=== PATIENT | female | born 1965 | race Caucasian/White ===

== ENCOUNTER → 2017-11-12 16:31 | Outpatient (CLI) | payer OTHER, SELFPAY ==
--- NOTE | 2017-11-12 16:35 | MM_ITS ---
MM Dig screening mamm BI w/CAD CAD Screening COMPARISON: Digital mammograms 08/01/2016 10 07/01/2015 INDICATION: There is no personal or family history of breast cancer. There is been previous cyst aspiration left breast. TECHNIQUE: Standard CC and MLO images were obtained. R2 CAD reviewed. FINDINGS: The breasts are composed primarily of fat with moderate fibroglandular densities in the subareolar regions bilaterally. There is a benign-appearing calcification left breast. Is no suspicious lesion and no suspicious microcalcifications. IMPRESSION: Stable exam no suspicious lesion seen BI-RADS Category: 2 Benign Finding(s) RECOMMENDED FOLLOW-UP: 1YR - 1 YEAR FOLLOW-UP (A letter has been sent to the patient regarding results of the study.)
== END ==
PROVIDERS: Family Provider Internal Medicine Adolescent Medicine; PCP Internal Medicine Adolescent Medicine; Visit Provider Nurse Practitioner Obstetrics & Gynecology
DX: Z12.31 Encounter for screening mammogram for malignant neoplasm of breast (principal)
CPT/HCPCS: 77067

== ENCOUNTER → 2018-02-06 07:14 | Outpatient (CLI) | payer OTHER, SELFPAY ==
--- NOTE | 2018-02-06 07:24 | CT_ITS ---
CT abdomen pelvis wo con CLINICAL INDICATION: Left flank pain ITS.REASON: LT FLANK PAIN ORDERING PHYSICIAN: Sarkis Lam MD PATIENT AGE: 52 years COMPARISON: None TECHNIQUE: Axial images obtained with sagittal and coronal reformats. All CT scans at the facility use one or more dose reduction, viz: automated exposure control; ma/kV adjustment per patient size (including targeted exams where dose is matched to indication; i.e. head); or iterative reconstruction technique. PROCEDURE: Oral Contrast: None IV Contrast: None . FINDINGS: There are bilateral noncalcified nodules present in both lower lobes measuring up to 8 mm in the right lower lobe laterally, 6 mm right lower lobe posteriorly, 7 mm right middle lobe, 5 mm left lower lobe posteriorly and poor millimeters left lower lobe laterally. There are no previous exams available for comparison. There is mild hepatomegaly with the liver measuring up to 23 cm in transverse dimension. The pancreas and adrenal glands are unremarkable. There are small stones present in the gallbladder. No renal calculi or hydronephrosis. No ureteral calculi. There are scattered small nodes present in the mesentery's. Retroperitoneal lymph nodes are also present measuring up to 2.5 x 1.5 cm in the left para-aortic region and 2.7 x 1.6 cm in the aortocaval area. There is thickening of the antrum and body of the stomach. This is nonspecific could be due to nondistention. Unremarkable appendix. No pelvic mass or abnormal fluid collection or focal inflammatory change. No evidence of diverticulitis. No acute bony anomalies. IMPRESSION: 1. Bilateral noncalcified nodules in the lung bases. Metastatic disease is a consideration. Consider chest CT with contrast for further evaluation 2. Retroperitoneal adenopathy with nodes measuring up to 2.7 x 1.6 cm. Small nodes are also present in the mesentery's. 3. Cholelithiasis with hepatomegaly 4. Mild thickening of the body and antrum of the stomach nonspecific possibly related to nondistention. Gastritis could cause a similar appearance
== END ==
PROVIDERS: Family Provider Internal Medicine Adolescent Medicine; PCP Internal Medicine Adolescent Medicine; Visit Provider Internal Medicine Adolescent Medicine
DX: R10.9 Unspecified abdominal pain (principal)
CPT/HCPCS: 74176

== ENCOUNTER → 2018-02-11 09:17 | Outpatient (CLI) | payer OTHER, SELFPAY ==
--- NOTE | 2018-02-11 10:18 | US_ITS ---
US gallbladder HISTORY: Abdominal pain with nausea ITS.REASON: GALLSTONES ORDERING PHYSICIAN: Sarkis Lam MD PATIENT AGE: 52 years Comparison: None FINDINGS: PANCREAS: Unremarkable. No obvious mass or abnormal fluid collection. No ductal dilatation LIVER: No focal liver lesions demonstrated. Homogeneous echogenicity. No intrahepatic biliary ductal dilatation evident. Liver appears somewhat enlarged RIGHT KIDNEY: Unremarkable. Normal size and echogenicity. No hydronephrosis GALLBLADDER: There are gallstones present. No gallbladder wall thickening or pericholecystic fluid. Common bile duct is slightly prominent at 7 mm. No intrahepatic biliary ductal dilatation. IMPRESSION: Cholelithiasis with mild prominence of the common bile duct at 7 mm Hepatomegaly
[2018-02-11 10:21] LABS: Blood Urea Nitrogen 12 mg/dL (7-18); Creatinine,Serum 0.88 mg/dL (0.55-1.02); Estimated Glomerular Filt Rate 68 ml/min (>60); GFR (African American) 82 ML/MIN (>60)
--- NOTE | 2018-02-11 10:37 | CT_ITS ---
CT chest w con HISTORY: ITS.REASON: PULMONARY MASS ORDERING PHYSICIAN: Sarkis Lam MD PATIENT AGE: 52 years COMPARISON: 02/06/2018 TECHNIQUE: Axial images obtained following the administration of 75 mL of Isovue 370 . Sagittal, and coronal reformatted images are also generated and reviewed. All CT scans at the facility use one or more dose reduction, viz: automated exposure control; ma/kV adjustment per patient size (including targeted exams where dose is matched to indication; i.e. head); or iterative reconstruction technique. FINDINGS: There are mildly prominent lymph nodes present in the cara and mediastinum. Subcarinal nodes are present measuring up to 2.5 x 1.5 cm. Left hilar nodes are present measuring up to 1.6 cm and right hilar nodes are present measuring up to 1.3 x 1.2 cm. There are multiple noncalcified pulmonary nodules in both upper and lower lobes suspicious for metastatic disease. The nodules measure up to 8 mm in the right upper and right lower lobe and 9 mm in the left upper lobe and 7 mm in the left lower lobe. No effusions. No infiltrates. No evidence of aortic aneurysm or central pulmonary embolus. No acute bony anomalies. Upper abdomen is remarkable for retroperitoneal adenopathy. There are also several isodense lesions of the spleen. Some of this can be related to the heterogeneous early arterial enhancement of the spleen however, multiple isodense lesions are also felt to be present in addition to this phenomenon. These are not readily identified on the unenhanced exam of the abdomen possibly related to splenic metastasis. These lesions measure up to 1 cm. IMPRESSION: 1. Multiple pulmonary nodules consistent with metastasis. 2. Mild mediastinal and hilar adenopathy. 3. Post enhanced images show multiple splenic lesions which could be related to metastasis as well. Consider ultrasound of the spleen to determine cystic or solid nature.
== END ==
PROVIDERS: Family Provider Internal Medicine Adolescent Medicine; PCP Internal Medicine Adolescent Medicine; Visit Provider Internal Medicine Adolescent Medicine
DX: K80.20 Calculus of gallbladder without cholecystitis without obstruction (principal); R91.8 Other nonspecific abnormal finding of lung field
CPT/HCPCS: 36415; 71260; 76705; 82565; 84520; Q9967

== ENCOUNTER → 2018-02-14 14:57 | Outpatient (CLI) | payer OTHER, SELFPAY ==
[2018-02-14 16:03] LABS: Basophils % 0.7 % (0.1-2.0); Eosinophils # 0.2 K/mm3 (0.0-0.4); Eosinophils % 3.8 % (0.1-12.0); Hematocrit 39.4 % (37.0-47.0); Hemoglobin 12.6 g/dL (12.2-16.2); Lymphocytes # 1.1 K/mm3 (0.7-4.5); Lymphocytes % 19.1 K/mm3 (10-50); Mean Corpuscular HGB Conc 32.1 g/dL (31.8-35.4); Mean Corpuscular Hemoglobin 29.4 pg (27.0-31.2); Mean Corpuscular Volume 91.5 fl (81-99); Mean Platelet Volume 8.1 fl (7.4-10.4); Monocytes # 0.4 K/mm3 (0.1-1.0); Monocytes % 7.2 % (1.7-9.3); Neutrophils # 3.9 K/mm3 (1.8-7.8); Neutrophils % 69.3 % (37.0-80.0); Platelet Count 297 K/mm3 (142-424); Red Cell Distribution Width 14.4 % (11.5-17.5); White Blood Count 5.6 K/mm3 (4.8-10.8)
[2018-02-14 17:26] LABS: Alanine Aminotransferase 32 U/L (12-78); Albumin Level 3.8 gm/dL (3.4-5.0); Albumin/Globulin Ratio 0.7 (1.1-1.8); Alkaline Phosphatase 151 U/L (46-116); Aspartate Amino Transferase 40 U/L (15-37); Bilirubin,Total 0.7 mg/dL (0.2-1.0); Blood Urea Nitrogen 15 mg/dL (7-18); Calcium 9.3 mg/dL (8.5-10.1); Carbon Dioxide 28 mmol/L (21.0-32.0); Chloride 100 mmol/L (98-107); Creatinine,Serum 0.93 mg/dL (0.55-1.02); Estimated Glomerular Filt Rate 64 ml/min (>60); GFR (African American) 77 ML/MIN (>60); Globulin 5.4 gm/dl (1.3-3.2); Glucose 95 mg/dL (74-106); Sodium 137 mmol/L (136-145); Total Protein,Serum 9.2 gm/dL (6.4-8.2)
[2018-02-16 18:04] LABS: CEA 1.2 ng/mL (0.0-4.7)
== END ==
PROVIDERS: Visit Provider Internal Medicine Adolescent Medicine
DX: R91.8 Other nonspecific abnormal finding of lung field (principal); R59.0 Localized enlarged lymph nodes
CPT/HCPCS: 36415; 80053; 82378; 85025; 86480; 88184

== ENCOUNTER → 2018-02-26 14:25 | Outpatient (CLI) | payer OTHER, SELFPAY ==
--- NOTE | 2018-02-26 15:12 | US_ITS ---
US extremity LT limited, US extremity RT limited Ordering Physician: Chiki Trinidad MD Patient Age: 52 years: Female HISTORY: ITS.REASON: Nodules TECHNIQUE: Ultrasound LEFT AXILLA ultrasound THE RIGHT AXILLA COMPARISON :CT chest 02-11-18 ======== ULTRASOUND LEFT AXILLA Scattered nonspecific benign-appearing nodes at left axilla on today's ultrasound. For lymph nodes were imaged The largest measuring to nearly 2 cm in length. The left axillary lymph nodes on recent CT appear to have fatty hilum and benign appearance as well here at the left axilla. No suspicious left axillary lymph nodes by either modality ULTRASOUND RIGHT AXILLA Scattered lymph nodes at right axillary region on today's ultrasound. Cortex may be slightly very thicker here here at the right axillary nodes, but the appear to be nonspecific overall fairly benign in appearance with no suspicious lymph node.. The largest measured 3.1 seem in length. By ultrasound. The left axillary lymph nodes on recent CT appear to have fatty hilum and benign appearance as well here at the left axilla. No significant suspicious right axillary lymph nodes by either modality IMPRESSION: Both right and left axilla were surveyed. Scattered overall benign-appearing lymph nodes in both right and left axilla, with no suspicious appearing axillary naomi masses on today's ultrasound, or when correlated with recent CT.. The right axillary left nodes are slightly larger with slightly thicker cortex but remain nonspecific/most likely benign in character
--- NOTE | 2018-02-26 15:12 | US_ITS ---
US soft tissue head and neck Ordering Physician: Chiki Trinidad MD Patient Age: 52 years: Female HISTORY: ITS.REASON: Noduleslymphadenopathy neck and chest. Abnormal pulmonary nodules. Suspect underlying neoplasm TECHNIQUE: Ultrasound neck lymph nodes COMPARISON :No CT neck available which would be the primary modality to evaluate for neck adenopathy There is a CT chest from February 11, 2018 utilized for comparison FINDINGS : Right neck . Right Submandibular glands initially imaged is reference point. Right submandibular gland measuring 3.8 cm in length and has a more hyperechoic character than subsequent abnormal appearing lymph nodes discussed below There are series somewhat abnormal appearing lymph node at the right neck.. They have lost a well-defined fatty hilum and the the cortex appears thickened measuring over 4 mm. One of the larger nodes measuring 2.45 cm in length 9.5 mm AP. On subsequent to this 2 adjacent nodes homogeneous hypoechoic lymph nodes lacking hilum are seen. The largest measures 1.25 cm and the other nearly 1 cm length.. Continuing inferiorly towards the right sternoclavicular region there are 2 small lymph nodes as well. Left neck. Left submandibular gland initially imaged is reference point3.8 cm maximum length x 1.2 cm . Inferior to this wrist series of similar abnormal appearing lymph nodes in the neck. The lack normal fatty hilum and appear to have thickened cortex. One of the larger node superiorly measuring 1.6 cm x 1 cm. Adjacent to this is a 1.25 cm x 0.95 cm diffusely hyperechoic lymph node. A 1.4 x 1.1 cm abnormal appearing diffusely hypoechoic node is seen just below this Recommend CT to further evaluate these abnormal appearing lymph nodes. some of the larger nodes could be accessed for ultrasound-guided FNA aspiration if need be for diagnosis. IMPRESSION Mildly enlarged abnormal-appearing, diffusely hypoechoic lymph nodes are seen in both right & left neck. These lymph nodes lack normal fatty hilum,-with what appears to be cortical thickening and lack of medullary fat. This pattern Suspect for neoplastic involvement. Recommend CT of neck with contrast to further evaluate
== END ==
PROVIDERS: Family Provider Internal Medicine Adolescent Medicine; PCP Internal Medicine Adolescent Medicine; Visit Provider Surgery
DX: R59.0 Localized enlarged lymph nodes (principal); R91.8 Other nonspecific abnormal finding of lung field
CPT/HCPCS: 76536; 76882

== ENCOUNTER → 2018-03-11 08:08 | Outpatient (CLI) | payer OTHER, SELFPAY ==
[2018-03-11 08:52] LABS: Blood Urea Nitrogen 10 mg/dL (7-18); Creatinine,Serum 0.99 mg/dL (0.55-1.02); Estimated Glomerular Filt Rate 59 ml/min (>60); GFR (African American) 72 ML/MIN (>60)
--- NOTE | 2018-03-11 09:05 | CT_ITS ---
CT soft tissue neck w con CLINICAL INDICATION: ITS.REASON: RT SIDE LYMPHNODE, LYMPHADENOPATHY ORDERING PHYSICIAN: Usha Ojeda MD PATIENT AGE: 52 years COMPARISON: None TECHNIQUE:Axial images obtained following the intravenous ministration of 75 mL's of Isovue-370 with sagittal and coronal reformats. All CT scans at the facility use one or more dose reduction, viz: automated exposure control, ma/kV adjustment per patient size (including targeted exams where dose is matched to indication, i.e. head), or iterative reconstruction technique. FINDINGS: There is slight prominence of the left nasopharyngeal soft tissues at the fossa of Rosenmuller. This is of questionable clinical significance. Direct visualization suggested.. There are scattered small lymph nodes involving both sides of the neck.. The largest node on the right is 2 x 1 cm and is anterior to the internal jugular vein and medial to the sternocleidomastoid indicating a level 2 lymph node. This is superior to the hyoid bone. There are other scattered small lymph nodes present including a left submental node at 12 x 8 mm and a level 2 lymph node on the left at 2 x 0.8 cm. The larynx has an unremarkable appearance. The epiglottis, glottic region and subglottic area are unremarkable. Thyroid gland has an unremarkable appearance. Images of the lung apices show a 6 mm noncalcified nodule in the left upper lobe posteriorly. No bony destructive process evident. IMPRESSION: 1. Mild bilateral cervical adenopathy. The largest node on the right was targeted for biopsy with ultrasound. 2. Prominence of the left nasopharyngeal mucosa at the fossa of Rosenmuller. This is of questioned clinical significance and could be inflammatory or infectious. Neoplasm is not totally excluded. Direct visualization is suggested.
--- NOTE | 2018-03-11 09:07 | US_ITS ---
FNA w guidance, US soft tissue head and neck HISTORY: Neck lymphadenopathy with multiple pulmonary nodules ITS.REASON: RT LYMPHADENOPATHY ORDERING PHYSICIAN: Usha Ojeda MD PATIENT AGE: 52 years COMPARISON: None Soft tissue neck ultrasound: 3 biopsy ultrasound performed to determine the approach for the biopsy straightening a 2 x 1 cm right-sided internal jugular lymph node. TECHNIQUE: Following obtaining informed consent, using aseptic technique and local anesthesia with buffered lidocaine, fine-needle aspiration was performed of the lymph node of interest in the right neck using sonographic guidance. 5 passes were made into the nodule with a 21-gauge needle. Specimen was given to cytology. 3 specimens were used for cytology and 2 were put in the RPMI solution The patient tolerated the procedure well without evidence of immediate complications and left the ultrasound suite in stable condition. CYTOLOGY:Negative for malignancy, compatible with a benign lymph node IMPRESSION: Successful sonographic guided fine needle aspiration of right neck lymph node showing benign findings
== END ==
PROVIDERS: Family Provider Internal Medicine Adolescent Medicine; PCP Internal Medicine Adolescent Medicine; Visit Provider Internal Medicine Medical Oncology
DX: R59.0 Localized enlarged lymph nodes (principal)
CPT/HCPCS: 76942; 10022; 36415; 70491; 76536; 82565; 84520; Q9967

== ENCOUNTER 2018-04-11 09:48 | Inpatient (IN) ==
[2018-04-11 11:09] LABS: Basophils % 0.6 % (0.1-2.0); Eosinophils # 0.2 K/mm3 (0.0-0.4); Eosinophils % 2.7 % (0.1-12.0); Hemoglobin 12.6 g/dL (12.2-16.2); Lymphocytes # 0.7 K/mm3 (0.7-4.5); Lymphocytes % 12.7 K/mm3 (10-50); Mean Corpuscular HGB Conc 32.4 g/dL (31.8-35.4); Mean Corpuscular Hemoglobin 30.2 pg (27.0-31.2); Mean Corpuscular Volume 93.1 fl (81-99); Mean Platelet Volume 8.1 fl (7.4-10.4); Monocytes # 0.4 K/mm3 (0.1-1.0); Monocytes % 6.8 % (1.7-9.3); Neutrophils # 4.5 K/mm3 (1.8-7.8); Neutrophils % 77.2 % (37.0-80.0); Platelet Count 267 K/mm3 (142-424); Red Blood Count 4.19 M/mm3 (4.20-5.40); Red Cell Distribution Width 14.7 % (11.5-17.5); White Blood Count 5.8 K/mm3 (4.8-10.8)
[2018-04-11 12:32] LABS: Alanine Aminotransferase 39 U/L (12-78); Albumin Level 3.8 gm/dL (3.4-5.0); Albumin/Globulin Ratio 0.7 (1.1-1.8); Alkaline Phosphatase 145 U/L (46-116); Anion Gap 12.5 mEq/L (5-15); Bilirubin,Total 0.9 mg/dL (0.2-1.0); Blood Urea Nitrogen 8 mg/dL (7-18); Calcium 9.6 mg/dL (8.5-10.1); Carbon Dioxide 31 mmol/L (21.0-32.0); Chloride 102 mmol/L (98-107); Globulin 5.2 gm/dl (1.3-3.2); Glucose 133 mg/dL (74-106); Lipase 152 u/L (73-393); Sodium 141 mmol/L (136-145)
[2018-04-11 12:37] LABS: Potassium 4.5 mmoL/L (3.5-5.1)
[2018-04-11 12:39] LABS: Aspartate Amino Transferase 44 U/L (15-37)
--- NOTE | 2018-04-11 19:18 | History & Physical Report ---
*Admission Date: 04/11/18 *Chief complaint: Abdominal pain *History of present illness: Aylin is a 52-year-old female with recent findings of diffuse lymphadenopathy, bone lesions, routine gap with so far negative workup for malignancy. She presented to clinic earlier today with complaint of 2 days of abdominal pain. Pain reportedly began in her left abdomen with progression to right upper quadrant and right lower quadrant. She additionally complains of shortness of breath with inability to take deep breaths. Part of this is due to the pain in her belly, part because she feels short of breath. For the past 2 months she has been taking Nexium and Zantac 2 times a day with mild decrease in original epigastric pain. Additionally complains of some mild nausea and hip pain. Denies any emesis, diarrhea, blood in stools, syncope, numbness or tingling, leg pain or swelling. Further interview elicits that she has had a new onset dry cough for the past 3 days. No known sick contacts. Appears quite anxious and depressed on exam. Admitted as a direct admit from clinic after initial workup including CMP, CBC, lipase returned with normal findings of both kidney and liver function, no signs of pancreatitis, positive protein gap. Additionally had an outpatient ultrasound with findings of gallstones and sludge but no biliary dilatation, or pericholecystic fluid. Appendix was not seen due to bowel gas. She has not eaten since yesterday, last bowel movement yesterday. [facility] History Medical History: Reports:: Anxiety, Cancer, Diabetes Mellitus Type 2, Heart Murmur, Hypertension, Lung Disease, Migraine, Seizures Denies:: Diabetes Mellitus Type 1, Internal Pacemaker, MRSA Other Medical History: Denies: Blood Transfusion Reaction Laterality Cases: Bilateral: Myringotomy (Ear Tubes), Tonsillectomy Other Surgeries: Yes: Cardiac Catheterization, , Tubal Ligation. No: Pacemaker Amputation: No Fractures: No - *Social History Educational Level: Completed High School Smoking Status: Never smoker Alcohol Intake: never Substance Use Type: denies use Occupational Status: employed Housing: house Household Members: spouse - Psychiatric History Expresses thoughts of harming self/others: None Suicide Plan Description: No Plan Pschychiatric History:: Reports:: Anxiety *Family Hx:: Coronary Artery Disease, Hypertension, Diabetes Review of Systems - Review of Systems Review of systems:: pertinent systems reviewed and negative unless documented below Meds Home Medications Medication Instructions Recorded Confirmed Type acetaminophen ER 650 mg 650 mg PO ONCE 10/22/17 04/11/18 History tablet,extended release aspirin 81 mg tablet,delayed 81 mg PO ONCE 10/22/17 04/11/18 History release escitalopram 10 mg tablet 10 mg PO ONCE 10/22/17 04/11/18 History hydrochlorothiazide 25 mg tablet 12.5 mg PO QAM 10/22/17 04/11/18 History meloxicam 15 mg tablet 15 mg PO ONCE 10/22/17 04/11/18 History sitagliptin 50 mg-metformin ER 500 1 tab PO QPM 10/22/17 04/11/18 History mg tablet,extended release 24h mp Esomeprazole Magnesium 20 mg PO BID 04/11/18 04/11/18 History raNITIdine HCl [Ranitidine HCl] 150 mg PO BID 04/11/18 04/11/18 History Allergies Allergy/AdvReac Type Severity Reaction Status Date / Time Penicillins Allergy Severe Seizure Verified 04/02/18 13:59 Latex, Natural Rubber Allergy Intermediate Hives Verified 04/02/18 13:59 Sulfa (Sulfonamide Allergy Intermediate Seizure Verified 04/02/18 13:59 Antibiotics) Exam Vital signs and Labs for Last 24 Hours: Temp Pulse Resp BP Pulse Ox 98.7 F 107 H 20 126/79 92 L 04/11/18 16:00 04/11/18 16:00 04/11/18 16:00 04/11/18 16:00 04/11/18 16:00 Laboratory Results - last 24 hr 04/11/18 10:36: Sodium 141, Potassium 4.5, Chloride 102, Carbon Dioxide 31, Anion Gap 12.5, BUN 8, Creatinine 0.88, Estimated GFR 68, Est GFR ( Amer) 82, Glucose 133 H, Calcium 9.6, Total Bilirubin 0.9, AST 44 H, ALT 39, Alkaline Phosphatase 145 H, Total Protein 9.0 H, Albumin 3.8, Globulin 5.2 H, Albumin/Globulin Ratio 0.7 L, Lipase 152 04/11/18 10:36: WBC 5.8, RBC 4.19 L, Hgb 12.6, Hct 39.0, MCV 93.1, MCH 30.2, MCHC 32.4, RDW 14.7, Plt Count 267, MPV 8.1, Neut % (Auto) 77.2, Lymph % (Auto) 12.7, Harney % (Auto) 6.8, Eos % (Auto) 2.7, Baso % (Auto) 0.6, Neut # (Auto) 4.5, Lymph # (Auto) 0.7, Harney # (Auto) 0.4, Eos # (Auto) 0.2, Baso # (Auto) 0.0 04/11/18 10:37: D-Dimer 1550 H* I & O for Last 24 hours: Intake & Output 04/08/18 04/09/18 04/10/18 04/11/18 23:59 23:59 23:59 23:59 Weight 81.675 kg - *Routine HEENT Exam Head: Present: normocephalic, atraumatic Eye: Present: EOMI, PERRL ENT: Present: mucous membranes moist - *Routine Neck Exam Present: supple, full ROM. Absent: JVD, lymphadenopathy, thyromegaly - *Routine Respiratory Exam Present: CTA bilaterally. Absent: prolonged expiratory phase, rales Comments: tachypneic with short/shallow breaths - *Routine Cardiovascular Exam Present: RRR, Normal S1, Normal S2. Absent: murmur - *Routine Abdominal Exam Present: soft, normoactive bowel sounds, tenderness (Diffuse tenderness most prominent in right upper and right lower quadrant, patient was comfortable and position.). Absent: rebound - *Routine Rectal Exam Patient deferred: visual exam - *Routine Exam Patient deferred: external exam - *Routine Extremities Exam Absent: cyanosis, clubbing, edema - *Routine Skin Exam Present: intact. Absent: cyanosis, erythema - *Routine Neurological Exam Present: alert, oriented X3, CN II-XII intact. Absent: altered mental status - Routine Psychiatric Exam Present: cooperative, anxious Comments: Tearful Assessment and Plan (1) Abdominal pain Current visit: Yes Status: Acute Category: Medical Code(s): R10.9 - Unspecified abdominal pain IV morphine for pain CT abdomen pelvis performed with no overt findings per my read however formal read still pending. Zofran for nausea IV bolus normal saline and transition to IV lactated Ringer's at 100 cc/h thereafter as patient has poor p.o. intake Reassess abdomen in the morning (2) Shortness of breath Current visit: Yes Status: Acute Category: Medical Code(s): R06.02 - Shortness of breath Patient has 2 days of shortness of breath, dry cough, tachypnea. D-dimer elevated greater than 1500. CT angiography ordered. Due to undiagnosed lymphadenopathy and concerning findings over the past 2 months for neoplastic process, will go ahead and therapeutically anticoagulate patient with heparin drip. (3) Type 2 diabetes mellitus Current visit: Yes Status: Chronic Qualifiers: Diabetes mellitus snf insulin use: without snf use Diabetes mellitus complication status: without complication Qualified Code(s): E11.9 - Type 2 diabetes mellitus without complications Category: Medical Code(s): E11.9 - Type 2 diabetes mellitus without complications Sliding scale insulin ordered, hold home medications Diabetic diet (4) Hypertension Current visit: Yes Status: Chronic Qualifiers: Hypertension type: essential hypertension Qualified Code(s): I10 - Essential (primary) hypertension Category: Medical Code(s): I10 - Essential (primary) hypertension Continue home HCTZ
[2018-04-12 04:22] LABS: Basophils % 0.8 % (0.1-2.0); Eosinophils # 0.2 K/mm3 (0.0-0.4); Hematocrit 35.6 % (37.0-47.0); Hemoglobin 11.4 g/dL (12.2-16.2); Lymphocytes % 19.6 K/mm3 (10-50); Mean Corpuscular HGB Conc 31.9 g/dL (31.8-35.4); Mean Corpuscular Hemoglobin 29.8 pg (27.0-31.2); Mean Corpuscular Volume 93.3 fl (81-99); Mean Platelet Volume 7.9 fl (7.4-10.4); Monocytes # 0.4 K/mm3 (0.1-1.0); Neutrophils # 3.5 K/mm3 (1.8-7.8); Neutrophils % 67.5 % (37.0-80.0); Platelet Count 225 K/mm3 (142-424); Red Blood Count 3.81 M/mm3 (4.20-5.40); Red Cell Distribution Width 14.8 % (11.5-17.5); White Blood Count 5.2 K/mm3 (4.8-10.8)
[2018-04-12 04:29] LABS: Albumin Level 3.1 gm/dL (3.4-5.0); Albumin/Globulin Ratio 0.6 (1.1-1.8); Anion Gap 8.8 mEq/L (5-15); Bilirubin,Total 0.7 mg/dL (0.2-1.0); Calcium 8.8 mg/dL (8.5-10.1); Potassium 3.8 mmoL/L (3.5-5.1); Total Protein,Serum 8.1 gm/dL (6.4-8.2)
--- NOTE | 2018-04-12 07:27 | Pharmacy Consult Notes ---
[facility] Pharmacy VTE Monitoring - Patient Demographics Admission date: 04/11/18 Report Date: 04/12/18 Time: 07:27 Allergies/Adverse Reactions: Patient Allergies Penicillins Allergy (Severe, Verified 04/02/18 13:59) Seizure Latex, Natural Rubber Allergy (Intermediate, Verified 04/02/18 13:59) Hives Sulfa (Sulfonamide Antibiotics) Allergy (Intermediate, Verified 04/02/18 13:59) Seizure Height: 1.65 m Weight: 81.675 kg Patient Problems: Current Active Problems Abdominal pain (Acute) Shortness of breath (Acute) Type 2 diabetes mellitus (Chronic) Hypertension (Chronic) - VTE Risk Labs: VTE Related Lab Results Hgb 11.4 g/dL (12.2-16.2) L 04/12/18 04:07 Hct 35.6 % (37.0-47.0) L 04/12/18 04:07 Plt Count 225 K/mm3 (142-424) 04/12/18 04:07 APTT 74.1 seconds (23.6-34.0) H* D 04/12/18 04:07 BUN 7 mg/dL (7-18) 04/12/18 04:07 Creatinine 0.97 mg/dL (0.55-1.02) 04/12/18 04:07 Estimated Creat Clear 89 mL/min (0-300) 04/12/18 04:07 Was VTE Risk Assessment Performed: Yes VTE Score: 1 VTE Risk Level: Very Low Risk Clinical Trial Participant: No - Prophylaxis VTE Prophylaxis Ordered?: Yes Types of VTE Prophylaxis: TEDS Knee High Location of Applied Device: Bilateral Lower Extremeties
--- NOTE | 2018-04-12 09:51 | Progress Note ---
Internal Medicine - PN: Subj *Date: 04/12/18 *Time: 07:30 Interval history: INterval improvement in abdominal pain with IV morphine overnight. CTA with no signs of PE. Still not eating or drinking yet. Dyspnea improved with pain control. Denies Productive cough, hemoptysis, diarrhea, nausea, fevers. Exam Vital signs and Labs for Last 24 Hours: Temp Pulse Resp BP Pulse Ox 98.2 F 87 16 102/50 90 L 04/12/18 08:00 04/12/18 08:00 04/12/18 08:00 04/12/18 08:00 04/12/18 08:00 Laboratory Results - last 24 hr 04/11/18 10:36: Sodium 141, Potassium 4.5, Chloride 102, Carbon Dioxide 31, Anion Gap 12.5, BUN 8, Creatinine 0.88, Estimated GFR 68, Est GFR ( Amer) 82, Glucose 133 H, Calcium 9.6, Total Bilirubin 0.9, AST 44 H, ALT 39, Alkaline Phosphatase 145 H, Total Protein 9.0 H, Albumin 3.8, Globulin 5.2 H, Albumin/Globulin Ratio 0.7 L, Lipase 152 04/11/18 10:36: WBC 5.8, RBC 4.19 L, Hgb 12.6, Hct 39.0, MCV 93.1, MCH 30.2, MCHC 32.4, RDW 14.7, Plt Count 267, MPV 8.1, Neut % (Auto) 77.2, Lymph % (Auto) 12.7, [place] % (Auto) 6.8, Eos % (Auto) 2.7, Baso % (Auto) 0.6, Neut # (Auto) 4.5, Lymph # (Auto) 0.7, [place] # (Auto) 0.4, Eos # (Auto) 0.2, Baso # (Auto) 0.0 04/11/18 10:37: D-Dimer 1550 H* 04/11/18 20:03: POC Glucose 101 04/11/18 21:46: APTT 275.0 H* 04/12/18 04:07: WBC 5.2, RBC 3.81 L, Hgb 11.4 L, Hct 35.6 L, MCV 93.3, MCH 29.8, MCHC 31.9, RDW 14.8, Plt Count 225, MPV 7.9, Neut % (Auto) 67.5, Lymph % (Auto) 19.6, [place] % (Auto) 8.0, Eos % (Auto) 4.0, Baso % (Auto) 0.8, Neut # (Auto) 3.5, Lymph # (Auto) 1.0, [place] # (Auto) 0.4, Eos # (Auto) 0.2, Baso # (Auto) 0.0 04/12/18 04:07: Sodium 137, Potassium 3.8, Chloride 103, Carbon Dioxide 29, Anion Gap 8.8, BUN 7, Creatinine 0.97, Estimated Creat Clear 89, Estimated GFR 61, Est GFR ( Amer) 74, Glucose 125 H, Calcium 8.8, Total Bilirubin 0.7, AST 30 D, ALT 31, Alkaline Phosphatase 128 H, Total Protein 8.1, Albumin 3.1 L D, Globulin 5.0 H, Albumin/Globulin Ratio 0.6 L 04/12/18 04:07: APTT 74.1 H* D 04/12/18 06:46: POC Glucose 141 H I & O for Last 24 hours: Intake & Output 04/09/18 04/10/18 04/11/18 04/12/18 23:59 23:59 23:59 23:59 Intake Total 2916 / 2916 Balance 2916 / 2916 Weight 81.675 kg 81.675 kg - *Routine HEENT Exam Head: Present: normocephalic, atraumatic Eye: Present: EOMI, PERRL ENT: Present: mucous membranes moist - *Routine Neck Exam Present: supple, full ROM. Absent: JVD, lymphadenopathy - *Routine Respiratory Exam Present: CTA bilaterally. Absent: accessory muscle use, prolonged expiratory phase, rales, wheezes - *Routine Cardiovascular Exam Present: RRR, Normal S1, Normal S2. Absent: murmur - *Routine Abdominal Exam Present: soft, normoactive bowel sounds, tenderness (On right side, non tender on left. No rebound) - *Routine Rectal Exam Patient deferred: visual exam - *Routine Exam Patient deferred: external exam - *Routine Extremities Exam Absent: cyanosis, clubbing, edema - *Routine Skin Exam Present: intact. Absent: cyanosis, erythema - *Routine Neurological Exam Present: alert, oriented X3, CN II-XII intact. Absent: altered mental status Assessment and Plan (1) Abdominal pain Current visit: Yes Status: Acute Category: Medical Code(s): R10.9 - Unspecified abdominal pain interval improvement. - Advance diet - no concern for intraabdominal pathology, pancreatitis, acute gall bladder disease, renal disease. - Initiate bowel regimen - transition to PO meds (2) Shortness of breath Current visit: Yes Status: Acute Category: Medical Code(s): R06.02 - Shortness of breath improved - Supplemental O2 as needed, goal >92 while awake and>88 while asleep - No PE on CTA. - de-escalate heparin, prophy dosing (3) Type 2 diabetes mellitus Current visit: Yes Status: Chronic Qualifiers: Diabetes mellitus care home insulin use: without care home use Diabetes mellitus complication status: without complication Qualified Code(s): E11.9 - Type 2 diabetes mellitus without complications Category: Medical Code(s): E11.9 - Type 2 diabetes mellitus without complications diabetic diet, SSI (4) Hypertension Current visit: Yes Status: Chronic Qualifiers: Hypertension type: essential hypertension Qualified Code(s): I10 - Essential (primary) hypertension Category: Medical Code(s): I10 - Essential (primary) hypertension stable, continue home regimen
--- NOTE | 2018-04-13 13:33 | Discharge Summary ---
General - General Admission date:: 04/11/18 Discharge date: 04/13/18 HPI HPI: Aylin is a 52-year-old female with recent findings of diffuse lymphadenopathy, bone lesions, routine gap with so far negative workup for malignancy. She presented to clinic earlier today with complaint of 2 days of abdominal pain. Pain reportedly began in her left abdomen with progression to right upper quadrant and right lower quadrant. She additionally complains of shortness of breath with inability to take deep breaths. Part of this is due to the pain in her belly, part because she feels short of breath. For the past 2 months she has been taking Nexium and Zantac 2 times a day with mild decrease in original epigastric pain. Additionally complains of some mild nausea and hip pain. Denies any emesis, diarrhea, blood in stools, syncope, numbness or tingling, leg pain or swelling. Further interview elicits that she has had a new onset dry cough for the past 3 days. No known sick contacts. Appears quite anxious and depressed on exam. Admitted as a direct admit from clinic after initial workup including CMP, CBC, lipase returned with normal findings of both kidney and liver function, no signs of pancreatitis, positive protein gap. Additionally had an outpatient ultrasound with findings of gallstones and sludge but no biliary dilatation, or pericholecystic fluid. Appendix was not seen due to bowel gas. She has not eaten since yesterday, last bowel movement yesterday. Hospital Course Hospital Course: Patient admitted directly from clinic after outpatient workup with lab work and ultrasound showed no acute explanation for abdominal pain. Due to intractable pain admitted for IV fluids and pain management. Patient responded to IV hydration, medication for nausea, and pain control. Etiology unclear after admission leading to CT abdomen pelvis which still showed no acute abdominal pathology. D-dimer found to be elevated during admission along with shortness of breath, leading to CT angiography of chest, negative for PE. Transition to room air with improvement in symptoms over 2 days. Gradually able to tolerate oral intake with increase in p.o. intake. Patient returned to baseline with no clear etiology for abdominal pain other than possible relation to diffuse lymphadenopathy from unknown neoplastic or sarcoid process. Medically stable for discharge, tolerating oral medications and p.o. intake. Hemodynamically stable without fever. Objective Vital signs: Temp Pulse Resp BP Pulse Ox 97.8 F 89 16 130/77 96 04/13/18 08:00 04/13/18 08:00 04/13/18 08:00 04/13/18 08:00 04/13/18 08:00 - *Routine HEENT Exam Head: Present: normocephalic, atraumatic Eye: Present: EOMI, PERRL ENT: Present: mucous membranes moist - *Routine Neck Exam Present: supple, full ROM. Absent: JVD - *Routine Respiratory Exam Present: CTA bilaterally. Absent: accessory muscle use, prolonged expiratory phase, rales, wheezes - *Routine Cardiovascular Exam Present: RRR, Normal S1, Normal S2. Absent: murmur - *Routine Abdominal Exam Present: soft, normoactive bowel sounds, tenderness (Use with interval improvement) - *Routine Rectal Exam Patient deferred: visual exam - *Routine Exam Patient deferred: external exam - *Routine Extremities Exam Absent: cyanosis, clubbing, edema - *Routine Skin Exam Present: intact. Absent: cyanosis, erythema, lesions - *Routine Neurological Exam Present: alert, oriented X3, CN II-XII intact. Absent: altered mental status DS: Diagnosis - Discharge Diagnosis (1) Abdominal pain Status: Acute Problem details: Improved, continue pain control and outpatient setting (2) Shortness of breath Status: Resolved Problem details: Resolved, stable on room air with no tachypnea (3) Type 2 diabetes mellitus Status: Chronic Problem details: Resume home regimen (4) Hypertension Status: Chronic Problem details: Resume home regimen Discharge Plan - Patient Discharge Instructions ACTIVITY: Continue current activity, Ambulate as tolerated Patient Instructions: DI for Abdominal Pain-Adult, DI for Diabetes Type 2, DI for Shortness of Breath - Follow up Plan Follow up with: King Pearce MD [Primary Care Provider] - 2 weeks Disposition: Home, Self-Retirement Medications: Home Medications Medication Instructions Recorded Confirmed Type escitalopram 10 mg tablet 10 mg PO ONCE 10/22/17 04/11/18 History hydrochlorothiazide 25 mg tablet 12.5 mg PO QAM 10/22/17 04/11/18 History sitagliptin 50 mg-metformin ER 500 1 tab PO QPM 10/22/17 04/11/18 History mg tablet,extended release 24h mp Esomeprazole Magnesium 20 mg PO BID 04/11/18 04/11/18 History raNITIdine HCl [Ranitidine HCl] 150 mg PO BID 04/11/18 04/11/18 History Prescriptions/Medication Reconciliation: New Acetaminophen [Acetaminophen 325mg tab] 650 mg PO Q4HP PRN tablet PRN Reason: Mild To Moderate Pain Ondansetron [Zofran 4mg ODT] 4 mg PO Q6HP PRN 4 Days #12 tab.rapdis PRN Reason: Nausea Oxycodone HCl [Oxycodone (IR) 5mg Cap] 5 mg PO Q6HP PRN 3 Days #12 cap PRN 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
== END 2018-04-13 14:57 | disposition home or self-care (01) ==
LOC: 2ND 09:48 → RAD 09:48 → OBSVTOIN 15:53
PROVIDERS: ADMIT Internal Medicine Adolescent Medicine; ATTEND Internal Medicine Adolescent Medicine

== ENCOUNTER → 2018-05-28 15:33 | Outpatient (CLI) | payer OTHER, SELFPAY ==
[2018-05-28 15:51] LABS: Basophils % 0.6 % (0.1-2.0); Eosinophils # 0.1 K/mm3 (0.0-0.4); Hematocrit 36.7 % (37.0-47.0); Hemoglobin 11.8 g/dL (12.2-16.2); Mean Corpuscular Volume 93.6 fl (81-99); Mean Platelet Volume 8.4 fl (7.4-10.4); Monocytes # 0.5 K/mm3 (0.1-1.0); Monocytes % 10.2 % (1.7-9.3); Neutrophils # 3.6 K/mm3 (1.8-7.8); Neutrophils % 68.1 % (37.0-80.0); Platelet Count 235 K/mm3 (142-424); Red Blood Count 3.92 M/mm3 (4.20-5.40); Red Cell Distribution Width 14.9 % (11.5-17.5); White Blood Count 5.3 K/mm3 (4.8-10.8)
[2018-05-28 20:01] LABS: Alanine Aminotransferase 36 U/L (12-78); Albumin Level 3.6 gm/dL (3.4-5.0); Albumin/Globulin Ratio 0.8 (1.1-1.8); Alkaline Phosphatase 169 U/L (46-116); Anion Gap 11.2 mEq/L (5-15); Aspartate Amino Transferase 35 U/L (15-37); Bilirubin,Total 0.7 mg/dL (0.2-1.0); Blood Urea Nitrogen 12 mg/dL (7-18); Calcium 9.1 mg/dL (8.5-10.1); Carbon Dioxide 30 mmol/L (21.0-32.0); Chloride 102 mmol/L (98-107); Creatinine,Serum 0.87 mg/dL (0.55-1.02); Estimated Glomerular Filt Rate 69 ml/min (>60); GFR (African American) 83 ML/MIN (>60); Globulin 4.7 gm/dl (1.3-3.2); Glucose 83 mg/dL (74-106); Potassium 4.2 mmoL/L (3.5-5.1); Sodium 139 mmol/L (136-145); Total Protein,Serum 8.3 gm/dL (6.4-8.2)
== END ==
PROVIDERS: Family Provider Internal Medicine Adolescent Medicine; PCP Internal Medicine Adolescent Medicine; Visit Provider Surgery
DX: K81.1 Chronic cholecystitis (principal)
CPT/HCPCS: 36415; 80053; 85025

== ENCOUNTER 2020-09-03 08:38 | Outpatient (CLI) | payer OTHER, SELFPAY ==
[2020-09-03] VITALS (10 sets, daily range): BP systolic 98–133; BP diastolic 55–78; PULSE 73–88; RESP 16–20; TEMP 36.9–37.1; O2SAT 92–95
== END 2020-09-03 11:37 | disposition home or self-care (01) ==
PROVIDERS: PCP Internal Medicine Adolescent Medicine; Visit Provider Internal Medicine Adolescent Medicine
DX: U07.1 COVID-19 (principal)
CPT/HCPCS: 96365

== ENCOUNTER → 2022-07-11 12:35 | Outpatient (CLI) | payer OTHER, SELFPAY ==
--- NOTE | 2022-07-11 12:39 | MM_ITS ---
PROCEDURE INFORMATION: Exam: MG Bilateral Screening 3D Mammography Exam date and time: 07/11/2022 12:56 PM Age: 56 years old Clinical indication: Screening examination; Additional info: Routine screening mammogram TECHNIQUE: Imaging protocol: Bilateral Screening tomosynthesis and 2D mammography including computer-aided detection (CAD) when performed. COMPARISON: 1. MG SCBI MM Dig screening mamm BI w/CAD 09/16/2017 16:41 2. MG DMSB DIG MAMM-SCREEN CHRISTIAN 01/08/2016 15:08 3. MG DMSB DIG MAMM-SCREEN CHRISTIAN 01/07/2015 16:47 4. MG DIGMAMMS MAMMOGRAM SCREEN-CHIEF MEDIA OFFICER N/C 10/07/2012 09:51 FINDINGS: MAMMOGRAPHY: Breast composition: The breast is heterogeneously dense, which may obscure small masses. Mass: None. Architectural distortion: No new or suspicious architectural distortion. Calcifications: No new or suspicious calcifications are present Asymmetric density: No new or suspicious asymmetric density is present Skin thickening: None. Axillary adenopathy: None. IMPRESSION: No mammographic evidence of malignancy. Recommend annual screening mammography unless otherwise clinically indicated. ASSESSMENT: BI-RADS category 1: Negative
== END ==
PROVIDERS: PCP Internal Medicine Adolescent Medicine; Visit Provider Nurse Practitioner Obstetrics & Gynecology
DX: Z12.31 Encounter for screening mammogram for malignant neoplasm of breast (principal)
CPT/HCPCS: 77063; 77067

== ENCOUNTER 2023-04-10 09:10 | Outpatient (CLI) | payer OTHER, SELFPAY ==
[2023-04-10] VITALS (7 sets, daily range): BP systolic 100–119; BP diastolic 45–64; PULSE 68–73; RESP 18; TEMP 36.9; O2SAT 97
== END 2023-04-10 12:45 | disposition home or self-care (01) ==
PROVIDERS: PCP Internal Medicine Adolescent Medicine; Visit Provider Internal Medicine
DX: D86.9 Sarcoidosis, unspecified (principal)
CPT/HCPCS: 96413; 96415; J1745

== ENCOUNTER → 2023-04-23 07:48 | Outpatient (CLI) | payer OTHER, SELFPAY ==
[2023-04-23 08:20] LABS: Basophils % 0.5 % (0.1-2.0); Eosinophils # 0.2 K/mm3 (0.0-0.4); Eosinophils % 3.9 % (0.1-12.0); Hematocrit 31.2 % (37.0-47.0); Hemoglobin 9.6 g/dL (12.2-16.2); Lymphocytes # 1.6 K/mm3 (0.7-4.5); Lymphocytes % 35.8 % (10-50); Mean Corpuscular HGB Conc 30.8 g/dL (31.8-35.4); Mean Corpuscular Hemoglobin 29.1 pg (27.0-31.2); Mean Corpuscular Volume 94.4 fl (81-99); Mean Platelet Volume 8.7 fl (7.4-10.4); Monocytes # 0.4 K/mm3 (0.1-1.0); Monocytes % 9.3 % (1.7-9.3); Neutrophils # 2.3 K/mm3 (1.8-7.8); Neutrophils % 50.6 % (37.0-80.0); Platelet Count 185 K/mm3 (142-424); Red Cell Distribution Width 17.7 % (11.5-17.5); White Blood Count 4.6 K/mm3 (4.8-10.8)
[2023-04-23 09:17] LABS: Alanine Aminotransferase 25 U/L (12-78); Albumin Level 4.3 g/dl (3.5-5.0); Albumin/Globulin Ratio 0.8 (1.1-1.8); Alkaline Phosphatase 134 U/L (38-126); Anion Gap 13.9 mEq/L (5-15); Aspartate Amino Transferase 41 U/L (14-36); Bilirubin,Total 1.5 mg/dl (0.2-1.3); Blood Urea Nitrogen 12 mg/dl (7-17); Calcium 9.6 mg/dl (8.4-10.2); Carbon Dioxide 26 mmol/L (22.0-30.0); Chloride 103 mmol/L (98-107); Estimated Glomerular Filt Rate 74 ml/min (>60); GFR (African American) 90 ML/MIN (>60); Globulin 5.2 g/dL (1.3-3.2); Glucose 132 mg/dl (74-100); Potassium 3.9 mmoL/L (3.5-5.1); Sodium 139 mmol/L (136-145); Total Protein,Serum 9.5 g/dl (6.3-8.2)
[2023-04-23 09:30] LABS: Iron 107 ug/dL (37-170)
[2023-04-23 09:40] LABS: Total Iron Binding Capacity 449 ug/dL (265-497)
[2023-04-23 10:06] LABS: Ferritin 6.98 ng/ml (11.1-264)
[2023-04-23 10:07] LABS: Vitamin B12 520 pg/mL (239-931)
== END ==
PROVIDERS: PCP Internal Medicine Adolescent Medicine; Visit Provider Internal Medicine Adolescent Medicine
DX: D86.0 Sarcoidosis of lung (principal); D64.9 Anemia, unspecified
CPT/HCPCS: 36415; 80053; 82607; 82728; 83540; 83550; 85025; 85044

== ENCOUNTER 2023-04-26 07:30 | Outpatient (CLI) | payer OTHER, SELFPAY ==
[2023-04-26] VITALS (10 sets, daily range): BP systolic 112–130; BP diastolic 65–76; PULSE 68–84; RESP 18; O2SAT 97–99
== END 2023-04-26 11:40 | disposition home or self-care (01) ==
LOC: INF 07:31
PROVIDERS: PCP Internal Medicine Adolescent Medicine; Visit Provider Internal Medicine
DX: D86.9 Sarcoidosis, unspecified (principal); Z51.12 Encounter for antineoplastic immunotherapy
CPT/HCPCS: 96413; 96415; J1745

== ENCOUNTER 2023-05-25 07:25 | Outpatient (CLI) | payer OTHER, SELFPAY ==
[2023-05-25] VITALS (9 sets, daily range): BP systolic 98–133; BP diastolic 62–85; PULSE 64–67; RESP 18; TEMP 36.4; O2SAT 96–97
== END 2023-05-25 11:40 | disposition home or self-care (01) ==
LOC: INF 07:26
PROVIDERS: PCP Internal Medicine Adolescent Medicine; Visit Provider Internal Medicine
DX: D86.9 Sarcoidosis, unspecified (principal)
CPT/HCPCS: 96413; 96415; J1745

== ENCOUNTER → 2023-07-10 09:15 | Outpatient (POV) | payer OTHER, SELFPAY | PROVIDERS: PCP Internal Medicine Adolescent Medicine; Visit Provider Dermatology | DX: Z00.00 Encounter for general adult medical examination without abnormal findings (principal) ==

== ENCOUNTER 2023-07-13 11:21 | Day surgery (SDC) | payer OTHER, SELFPAY ==
[2023-07-12 10:32] VITALS: BMI 26.3
[2023-07-13 11:44] VITALS: BP 119/69; PULSE 64; RESP 18; TEMP 36.6; O2SAT 96
[2023-07-13 11:49] LABS: POC Glucose,Bedside 111 (70-110)
--- NOTE | 2023-07-13 12:23 | P.PNANES_ITS ---
[facility] Disclaimer: The information contained in this section may have been updated after the patient was seen, as this information can be updated by other users. 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 current occupational exposures/hazards: No caffeine: No [facility] Anesthesia Checklist Patient Identification Patient Identification: Arm Band Structural Data Admitted From: Home Planned Operative Procedure/s: colonoscopy Consent for Planned Operative Procedure(s) Verified: Yes Verified Documents: Surgical Consent and History and Physical NPO Status Verified Time NPO: 00:00 Additional verifications Anesthesia Reactions: No Hx Blood Transfusions: No Blood Transfusion Reaction: No Airway Assessment Mallampati Score:: Class II C-Spine Mobility Assessed: Yes TMJ Mobility Assessed: Yes Dentition: Good Dentition Neurological Assessment Level of Consciousness: Awake and Alert Anesthesia Plan Anesthesia Risk discussed: Yes Anesthesia Plan: Verified ASA Class: III Anesthesia Type: MAC
--- NOTE | 2023-07-13 12:49 | HMH.SCOPE ---
Procedure: Date: 07/13/23 Patient Date of :: 1965 Procedure Performed:: Total colonoscopy with biopsy and polypectomy using biopsy forceps Indications:: Patient is a 57-year-old female from [place] with a history of anemia (newly diagnosed), type 2 diabetes, hypertension, sarcoidosis. She was scheduled for colonoscopy as referral from Dr. Lam. She has previously been seen by Dr. Trinidad for endoscopies and gallbladder issues. He had performed EGD and colonoscopy 03/21/2018. Colonoscopy revealed moderate bowel preparation with significant spasticity and lack of relaxation. She has a few scattered sigmoid diverticuli and minimal hemorrhoidal cushions. There was a complex lobulated 1 cm sessile ridge polyp of the cecum (Tubular Adenoma). She was seen back in the office in follow-up and he recommended 1 to 2-year follow-up colonoscopy due to the size/nature of the polyp, moderate preparation, and spasticity/lack of relaxation. Of note, she had findings of nodular liver when Dr. Trinidad had performed cholecystectomy in 2018. Recent laboratory evaluation revealed bilirubin 1.5, AST 41, normal ALT at 25, alkaline phosphatase 134. She also has some anemia with hemoglobin of 9.6 and hematocrit of 31.2. She has normal iron, low ferritin, normal vitamin B12. She denies any melena or hematochezia type symptoms. She states that her brother was diagnosed with colon cancer at age 50. She is on Remicade for sarcoidosis. Performing Provider:: Melo Ni MD Referring Provider:: Sarkis Lam MD Sedation:: MAC sedation Procedure:: Patient history was obtained and appropriate physical examination was performed. Patient's medications and allergies were reviewed. Informed consent was obtained after explaining the benefits, alternatives, and risks of the procedure including, but not limited to, bleeding, perforation, missed lesions, and adverse reaction to anesthesia medications. Patient was transported to endoscopy procedure room. Patient was connected to monitoring devices. Throughout the procedure the patient's blood pressure, pulse, and oxygen saturations were monitored continuously. Patient identification and planned procedure were verified by the staff. Patient was positioned in lateral decubitus position. Digital anorectal exam was performed. Variable stiffness Olympus colonoscope was inserted and advanced under direct visualization to the cecum. Adequacy of the colonic preparation was noted. The colonoscope was advanced a short distance into the terminal ileum. The colonoscope was then slowly withdrawn while carefully examining the color, texture, anatomy, and integrity of the mucosoa circumferentially. Within the rectum retroflexion was performed. Colonoscope was then withdrawn. . There was some prominent irregular mucosa in the cecum and several biopsies were obtained. Likely inconsequential. In the ascending colon there was a focal pigmented area, likely normal colonic mucosa, biopsied. There was a diminutive tiny polyp in the ascending colon removed with biopsy forceps. There was thought to be a possible ridge polyp seen upon advancement of the colonoscope but repeated reinsertion and reinspection of the right colon revealed no obvious polyp. She did have some significant spasticity of the colon and there was stool coating the right colon mucosa which was only able to be partially cleared even with large volume trans colonoscopic irrigation and suctioning. There were a few diverticuli noted in the sigmoid colon. Retroflexion revealed minimal nonpathologic hemorrhoids. . Findings:: Somewhat poor preparation of the right colon with stool coating the bonilla Irregular mucosa at the cecum, likely normal variant, biopsied Focal area pigmented mucosa, likely inconsequential in the ascending colon biopsied. Tiny diminutive polyp in the ascending colon removed with biopsy forceps Recommendations:: Given suboptimal preparation due
[2023-07-13 13:08] VITALS: O2SAT 97
[2023-07-13 13:47] VITALS: BP 83/50; PULSE 69; RESP 18; TEMP 36.1; O2SAT 95
[2023-07-13 13:57] VITALS: BP 93/56; PULSE 66; RESP 18; O2SAT 97
[2023-07-13 14:07] VITALS: BP 95/57; PULSE 67; RESP 18; O2SAT 96
[2023-07-13 14:17] VITALS: BP 108/58; PULSE 69; RESP 18; O2SAT 97
== END 2023-07-13 14:17 | disposition home or self-care (01) ==
PROVIDERS: PCP Internal Medicine Adolescent Medicine; Visit Provider Surgery
PROC: 0DJD8ZZ Inspection of Lower Intestinal Tract, Via Natural or Artificial Opening Endoscopic (ICD-10-PCS; CPT 45380; principal; 2023-07-13 11:30)
DX: E11.9 Type 2 diabetes mellitus without complications; Z12.11 Encounter for screening for malignant neoplasm of colon; D64.9 Anemia, unspecified; Z86.010 Personal history of colon polyps; D12.2 Benign neoplasm of ascending colon
CPT/HCPCS: 45380; 82962

== ENCOUNTER 2023-07-24 08:01 | Outpatient (CLI) | payer OTHER, SELFPAY ==
[2023-07-24] VITALS (13 sets, daily range): BP systolic 107–128; BP diastolic 62–77; PULSE 73–82; RESP 14–18; TEMP 36.6; O2SAT 96–98
== END 2023-07-24 12:15 | disposition home or self-care (01) ==
LOC: INF 08:01
PROVIDERS: PCP Internal Medicine Adolescent Medicine; Visit Provider Internal Medicine
DX: D86.9 Sarcoidosis, unspecified (principal)
CPT/HCPCS: 96375; 96413; 96415; J1745

== ENCOUNTER → 2023-08-11 07:29 | Outpatient (CLI) | payer OTHER, SELFPAY ==
[2023-08-11 07:46] LABS: MANUAL DIFFERENTIAL MANUAL DIFFERENTIAL (MANUAL DIFF)
[2023-08-11 07:52] LABS: Basophils % 0.5 % (0.1-2.0); Eosinophils # 0.2 K/mm3 (0.0-0.4); Eosinophils % 5.3 % (0.1-12.0); Hematocrit 36.8 % (37.0-47.0); Hemoglobin 11.8 g/dL (12.2-16.2); Lymphocytes # 1.4 K/mm3 (0.7-4.5); Lymphocytes % 35.2 % (10-50); Mean Corpuscular HGB Conc 32.1 g/dL (31.8-35.4); Mean Corpuscular Hemoglobin 32.3 pg (27.0-31.2); Mean Corpuscular Volume 100.6 fl (81-99); Mean Platelet Volume 9.1 fl (7.4-10.4); Monocytes # 0.4 K/mm3 (0.1-1.0); Monocytes % 10.5 % (1.7-9.3); Neutrophils # 1.9 K/mm3 (1.8-7.8); Neutrophils % 48.5 % (37.0-80.0); Platelet Count 161 K/mm3 (142-424); Red Blood Count 3.66 M/mm3 (4.20-5.40); Red Cell Distribution Width 17.1 % (11.5-17.5); White Blood Count 3.9 K/mm3 (4.8-10.8)
[2023-08-11 08:09] LABS: Chloride 102 mmol/L (98-107); Potassium 3.6 mmoL/L (3.5-5.1); Sodium 137 mmol/L (136-145)
[2023-08-11 08:11] LABS: Alanine Aminotransferase 29 U/L (12-78); Aspartate Amino Transferase 43 U/L (14-36); Blood Urea Nitrogen 9 mg/dl (7-17); Estimated Glomerular Filt Rate 87 ml/min (>60); GFR (African American) 105 ML/MIN (>60)
[2023-08-11 08:12] LABS: Albumin Level 4.3 g/dl (3.5-5.0); Alkaline Phosphatase 134 U/L (38-126); Anion Gap 13.6 mEq/L (5-15); Bilirubin,Total 1.2 mg/dl (0.2-1.3); Carbon Dioxide 25 mmol/L (22.0-30.0); Globulin 4.3 g/dL (1.3-3.2); Glucose 141 mg/dl (74-100); Total Protein,Serum 8.6 g/dl (6.3-8.2)
[2023-08-11 11:03] LABS: Eosinophils % 7 % (0-3); Lymphocytes % 37 % (10-50); Monocytes % 11 % (2-9); Neutrophils % 45 % (42-76); Nucleated Red Blood Cells 2; Total Cells Counted 100
[2023-08-11 11:04] LABS: Anisocytosis 1+; Hypochromasia 1+; Macrocytosis 1+; Platelet Estimate Normal
== END ==
LOC: LAB 07:31
PROVIDERS: Internal Medicine; PCP Internal Medicine Adolescent Medicine
DX: Z79.899 Other long term (current) drug therapy (principal)
CPT/HCPCS: 36415; 80053; 85007; 85014; 85018; 85048; 85049

== ENCOUNTER 2023-10-30 08:06 | Outpatient (CLI) | payer OTHER, SELFPAY ==
[2023-10-30 08:31] LABS: Basophils # 0.1 K/mm3 (0-0.2); Eosinophils # 0.2 K/mm3 (0.0-0.4); Eosinophils % 4.5 % (0.1-12.0); Hematocrit 38.2 % (37.0-47.0); Hemoglobin 12.2 g/dL (12.2-16.2); Lymphocytes # 1.4 K/mm3 (0.7-4.5); Lymphocytes % 29.3 % (10-50); Mean Corpuscular HGB Conc 31.9 g/dL (31.8-35.4); Mean Corpuscular Hemoglobin 33.6 pg (27.0-31.2); Mean Platelet Volume 8.7 fl (7.4-10.4); Monocytes # 0.5 K/mm3 (0.1-1.0); Monocytes % 9.5 % (1.7-9.3); Neutrophils # 2.7 K/mm3 (1.8-7.8); Neutrophils % 55.7 % (37.0-80.0); Platelet Count 202 K/mm3 (142-424); Red Blood Count 3.64 M/mm3 (4.20-5.40); Red Cell Distribution Width 16.3 % (11.5-17.5); White Blood Count 4.8 K/mm3 (4.8-10.8)
[2023-10-30 09:01] LABS: Alanine Aminotransferase 29 U/L (12-78); Albumin Level 4.2 g/dl (3.5-5.0); Alkaline Phosphatase 116 U/L (38-126); Anion Gap 11.4 mEq/L (5-15); Aspartate Amino Transferase 37 U/L (14-36); Bilirubin,Total 1.5 mg/dl (0.2-1.3); Blood Urea Nitrogen 9 mg/dl (7-17); Calcium 9.5 mg/dl (8.4-10.2); Carbon Dioxide 27 mmol/L (22.0-30.0); Chloride 103 mmol/L (98-107); Estimated Glomerular Filt Rate 87 ml/min (>60); GFR (African American) 105 ML/MIN (>60); Globulin 4.2 g/dL (1.3-3.2); Glucose 130 mg/dl (74-100); Potassium 3.4 mmoL/L (3.5-5.1); Sodium 138 mmol/L (136-145); Total Protein,Serum 8.4 g/dl (6.3-8.2)
[2023-10-30 16:32] LABS: Chol/HDL Ratio 4.4 (1-3.5); Cholesterol 161 mg/dl (140-200); HDL Cholesterol 37 mg/dl (40-60); Triglycerides 220 mg/dl (30-150); VLDL Cholesterol 44 mg/dL (0-40)
[2023-10-30 16:43] LABS: Direct LDL Cholesterol 69.98 mg/dL (100-129)
[2023-10-30 16:55] LABS: Hemoglobin A1C 6.8 % (4.0-6.0)
[2023-10-30 17:22] LABS: Vitamin B12 503 pg/mL (239-931)
[2023-10-30 17:41] LABS: Iron 152 ug/dL (37-170)
[2023-10-30 17:50] LABS: Total Iron Binding Capacity 393 ug/dL (265-497)
== END 2023-10-30 23:59 ==
LOC: LAB 08:08
PROVIDERS: Nurse Practitioner Family; PCP Internal Medicine Adolescent Medicine; Visit Provider Internal Medicine
DX: Z79.899 Other long term (current) drug therapy (principal)
CPT/HCPCS: 36415; 80053; 80061; 82607; 83036; 83540; 83550; 85025

== ENCOUNTER 2023-11-09 07:34 | Outpatient (CLI) | payer OTHER, SELFPAY ==
[2023-11-09] VITALS (9 sets, daily range): BP systolic 101–119; BP diastolic 51–69; PULSE 68–74; RESP 18; TEMP 36.8; O2SAT 98
[2023-11-09] MEDS: ACETAMINOPHEN 325MG TAB 650 MG PO (08:25)
[2023-11-09] MEDS: SODIUM CHLORIDE 0.9% 50ML BAG 50 ML IV (08:25)
[2023-11-09] MEDS: HYDROCORTISONE SOD SUCCINATE 100MG VIAL 200 MG IV (08:25)
[2023-11-09] MEDS: diphenhydrAMINE 25MG CAPSULE 25 MG PO (08:25)
[2023-11-09] MEDS: inFLIXimab 400 MG in 0.9 % SODIUM CHLORIDE 250 ML 83.3329999999999984 MG IV (09:01)
== END 2023-11-09 11:36 | disposition home or self-care (01) ==
LOC: INF 07:34
PROVIDERS: PCP Internal Medicine Adolescent Medicine; Visit Provider Internal Medicine
DX: D86.9 Sarcoidosis, unspecified (principal); Z79.899 Other long term (current) drug therapy
CPT/HCPCS: 96413; 96415; J1745

== ENCOUNTER 2023-12-02 03:33 | Emergency (ER) | payer SELFPAY ==
[2023-12-02 03:35] VITALS: BP 134/76; PULSE 68; RESP 16; TEMP 36.8; O2SAT 98; BMI 24.2
--- NOTE | 2023-12-02 03:41 | XR_ITS ---
PROCEDURE INFORMATION: Exam: XR Left Elbow Exam date and time: 12/02/2023 4:31 AM Age: 58 years old Clinical indication: Injury or trauma; Fall; Other: Pain left elbow; Additional info: Fall from standing onto L elbow TECHNIQUE: Imaging protocol: Radiologic exam of the left elbow. Views: 1 or 2 views. COMPARISON: EXTLL US extremity LT limited 02/26/2018 3:22 PM FINDINGS: Bones/joints: Normal. Soft tissues: Normal. IMPRESSION: No acute findings.
--- NOTE | 2023-12-02 03:41 | XR_ITS ---
PROCEDURE INFORMATION: Exam: XR Left Hip Exam date and time: 12/02/2023 4:27 AM Age: 58 years old Clinical indication: Injury or trauma; Fall; Other: Pain in left hip; Additional info: Fall from standing onto L hip TECHNIQUE: Imaging protocol: Radiologic exam of the left hip. Views: 2 or 3 views hip with pelvis when performed. COMPARISON: [id number] CT abdomen pelvis w con 04/11/2018 6:05 PM FINDINGS: Bones/joints: Unremarkable. No acute fracture. Soft tissues: Unremarkable. IMPRESSION: No acute findings.
--- NOTE | 2023-12-02 04:45 | HMH.EDGENADL ---
Discharge Plan Disposition Patient Disposition: Home, Self-Care Condition: Good Chief Complaint: Fall Prescriptions Prescriptions: No Action propranolol 40 mg tablet 40 mg PO BID Farxiga 10 mg tablet 10 mg PO DAILY escitalopram oxalate 20 mg tablet 20 mg PO DAILY estradiol [Vagifem] 10 mcg tablet 10 mcg vaginal DAILY Qty: 30 11RF infliximab [Remicade] 100 mg Recon Soln 100 mg IV DAILY ferrous sulfate [Iron (ferrous sulfate)] 325 mg (65 mg iron) Tablet 325 mg PO DAILY atorvastatin 40 MG tablet 40 mg PO DAILY hydrochlorothiazide 12.5 MG capsule 12.5 mg PO DAILY sitagliptin phos-metformin 1 EACH tablet 1 each PO DAILY Referrals Follow up/Referrals: Sarkis Lam MD [Primary Care Provider] - See instructions Activity Restrictions/Add. Instructions Additional Instructions/Restrictions: Follow-up with your primary care provider for continued management and return for any new or worsening symptoms. Clinical Impressions Clinical Impression: Acute pain of left wrist, Acute pain of left hip Instructions Patient Instructions: DI for Musculoskeletal Pain Discharge ED Provider: Patrica Mott Adult HPI General Chief complaint: Fall Stated complaint: AO 0000 hit head, hip, elbow Time Seen by Provider: 12/02/23 03:37 Mode of Arrival: Ambulatory Source of Information: Patient Limitations: No Limitations Description of Symptoms (Recalled from ER Triage Doc. by RN): pt states was giving bath and went to other side a foot caught a cord and fell. pt c/o lt elbow, hip and head pain History of Present Illness HPI narrative: Patient is a 58-year-old female with past medical history diabetes, hypertension presenting with left elbow and hip pain after fall. 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 She did not pass out and is not on any blood thinning medications. Presented for further evaluation to be cleared for work. Related Data Home Medications Medication Instructions Recorded Confirmed atorvastatin 40 mg tablet 40 mg PO DAILY Cholesterol 06/14/18 11/09/23 hydrochlorothiazide 12.5 mg capsule 12.5 mg PO DAILY Fluid 06/14/18 11/09/23 sitagliptin phosphate 50 1 each PO DAILY Diabetes 06/14/18 11/09/23 mg-metformin 500 mg tablet dapagliflozin propanediol 10 mg 10 mg PO DAILY hypertension 07/12/22 11/09/23 tablet (Farxiga) propranolol 40 mg tablet 40 mg PO BID arrythmia 07/12/22 11/09/23 infliximab 100 mg intravenous 100 mg IV DAILY 07/12/23 11/09/23 solution (Remicade) ferrous sulfate 325 mg (65 mg 325 mg PO DAILY 07/13/23 11/09/23 iron) tablet (Iron (ferrous sulfate)) escitalopram oxalate 20 mg tablet 20 mg PO DAILY 09/05/23 11/09/23 Previous Rx's Medication Instructions Recorded estradiol 10 mcg vaginal tablet 10 mcg vaginal DAILY #30 tabs 09/05/23 (Vagifem) Allergies Allergy/AdvReac Type Severity Reaction Status Date / Time Penicillins Allergy Severe Seizure Verified 09/05/23 15:08 Latex, Natural Rubber Allergy Intermediate Hives Verified 09/05/23 15:08 Sulfa (Sulfonamide Allergy Intermediate Seizure Verified 09/05/23 15:08 Antibiotics) [facility] Disclaimer: The information contained in this section may have been updated after the patient was seen, as this information can be updated by other users. 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 current occupational exposures/hazards: No caffeine: No ROS Obtained: Yes Systems reviewed as appropriate & no additional complaints except as documented Physical Exam General General appearance: alert and in no apparent distress Head Head exam: atraumatic, normocephalic and other (no posterior auricular hematoma, TMs clear bilaterally) Eye Eye exam: Present PERRL and EOMI ENT ENT exam: Present mucous membranes moist and other (no malocclusion) Neck Neck exam: Present normal inspection and full ROM; Absent tenderness Chest Chest inspection: Present normal inspection and symmetric chest wall rise Respiratory Respiratory exam: Present normal lung sounds bilaterally; Absent respiratory distress Cardiovascular Cardiovascular exam: Present regular rate and normal rhythm Abdominal Exam Abdominal exam: Present soft; Absent tenderness Extremities Exam Extremities exam: Present normal inspection, full ROM and other (Mild tenderness over left hip, pelvis stable, distal pulses 2+); Absent tenderness Neurological Exam Neurological exam: Present alert and oriented X3 Psychiatric Psychiatric exam: Present normal affect Skin Skin exam: Present warm and dry Medical Decision Making Medical Records Medical records reviewed: Yes I reviewed the patient's medical records. Wesley Inquiry Pt receiving controlled substance: No Vital Signs: 12/02/23 03:35 Temperature 98.3 F Temperature Source Oral Pulse Rate [Right] 68 Respiratory Rate 16 Blood Pressure [Right Arm] 134/76 Blood Pressure Mean [Right Arm] 95 02 Sat by Pulse Oximetry 98 Orders (Tests/Meds): ORDERS Category Date Time Status XR elbow LT 2V Stat Exams 12/02/23 03:41 Taken XR hip LT 2-3V w/pelvis Stat Exams 12/02/23 03:41 Taken Medical Decision Narrative: Patient is a 58-year-old female with past medical history sarcoidosis, hypertension, type 2 diabetes presenting with left elbow pain and left hip pain after fall from standing. She does note hitting her head but did not lose consciousness and is not on blood thinning medications, has no appreciable or palpable hematoma and head exam is overall atraumatic. Head and neck Nexus criteria negative and shared decision making with patient to defer imaging. Will however obtain x-ray of the left elbow and hip for further evaluation. Per my review the x-ray of the left elbow and pelvis with left hip were unremarkable. Patient was asking to be discharged and given my review of imaging feel patient is stable and appropriate. Will notify patient if imaging is abnormal. Discharged in stable condition. Critical Care Critical Care Time Critical Care Time: No
[2023-12-02 05:07] VITALS: BP 131/72; PULSE 61; RESP 16; TEMP 36.8; O2SAT 98
== END 2023-12-02 05:08 | disposition home or self-care (01) ==
PROVIDERS: Emergency Provider Emergency Medicine; PCP Internal Medicine Adolescent Medicine
DX: M25.552 Pain in left hip (principal); M25.532 Pain in left wrist; R51.9 Headache, unspecified; E11.9 Type 2 diabetes mellitus without complications; I10 Essential (primary) hypertension; E78.5 Hyperlipidemia, unspecified; W01.10XA Fall on same level from slipping, tripping and stumbling with subsequent striking against unspecified object, initial encounter; D86.9 Sarcoidosis, unspecified; Z79.84 Long term (current) use of oral hypoglycemic drugs
CPT/HCPCS: 73070; 73502; 99283

== ENCOUNTER 2023-12-07 08:00 | Outpatient (CLI) | payer OTHER, SELFPAY ==
[2023-12-07] VITALS (9 sets, daily range): BP systolic 100–124; BP diastolic 50–77; PULSE 68–81; RESP 18; TEMP 36.8; O2SAT 98
[2023-12-07] MEDS: ACETAMINOPHEN 325MG TAB 650 MG PO (08:29)
[2023-12-07] MEDS: HYDROCORTISONE SOD SUCCINATE 100MG VIAL 200 MG IV (08:29)
[2023-12-07] MEDS: diphenhydrAMINE 25MG CAPSULE 25 MG PO (08:29)
[2023-12-07] MEDS: SODIUM CHLORIDE 0.9% 10ML FLUSH SYRINGE 10 ML IV (08:30)
[2023-12-07] MEDS: SODIUM CHLORIDE 0.9% 50ML BAG 50 ML IV (08:30)
[2023-12-07] MEDS: inFLIXimab 400 MG in 0.9 % SODIUM CHLORIDE 250 ML 83.3329999999999984 MG IV (09:03)
== END 2023-12-07 11:30 | disposition home or self-care (01) ==
LOC: INF 08:01
PROVIDERS: PCP Internal Medicine Adolescent Medicine; Visit Provider Internal Medicine
DX: M06.9 Rheumatoid arthritis, unspecified (principal)
CPT/HCPCS: 96413; 96415; J1745

== ENCOUNTER 2024-01-04 07:19 | Outpatient (CLI) | payer OTHER, SELFPAY ==
[2024-01-04] VITALS (9 sets, daily range): BP systolic 78–104; BP diastolic 43–58; PULSE 66–80; RESP 17–18; O2SAT 95
[2024-01-04] MEDS: HYDROCORTISONE SOD SUCCINATE 100MG VIAL 200 MG (08:22)
[2024-01-04] MEDS: ACETAMINOPHEN 325MG TAB 650 MG (08:22)
[2024-01-04] MEDS: diphenhydrAMINE 25MG CAPSULE 25 MG PO (08:22)
[2024-01-04] MEDS: inFLIXimab 400 MG in 0.9 % SODIUM CHLORIDE 250 ML 83.3329999999999984 MG IV (08:55)
[2024-01-04] MEDS: SODIUM CHLORIDE 0.9% 50ML BAG 50 ML IV (08:57)
== END 2024-01-04 11:45 | disposition home or self-care (01) ==
LOC: INF 07:19
PROVIDERS: PCP Internal Medicine Adolescent Medicine; Visit Provider Internal Medicine
DX: D86.86 Sarcoid arthropathy
CPT/HCPCS: 96413; 96415; J1745

== ENCOUNTER 2024-01-09 12:58 | Outpatient (POV) | payer OTHER, SELFPAY | END 2024-01-09 23:59 | disposition home or self-care (01) | LOC: SC 12:58 | PROVIDERS: Visit Provider Specialist/Technologist | DX: Z00.00 Encounter for general adult medical examination without abnormal findings (principal) ==

== ENCOUNTER 2024-03-10 07:19 | Outpatient (CLI) | payer OTHER, SELFPAY ==
[2024-03-10] VITALS (8 sets, daily range): BP systolic 91–141; BP diastolic 46–86; PULSE 66–81; RESP 16–18; O2SAT 97–99
== END 2024-03-10 11:30 | disposition home or self-care (01) ==
PROVIDERS: PCP Internal Medicine Adolescent Medicine; Visit Provider Internal Medicine
DX: Z51.12 Encounter for antineoplastic immunotherapy (principal); D86.9 Sarcoidosis, unspecified; Z79.620 Long term (current) use of immunosuppressive biologic; Z79.52 Long term (current) use of systemic steroids
CPT/HCPCS: 96413; 96415; J1745

== ENCOUNTER 2024-04-07 07:42 | Outpatient (CLI) | payer OTHER, SELFPAY ==
[2024-04-07] VITALS (9 sets, daily range): BP systolic 100–115; BP diastolic 56–68; PULSE 62–73; RESP 14–18; TEMP 36.4–36.6; O2SAT 95–96
== END 2024-04-07 11:20 | disposition home or self-care (01) ==
LOC: INF 07:43
PROVIDERS: PCP Internal Medicine Adolescent Medicine; Visit Provider Internal Medicine
DX: Z51.12 Encounter for antineoplastic immunotherapy (principal); D86.9 Sarcoidosis, unspecified; Z79.620 Long term (current) use of immunosuppressive biologic; Z79.52 Long term (current) use of systemic steroids
CPT/HCPCS: 96413; 96415; J1745

== ENCOUNTER 2024-04-16 11:25 | Outpatient (CLI) | payer OTHER, SELFPAY ==
[2024-04-16 11:50] LABS: Eosinophils # 0.1 K/mm3 (0.0-0.4); Eosinophils % 4.5 % (0.1-12.0); Hematocrit 42.5 % (37.0-47.0); Hemoglobin 13.3 g/dL (12.2-16.2); Lymphocytes # 0.8 K/mm3 (0.7-4.5); Mean Corpuscular HGB Conc 31.4 g/dL (31.8-35.4); Mean Corpuscular Hemoglobin 33.6 pg (27.0-31.2); Mean Corpuscular Volume 107.1 fl (81-99); Mean Platelet Volume 9.3 fl (7.4-10.4); Monocytes # 0.2 K/mm3 (0.1-1.0); Monocytes % 8.4 % (1.7-9.3); Neutrophils # 1.4 K/mm3 (1.8-7.8); Neutrophils % 55.1 % (37.0-80.0); Platelet Count 129 K/mm3 (142-424); Red Blood Count 3.97 M/mm3 (4.20-5.40); Red Cell Distribution Width 15.4 % (11.5-17.5); White Blood Count 2.6 K/mm3 (4.8-10.8)
[2024-04-16 13:05] LABS: Alanine Aminotransferase 28 U/L (12-78); Albumin Level 3.8 g/dl (3.5-5.0); Albumin/Globulin Ratio 0.9 (1.1-1.8); Alkaline Phosphatase 97 U/L (38-126); Aspartate Amino Transferase 40 U/L (14-36); Bilirubin,Total 1.6 mg/dl (0.2-1.3); Blood Urea Nitrogen 9 mg/dl (7-17); Calcium 9.7 mg/dl (8.4-10.2); Carbon Dioxide 29 mmol/L (22.0-30.0); Chloride 105 mmol/L (98-107); Chol/HDL Ratio 2.9 (1-3.5); Cholesterol 164 mg/dl (140-200); Estimated Glomerular Filt Rate 103 ml/min (>60); GFR (African American) 125 ML/MIN (>60); Globulin 4.2 g/dL (1.3-3.2); Glucose 152 mg/dl (74-100); HDL Cholesterol 57 mg/dl (40-60); Magnesium 1.5 mg/dl (1.6-2.3); Sodium 139 mmol/L (136-145); Triglycerides 83 mg/dl (30-150); VLDL Cholesterol 17 mg/dL (0-40)
[2024-04-16 13:16] LABS: Direct LDL Cholesterol 68.96 mg/dL (100-129)
[2024-04-16 13:21] LABS: Free Thyroxine Index 2.6 ug/dL (5.93-13.13); T4 (Thyroxine) 8.5 ug/dl (5.53-11.0); Triiodothryronine (T3) Uptake 30 % (23.5-40.5)
[2024-04-16 13:35] LABS: Thyroid Stimulating Hormone 1.56 uIU/mL (0.465-4.68)
[2024-04-16 13:54] LABS: Vitamin B12 442 pg/mL (239-931)
== END 2024-04-16 23:59 | disposition home or self-care (01) ==
LOC: LAB 11:30
PROVIDERS: PCP Internal Medicine Adolescent Medicine; Visit Provider Internal Medicine Adolescent Medicine
DX: E11.69 Type 2 diabetes mellitus with other specified complication (principal); E78.5 Hyperlipidemia, unspecified; D86.9 Sarcoidosis, unspecified; G25.81 Restless legs syndrome; Z79.84 Long term (current) use of oral hypoglycemic drugs
CPT/HCPCS: 36415; 80050; 80053; 80061; 82607; 83735; 84436; 84443; 84479; 85025

== ENCOUNTER 2024-05-09 07:58 | Outpatient (CLI) | payer OTHER, SELFPAY ==
[2024-05-09] VITALS (10 sets, daily range): BP systolic 96–101; BP diastolic 57–70; PULSE 64–73; RESP 16–17; O2SAT 100
[2024-05-09] MEDS: diphenhydrAMINE 25MG CAPSULE 25 MG PO (08:25)
[2024-05-09] MEDS: ACETAMINOPHEN 325MG TAB 650 MG PO (08:26)
[2024-05-09] MEDS: HYDROCORTISONE SOD SUCCINATE 100MG VIAL 200 MG IV (08:26)
[2024-05-09] MEDS: SODIUM CHLORIDE 0.9% 50ML BAG 50 ML IV (08:49)
[2024-05-09] MEDS: inFLIXimab 400 MG in 0.9 % SODIUM CHLORIDE 250 ML 83.333 MG IV (09:19)
[2024-05-09 09:59] LABS: Hemoglobin A1C 6.8 % (4.0-6.0)
== END 2024-05-09 11:52 | disposition home or self-care (01) ==
PROVIDERS: PCP Internal Medicine Adolescent Medicine; Visit Provider Internal Medicine
DX: D86.9 Sarcoidosis, unspecified (principal)
CPT/HCPCS: 36415; 83036; 96413; 96415; J1745

== ENCOUNTER 2024-05-14 09:03 | Outpatient (CLI) | payer OTHER, SELFPAY ==
--- NOTE | 2024-05-14 09:05 | XR_ITS ---
FINAL REPORT CLINICAL HISTORY: SCREENING COMPARISON: None FINDINGS: Using L1-4, the bone mineral density of the spine is 0.954 g/cm2, corresponding to T-score of -0.8 which is within normal limits. Using the left hip, the bone mineral density of the femoral neck is 0.744 g/cm2, corresponding to a T-score of -0.9 which is within normal limits. Using the right hip, the bone mineral density of the femoral neck is 0.881 g/cm2, corresponding to a T-score of -0.5 which is within normal limits. FRAX not reported because all T-scores at or above -1.0. NOTE: T-score: Standard deviation compared with peak bone mass of young adult mean. *Following the recommendations of the International Society of Bone densitometry, classification of hip BMD is based on the lower of two T-scores; total hip or femoral neck. IMPRESSION: Normal bone mineral density of the lumbar spine and hips. Reviewed, Interpreted and Dictated by Art Stroud MD Transcribed by Ann Duncan Authenticated and [facility]
== END 2024-05-14 23:59 | disposition home or self-care (01) ==
LOC: RAD 09:03
PROVIDERS: PCP Internal Medicine Adolescent Medicine; Visit Provider Internal Medicine Adolescent Medicine
DX: Z13.820 Encounter for screening for osteoporosis (principal)
CPT/HCPCS: 77080

== ENCOUNTER 2024-05-18 20:20 | Emergency (ER) | payer OTHER, SELFPAY ==
--- NOTE | 2024-05-18 20:30 | ECG_ITS ---
APPROVED REPORT Exam: Resting ECG HR:71 bpm ECG Measurements Heart Rate 71 AXES IN 173 P 33 QRSd 94 QRS 19 QT 394 T 3 QTc 416 Conclusion SINUS RHYTHM LOW QRS VOLTAGE IN PRECORDIAL LEADS [QRS DEFLECTION < 1.0 mV IN CHEST LEADS] BORDERLINE ECG UNCONFIRMED REPORT Electronically signed by : King Mccurdy, 05/18/2024 22:53:57
--- NOTE | 2024-05-18 20:30 | HMH.EDGENADL ---
Discharge Plan Disposition Patient Disposition: Home, Self-Care Prescriptions Prescriptions: New ondansetron 4 mg tablet,disintegrating 4 mg PO Q6H PRN (Reason: nausea and vomiting) 5 Days Qty: 20 0RF No Action cetirizine 10 mg tablet 10 mg PO DAILY PRN (Reason: ALLERGIES) fluticasone propionate [Flonase Allergy Relief] 50 mcg/actuation spray,suspension 2 spray intranasal DAILY Rx Instructions: administer into each nostril propranolol 40 mg tablet 40 mg PO BID Farxiga 10 mg tablet 10 mg PO DAILY escitalopram oxalate 20 mg tablet 20 mg PO DAILY ropinirole 0.25 mg tablet 0.25 mg PO DAILY Patient Comments: TAKE 1 TO 2 TABLET(S) BY MOUTH EVERY DAY AT BEDTIME omeprazole 20 mg capsule,delayed release(DR/EC) 20 mg PO BID Patient Comments: TAKE ONE CAPSULE BY MOUTH TWICE DAILY infliximab [Remicade] 100 mg Recon Soln 100 mg IV DAILY ferrous sulfate [Iron (ferrous sulfate)] 325 mg (65 mg iron) Tablet 325 mg PO DAILY atorvastatin 40 MG tablet 40 mg PO DAILY hydrochlorothiazide 12.5 MG capsule 12.5 mg PO DAILY sitagliptin phos-metformin 1 EACH tablet 1 each PO DAILY Referrals Follow up/Referrals: Sariks Lam MD [Primary Care Provider] - See instructions Activity Restrictions/Add. Instructions Additional Instructions/Restrictions: Your nausea and vomiting and diarrhea are likely secondary to a viral syndrome. Please return with any significant worsening abdominal pain blood in your stool high fevers or other concerns. 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 difficile and other nosocomial infections. Clinical Impressions Clinical Impression: Nausea vomiting and diarrhea Stand Alone Forms Stand Alone Forms: Work/School Release Instructions Patient Instructions: DI for Diarrhea and Traveler's Diarrhea -- Adult, DI for Diarrhea and Traveler's Diarrhea -- Child, DI for Nausea -- Adult, DI for Nausea -- Child Print Language Print Language: Khmer Discharge ED Provider: Yumiko Mccurdy General Adult HPI General Chief complaint: Nausea/Vomiting/Diarrhea Stated complaint: weak, low blood pressure, vomiting Time Seen by Provider: 05/18/24 20:24 History of Present Illness HPI narrative: 58-year-old female presenting today with hypotension. 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 Nonbloody nonbilious emesis x 4. No hematochezia or melena. She is immune suppressed and takes Remicade for her sarcoidosis. Denies any fevers but did have chills with the last few days. No significant abdominal pain. Related Data Home Medications ?Medication ?Instructions ?Recorded ?Confirmed atorvastatin 40 mg tablet 40 mg PO DAILY Cholesterol 06/14/18 05/09/24 hydrochlorothiazide 12.5 mg capsule 12.5 mg PO DAILY Fluid 06/14/18 05/09/24 sitagliptin phosphate 50 1 each PO DAILY Diabetes 06/14/18 05/09/24 mg-metformin 500 mg tablet dapagliflozin propanediol 10 mg 10 mg PO DAILY hypertension 07/12/22 05/09/24 tablet (Farxiga) propranolol 40 mg tablet 40 mg PO BID arrythmia 07/12/22 05/09/24 infliximab 100 mg intravenous 100 mg IV DAILY 07/12/23 05/09/24 solution (Remicade) ferrous sulfate 325 mg (65 mg 325 mg PO DAILY 07/13/23 05/09/24 iron) tablet (Iron (ferrous sulfate)) escitalopram oxalate 20 mg tablet 20 mg PO DAILY 09/05/23 05/09/24 omeprazole 20 mg capsule,delayed 20 mg PO BID 12/04/23 05/09/24 release ropinirole 0.25 mg tablet 0.25 mg PO DAILY 12/04/23 05/09/24 cetirizine 10 mg tablet 10 mg PO DAILY PRN ALLERGIES 01/09/24 05/09/24 fluticasone propionate 50 2 spray intranasal DAILY 01/09/24 05/09/24 mcg/actuation nasal spray,suspension (Flonase Allergy Relief) Previous Rx's ?Medication ?Instructions ?Recorded ondansetron 4 mg disintegrating 4 mg PO Q6H PRN nausea and 05/18/24 tablet vomiting 5 days #20 tabs Allergies Allergy/AdvReac Type Severity Reaction Status Date / Time Penicillins Allergy Severe Seizure Verified 04/07/24 09:09 Latex, Natural Rubber Allergy Intermediate Hives Verified 04/07/24 09:09 Sulfa (Sulfonamide Allergy Intermediate Seizure Verified 04/07/24 09:09 Antibiotics) [facility] Disclaimer: The information contained in this section may have been updated after the patient was seen, as this information can be updated by other users. Medical History (Updated 05/18/24 @ 20:34 by Yumiko Mccurdy MD) Mixed hearing loss Hearing loss Depression HLD (hyperlipidemia) Diabetes mellitus Hypertension Sarcoidosis Surgical History History of colonoscopy Hx of tubal ligation History of throat surgery Hx of cholecystectomy Hx of section History of bronchoscopy Family History Other Family history of heart disease Social History Smoking Status: Never smoker second hand exposure: No alcohol intake: never substance use type: denies use current occupational status: employed Travel in the last 8 weeks: None household members: spouse housing: house 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 current occupational exposures/hazards: No caffeine: No Other Medical History Have you received the Flu Vaccine for this season: Yes Have you received the Pneumonia Vaccine: No ROS Obtained: Yes All systems reviewed & no additional complaints except as documented Physical Exam General General appearance: alert and in no apparent distress Respiratory Respiratory exam: Present normal lung sounds bilaterally and respiratory distress Cardiovascular Cardiovascular exam: Present regular rate and normal rhythm Abdominal Exam Abdominal exam: Present soft; Absent distention or tenderness Neurological Exam Neurological exam: Present alert and oriented X3 Medical Decision Making Medical Records Screening: Per USPSTF and CDC recommendations, given the prevalence of disease in our region, it is our hospital?s policy to screen for HIV and viral Hepatitis for all patients aged 18 and over and those with ongoing risk factors. Wesley Inquiry Pt receiving controlled substance: No Vital Signs: 05/18/24 20:34 05/18/24 21:30 Temperature 98.1 F Temperature Source Oral Pulse Rate 67 Pulse Rate [Left Radial] 84 Respiratory Rate 18 Blood Pressure 108/67 L Blood Pressure [Right Arm] 129/71 Blood Pressure Mean [Right Arm] 90 Blood Pressure Source [Right Arm] Automatic Cuff Blood Pressure Position [Right Arm] Supine 02 Sat by Pulse Oximetry 93 L 92 L Oxygen Delivery Method Room Air Room Air Lab Data Lab results reviewed: Yes I reviewed the patient's lab results. Lab Results 05/18/24 20:30: WBC 3.5 L, RBC 4.30, Hgb 14.5, Hct 44.4, MCV 103.3 H, MCH 33.7 H, MCHC 32.6, RDW 15.5, Plt Count 138 L, MPV 8.2, Neut % (Auto) 59.8, Lymph % (Auto) 25.8, Lamb % (Auto) 7.6, Eos % (Auto) 5.5, Baso % (Auto) 1.2, Neut # (Auto) 2.1, Lymph # (Auto) 0.9, Lamb # (Auto) 0.3, Eos # (Auto) 0.2, Baso # (Auto) 0.0, Sodium 136, Potassium 3.9, Chloride 105, Carbon Dioxide 22, Anion Gap 12.9, BUN 7, Creatinine 0.70, Estimated Creat Clear 99, Estimated GFR 87, Est GFR ( Amer) 105, Glucose 152 H, Calcium 9.4, Phosphorus 3.4, Magnesium 1.6, Total Bilirubin 2.1 H, AST 52 H, ALT 41, Alkaline Phosphatase 87, Total Protein 8.7 H, Albumin 4.2, Globulin 4.5 H, Albumin/Globulin Ratio 0.9 L, Lipase 76 05/18/24 20:30 05/18/24 20:30 Orders (Tests/Meds): ED MEDICATIONS Discontinued Medications Generic Name Dose Route Start Last Admin Trade Name Freq PRN Reason Stop Dose Admin Lactated Ringer's 1,000 mls @ 999 mls/hr 05/18/24 20:30 05/18/24 20:41 Lactated Ringer's 1000 Ml Bag IV 05/18/24 21:30 999 mls/hr .Q1H1M SHANTELLE Administration Ondansetron HCl 4 mg 05/18/24 20:29 05/18/24 20:41 Ondansetron 4mg/2ml Vial IV 05/18/24 20:30 4 mg ONCE ONE Administration ORDERS Category Date Time Status CBC w/Auto Diff [Complete Blood Count Auto Diff] Stat Lab 05/18/24 20:30 Completed CMP [Comprehensive Metabolic Panel] Stat Lab 05/18/24 20:30 Completed Diarrhea 23 Panel, PCR Stat Lab 05/18/24 20:29 Ordered HIV (1&2) Antibody Rapid Stat Lab 05/18/24 20:30 Received Hep C Ab with Reflex to RNA Stat Lab 05/18/24 20:30 Received Lipase Stat Lab 05/18/24 20:30 Completed Magnesium Stat Lab 05/18/24 20:30 Completed Phosphorous Stat Lab 05/18/24 20:30 Completed Medical Decision Narrative: 58-year-old female presented with above history and physical with nausea vomiting diarrhea over the last several days likely viral however with her immune suppressed state could be bacterial and also 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 difficile certainly is on the differential we will get a diarrhea PCR panel. She has a benign abdominal exam do not suspect any surgical pathology. She is not hypotensive on our evaluation but apparently was hypotensive upstairs she does state that she is worse with any type of positional changes/ orthostatic changes. Will give her IV fluids check basic blood work and reassess. Reassessment 1003 patient remains stable from a hemodynamic standpoint serial abdominal exams are benign she is feeling better after IV fluids and is ready to go home. This is not consistent with surgical emergency or sepsis etc. She does have some slight abnormalities in her total bilirubin and AST which she knows about and is likely secondary to her Remicade and she is followed for this and states that it gets worse when she is acutely ill. She has been given return precautions advised to return to work in a few days. If she continues to have diarrhea I recommend that she get her stool studies as she was not able to give us a stool sample today. She is aware of this. She was discharged in a stable improved condition after IV fluids completed. Critical Care Critical Care Time Critical Care Time: No
[2024-05-18 20:34] VITALS: BP 129/71; PULSE 84; RESP 18; TEMP 36.7; O2SAT 93; BMI 24.8
[2024-05-18] MEDS: ONDANSETRON 4MG/2ML VIAL 4 MG IV (20:41)
[2024-05-18] MEDS: LACTATED RINGERS 1000ML 1,000 ML 999 ML IV (20:41)
[2024-05-18 21:30] VITALS: BP 108/67; PULSE 67; O2SAT 92
[2024-05-18 21:30] LABS: Alanine Aminotransferase 41 U/L (12-78); Albumin Level 4.2 g/dl (3.5-5.0); Albumin/Globulin Ratio 0.9 (1.1-1.8); Alkaline Phosphatase 87 U/L (38-126); Anion Gap 12.9 mEq/L (5-15); Aspartate Amino Transferase 52 U/L (14-36); Bilirubin,Total 2.1 mg/dl (0.2-1.3); Blood Urea Nitrogen 7 mg/dl (7-17); Calcium 9.4 mg/dl (8.4-10.2); Carbon Dioxide 22 mmol/L (22.0-30.0); Chloride 105 mmol/L (98-107); Creatinine Clearance Estimated 99 mL/min (50-200); Estimated Glomerular Filt Rate 87 ml/min (>60); GFR (African American) 105 ML/MIN (>60); Globulin 4.5 g/dL (1.3-3.2); Glucose 152 mg/dl (74-100); Lipase 76 U/L (23-300); Magnesium 1.6 mg/dl (1.6-2.3); Phosphorous 3.4 mg/dl (2.5-4.5); Potassium 3.9 mmoL/L (3.5-5.1); Sodium 136 mmol/L (136-145); Total Protein,Serum 8.7 g/dl (6.3-8.2)
[2024-05-18 21:46] LABS: Basophils % 1.2 % (0.1-2.0); Eosinophils # 0.2 K/mm3 (0.0-0.4); Eosinophils % 5.5 % (0.1-12.0); Hematocrit 44.4 % (37.0-47.0); Hemoglobin 14.5 g/dL (12.2-16.2); Lymphocytes # 0.9 K/mm3 (0.7-4.5); Lymphocytes % 25.8 % (10-50); Mean Corpuscular HGB Conc 32.6 g/dL (31.8-35.4); Mean Corpuscular Hemoglobin 33.7 pg (27.0-31.2); Mean Corpuscular Volume 103.3 fl (81-99); Mean Platelet Volume 8.2 fl (7.4-10.4); Monocytes # 0.3 K/mm3 (0.1-1.0); Monocytes % 7.6 % (1.7-9.3); Neutrophils # 2.1 K/mm3 (1.8-7.8); Neutrophils % 59.8 % (37.0-80.0); Platelet Count 138 K/mm3 (142-424); Red Cell Distribution Width 15.5 % (11.5-17.5); White Blood Count 3.5 K/mm3 (4.8-10.8)
[2024-05-18 22:01] VITALS: BP 107/66; PULSE 67; O2SAT 93
[2024-05-18 22:06] LABS: HIV (1&2) Antibody Rapid NONREACTIVE (NONREACTIVE)
[2024-05-18 22:24] VITALS: BP 107/66; PULSE 65; RESP 17; TEMP 36.7; O2SAT 95
[2024-05-18 22:31] VITALS: BP 95/54; PULSE 64; O2SAT 94
[2024-05-20 05:15] LABS: HCV Ab Non Reactive (Non Reactive)
== END 2024-05-18 23:08 | disposition home or self-care (01) ==
PROVIDERS: Emergency Provider Student in an Organized Health Care Education/Training Program; PCP Internal Medicine Adolescent Medicine
DX: R53.1 Weakness (principal); R11.2 Nausea with vomiting, unspecified; R19.7 Diarrhea, unspecified; I95.9 Hypotension, unspecified
CPT/HCPCS: 80053; 83690; 83735; 84100; 85025; 86803; 87389; 93005; 96360; 96374; 99283; J2405; J7120

== ENCOUNTER 2024-06-06 07:41 | Outpatient (CLI) | payer OTHER, SELFPAY ==
[2024-06-06] VITALS (9 sets, daily range): BP systolic 92–124; BP diastolic 43–68; PULSE 60–68; RESP 18; O2SAT 96
[2024-06-06] MEDS: ACETAMINOPHEN 325MG TAB 650 MG PO (08:26)
[2024-06-06] MEDS: SODIUM CHLORIDE 0.9% 50ML BAG 50 ML IV (08:26)
[2024-06-06] MEDS: diphenhydrAMINE 25MG CAPSULE 25 MG PO (08:27)
[2024-06-06] MEDS: SODIUM CHLORIDE 0.9% 10ML FLUSH SYRINGE 10 ML IV (08:27)
[2024-06-06] MEDS: HYDROCORTISONE SOD SUCCINATE 100MG VIAL 200 MG IV (08:27)
[2024-06-06] MEDS: inFLIXimab 400 MG in 0.9 % SODIUM CHLORIDE 250 ML 83.333 MG IV (08:57)
== END 2024-06-06 11:40 | disposition home or self-care (01) ==
LOC: INF 07:41
PROVIDERS: PCP Internal Medicine Adolescent Medicine; Visit Provider Internal Medicine
DX: D86.9 Sarcoidosis, unspecified (principal)
CPT/HCPCS: 96413; 96415; J1745

== ENCOUNTER 2024-07-04 07:28 | Outpatient (CLI) | payer OTHER, SELFPAY ==
[2024-07-04] VITALS (9 sets, daily range): BP systolic 93–125; BP diastolic 50–78; PULSE 64–72; RESP 18; O2SAT 95–96
[2024-07-04] MEDS: HYDROCORTISONE SOD SUCCINATE 100MG VIAL 200 MG IV (08:28)
[2024-07-04] MEDS: ACETAMINOPHEN 325MG TAB 650 MG PO (08:29)
[2024-07-04] MEDS: diphenhydrAMINE 25MG CAPSULE 25 MG PO (08:29)
[2024-07-04] MEDS: inFLIXimab 400 MG in 0.9 % SODIUM CHLORIDE 250 ML 83.333 MG IV (09:07)
[2024-07-04] MEDS: SODIUM CHLORIDE 0.9% 50ML BAG 50 ML IV (09:07)
== END 2024-07-04 11:35 | disposition home or self-care (01) ==
LOC: INF 07:29
PROVIDERS: PCP Internal Medicine Adolescent Medicine; Visit Provider Internal Medicine
DX: D86.9 Sarcoidosis, unspecified (principal)
CPT/HCPCS: 96413; 96415; J1745

== ENCOUNTER 2024-07-25 13:00 | Outpatient (CLI) | payer OTHER, SELFPAY ==
[2024-07-25 14:00] LABS: Alanine Aminotransferase 29 U/L (12-78); Alkaline Phosphatase 104 U/L (38-126); Aspartate Amino Transferase 42 U/L (14-36); Bilirubin,Direct 0.3 mg/dl (0.0-0.4); Bilirubin,Indirect 1.7 mg/dL (0.0-0.9); Bilirubin,Unconjugated 1.7 mg/dL (0.0-1.1); Total Protein,Serum 7.5 g/dl (6.3-8.2)
== END 2024-07-25 23:59 | disposition home or self-care (01) ==
LOC: LAB 13:02
PROVIDERS: PCP Internal Medicine Adolescent Medicine; Visit Provider Internal Medicine
DX: D86.9 Sarcoidosis, unspecified (principal); Z79.899 Other long term (current) drug therapy
CPT/HCPCS: 36415; 80076

== ENCOUNTER 2024-08-08 08:02 | Outpatient (CLI) | payer OTHER, SELFPAY ==
[2024-08-08] VITALS (12 sets, daily range): BP systolic 80–121; BP diastolic 42–78; PULSE 64–74; RESP 14–18; TEMP 36.7; O2SAT 94–99; BMI 25.6
[2024-08-08] MEDS: SODIUM CHLORIDE 0.9% 10ML FLUSH SYRINGE 10 ML IV (08:19)
[2024-08-08] MEDS: HYDROCORTISONE SOD SUCCINATE 100MG VIAL 200 MG IV (08:24)
[2024-08-08] MEDS: ACETAMINOPHEN 325MG TAB 650 MG PO (08:24)
[2024-08-08] MEDS: diphenhydrAMINE 25MG CAPSULE 25 MG PO (08:24)
[2024-08-08] MEDS: SODIUM CHLORIDE 0.9% 50ML BAG 50 ML IV (08:37)
[2024-08-08] MEDS: inFLIXimab 400 MG in 0.9 % SODIUM CHLORIDE 250 ML 83.333 MG IV (08:40)
== END 2024-08-08 11:05 | disposition home or self-care (01) ==
LOC: INF 08:03
PROVIDERS: PCP Internal Medicine Adolescent Medicine; Visit Provider Internal Medicine
DX: D86.9 Sarcoidosis, unspecified (principal)
CPT/HCPCS: 96413; 96415; J1745

== ENCOUNTER 2024-10-01 07:58 | Outpatient (CLI) | payer OTHER, SELFPAY ==
[2024-10-01] MEDS: HYDROCORTISONE SOD SUCCINATE 100MG VIAL 200 MG IV (08:23)
[2024-10-01] MEDS: diphenhydrAMINE 25MG CAPSULE 25 MG PO (08:23)
[2024-10-01] MEDS: ACETAMINOPHEN 325MG TAB 650 MG PO (08:23)
[2024-10-01] MEDS: SODIUM CHLORIDE 0.9% 50ML BAG 50 ML IV (08:24)
[2024-10-01] MEDS: inFLIXimab 400 MG in 0.9 % SODIUM CHLORIDE 250 ML 83.333 MG IV (08:58)
[2024-10-01 09:05] VITALS: BP 113/62; PULSE 70; RESP 18; TEMP 36.7; O2SAT 98
[2024-10-01 09:35] VITALS: BP 87/40; PULSE 73
[2024-10-01 10:05] VITALS: BP 99/50; PULSE 71
[2024-10-01 10:35] VITALS: BP 90/51; PULSE 74
[2024-10-01 11:05] VITALS: BP 108/65; PULSE 70
[2024-10-01 11:20] VITALS: BP 106/52; PULSE 71
== END 2024-10-01 11:30 | disposition home or self-care (01) ==
LOC: INF 07:59
PROVIDERS: PCP Internal Medicine Adolescent Medicine; Visit Provider Internal Medicine
DX: D86.9 Sarcoidosis, unspecified (principal)
CPT/HCPCS: 96413; 96415; J1745

== ENCOUNTER 2024-10-10 17:20 | Outpatient (CLI) | payer OTHER, SELFPAY ==
[2024-10-10 18:10] LABS: Adenovirus F 40/41, stool Not Detected (NotDetected); Astrovirus Not Detected (NotDetected); Campylobacter Not Detected (NotDetected); Clostridium Difficile A/B, PCR Not Detected (NotDetected); Cryptosporidium Not Detected (NotDetected); Cyclospora Cayetanesis Not Detected (NotDetected); Entamoeba histolytica Not Detected (NotDetected); Enteroaggregative E coli Not Detected (NotDetected); Enteropathogenic E coli Not Detected (NotDetected); Enterotoxigenic E coli Not Detected (NotDetected); Giardia lamblia Not Detected (NotDetected); Norovirus Not Detected (NotDetected); Plesimonas Shigalloides, PCR Not Detected (NotDetected); Rotavirus A Not Detected (NotDetected); Salmonella, PCR Not Detected (NotDetected); Sapovirus Not Detected (NotDetected); Shiga-like toxin E coli Not Detected (NotDetected); Shigella Enterovasive E coli Not Detected (NotDetected); Vibrio Cholerae Not Detected (NotDetected); Vibrio, PCR Not Detected (NotDetected); Yersinia Entercolitica, PCR Not Detected (NotDetected)
== END 2024-10-10 23:59 | disposition home or self-care (01) ==
LOC: LAB.DROPOF 17:21
PROVIDERS: PCP Physician Assistant; Visit Provider Physician Assistant
DX: R10.12 Left upper quadrant pain (principal); R19.7 Diarrhea, unspecified
CPT/HCPCS: 82656; 83993; 87177; 87338; 87507

== ENCOUNTER 2024-10-28 08:09 | Outpatient (CLI) | payer OTHER, SELFPAY ==
[2024-10-28] MEDS: diphenhydrAMINE 25MG CAPSULE 25 MG PO (08:30)
[2024-10-28] MEDS: HYDROCORTISONE SOD SUCCINATE 100MG VIAL 200 MG IV (08:30)
[2024-10-28] MEDS: ACETAMINOPHEN 325MG TAB 650 MG PO (08:30)
[2024-10-28] MEDS: inFLIXimab 400 MG in 0.9 % SODIUM CHLORIDE 250 ML 83.333 MG IV (09:00)
[2024-10-28 09:10] VITALS: BP 121/65; PULSE 81; RESP 18; TEMP 36.8; O2SAT 99
[2024-10-28] MEDS: SODIUM CHLORIDE 0.9% 50ML BAG 50 ML IV (09:30)
[2024-10-28 09:40] VITALS: BP 115/62; PULSE 72; RESP 18
[2024-10-28 10:10] VITALS: BP 112/68; PULSE 74; RESP 18
[2024-10-28 10:40] VITALS: BP 103/63; PULSE 77; RESP 18
[2024-10-28 11:10] VITALS: BP 107/69; PULSE 78; RESP 18
[2024-10-28 11:23] VITALS: BP 114/65; PULSE 76; RESP 18
== END 2024-10-28 11:30 | disposition home or self-care (01) ==
LOC: INF 08:09
PROVIDERS: PCP Internal Medicine Adolescent Medicine; Visit Provider Internal Medicine
DX: D12.6 Benign neoplasm of colon, unspecified (principal)
CPT/HCPCS: 96413; 96415; J1745

== ENCOUNTER 2024-11-07 17:00 | Outpatient (CLI) | payer OTHER, SELFPAY ==
[2024-11-07 17:32] LABS: Basophils % 1.1 % (0.1-2.0); Eosinophils # 0.2 K/mm3 (0.0-0.4); Hematocrit 31.5 % (37.0-47.0); Hemoglobin 10.3 g/dL (12.2-16.2); Lymphocytes # 0.9 K/mm3 (0.7-4.5); Lymphocytes % 31.7 % (10-50); Mean Corpuscular HGB Conc 32.7 g/dL (31.8-35.4); Mean Corpuscular Hemoglobin 33.9 pg (27.0-31.2); Mean Corpuscular Volume 103.6 fl (81-99); Mean Platelet Volume 10.1 fl (7.4-10.4); Monocytes # 0.3 K/mm3 (0.1-1.0); Monocytes % 11.4 % (1.7-9.3); Neutrophils # 1.3 K/mm3 (1.8-7.8); Neutrophils % 48.4 % (37.0-80.0); Platelet Count 133 K/mm3 (142-424); Red Blood Count 3.04 M/mm3 (4.20-5.40); Red Cell Distribution Width 14.6 % (11.5-17.5); White Blood Count 2.7 K/mm3 (4.8-10.8)
[2024-11-07 18:04] LABS: Albumin Level 4.1 g/dl (3.5-5.0); Chloride 108 mmol/L (98-107); Potassium 3.8 mmoL/L (3.5-5.1); Sodium 140 mmol/L (136-145)
[2024-11-07 18:05] LABS: Alanine Aminotransferase 25 U/L (12-78); Albumin/Globulin Ratio 1.2 (1.1-1.8); Alkaline Phosphatase 111 U/L (38-126); Anion Gap 12.8 mEq/L (5-15); Aspartate Amino Transferase 33 U/L (14-36); Bilirubin,Total 1.6 mg/dl (0.2-1.3); Blood Urea Nitrogen 9 mg/dl (7-17); Carbon Dioxide 23 mmol/L (22.0-30.0); Estimated Glomerular Filt Rate 86 ml/min (>60); GFR (African American) 104 ML/MIN (>60); Globulin 3.5 g/dL (1.3-3.2); Total Protein,Serum 7.6 g/dl (6.3-8.2)
[2024-11-07 18:06] LABS: Calcium 9.5 mg/dl (8.4-10.2); Chol/HDL Ratio 2.4 (1-3.5); Cholesterol 140 mg/dl (140-200); Glucose 146 mg/dl (74-100); HDL Cholesterol 59 mg/dl (40-60); Triglycerides 92 mg/dl (30-150); VLDL Cholesterol 18 mg/dL (0-40)
[2024-11-07 18:17] LABS: Direct LDL Cholesterol 56.28 mg/dL (100-129)
[2024-11-07 18:24] LABS: Hemoglobin A1C 5.7 % (4.0-6.0)
== END 2024-11-07 23:59 | disposition home or self-care (01) ==
LOC: LAB 17:03
PROVIDERS: PCP Internal Medicine Adolescent Medicine; Visit Provider Internal Medicine Adolescent Medicine
DX: E78.5 Hyperlipidemia, unspecified (principal); I10 Essential (primary) hypertension; E11.69 Type 2 diabetes mellitus with other specified complication
CPT/HCPCS: 36415; 80053; 80061; 83036; 85025

== ENCOUNTER 2024-11-14 15:07 | Outpatient (CLI) | payer OTHER, SELFPAY ==
[2024-11-14 16:01] LABS: Iron 82 ug/dL (37-170)
[2024-11-14 16:10] LABS: Total Iron Binding Capacity 432 ug/dL (265-497)
[2024-11-14 16:37] LABS: Ferritin 11.4 ng/ml (11.1-264)
[2024-11-14 17:14] LABS: Vitamin B12 416 pg/mL (239-931)
== END 2024-11-14 23:59 | disposition home or self-care (01) ==
LOC: LAB 15:08
PROVIDERS: PCP Internal Medicine Adolescent Medicine; Visit Provider Internal Medicine Adolescent Medicine
DX: D53.9 Nutritional anemia, unspecified (principal)
CPT/HCPCS: 36415; 82607; 82728; 82746; 83540; 83550

== ENCOUNTER 2024-12-03 07:28 | Outpatient (CLI) | payer OTHER, SELFPAY ==
[2024-12-03] MEDS: HYDROCORTISONE SOD SUCCINATE 100MG VIAL 200 MG IV (08:25)
[2024-12-03] MEDS: SODIUM CHLORIDE 0.9% 50ML BAG 50 ML IV (08:26)
[2024-12-03] MEDS: ACETAMINOPHEN 325MG TAB 650 MG PO (08:26)
[2024-12-03] MEDS: diphenhydrAMINE 25MG CAPSULE 25 MG PO (08:26)
[2024-12-03] MEDS: inFLIXimab 400 MG in 0.9 % SODIUM CHLORIDE 250 ML 83.333 MG IV (09:00)
[2024-12-03 09:15] VITALS: BP 121/65; PULSE 66; RESP 18; TEMP 36.6; O2SAT 100
[2024-12-03 09:45] VITALS: BP 91/52; PULSE 65
[2024-12-03 10:15] VITALS: BP 95/56; PULSE 62
[2024-12-03 10:45] VITALS: BP 100/55; PULSE 63
[2024-12-03 11:15] VITALS: BP 90/52; PULSE 67
[2024-12-03 11:30] VITALS: BP 102/55; PULSE 68
== END 2024-12-03 11:35 | disposition home or self-care (01) ==
LOC: INF 07:29
PROVIDERS: PCP Internal Medicine Adolescent Medicine; Visit Provider Internal Medicine
DX: D12.6 Benign neoplasm of colon, unspecified (principal)
CPT/HCPCS: 96413; 96415; J1745

== ENCOUNTER 2025-01-02 08:03 | Outpatient (CLI) | payer OTHER, SELFPAY ==
[2025-01-02] VITALS (8 sets, daily range): BP systolic 91–123; BP diastolic 45–78; PULSE 71–86; RESP 18; O2SAT 97
[2025-01-02] MEDS: diphenhydrAMINE 25MG CAPSULE 25 MG PO (08:15)
[2025-01-02] MEDS: ACETAMINOPHEN 325MG TAB 650 MG (08:15)
[2025-01-02] MEDS: HYDROCORTISONE SOD SUCCINATE 100MG VIAL 200 MG (08:15)
[2025-01-02] MEDS: inFLIXimab 400 MG in 0.9 % SODIUM CHLORIDE 250 ML 83.333 MG IV (08:52)
[2025-01-02] MEDS: SODIUM CHLORIDE 0.9% 50ML BAG 50 ML IV (08:53)
== END 2025-01-02 11:25 | disposition home or self-care (01) ==
LOC: INF 08:04
PROVIDERS: PCP Internal Medicine Adolescent Medicine; Visit Provider Internal Medicine
DX: D86.9 Sarcoidosis, unspecified (principal)
CPT/HCPCS: 96413; 96415; J1745

== ENCOUNTER 2025-01-30 08:15 | Outpatient (CLI) | payer OTHER, SELFPAY ==
[2025-01-30 08:37] VITALS: BMI 27.9
[2025-01-30] MEDS: ACETAMINOPHEN 325MG TAB 650 MG PO (08:43)
[2025-01-30] MEDS: diphenhydrAMINE 25MG CAPSULE 25 MG PO (08:43)
[2025-01-30] MEDS: HYDROCORTISONE SOD SUCCINATE 100MG VIAL 200 MG IV (08:43)
[2025-01-30] MEDS: inFLIXimab 400 MG in 0.9 % SODIUM CHLORIDE 250 ML 83.333 MG IV (09:07)
[2025-01-30 09:10] LABS: Albumin Level 3.6 g/dl (3.5-5.0)
[2025-01-30 09:13] LABS: Alanine Aminotransferase 20 U/L (12-78); Alkaline Phosphatase 136 U/L (38-126); Aspartate Amino Transferase 32 U/L (14-36); Bilirubin,Direct 0.3 mg/dl (0.0-0.4); Bilirubin,Total 1.3 mg/dl (0.2-1.3); Total Protein,Serum 7.6 g/dl (6.3-8.2)
[2025-01-30 09:15] VITALS: BP 100/44; PULSE 79; RESP 18; TEMP 36.6; O2SAT 99
[2025-01-30 09:45] VITALS: BP 97/61; PULSE 72
[2025-01-30 10:15] VITALS: BP 104/54; PULSE 70
[2025-01-30 10:45] VITALS: BP 106/58; PULSE 71
[2025-01-30 11:15] VITALS: BP 115/57; PULSE 68
[2025-01-30 11:25] VITALS: BP 110/53; PULSE 69
== END 2025-01-30 11:30 | disposition home or self-care (01) ==
LOC: INF 08:16
PROVIDERS: PCP Internal Medicine Adolescent Medicine; Visit Provider Internal Medicine
DX: D86.9 Sarcoidosis, unspecified (principal)
CPT/HCPCS: 80076; 96413; 96415; J1720; J1745; J7050

== ENCOUNTER 2025-02-27 08:10 | Outpatient (CLI) | payer OTHER, SELFPAY ==
--- OUTSIDE RECORDS SUMMARY | 2025-01-06 06:36 | XMS_ITS | Encounter Summary ---
Author Organization [facility] Address [address] [place] [address] Care Team Providers Care Warehouse Specialist Name Role Phone Sarkis Lam MD Primary Care Provider [phone] Reason for Referral * Imaging (Routine) - Closed Specialty Diagnoses / Procedures Referred By Contac t Referred To Contact Gastroenterology Diagnoses Esophageal varices without bleeding, unspecified esophageal varices type (CMS/HCC) Generalized abdominal pain LUQ pain Diarrhea, unspecified type Procedures Colonoscopy Patricia Ramsey PA [address] [facility] [address] [place] [address] Phone: tel: fax: Referral ID Status Reason Start Date Expiration Date V isits Requested Visits Authorized [id number] Closed Specialty Services Required 10/15/2024 04/16/2026 1 1 * Imaging (Routine) - Closed Specialty Diagnoses / Procedures Referred By Contac t Referred To Contact Gastroenterology Diagnoses Esophageal varices without bleeding, unspecified esophageal varices type (CMS/HCC) Generalized abdominal pain LUQ pain Diarrhea, unspecified type Procedures EGD Patricia Ramsey PA [address] [place] [address] Phone: tel: fax: Referral ID Status Reason Start Date Expiration Date V isits Requested Visits Authorized [id number] Closed Specialty Services Required 10/15/2024 04/16/2026 1 1 Reason for Visit * Imaging (Routine) - Closed Specialty Diagnoses / Procedures Referred By Contac t Referred To Contact Gastroenterology Diagnoses Esophageal varices without bleeding, unspecified esophageal varices type (CMS/HCC) Generalized abdominal pain LUQ pain Diarrhea, unspecified type Procedures Colonoscopy Patricia Ramsey PA [address] [address] Phone: tel: fax: Referral ID Status Reason Start Date Expiration Date V isits Requested Visits Authorized [id number] Closed Specialty Services Required 10/15/2024 04/16/2026 1 1 Encounter Details Date Type Department Care Team (Late st Contact Info) Description 01/06/2025 6:36 AM EDT - 01/06/2025 11:59 PM EDT Hospital Encounter [facility] [address] [place] [id number] Carmita Poe MD [address] [address] Fitz Yanez MD [address] [place] [address] Marley Hope CRNA [address] [place] [address] Allyson Hollingsworth, RN [facility] Esophageal varices without bleeding, unspecified esophageal varices type (CMS/HCC); Generalized abdominal pain; LUQ pain; Diarrhea, unspecified type Discharge Disposition: Home or Self Care Social History Tobacco Use Types Packs/Day Years Used Date Smoking Tobacco: Never Passive Smoke Exposure: Never Smokeless Tobacco: Never Alcohol Use Standard Drinks/Week Comments Never 0 (1 standard drink = 0.6 oz pur e alcohol) PHQ-2 Answer Date Recorded Patient Health Questionnaire-2 Score 0 11/19/2024 PHQ-9 Answer Date Recorded Patient Health Questionnaire-9 Score 0 11/19/2024 PHQ-2A Answer Date Recorded Depression Risk 0 11/19/2024 PHQ-9A Answer Date Recorded Depression Risk Score 0 11/19/2024 Comments No Sex and Gender Information Value Date Recorded Sex Assigned at Not on file Legal Sex Female 8:10 PM EDT Gender Identity Not on file Sexual Orientation Not on file documented as of this encounter Last Filed Vital Signs Vital Sign Reading Time Taken Comments Blood Pressure 114/66 01/06/2025 8:45 AM EDT Pulse 67 01/06/2025 8:45 AM EDT Temperature 36.2 C (97.2 F) 01/06/2025 8:12 AM EDT Respiratory Rate 14 01/06/2025 8:45 AM EDT Oxygen Saturation 100% 01/06/2025 8:45 AM EDT Inhaled Oxygen Concentration - - Weight - - Height - - Body Mass Index - - documented in this encounter Medications at Time of Discharge Ascorbic Acid (VITAMIN C ER PO) Take by mouth. atorvastatin (Lipitor) 40 MG tablet Take 1 tablet by mouth daily. 01/02/2021 bisacodyl (Bisacodyl EC) 5 MG EC tablet Take all 4 tablets at 9 AM two days before colonoscopy 4 tablet 12/24/2024 Blood Glucose Monitoring Suppl (ONE TOUCH ULTRA 2) w/Device kit device kit 12/31/2018 carvedilol (Coreg) 6.25 MG tablet Take 1 tablet (6.25 mg) by mouth 2 (two) times a day with meals. 60 tablet 5 10/03/2024 cholecalciferol (Vitamin D-3) 125 MCG (5000 UT) capsule 09/27/2020 cyanocobalamin 1000 MCG tablet Take 1 tablet by mouth daily. escitalopram (Lexapro) 20 MG tablet TAKE 1 TABLET BY MOUTH EVERY DAY FOR 90 DAYS 03/02/2023 Farxiga 10 MG Take 1 tablet by mouth daily. 01/05/2021 Ferrous Sulfate (Iron) 325 (65 Fe) MG tablet 325 mg. 07/13/2023 Glucose Blood (HelpmycashUCH ULTRA BLUE ) 01/01/2019 inFLIXimab (Remicade) 100 MG injection Infuse into a venous catheter. Janumet 50-500 MG tablet Take 1 tablet by mouth 2 (two) times a day. 01/04/2021 lancets (OneTouch Delica Lancets 33G) [facility] 12/31/2018 losartan (Cozaar) 50 MG tablet Take 1 tablet by mouth daily. 05/08/2024 magnesium citrate solution Drink first bottle at 6PM two days before colonoscopy , drink second bottle at 9AM on day before colonoscopy- Follow each bottle with 4 glasses of clear liquids 592 mL 12/24/2024 omeprazole (PriLOSEC) [address] capsule Take 2 capsules by mouth. 07/01/2022 WXO-GNc-CyVa-NaSul f-Na Asc-C (MoviPrep) 100 g reconstituted solution At 5 PM on day before colonoscopy, mix and drink first dose. Mix and drink second dose 6 hours before you leave home on day of colonoscopy 1 each 12/24/2024 rOPINIRole (Requip) 0.25 MG tablet TAKE 1 TO 2 TABLET(S) BY MOUTH EVERY DAY AT BEDTIME 02/22/2024 documented as of this encounter Miscellaneous Notes * H&P - Carmita Poe MD - 01/06/2025 7:30 AM EDT Pre Procedure H and P Procedure: Colonoscopy and EGD Indication: NRH and portal HTN, EV, abdominal pain, diarrhea Brief H and P: 59F with h/o sarcoidosis, DM, obesity here for follow up for NRH and portal HTN, EV, abdominal pain, diarrhea presents for EGD and colonoscopy. EGD done in 07/2021 notable for esophageal varices Grade II and PHG. PMHx: Medical History[1] 14 point ROS normal except:Pertinent items are noted in HPI Medications reviewed by the physicians and reconciled in the chart. Anticoagulation/ASA: none Last dose: not applicable Allergies as of 01/06/2025 - Reviewed 01/06/2025 Allergen Reaction Noted Latex Other - please document in the comment field and Hives 04/22/2018 Penicillins Anaphylaxis and Unknown - Patient states they do not know rxn details 04/22/2018 Sulfa drugs Unknown - Patient states they do not know rxn details and Other - please document in the comment field 07/24/2022 Sulfacetamide Other - please document in the comment field and Unknown - Patient states they do notknow rxn details 04/22/2018 Social history: reports that she has never smoked. She has never been exposed to tobacco smoke. Sablador never used smokeless tobacco. She reports that she does not drink alcohol and does not use drugs. Family history: Reviewed and non contributory PE: Physical Exam Vitals reviewed. HENT: Head: Normocephalic and atraumatic. Eyes: General: No scleral icterus. Abdominal: General: Abdomen is flat. Skin: Coloration: Skin is not jaundiced. Neurological: Mental Status: She is alert. Psychiatric: Mood and Affect: Mood normal. Behavior: Behavior normal. Thought Content: Thought content normal. Judgment: Judgment normal. Inpression/indication for procedure: # NRH and portal HTN, EV, abdominal pain, diarrhea - proceed with EGD and colonoscopy Carmita Poe MD [1] Past Medical History: Diagnosis Date Anxiety disorder, unspecified Anxiety and depression Cirrhosis (CMS/HCC) Depression GERD (gastroesophageal reflux disease) Heart murmur Hypertension Pure hypercholesterolemia, unspecified High cholesterol Sarcoidosis Pulmonary Stage 3 with Dermatologic, Ocular, and Hepatic Disease Type 2 diabetes mellitus without complications Diabetes Unspecified osteoarthritis, unspecified site Arthritis * Marcos Coffman RN - 01/06/2025 7:12 AM EDT Images from the original note were not included. [id number] Anesthesia: General Anesthesia You?re due to have surgery. During surgery, you?ll be given medicine called anesthesia or anesthetic. This will keep you comfortable and pain-free. Your anesthesia provider will use general anesthesia . You are watched continuously during your procedure by your anesthesia provider. What is general anesthesia? General anesthesia puts you into a state like deep sleep. It goes into the bloodstream (IV anesthetics), into the lungs (gas anesthetics),or both. You feel nothing during the procedure. You won't remember it either. During the procedure, the anesthesia provider monitors you continuously. They trackyour heart rate and rhythm, blood pressure, breathing, and blood oxygen. ?? IV anesthetics. IV anesthetics are given through an IV (intravenous) line in your arm. They?re often given first. This is so you're asleep before a gas anesthetic is started. Some kinds of IV anesthetics ease pain. Others relax you. Your healthcare provider will decide which kind is best in yourcase. ?? Gas anesthetics. Gas anesthetics are breathed into the lungs. They're often used to keep you asleep. They can be given through a face mask. Or they can be given through a tube placed in your voicebox (larynx) or breathing tube (trachea). o Face mask. Your anesthesia provider will most likely place the face mask over your nose and mouthwhile you?re still awake. You?ll breathe oxygen through the mask as your IV anesthetic is started. Gas anesthetic may be added through the mask. o Tube in the larynx or trachea. The tube will be inserted into your throat after you?re asleep. Anesthesia tools and medicines You will likely have: ?? IV anesthetics. These are put into an IV line into your bloodstream. ?? Gas anesthetics. You breathe these anesthetics into your lungs. Then they pass into your bloodstream. ?? Pulse oximeter. This is a small clip that's attached to the end of your finger. It measures yourblood oxygen level. ?? Electrocardiography leads (electrodes). These are small sticky pads that are placed on your chest. They record your heart rate and rhythm. ?? Blood pressure cuff. This reads your blood pressure. Risks and possible complications General anesthesia has some risks. These include: ?? Breathing problems ?? Upset stomach (nausea) and vomiting ?? Sore throat or hoarseness (usually temporary) ?? Allergic reaction to the anesthetic ?? Irregular heartbeat (rare) ?? Cardiac arrest (rare) Anesthesia safety ?? Follow any directions you're given for not eating or drinking before your procedure. ?? Tell your healthcare provider what medicines you take. This includes prescription and cypg-sft-[id number] medicines. It also includes vitamins, herbs, and other supplements. You'll be asked when those were last taken. ?? Have a trusted adult drive you home after the procedure. ?? For the first 24 hours after your surgery: o Don't drive or use heavy equipment. o Don't make important decisions or sign legal documents. If important decisions or signing legal documents is necessary during the first 24 hours after surgery, have a trusted family member or spouse act on your behalf. o Don't drink alcohol. o Have a responsible adult stay with you. They can watch for problems and help keep you safe. Last Reviewed Date: 2023 00:00:00 ?? [id number] [employer]. All rights reserved. This information is not intended as a substitute for professional medical care. Always follow your healthcare professional's instructions. * Betzaida CarlosIR - Marcos Lambert RN - 01/06/2025 7:12 AM EDT Images from the original note were not included. [id number] Endoscopy Unit: Caring for Yourself after a Colonoscopy What precautions do I need to take after my procedure? You will get a medicine that makes you sleep during treatment. It may affect you for the next 24 hours. ?? Do not drive or go home alone. Someone must be with you until you get home. ?? For 24 hours, do not make legal decisions, drive, or use dangerous equipment. ?? You may continue taking your home medicines, unless your doctor tells you otherwise. When can I eat or drink? You may eat as you normally would. Start with a small amount of bland foods. Add other foods as tolerated. Spicy or greasy foods may cause nausea. How active can I be? You should move around as you are able. Do your normal activities if you feel you can. Sexual activity is fine, unless your doctor tells you otherwise. How do I find out my biopsy results? If you had a biopsy, it may take 7-10 days for results. These results will be available in the patient portal, [facility]. Or you can call the doctor who ordered your procedure. What should I watch out for? ?? Gas: You may get air in your belly during treatment. This could cause gas or a feeling of fullness. This is normal. If you have hemorrhoids, you may have some rectal discomfort. ?? Blood: Please call if you have a polyp removed during your procedure and see 1 tablespoon or more of blood on your stool. Keep checking this for 1 month after your procedure. When should I call the doctor? Call 911 right away or go to the nearest emergency department if you have any of these: ?? Difficulty breathing ?? Severe pain in the throat ?? Severe pain in the chest or belly ?? Vomiting that does not go away ?? Fever of 101??F or higher ?? More than 1 tablespoon of rectal bleeding ?? Redness or tenderness of the IV site that lasts longer than 48 hours ?? Any other symptoms that concern you These may be related to a complication and need medical attention. If you do not tell your doctor, the problem may get worse. Our contact information: For the Endoscopy Provider, call and ask for the Endoscopy Fellow on-call. * Betzaida Maya - Marcos Lambert RN - 01/06/2025 7:12 AM EDT Images from the original note were not included. [id number] Endoscopy Unit: Caring for Yourself after an Esophogastroduodenoscopy (EGD) What precautions do I need to take after my procedure? You will get a medicine that makes you sleep during treatment. It may affect you for the next 24 hours. ?? Do not drive or go home alone. Someone must be with you until you get home. ?? For 24 hours, do not make legal decisions, drive, or use dangerous equipment. ?? You may continue taking your home medicines, unless your doctor tells you otherwise. When can I eat or drink? You may eat your normal diet, unless otherwise told by your doctor. Start with a small amount of bland foods and add other foods as tolerated. Spicy or greasy foods may cause nausea. How active can I be? You should move around as you are able. Do your normal activities if you feel you can. Sexual activity is fine, unless your doctor tells you otherwise. How do I find out my biopsy results? If you had a biopsy, it may take 7-10 days for results. These will be available in the patient portal, [facility]. Or you can call the doctor who ordered your procedure. When should I call the doctor? Call 911 right away or go to the nearest emergency department if you have any of these: ?? Difficulty breathing ?? Severe pain in the throat ?? Severe pain in the chest or belly ?? Vomiting that does not go away ?? Fever of 101??F or higher ?? Redness or tenderness of the IV site that lasts longer than 48 hours ?? Any other symptoms that concern you These may be related to a complication and need medical attention. If you do not tell your doctor, the problem may get worse. Our contact information: For the Endoscopy Provider, call and ask for the Endoscopy Fellow on-call. documented in this encounter Plan of Treatment Upcoming Encounters Date Type Department Care Team (Late st Contact Info) Description 03/26/2025 9:50 AM EDT Office Visit [facility] [address] [place] [address] Patricia Ramsey PA [address] [place] [phone] 06/05/2025 9:00 AM EDT Ancillary Procedure [facility] [address] [place] [phone] 06/05/2025 9:30 AM EDT Office Visit [facility] [address] [place] [address] Deneen Edward, DO [address] [place] [address] documented as of this encounter Procedures Procedure Name Priority Date/Time Associated Diagnosis Comments POCT GLUCOSE METER UNSOLICITED RESULTS Routine 01/06/2025 8:19 AM EDT COLONOSCOPY Routine 01/06/2025 8:10 AM EDT Esophageal varices without bleeding, unspecified esophageal varices type (CMS/HCC) Generalized abdominal pain LUQ pain Diarrhea, unspecified type EGD Routine 01/06/2025 8:10 AM EDT Esophageal varices without bleeding, unspecified esophageal varices type (CMS/HCC) Generalized abdominal pain LUQ pain Diarrhea, unspecified type SURGICAL PATHOLOGY EXAM Routine 01/06/2025 7:46 AM EDT Esophageal varices without bleeding, unspecified esophageal varices type (CMS/HCC) Generalized abdominal pain LUQ pain Diarrhea, unspecified type POCT GLUCOSE METER UNSOLICITED RESULTS Routine 01/06/2025 7:14 AM EDT documented in this encounter Results * (ABNORMAL) POCT glucose meter (01/06/2025 8:19 AM EDT) POCT Glucose 141(H) 74 - 99 mg/dL 01/06/2025 8:21 AM EDT [facility] Comment:Accuracy of a glucos e result obtained from a capillary whole blood specimen relies upon adequate, non-compromised capillary blood flow. If the capillary glucose result is not consistent with the patient's clinical signs and symptoms, glucose testing should be repeated with either an arterial or venous sample on the glucometer or sent to the main labortory for testing. Comment 01/06/2025 8:21 AM EDT [facility] Weatherization Specialist ID Mile Chen 01/06/2025 8:21 AM EDT [facility] Device ID [id number] 01/06/2025 8:21 AM EDT [facility] Specimen Type POC Capillary 01/06/2025 8:21 AM EDT [facility] Blood Capillary blood specimen / Unknown 01/06/2025 8:19 AM EDT 01/06/2025 8:21 AM EDT us Carmita Poe MD LAB POINT OF CARE TE ST DOCKED DEVICE UNSOLICITED RESULTS Final Result [facility] [address] [place] [id number] * Colonoscopy (01/06/2025 8:10 AM EDT) Anatomical Region Laterality Modality Endoscopy Narrative 01/06/2025 10:03 AM EDT Table formatting from the original result was not included. Impression: The terminal ileum appeared normal. Poor bowel preparation. Within the limits of the preparation there were no large polyps or masses noted. Random biopsies obtained from right and left colon with cold forceps for histology. Hemorrhoids Post Procedure Diagnosis Hemorrhoids Recommendations Await pathology results. Given family history and reported history of polyps, recommend repeat colonoscopy for surveillance at interval dictated by most recent adequate assessment (she reports having colonoscopy with polypectomy roughly 1 year ago). Follow up with referring provider. Findings and recommendations discussed with patient. Findings and recommendations to be conveyed to referring provider. Indication Diarrhea Medications See anesthesia record for anesthesia administered medications. Staff Staff Role Marley Hope CRNA CRNA Harris, Kristi A, RN Endo Nurse Fitz Yanez MD Anesthesiologist Carmita Poe MD Proceduralist Cory Yanes MD Proceduralist Ulises Carter Endo Cutter Inspector Preprocedure A history and physical has been performed, and patient medication allergies have been reviewed. The patient's tolerance of previous anesthesia has been reviewed. The risks and benefits of the procedure and the sedation options and risks were discussed with the patient. All questions were answered and informed consent obtained. Details of the Procedure The patient underwent monitored anesthesia care, which was administered by an anesthesia professional. The patient's blood pressure, heart rate, level of consciousness, respirations and oxygen were monitored throughout the procedure. A digital rectal exam was performed. A perianal exam was performed. The scope was introduced through the anus and advanced to the terminal ileum. Retroflexion was performed in the rectum. The quality of bowel preparation was evaluated using the [place] Bowel Preparation Scale with scores of: right colon = 1, transverse colon = 1, left colon = 2. The total BBPS score was 4. Bowel prep was not adequate. The patient's estimated blood loss was minimal (<5 mL). The procedure was not difficult. The patient tolerated the procedure well. There were no apparent adverse events. Attestation I was present for the entire procedure Events Procedure Events Event Event Time ENDO SCOPE IN TIME 01/06/2025 7:43 AM ENDO SCOPE OUT TIME 01/06/2025 7:51 AM ENDO SCOPE IN TIME 01/06/2025 7:55 AM ENDO CECUM REACHED 01/06/2025 7:59 AM ENDO SCOPE OUT TIME 01/06/2025 8:05 AM Specimens ID Type Source Tests Collected by Time A : bxs Tissue Duodenum SURGICAL PATHOLOGY EXAM Cory Yanes MD 01/06/2025 0746 B : gastric bxs Tissue Stomach SURGICAL PATHOLOGY EXAM Cory Yanes MD 01/06/2025 0748 C : gastric polyp bxs Tissue Stomach SURGICAL PATHOLOGY EXAM Cory Yanes MD 01/06/2025 0750 D : random colon bxs Tissue Colon SURGICAL PATHOLOGY EXAM Cory Yanes MD 01/06/2025 0801 Findings The terminal ileum appeared normal. Poor bowel preparation. Within the limits of the preparation there were no large polyps or masses noted. Performed multiple random pancolonic forceps biopsies Internal hemorrhoids us Patricia HOWELL GI PROCEDURE ORDERABLES Final R esult * EGD (01/06/2025 8:10 AM EDT) Anatomical Region Laterality Modality Endoscopy Narrative 01/06/2025 10:04 AM EDT Table formatting from the original result was not included. Impression: Grade II varices in the lower third of the esophagus Portal hypertensive gastropathy. Biopsies obtained with cold forceps for histology from body and antrum. Polyp in the prepyloric region. Biopsies obtained with cold forceps for histology. The duodenum appeared normal. Biopsies obtained with cold forceps for histology. Post Procedure Diagnosis Esophageal varices Portal hypertensive gastropathy Gastric polyp Recommendations Await pathology results. Follow up with referring provider. Findings and recommendations discussed with patient. Findings and recommendations to be conveyed to referring provider. Indication Abdominal pain Medications See anesthesia record for anesthesia administered medications. Staff Staff Role Marley Hope, Allyson Beckham CRNA, RN Endo Nurse Fitz Yanez MD Anesthesiologist Carmita Poe MD Proceduralist Cory Yanes MD Proceduralist Ulises Carter Endo Cutter Inspector Preprocedure A history and physical has been performed, and patient medication allergies have been reviewed. The patient's tolerance of previous anesthesia has been reviewed. The risks and benefits of the procedure and the sedation options and risks were discussed with the patient. All questions were answered and informed consent obtained. Details of the Procedure The patient underwent monitored anesthesia care, which was administered by an anesthesia professional. The patient's blood pressure, heart rate, level of consciousness, oxygen and respirations were monitored throughout the procedure. The scope was introduced through the mouth and advanced to the second part of the duodenum. Retroflexion was performed in the cardia, fundus and incisura. The patient's estimated blood loss was minimal (<5 mL). The procedure was not difficult. The patient tolerated the procedure well. There were no apparent adverse events. Attestation I was present for the entire procedure Specimens ID Type Source Tests Collected by Time A : bxs Tissue Duodenum SURGICAL PATHOLOGY EXAM Cory Yanes MD 01/06/2025 0746 B : gastric bxs Tissue Stomach SURGICAL PATHOLOGY EXAM Cory Yanes MD 01/06/2025 0748 C : gastric polyp bxs Tissue Stomach SURGICAL PATHOLOGY EXAM Cory Yanes MD 01/06/2025 0750 D : random colon bxs Tissue Colon SURGICAL PATHOLOGY EXAM Cory Yanes MD 01/06/2025 0801 Findings Grade II varices in the lower third of the esophagus; no bleeding was observed Portal hypertensive gastropathy; performed cold forceps biopsy Polyp measuring smaller than 5 mm in the prepyloric region; performed cold forceps biopsy The duodenum appeared normal. Performed random biopsy using biopsy forceps. Performed multiple forceps biopsies in the duodenum Performed multiple forceps biopsies in the perigastric region Patricia HOWE[facility] GI PROCEDURE ORDERABLES Final R esult * Surgical Pathology Exam (01/06/2025 7:46 AM EDT) Case Report Surgical Pathology Case: [id number] Authorizing Provider: Carmita Poe MD Collected: 01/06/2025 0746 Ordering Location: [facility] Endoscopy Received: 01/06/2025 1047 Pathologist: Elieser Dietrich DO Specimens: A) - Duodenum, bxs B) - Stomach, gastric bxs C) - Stomach, gastric polyp bxs D) - Colon, random colon bxs 01/07/2025 10:19 AM EDT [facility] Final Diagnosis A. SMALL INTESTINE, DUODENUM, BIOPSY: - NO PATHOLOGIC ABNORMALITY. - NO EVIDENCE OF VILLOUS ABNORMALITY OR INTRAEPITHELIAL LYMPHOCYTOSIS. B. STOMACH, BIOPSY: - MILD CHRONIC GASTRITIS WITH FEATURES OF PRIOR EROSION. - NO EVIDENCE OF HELICOBACTER-LIKE ORGANISMS ON ROUTINE STAIN. C. STOMACH, POLYP, BIOPSY: - FEATURES MOST CONSISTENT WITH HYPERPLASTIC POLYP. - NEGATIVE FOR DYSPLASIA WITHIN THE BIOPSIED MATERIAL. D. LARGE INTESTINE, RANDOM COLON, BIOPSY: - NO PATHOLOGIC ABNORMALITY. 01/07/2025 10:19 AM T [facility] at 1019 EDT Clinical Information I85.00 - Esophageal varices without bleeding, unspecified esophageal varices type (CMS/HCC) [ICD-10-CM] R10.84 - Generalized abdominal pain [ICD-10-CM] R10.12 - LUQ pain [ICD-10-CM] R19.7 - Diarrhea, unspecified type [ICD-10-CM] EGD findings: - Portal hypertensive gastropathy. - Polyp measuring smaller than 5 mm in the prepyloric region. - The duodenum appeared normal. Colonoscopy findings: - The terminal ileum appeared normal. - Poor bowel preparation. Within the limits of the preparation there were no large polyps or masses noted. - Performed multiple random pancolonic forceps biopsies 01/07/2025 10:19 AM EDT [facility] Gross Description A. BXS Received in formalin labeled biopsies, duodenum are 4 leblanc-brown soft tissue fragments measuring 0.2-0.4 cm in greatest dimension. Entirely submitted in cassette A1. Cold Time: <1m Amelia Funk B. GASTRIC BXS Received in formalin labeled gastric biopsies a re 4 leblanc-brown soft tissue fragments measuring 0.3-0.6 cm in greatest dimension. Entirely submitted in cassette B1. Cold Time: <1m Amelia Funk C. GASTRIC POLYP BXS Received in formalin labeled gastric polyp biopsies is 1 leblanc-brown soft tissue fragment measuring 0.8 cm in greatest dimension. Entirely submitted in cassette C1. Cold Time: <1m Amelia Funk D. RANDOM COLON BXS Received in formalin labeled random colon biopsies are 5 leblanc-brown soft tissue fragments measuring 0.2-0.4 cm in greatest dimension. Entirely submitted in cassette D1. Cold Time: <1m Amelia Funk 01/07/2025 10:19 AM T [facility] Note: A resident was involved in the service. I attest I examined the relevant preparations for the specimens and confirmed the diagnosis or interpretation. 01/07/2025 10:19 AM EDT [facility] Tissue Duodenal structure / Unknown 01/06/2025 7:46 AM EDT 01/06/2025 10:47 AM EDT Tissue specimen (specimen) Stomach structure / Unknown 01/06/2025 7:48 AM EDT 01/06/2025 10:47 AM EDT Tissue specimen (specimen) Stomach structure / Unknown 01/06/2025 7:50 AM EDT 01/06/2025 10:47 AM EDT Tissue specimen (specimen) Colon structure / Unknown 01/06/2025 8:01 AM EDT 01/06/2025 10:47 AM EDT us Carmita Poe MD LAB PATHOLOGY ORDERABLES Final Result [facility] [address] [place] [address] * (ABNORMAL) POCT glucose meter (01/06/2025 7:14 AM EDT) POCT Glucose 136(H) 74 - 99 mg/dL 01/06/2025 7:16 AM EDT [facility] Comment:Accuracy of a glucos e result obtained from a capillary whole blood specimen relies upon adequate, non-compromised capillary blood flow. If the capillary glucose result is not consistent with the patient's clinical signs and symptoms, glucose testing should be repeated with either an arterial or venous sample on the glucometer or sent to the main labortory for testing. Comment 01/06/2025 7:16 AM EDT [facility] Weatherization Specialist ID Mile Chen 01/06/2025 7:16 AM EDT [facility] Device ID [id number] 01/06/2025 7:16 AM EDT [facility] Specimen Type POC Capillary 01/06/2025 7:16 AM EDT [facility] Blood Capillary blood specimen / Unknown 01/06/2025 7:14 AM EDT 01/06/2025 7:16 AM EDT us Carmita Poe MD LAB POINT OF CARE TE ST DOCKED DEVICE UNSOLICITED RESULTS Final Result [facility] [address] [place] [address] documented in this encounter Visit Diagnoses Diagnosis Esophageal varices without bleeding, unspecified esophageal varices type (CMS/HCC) Generalized abdominal pain Abdominal pain, generalized LUQ pain Abdominal pain, left upper quadrant Diarrhea, unspecified type documented in this encounter Additional Health Concerns Assessment Noted Time PHQ-9 Depression Total Score: 0 11/20/19 25 10:30 AM EDT A fall risk assessment has been complete d for the patient 11/19/2024 10:30 AM EDT A Body Mass Index follow-up plan has been documented for the patient 11/19/2024 11:38 AM EDT documented as of this encounter Care Teams Warehouse Specialist Relationship Specialty Start Date End Date Sarkis Lam MD [address] [place] [address] PCP - General 12/24/20 documented as of this encounter
--- OUTSIDE RECORDS SUMMARY | 2025-01-06 07:34 | XMS_ITS | Encounter Summary ---
Author Organization [facility] Address [address] [place] [address] Care Team Providers Care Data Examination Clerk Name Role Phone Sarkis Lam MD Primary Care Provider [phone] Encounter Details Date Type Department Care Team (Late st Contact Info) Description 01/06/2025 7:34 AM EDT Anesthesia Event [facility] [address] [place] [address] Fitz Yanez MD [address] [place] [id number] Anesthesia Record Procedure Summary Procedure Name Responsible Anesthesiologist Anesthesia Start Time Anesthesia Stop Time EGD Fitz Yanez MD 01/06/25 0734 0 01/06/25 0816 Events Date Time Event Comment 01/06/2025 0728 0734 An Start The patient was reevaluated immediately before sedation and remains eligible for anesthesia plan. 0734 In Room 0734 An Start Data 0738 An Induction The patient was reevaluated immediately before moderate or deep sedation use and before anesthesia induction. 0740 Anesthesia Ready 0741 Proc Start 0805 Proc Fin 0810 Out of Room 0810 an stop data 0816 Handoff to Receiving I compl eted my handoff to the receiving clinician during which we: 1. Identified the patient 2. Identified the responsible provider 3. Reviewed the pertinent medical history 4. Discussed the surgical course 5. Reviewed intra-op anesthesia management and issues during anesthesia 6. Set expectations for post-procedure period 7. Allowed opportunity for questions and acknowledgement of understanding. 0816 An Stop Meds Name Total propofol (Diprivan) injection 10 mg/mL 1 50 mg propofol (Diprivan) infusion 10 mg/mL 40 6 mg lidocaine PF (Xylocaine-MPF) 2% 100 mg lactated Ringer's infusion 350 mL * Agents No agents on file. * Blood No blood administrations on file. Lines, Drains, and Airways Type Details Placement Removal Peripheral IV Placement Date: 12/12 03/06; Placement Time: 721; Catheter Size: 20 G; Orientation: Right; Location: Antecubital; Inserted by: Shirlene; Insertion Attempts: 1; Removal Date: 01/06/25; Removal Time: 0850 01/06/25 0722 by Marcos Lambert RN 01/06/25 0850 by Mile Chen RN documented in this encounter Social History Tobacco Use Types Packs/Day Years [...] on file documented as of this encounter Miscellaneous Notes * Anesthesia Postprocedure Evaluation - Marley Hope CRNA - 01/06/2025 8:16 AM EDT Patient: Aylin Escalera Anesthesia Type: general Vitals Value Taken Time BP 90/45 01/06/25 08:12 Temp 36.4C 01/06/25 08:16 Pulse 78 01/06/25 08:15 Resp 18 01/06/25 08:15 SpO2 95 % 01/06/25 08:15 Vitals shown include unfiled device data. Anesthesia Post Evaluation Patient location during evaluation: PACU Patient participation: complete - patient cannot participate Level of consciousness: sedated Pain management: adequate (pain score 0-3) Airway patency: natural airway Cardiovascular status: acceptable and hemodynamically stable Respiratory status: acceptable, blow-by oxygen, nasal cannula, spontaneous ventilation and nonlabored ventilation Hydration status: acceptable Nausea/Vomiting: No No notable events documented. * Anesthesia Preprocedure Evaluation - Fitz Yanez MD - 01/06/2025 7:26 AM EDT Images from the original note were not included. Patient: Aylin Escalera Procedure Information Date/Time: 01/06/25729 Scheduled providers: Carmita Poe MD; Fitz Yanez MD; Marley Hope CRNA; Allyson Hollingsworth RN Procedures: EGD COLONOSCOPY Location: [facility] S Endoscopy 59y F with DM2, liver fibrosis, portal HTN, sarcoidosis on 2L O2 at all times now for EGD/Colonoscopy. Pt denies previous problems with anesthesia. Denies CP/SOA, recent fever/URI. Pt cannot exerciseto >4METs. Relevant Problems Cardio (+) Esophageal varices (+) Hypertension (+) Shortness of breath Endo (+) Diabetes mellitus type 2 without retinopathy (CMS/HCC) (+) Type 2 diabetes mellitus GI (+) Diarrhea (+) Esophageal varices /Renal (+) Liver fibrosis (+) Nodular regenerative hyperplasia of liver Other (+) Hilar adenopathy (+) Osteoarthritis ROS Cardiovascular: hypertension: Gastrointestinal: GERD: Endocrine/Metabolic: diabetes mellitus. Clinical information reviewed: Med Hx Medical History[1] Tobacco Allergies Allergies[2] Surg Hx Surgical History[3] Fam Hx Soc Hx Social History[4] OB Status NPO Status Date of Last Liquid: 01/06/25 Time of Last Liquid: 399 Date of Last Solid: 01/04/25 Physical Exam Airway Mallampati: II Mouth opening: normal TM distance: >3 FB Neck ROM: full Upper lip bite test: I Cardiovascular Rhythm: regular Rate: normal Dental Pulmonary Breath sounds clear to auscultation Neurological Oriented: normal to time, normal to place and normal to person Skin Skin: warm and dry Musculoskeletal Extremities Anesthesia Plan ASA 3 Plan was reviewed with: FLOW SPECIALIST Anesthesia technique(s) discussed with the patient/family: general and MAC Anesthesia plan agreed upon was: general Anesthetic plan and risks discussed with patient. Additional Equipment Requests [1] Past Medical History: Diagnosis Date Anxiety disorder, unspecified Anxiety and depression Cirrhosis (CMS/HCC) Depression GERD (gastroesophageal reflux disease) Heart murmur Hypertension Pure hypercholesterolemia, unspecified High cholesterol Sarcoidosis Pulmonary Stage 3 with Dermatologic, Ocular, and Hepatic Disease Type 2 diabetes mellitus without complications Diabetes Unspecified osteoarthritis, unspecified site Arthritis [2] Allergies Allergen Reactions Latex Other - please document in the comment field and Hives Penicillins Anaphylaxis and Unknown - Patient states they do not know rxn details Sulfa Drugs Unknown - Patient states they do not know rxn details and Other - please document in the comment field Sulfacetamide Other - please document in the comment field and Unknown - Patient states they do notknow rxn details [3] Past Surgical History: Procedure Laterality Date CARDIAC CATHETERIZATION N/A Heart catheterization from [facility] SECTION, CLASSIC SECTION, LOW TRANSVERSE N/A Section from [facility] SECTION, LOW TRANSVERSE N/A section from [facility] SECTION, LOW TRANSVERSE N/A section from [facility] CHOLECYSTECTOMY N/A Cholecystectomy from [facility] EAR SURGERY N/A Ear surgery from [facility] ENDOSCOPY N/A Endoscopy from [facility] ESOPHAGOGASTRODUODENOSCOPY N/A Esophagogastroduodenoscopy from [facility] GALLBLADDER SURGERY N/A Gallbladder Surgery from [facility] LYMPH NODE BIOPSY OTHER SURGICAL HISTORY N/A Throat surgery from [facility] THROAT SURGERY N/A throat surgery from [facility] TUBAL LIGATION [4] Social History Tobacco Use Smoking status: Never Passive exposure: Never Smokeless tobacco: Never Vaping Use Vaping status: Never Used Substance Use Topics Alcohol use: Never Drug use: Never Comment: Drug use: No illicit drug use documented in this encounter Plan of Treatment Upcoming Encounters Date Type Department Care Team (Late st Contact Info) Description 03/26/2025 9:50 AM EDT Office Visit [facility] Medicine Specialties [address] [place] [address] Patricia Ramsey, DANTE [address] [place] [phone] 06/05/2025 9:00 AM EDT Ancillary Procedure [facility] Medicine Specialties [address] [place] [address] 06/05/2025 9:30 AM EDT Office Visit [facility] Medicine Specialties [address] [place] [address] Deneen Edward, DO [address] [place] [address] documented as of this encounter Visit Diagnoses Not on filedocumented in this encounter Administered Medications Inactive Administered Medications - up to 3 most recent administrations Medication Order MAR Action Action Date Dose Rate Site lactated Ringer's infusion 50 mL/hr, Intravenous, Continuous, Starting on Sun01/06/25 at 0800, Until Sun01/07/25 at 0240, Routine New Bag 01/06/2025 7:01 AM EDT lidocaine PF (Xylocaine) 2 % injection Intravenous, As needed, Starting on Sun01/06/25 at 0738, Until Sun01/06/25 at 0816, Routine, Anesthesia Intraprocedure Given 01/06/2025 7:38 AM EDT 100 mg propofol (Diprivan) infusion 10 mg/mL Intravenous, Continuous PRN, Starting on Sun01/06/25 at 0738, Until Sun01/06/25 at 0816, Routine Rate/Dose Change 01/06/2025 8:03 AM EDT 150 mcg/kg/min 63 mL/hr Rate/Dose Change 01/06/2025 7:55 AM EDT 200 mcg/kg/min 84 mL/hr Rate/Dose Change 01/06/2025 7:45 AM EDT 250 mcg/kg/min 105 mL/hr propofol (Diprivan) injection Intravenous, As needed, Starting on Sun01/06/25 at 0738, Until Sun01/06/25 at 0816, Routine, Anesthesia Intraprocedure Given 01/06/2025 7:45 AM EDT 20 mg Given 01/06/2025 7:43 AM EDT 40 mg Given 01/06/2025 7:40 AM EDT 20 mg documented in this encounter Additional Health Concerns Assessment Noted Time PHQ-9 Depression Total Score: 0 11/20/19 25 10:30 AM EDT A fall risk assessment has been complete d for the patient 11/19/2024 10:30 AM EDT A Body Mass Index follow-up plan has been documented for the patient 11/19/2024 11:38 AM EDT documented as of this encounter Care Teams Data Examination Clerk Relationship Specialty Start Date End Date Sarkis Lam MD [address] [place] [address] PCP - General 12/24/20 documented as of this encounter
--- OUTSIDE RECORDS SUMMARY | 2025-02-27 08:13 | XMS_ITS | Encounter Summary ---
Author Organization [facility] Address [address] [place] [address] Care Team Providers Care Hydraulic Assembler Name Role Phone Sarkis Lam MD Primary Care Provider [phone] Reason for Visit * Reason Comments Med Refill Encounter Details Date Type Department Care Team (Late st Contact Info) Description 03/07/2021 Refill [facility] [place] Bobo [address] [place] [address] Louise Wade, RONAL [address] [place] [address] Social History Tobacco Use Types Packs/Day Years Used Date Smoking Tobacco: Never Alcohol Use Standard Drinks/Week Comments No 0 (1 standard drink = 0.6 oz pur e alcohol) Comments Unknown Sex and Gender Information Value Date Recorded Sex Assigned at Not on file Legal Sex Female 8:10 PM EDT Gender Identity Not on file Sexual Orientation Not on file documented as of this encounter Plan of Treatment Upcoming Encounters Date Type Department Care Team (Late st Contact Info) Description 03/26/2025 9:50 AM EDT [facility] Visit [facility] [address] [place] [address] Patricia Ramsey, PA [address] [place] [address] 06/05/2025 9:00 AM EDT Ancillary Procedure [facility] Medicine Specialties [address], [address] [place] [address] 06/05/2025 9:30 AM EDT Office Visit [facility] Medicine Specialties [address], [address] [place] [address] Deneen Edward, DO [address] [place] [address] documented as of this encounter Visit Diagnoses Not on filedocumented in this encounter Additional Health Concerns Infection Onset Date Last Indicated Resolved Time Gastrointestinal Rule-Out 10/13/2024 10/13/2024 8:32 AM EST documented as of this encounter Care Teams Hydraulic Assembler Relationship Specialty Start Date End Date Sarkis Lam MD [address] [facility] [address] [place] [address] PCP - General 12/24/20 documented as of this encounter
--- OUTSIDE RECORDS SUMMARY | 2025-02-27 08:13 | XMS_ITS | Encounter Summary ---
Author Organization [facility] Address [address] [id number] Care Team Providers Care Customer Accounts Advisor Name Role Phone Sarkis Lam MD Primary Care Provider [phone] Reason for Visit * Reason Comments Med Management Lab review Encounter Details Date Type Department Care Team (Late st Contact Info) Description 01/28/2025 Orders Only [facility] Medicine Specialties [address] [place] [address] Rhea Kamara, PharmD [address] [phone] ILD (interstitial lung disease) (CMS/HCC) (Primary Dx); Encounter for long-term current use of high risk medication Social History Tobacco Use Types Packs/Day Years [...] Description 03/26/2025 9:50 AM EDT Office Visit [facility] Medicine Specialties [address], [address] [place] [address] Patricia Ramsey PA [address] [place] [address] 06/05/2025 9:00 AM EDT Ancillary Procedure [facility] [address] [place] [address] 06/05/2025 9:30 AM EDT Office Visit [facility] [address], [address] [place] [address] CamDeneen nguyen R, DO [address] [place] [address] Scheduled Orders Name Type Priority Associated Diagnoses Orde r Schedule Hepatic Function Panel Lab Routine Encounter for long-term current use of high risk medication ILD (interstitial lung disease) (CMS/HCC) prn for 12 Occurrences starting 01/28/2025 until 01/28/2026 documented as of this encounter Visit Diagnoses Diagnosis ILD (interstitial lung disease) (CMS/HCC)- Primary Postinflammatory pulmonary fibrosis Encounter for long-term current use of high risk medication documented in this encounter Additional Health Concerns Assessment Noted Time PHQ-9 Depression Total Score: 0 11/20/19 25 10:30 AM EDT A fall risk assessment has been complete d for the patient 11/19/2024 10:30 AM EDT A Body Mass Index follow-up plan has been documented for the patient 11/19/2024 11:38 AM EDT documented as of this encounter Care Teams Customer Accounts Advisor Relationship Specialty Start Date End Date Sarkis Lam MD [address] [place] [address] PCP - General 12/24/20 documented as of this encounter
--- OUTSIDE RECORDS SUMMARY | 2025-02-27 08:13 | XMS_ITS | Encounter Summary ---
Author Organization [facility] Address [address] [place] [address] Care Team Providers Care Rag Washer Name Role Phone Sarkis Lam MD Primary Care Provider [phone] Encounter Details Date Type Department Care Team (Late Contact Info) Description 07/20/2021 Lab Requisition [facility] [address] [place] [address] Beatriz Perez MD [address] [place] [address] Gastro-esophageal reflux disease without esophagitis Social History Tobacco Use Types Packs/Day Years Used Date Smoking Tobacco: Never Smokeless Tobacco: Never Alcohol Use Standard Drinks/Week Comments No 0 (1 standard drink = 0.6 oz pur e alcohol) Comments Unknown Sex and Gender Information Value Date Recorded Sex Assigned at Not on file Legal Sex Female 8:10 PM EDT Gender Identity Not on file Sexual Orientation Not on file COVID-19 Exposure Response Date Recorded In the last month, have you been in contact with someone who was confirmed or suspected to have Coronavirus / COVID-19? No / Unsure 2021 10:19 AM EST documented as of this encounter Plan of Treatment Upcoming Encounters Date Type Department Care Team (Late Contact Info) Description 03/26/2025 9:50 AM EDT [facility] Visit [facility] [address], [address] [place] [address] Patricia Ramsey, PA [address] [place] [address] 06/05/2025 9:00 AM EDT Ancillary Procedure [facility] [address], [address] [place] [address] 06/05/2025 9:30 AM EDT Office Visit [facility] [address], [address] [place] [address] Deneen Edward, DO [address] [place] [address] documented as of this encounter Procedures Procedure Name Priority Date/Time Associated Diagnosis Comments SURGICAL PATHOLOGY EXAM Routine 07/20/2021 Gastro-esophageal reflux disease without esophagitis documented in this encounter Results * Surgical Pathology Exam (07/20/2021) Case Report Surgical Pathology Case: [id number] Authorizing Provider: Beatriz Perez MD Collected: 07/20/2021 Ordering Location: [facility] Lab Received: 07/20/2021 1250 Pathologist: Blanca Anderson MD Specimen: Stomach, Gastric Bx 07/21/2021 11:33 AM EST [facility] Final Diagnosis A. stomach, biopsy: - mild chronic inflammation and changes suggestive of portal hypertensive gastropathy. 07/21/2021 11:33 AM EST [facility] at 1133 EST Clinical Information Abnormal Imaging, GERD 07/21/2021 11:33 AM EST [facility] Gross Description A. GASTRIC BX The specimen is received in formalin labeled gastric BX , and consists of four yellow-leblanc soft tissue fragments ranging from 0.2-0.5 cm in greatest dimension. Entirely submitted in cassette A1. Kim Shafer 07/21/2021 11:33 AM EST [facility] Tissue Stomach structure / Unknown 07/20/2021 07/20/2021 12:50 PM EST us Beatriz Perez MD LAB PATHOLOGY ORDERABLES [facility] [address] [place] [address] documented in this encounter Visit Diagnoses Diagnosis Gastro-esophageal reflux disease without esophagitis documented in this encounter Additional Health Concerns Infection Onset Date Last Indicated Resolved Time Gastrointestinal Rule-Out 10/13/2024 10/13/2024 8:32 AM EST Assessment Noted Time A fall risk assessment has been complete d for the patient 03/22/2021 9:13 AM EDT documented as of this encounter Care Teams Rag Washer Relationship Specialty Start Date End Date Sarkis Lam MD [address] [place] [address] PCP - General 12/24/20 documented as of this encounter
--- OUTSIDE RECORDS SUMMARY | 2025-02-27 08:14 | XMS_ITS | Encounter Summary ---
Author Organization Healthcare Address [address] [place] [address] Care Team Providers Care Brand Communications Manager Name Role Phone Sarkis Lam MD Primary Care Provider [phone] Encounter Details Date Type Department Care Team (Late st Contact Info) Description 12/12/2024 Results Follow-Up [facility] Medicine Specialties [address] [place] [address] Patricia Ramsey, PA [address] [place] [address] Social History Tobacco Use Types Packs/Day Years [...] Recorded Depression Risk Score 0 11/19/2024 Comments Unknown Sex and Gender Information Value Date Recorded Sex Assigned at Not on file Legal Sex Female 8:10 PM EDT Gender Identity Not on file Sexual Orientation Not on file documented as of this encounter Plan of Treatment Upcoming Encounters Date Type Department Care Team (Late st Contact Info) Description 03/26/2025 9:50 AM EDT Office Visit [facility] Medicine Specialties [address] [place] [address] Patricia Ramsey PA [address] [place] [address] 06/05/2025 9:00 AM EDT Ancillary Procedure [facility] [place] [address] [place] [address] 06/05/2025 9:30 AM EDT Office Visit [facility] [place] [address] [place] [address] Deneen Edward, DO [address] [place] [address] documented as of this encounter Visit Diagnoses Not on filedocumented in this encounter Additional Health Concerns Assessment Noted Time PHQ-9 Depression Total Score: 0 11/20/19 25 10:30 AM EDT A fall risk assessment has been complete d for the patient 11/19/2024 10:30 AM EDT A Body Mass Index follow-up plan has been documented for the patient 11/19/2024 11:38 AM EDT documented as of this encounter Care Teams Brand Communications Manager Relationship Specialty Start Date End Date Sarkis Lam MD [address] [place] [address] PCP - General 12/24/20 documented as of this encounter
--- OUTSIDE RECORDS SUMMARY | 2025-02-27 08:14 | XMS_ITS | Clinical Summary ---
Author Organization [facility] Address [address] [place] [address] Care Team Providers Care Assembler Arranger Name Role Phone Sarkis Lam MD Primary Care Provider [phone] Allergies Active Allergy Reactions Criticality Noted Date Comments Latex Other - please docum ent in the comment field,Hives High 04/22/2018 Penicillins Anaphylaxis,Unknown - Patient states they do not know rxn details High 04/22/2018 Sulfa Drugs Unknown - Patient st ates they do not know rxn details,Other - please document in the comment field High 07/24/2022 Sulfacetamide Other - please docum ent in the comment field,Unknown - Patient states they do not know rxn details Low 04/22/2018 Medications lancets (OneTouch Delica Lancets 33G) [facility] [place] Active Blood Glucose Monitoring Suppl (ONE TOUCH ULTRA 2) w/Device kit device kit 9 Active Glucose Blood (ONETOUCH ULTRA BLUE ) 9 Active atorvastatin (Lipitor) 40 MG tablet Take 1 tablet by mouth daily. 1 Active cholecalciferol (Vitamin D-3) 125 MCG (5000 UT) capsule 1 Active Farxiga 10 MG Take 1 tablet by mouth daily. 1 Active Janumet 50-500 MG tablet Take 1 tablet by mouth 2 (two) times a day. 1 Active omeprazole (PriLOSEC) [address] capsule Take 2 capsules by mouth. 2 Active escitalopram (Lexapro) 20 MG tablet TAKE 1 TABLET BY MOUTH EVERY DAY FOR 90 DAYS 3 Active Ferrous Sulfate (Iron) 325 (65 Fe) MG tablet 325 mg. 3 Active losartan (Cozaar) 50 MG tablet Take 1 tablet by mouth daily. 4 Active rOPINIRole (Requip) 0.25 MG tablet TAKE 1 TO 2 TABLET(S) BY MOUTH EVERY DAY AT BEDTIME 4 Active inFLIXimab (Remicade) 100 MG injection Infuse into a venous catheter. Active carvedilol (Coreg) 6.25 MG tablet Take 1 tablet (6.25 mg) by mouth 2 (two) times a day with meals. 60 tablet 5 5 025 Active cyanocobalamin 1000 MCG tablet Take 1 tablet by mouth daily. Active Ascorbic Acid (VITAMIN C ER PO) Take by mouth. Active ULO-QFb-UzDy-NaSu lf-Na Asc-C (MoviPrep) 100 g reconstituted solution At 5 PM on day before colonoscopy, mix and drink first dose. Mix and drink second dose 6 hours before you leave home on day of colonoscopy 1 each 5 Active magnesium citrate solution Drink first bottle at 6PM two days before colonoscopy , drink second bottle at 9AM on day before colonoscopy- Follow each bottle with 4 glasses of clear liquids 592 mL 5 Active bisacodyl (Bisacodyl EC) 5 MG EC tablet Take all 4 tablets at 9 AM two days before colonoscopy 4 tablet 5 Active Active Problems Problem Noted Date Diagnosed Date Abdominal pain 09/25/2024 Hypertension 09/25/2024 Shortness of breath 09/25/2024 Type 2 diabetes mellitus 09/25/2024 Nodular regenerative hyperplasia of liver 2024 LUQ pain 09/25/2024 Diarrhea 09/25/2024 Osteoarthritis 03/23/2023 03/23/2023 Esophageal varices 08/02/2021 Portal hypertensive gastropathy 08/02/2021 Liver fibrosis 08/02/2021 Lymph nodes enlarged 05/27/2019 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 Sarcoidosis 05/02/2018 Diabetes mellitus type 2 without retinopathy Hilar adenopathy 04/26/2018 Encounters Date Type Department Care Team Description 01/28/2025 Orders Only [facility] [address], [address] [place] [phone] Rhea Kamara, PharmD ILD (interstitial lung disease) ([facility]) (Primary Dx); Encounter for long-term current use of high risk medication 01/07/2025 Results Follow-Up [facility] [address], [address] [place] [phone] Carmita Poe MD 01/06/2025 7:34 AM EDT Anesthesia Event [facility] [address] 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 [phone] Carmita Poe MD Linville, Nathaniel C, MD Benke, Abby P, Allyson Beckham, RN Esophageal varices without bleeding, unspecified esophageal varices type ([facility]); Generalized abdominal pain; LUQ pain; Diarrhea, unspecified type Discharge Disposition: Home or Self Care 01/06/2025 Travel 12/24/2024 Telephone [facility] [address], [address] [place] [phone] Yolanda Portillo, RN [facility] Patient Medication Refill Request (PA for Moviprep ) 12/22/2024 10:15 AM EDT Pre-Admission Testing [facility] [address] [place] [phone] 12/22/2024 Travel 12/12/2024 Results Follow-Up [facility] [address], [address] [place] [phone] Patricia Ramsey PA 12/09/2024 11:24 AM EDT - 12/09/2024 11:59 PM EDT Hospital Encounter [facility] [address] [place] [address] Liver fibrosis; LUQ pain; Portal hypertensive gastropathy (CMS/HCC) Discharge Disposition: Home or Self Care 12/09/2024 Travel from Last 3 Months Immunizations Immunization Administration Dates Next Due DTaP, Unspecified 12/31/1973, 3,03/13/1968,1967,1967 IPV 1967,1967 Influenza, injectable, quadr ivalent, preservative free 06/17/2022 Influenza, seasonal, injectable 06/18/2022 Pneumococcal 20-gely Conj Vaccine 03/23/2023 Polio, Unspecified 03/19/1974, 4,08/20/1973,1972,03/13/1968 Rubella/Mumps 09/03/1973 Family History Medical History Relation Name Comments Intellectual Disability Brother Jacob Arthritis Father Michel Forrester Autoimmune disease Father Mihcel Forrester Cardiac disorder Father Michel Forrester Heart disease Father Michel Forrester Rheumatologic disease Father Michel Forrester COPD Mother Kathryn Cardiac disorder Mother Kathryn Cervical cancer Mother Kathryn Family histo ry of cervical cancer Diabetes Mother Kathryn Glaucoma Mother Kathryn Stroke Mother Kathryn Cardiac disorder Other 1 Glaucoma Other 2 Cervical cancer Sister 1 Family histo ry of cervical cancer Breast cancer Sister 2 FH: breast can cer Cancer Sister 3 [place] Anesthesia problems Neg Hx Malig Hyperthermia Neg Hx Relation Name Status Comments Brother Jacob Father Michel Forrester Mother Kathryn Other 1 Other 2 Sister 1 Sister 2 Sister 3 [place] Social History Tobacco Use Types Packs/Day Years Used Date Smoking Tobacco: Never Passive Smoke Exposure: Never Smokeless Tobacco: Never Tobacco Cessation:Counseling Given: Not Answered Alcohol Use Standard Drinks/Week Comments Never 0 [...] on file Sexual Orientation Not on file Last Filed Vital Signs Vital Sign Reading Time Taken Comments Blood Pressure 114/66 01/06/2025 8:45 AM EDT Pulse 67 01/06/2025 8:45 AM EDT Temperature 36.2 C (97.2 F) 01/06/2025 8:12 AM EDT Respiratory Rate 14 01/06/2025 8:45 AM EDT Oxygen Saturation 100% 01/06/2025 8:45 AM EDT Inhaled Oxygen Concentration - - Weight 70.8 kg (156 lb) 12/09/2024 11:43 AM EDT Height 167.6 cm (5' 6 ) 12/09/2024 11:43 AM EDT Body Mass Index 25.18 12/09/2024 11:43 AM EDT Plan of Treatment Upcoming Encounters Date Type Department Care Team (Late st Contact Info) Description 03/26/2025 9:50 AM EDT Office Visit [facility] [address], [address] [place] [phone] Patricia Ramsey, DANTE [address] [place] [phone] 06/05/2025 9:00 AM EDT Ancillary Procedure [facility] [address], [address] [place] [phone] 06/05/2025 9:30 AM EDT Office Visit [facility] [address], [address] [place] [phone] Camac, Deneen R, DO [address] [place] [phone] Health Maintenance Due Date Last Done Comments [facility]-Diabetes: Hemoglobin A1C 1965 [facility]-HIV Screening 1965 [facility]-Hepatitis C Screening 1967 [facility]-/Child/Adol SDOH Screenings 1967 [facility]-IPV Vaccines (3 of 3 - 4-dose series) 09/19/1974 03/19/1974, 12/31/1973, 08/20/1973, Additional history exists Diabetes: Dental Exam 1977 [facility]-DTaP,Tdap,and Td Vaccines (6 - Tdap) 1978 12/31/1973, 06/20/1973, 03/13/1968, Additional history exists [facility]- SDOH Screenings 1985 [facility]-Adult SDOH Screenings 1985 [facility]-Hepatitis A Vaccines (1 of 2 - Risk 2-dose series) 1986 [facility]-Hepatitis B Vaccines (1 of 3 - 19+ 3-dose series) 1986 [facility]-Zoster Vaccines (1 of 2) 1986 CT Colonography 2012 FIT-DNA 2012 FIT 2012 FOBT 2012 Sigmoidoscopy 2012 [facility]-Breast Cancer Screening 2017 [facility]-Pap Smear 05/07/2021 05/07/2018, 05/07/2018 [facility]-Cervical Cancer Screening 05/07/2023 [facility]-HPV/Cotest 05/07/2023 05/07/2018, 05/07/2018 [facility]-YXRLI-26 Vaccine ( season) 2024 05/16/2022, 04/21/2021, 08/26/2020, Additional history exists [facility]-Influenza Vaccine (#1) 2025 06/18/2022, [facility]-Depression Screening 11/19/2025 025, 11/19/2024, 11/19/2024, Additional history exists Colonoscopy 01/06/2035 01/06/2025 [facility]-Colorectal Cancer Screening 01/06/2035 [facility]-Pneumococcal Vaccine: 50+ Years Completed 03/23/2023 [facility]-Obesity Intervention Completed 025, 09/25/2024, 06/11/2024, Additional history exists HPV Vaccines Aged Out No longer eligi ble based on patient's age to complete this topic [facility]-HIB Vaccines Aged Out No longer e ligible based on patient's age to complete this topic [facility]-Rotavirus Vaccines Aged Out No lo nger eligible based on patient's age to complete this topic Procedures Procedure Name Priority Date/Time Associated Diagnosis [...] UNSOLICITED RESULTS Routine 01/06/2025 7:14 AM EDT MR ABDOMEN W AND WO IV CONTRAST Routine 12/09/2024 12:17 PM EDT Liver fibrosis LUQ pain Portal hypertensive gastropathy (CMS/HCC) CYTO DATA CONVERSION Routine 05/07/2018 12:00 AM EDT from Last 3 Months or Most Recently Relevant to Health Maintenance Results * (ABNORMAL) POCT glucose meter (01/06/2025 8:19 AM EDT) Only the most recent of2 resultswithin the time period is included. POCT Glucose 141(H) 74 - 99 mg/dL 01/06/2025 8:21 AM EDT [facility] Comment:Accuracy of a glucos e result [...] Comment 01/06/2025 8:21 AM EDT [facility] Counter Control Operator ID Mile Chen 01/06/2025 8:21 AM EDT [facility] Device ID [id number] 01/06/2025 8:21 AM EDT [facility] Specimen Type POC Capillary 01/06/2025 8:21 AM EDT [facility] Blood Capillary blood specimen / Unknown 01/06/2025 8:19 AM EDT 01/06/2025 8:21 AM EDT us Carmita Poe MD LAB POINT OF CARE TE ST DOCKED DEVICE UNSOLICITED RESULTS Final Result Performing Organization Address City/State/[facility] Co de Phone Number [facility]ALTH[facility]ARE [facility] [address] [place] [id number] * Colonoscopy (01/06/2025 8:10 AM EDT) Anatomical [...] Cory Yanes MD Proceduralist Ulises Carter Endo County Director Preprocedure A history and physical has been [...] of bowel preparation was evaluated using the Caruthers Bowel Preparation Scale with scores of: right [...] Staff Role Marley Hope, Allyson Beckham CRNA, BRYCE Endo Nurse Fitz Yanez MD Anesthesiologist Carmita Poe MD Proceduralist Cory Yanes MD Proceduralist Ulises Carter Endo County Director Preprocedure A history and physical has been [...] multiple forceps biopsies in the perigastric region us Patricia HOWELL GI PROCEDURE ORDERABLES Final R esult * Surgical Pathology Exam (01/06/2025 7:46 AM EDT) Case Report Surgical Pathology Case: [id number] Authorizing Provider: Carmita Poe MD Collected: 01/06/2025 0746 Ordering Location: [facility] Received: 01/06/2025 1047 Pathologist: Elieser Dietrich DO Specimens: A) - Duodenum, bxs B) - Stomach, gastric bxs C) - Stomach, gastric polyp bxs D) - Colon, random colon bxs 01/07/2025 10:19 AM EDT [facility] Final Diagnosis A. SMALL [...] - NO PATHOLOGIC ABNORMALITY. 01/07/2025 10:19 AM EDT [facility] at 1019 EDT Clinical [...] pancolonic forceps biopsies 01/07/2025 10:19 AM EDT [facility] Gross Description A. BXS Received in formalin labeled biopsies, duodenum are 4 leblanc-brown soft tissue fragments measuring 0.2-0.4 cm in greatest dimension. Entirely submitted in cassette A1. Cold Time: <1m Ameliajessica Funk B. GASTRIC BXS Received in formalin labeled gastric biopsies a re 4 leblanc-brown soft tissue fragments measuring 0.3-0.6 cm in greatest dimension. Entirely submitted in cassette B1. Cold Time: <1m Ameliajessica Funk C. GASTRIC POLYP BXS Received in formalin labeled gastric polyp biopsies is 1 leblanc-brown soft tissue fragment measuring 0.8 cm in greatest dimension. Entirely submitted in cassette C1. Cold Time: <1m Ameliajessica Funk D. RANDOM COLON BXS Received in formalin labeled random colon biopsies are 5 leblanc-brown soft tissue fragments measuring 0.2-0.4 cm in greatest dimension. Entirely submitted in cassette D1. Cold Time: <1m Ameliajessica Funk 01/07/2025 10:19 AM EDT [facility] Note: A resident was involved in the service. I attest I examined the relevant preparations for the specimens and confirmed the diagnosis or interpretation. 01/07/2025 10:19 AM EDT [facility] Tissue Duodenal structure / [...] Poe MD LAB PATHOLOGY ORDERABLES Final Result [facility] [address] [place] [address] * MR Abdomen w and wo IV Contrast (12/09/2024 12:17 PM EDT) Anatomical Region Laterality Modality Abdomen Magnetic Resonan ce Impressions 12/09/2024 12:30 PM EDT Focal Hepatic Observations: LI-RADS Negative Extrahepatic Findings: Sequela of portal hypertension including splenomegaly, intra-abdominal venous collaterals and trace ascites. CRITICAL RESULT: No. COMMUNICATION: Per this written report. LI-RADS M = Probably or definitely malignant but not HCC specific LI-RADS TI-V = Definitely tumor in vein LI-RADS 5 = Definitely hepatocellular carcinoma (concordant with OPTN*) LI-RADS 4 = Probably hepatocellular carcinoma LI-RADS 3 = Intermediate probability for hepatocellular carcinoma LI-RADS 2 = Probably benign LI-RADS 1 = Definitely benign LI-RADS NC = Not categorized secondary to image degradation or omission LI-RADS TR Nonviable - Treated, probably or definitely not viable LI-RADS TR Equivocal - Treated, equivocally viable LI-RADS TR Viable - Treated, probably or definitely viable LI-RADS TR Nonevaluable - Cannot be categorized due to image degradation or omission NOTE: LI-RADS categories should be interpreted in the context of other available data, such as biomarkers and the patient's prior probability of developing or having hepatocellular carcinoma. The LI-RADS classification of liver lesions has been adopted to standardize CT and MRI scan reporting in patients at risk for hepatocellular carcinoma. CT/MRI LI- RADS and US LI-RADS are consistent with and integrated into the [place] Association for the Study of Liver Diseases (AASLD) 2018 hepatocellular carcinoma (HCC) clinical practice guidance. LI-RADS criteria and documentation are available online at www.acr.org/Quality-Safety/Resources/LIRADS. This report utilizes LI-RADS version 2018. *OPTN and LI-RADS criteria for definite HCC are identical except for: 10-19 mm observations with nonrim APHE + nonperipheral washout but without enhancing capsule or threshold growth. Implication: Some LR-5 observations do not count as OPTN 5. Drafted by Victoriano Smith MD on 12/09/2024 12:25 PM Final report signed by Victoriano Smith MD on 12/09/2024 12:30 PM Narrative 12/09/2024 12:30 PM EDT CLINICAL INDICATION: Risk for hepatocellular carcinoma. TECHNIQUE: MR imaging of the abdomen was performed without and with intravenous contrast material using the following sequences: coronal single shot T2 weighted fast spin echo, axial T2 weighted sequences with and without fat saturation, axial dual phase gradient echo, pre and dynamic postcontrast 3-D T1 weighted gradient echo with fat saturation (axial and coronal) and axial diffusion. 7.1 mL of Elucirem was administered. Examination meets LI-RADS technical recommendations. COMPARISON: Ultrasound 2021 FINDINGS: Liver: Changes of cirrhosis and chronic parenchymal liver disease. No suspicious arterially enhancing liver lesions to suggest HCC. Hepatic Vasculature: Hepatic arterial anatomy is standard. The portal veins are patent. Numerous intra-abdominal venous collaterals are identified including periesophageal collaterals. Focal Hepatic Observations: None. Extrahepatic Findings: Status post cholecystectomy. The common bile duct is mildly dilated measuring up to 10 mm without obvious filling defects to suggest choledocholithiasis. The appearances probably secondary to postcholecystectomy ectasia. Normal pancreas. No evidence of pancreas divisum. Normal kidneys and adrenal glands. Splenomegaly measuring approximately 15 cm in maximum craniocaudal dimension. No suspicious intra- abdominal retroperitoneal lymph nodes. Trace ascites. No aggressive bone abnormality. Procedure Note Victoriano Smith MD - 12/09/2024 CLINICAL INDICATION: Risk for hepatocellular carcinoma. TECHNIQUE: MR imaging of the abdomen was performed without and with intravenouscontrast material using the following sequences: coronal single shot [id number] fast spin echo, axial T2 weighted sequences with and without fatsaturation, axial dual phase gradient echo, pre and dynamic postcontrast3-D T1 weighted gradient echo with fat saturation (axial and coronal) andaxial diffusion. 7.1 mL of Elucirem was administered. Examination meets LI-RADS technical recommendations. COMPARISON: Ultrasound 2021 FINDINGS: Liver: Changes of cirrhosis and chronic parenchymal liver disease. Nosuspicious arterially enhancing liver lesions to suggest HCC. Hepatic Vasculature: Hepatic arterial anatomy is standard. The portalveins are patent. Numerous intra-abdominal venous collaterals areidentified including periesophageal collaterals. Focal Hepatic Observations: None. Extrahepatic Findings: Status post cholecystectomy. The common bile duct is mildly dilatedmeasuring up to 10 mm without obvious filling defects to suggestcholedocholithiasis. The appearances probably secondary topostcholecystectomy ectasia. Normal pancreas. No evidence of pancreasdivisum. Normal kidneys and adrenal glands. Splenomegaly measuringapproximately 15 cm in maximum craniocaudal dimension. No suspiciousintra-abdominal retroperitoneal lymph nodes. Trace ascites. No aggressivebone abnormality. IMPRESSION: Focal Hepatic Observations: LI-RADS Negative Extrahepatic Findings: Sequela of portal hypertension including splenomegaly, intra-abdominalvenous collaterals and trace ascites. CRITICAL RESULT: No. COMMUNICATION: Per this written report. LI-RADS M = Probably or definitely malignant but not HCC specific LI-RADS TI-V = Definitely tumor in vein LI-RADS 5 = Definitely hepatocellular carcinoma (concordant with OPTN*) LI-RADS 4 = Probably hepatocellular carcinoma LI-RADS 3 = Intermediate probability for hepatocellular carcinoma LI-RADS 2 = Probably benign LI-RADS 1 = Definitely benign LI-RADS NC = Not categorized secondary to image degradation or omission LI-RADS TR Nonviable - Treated, probably or definitely not viable LI-RADS TR Equivocal - Treated, equivocally viable LI-RADS TR Viable - Treated, probably or definitely viable LI-RADS TR Nonevaluable - Cannot be categorized due to image degradationor omission NOTE: LI-RADS categories should be interpreted in the context of otheravailable data, such as biomarkers and the patient's prior probability ofdeveloping or having hepatocellular carcinoma. The LI-RADS classificationof liver lesions has been adopted to standardize CT and MRI scan reportingin patients at risk for hepatocellular carcinoma. CT/MRI LI-RADS and USLI-RADS are consistent with and integrated into the [place] Associationfor the Study of Liver Diseases (AASLD) 2018 hepatocellular carcinoma(HCC) clinical practice guidance. LI-RADS criteria and documentation areavailable online at www.acr.org/Quality-Safety/Resources/LIRADS. Thisreport utilizes LI-RADS version 2018. *OPTN and LI-RADS criteria for definite HCC are identical except for:10-19 mm observations with nonrim APHE + nonperipheral washout butwithout enhancing capsule or threshold growth. Implication: Some LR-5observations do not count as OPTN 5. Drafted by Victoriano Smith MD on 12/09/2024 12:25 PM Final report signed by Victoriano Smith MD on 12/09/2024 12:30 PM us Patricia HOWELL IMG MRI PROCEDURES Final Result * Cytology (05/07/2018 12:00 AM EDT) 05/07/2018 05/07/2018 12: 03 PM EDT Narrative [facility] - 05/08/2018 12:24 PM EDT [facility] MR #: [id number] [facility] [address] [place], [place] [address] 1965 (Age: 52) FW Collect Date: 05/07/2018 00:00 Receipt Date: 05/07/2018 12:03 Page 1 DEPARTMENT OF PATHOLOGY AND LABORATORY MEDICINE CYTOPATHOLOGY REPORT Email: [email or web address] [email or web address] ATTENDING MD/Practitioner: Sarmad Robles MD Service: PUL Location: [facility] Reported: 05/08/2018 12:24 Collected: 05/07/2018 00:00 DIAGNOSIS A. LYMPH NODE, LEVEL 11R, O.R. ENDOBRONCHIAL ULTRASOUND GUIDED FNA: - NEGATIVE FOR MALIGNANCY. - PREDOMINANTLY BLOOD. NO LYMPHOID TISSUE PRESENT. - RARE NON-CASEATING GRANULOMA. B. LYMPH NODE, LEVEL 11L, O.R. ENDOBRONCHIAL ULTRASOUND GUIDED FNA: - NEGATIVE FOR MALIGNANCY. - LYMPH NODE COMPONENTS WITH NON-CASEATING GRANULOMAS. C. LYMPH NODE, LEVEL 4R, O.R. ENDOBRONCHIAL ULTRASOUND GUIDED FNA: - NEGATIVE FOR MALIGNANCY. - VERY SCANT LYMPH NODE COMPONENTS. Electronically Signed Out Holli Mohamud M.D. PROCEDURES/ADDENDA GROSS DESCRIPTION: A: 5 ml's of clear Needle rinse fluid processed as Thinprep and/or cytospin for complete evaluation of sample. B: 5 ml's of bloody fluid. C: 5 ml's of bloody fluid. CLINICAL INFORMATION: CLINICAL DIAGNOSIS A: 25 lb weight loss, pneumonia, multiple mediastinal and abdominal / pelvic hypermetabolic lymph node FNA performed by: Dr. Robles Number of sticks: 1 Immediate evaluation performed by: Dr. Hanson / [facility] Evaluation episode # 1: Predominantly blood B: 11 left lymph node: lymph node components with non-caseating granuloma FNA performed by: Dr. Travis Number of sticks: 4 Immediate evaluation performed by: Dr. Mohamud / [facility] Evaluation episode # 1: 11 left lymph node C: 4 right lymph node: No slides cell block only FNA AND THIN PREP ARE REVIEWED. This service has been rendered in part by a resident. A pathologist has personally reviewed the slides/tissue and has rendered and is responsible for the diagnosis that appears on the report. SPECIMEN DESCRIPTION: A: 11 RIGHT LYMPH NODE O.R. ENDOBRONCHIAL ULTRASOUND GUIDED FNA THIN PREP PROCESS CELLULAR ENHANCEMENT, DIFF-QUIK, PAP STAIN B: 11 LEFT LYMPH NODE O.R. ENDOBRONCHIAL ULTRASOUND GUIDED FNA CELL BLOCK F, CUT& MOUNT x 5, DIFF-QUIK x 4, PAP STAIN x 4 C: 4 RIGHT O.R. ENDOBRONCHIAL ULTRASOUND GUIDED FNA CELL BLOCK F, CUT& MOUNT x 5 ICD: I88.8 Other nonspecific lymphadenitis F: A; 49235 ASP INTER, 17091, 58439, 03529 B; 15118 ASP INTER, 60570, 34926, 18100, 20118 C; 04316 ASP INTER, 39133, 52397 SNOMED CODES: A; [id number] P1149 [id number] B; G20943 P1149 [id number] C; X94247 P1149 [id number] A resident has participated in this service. A pathologist has performed and is responsible for the reported pathologic evaluation. Arron Robles MD LAB PATHOLOGY ORDERABLES Final R esult [facility] from Last 3 Months or Most Recently Relevant to Health Maintenance Insurance [facility] Care Teams Assembler Arranger Relationship Specialty Start Date End Date Sarkis Lam MD [address] [place] [address] PCP - General 12/24/20
--- OUTSIDE RECORDS SUMMARY | 2025-02-27 08:14 | XMS_ITS | Encounter Summary ---
Author Organization Healthcare Address [address] [place] [address] Care Team Providers Care Gas Specialist Name Role Phone Sarkis Lma MD Primary Care Provider [phone] Encounter Details Date Type Department Care Team (Late st Contact Info) Description 01/07/2025 Results Follow-Up [facility] Medicine Specialties [address], [address] [place] [address] Carmita Poe MD [address] [place] [address] Social History Tobacco Use Types [...] Description 03/26/2025 9:50 AM EDT Office Visit [facility] Medicine Specialties [address], [address] [place] [address] Patricia Ramsey PA [address] [place] [address] 06/05/2025 9:00 AM EDT Ancillary Procedure [facility] Specialties [address], [address] [place] [address] 06/05/2025 9:30 AM EDT Office Visit [facility] [address], [address] [place] [address] Deneen Edward, DO [address] [place] [address] documented as of this encounter [...] documented as of this encounter Care Teams Gas Specialist Relationship Specialty Start Date End Date Sarkis Lam MD [address] [place] [address] PCP - General 12/24/20 documented as of this encounter
--- OUTSIDE RECORDS SUMMARY | 2025-02-27 08:14 | XMS_ITS | Encounter Summary ---
Author Organization Healthcare Address [address] [place] [address] Care Team Providers Care Retail Event And Sales Assistant Name Role Phone Sarkis Lam MD Primary Care Provider [phone] Reason for Visit * Reason Onset Date Comments HCN Patient Medication Refill Request 12/24/2024 PA for Moviprep Encounter Details Date Type Department Care Team (Late st Contact Info) Description 12/24/2024 Telephone [facility] Medicine Specialties [address], 2[address] [place] [address] Yolanda Portillo, RN MEDICINE SPECIAL[facility]IES CLINIC HCN Patient Medication Refill Request (PA for Moviprep ) Social History Tobacco Use Types Packs/Day Years [...] as of this encounter Miscellaneous Notes * Telephone Encounter - Yolanda Portillo RN - 12/24/2024 10:19 AM EDT Sending PA for Moviprep [place] [facility] documented in this encounter Plan of Treatment Upcoming Encounters Date Type Department Care Team (Late st Contact Info) Description 03/26/2025 9:50 AM EDT Office Visit [facility] Medicine Specialties [address], [address] [place] [address] Patricia Ramsey PA [address] [place] [address] 06/05/2025 9:00 AM EDT Ancillary Procedure [facility] Medicine [facility] [address], [address] [place] [address] 06/05/2025 9:30 AM EDT Office Visit [facility] [address], [address] [place] [address] Camac, Deneen R, DO [address] [place] [address] documented as of this encounter [...] documented as of this encounter Care Teams Retail Event And Sales Assistant Relationship Specialty Start Date End Date Sarkis Lam MD [address] [place] [address] PCP - General 12/24/20 documented as of this encounter
--- OUTSIDE RECORDS SUMMARY | 2025-02-27 08:14 | XMS_ITS | Encounter Summary ---
Author Organization Healthcare Address [address] [place] [address] Care Team Providers Care Photoengraving Proofer Name Role Phone Sarkis Lam MD Primary Care Provider [phone] Encounter Details Date Type Department Care Team (Latest Contact Info) Description 01/06/2025 Travel Social History Tobacco Use Types Packs/Day Years [...] Description 03/26/2025 9:50 AM EDT Office Visit [facility] Medicine Specialties [address], [address] [place] [address] Patricia Ramsey, PA [address] [place] [address] 06/05/2025 9:00 AM EDT Ancillary Procedure [facility] Medicine Specialties [address], 2[address] [place] [address] 06/05/2025 9:30 AM EDT Office Visit [facility] Medicine Specialties [address], [address] [place] [address] CamDeneen nguyen, DO [address] [place] [address] documented as of this encounter [...] documented as of this encounter Care Teams Photoengraving Proofer Relationship Specialty Start Date End Date Sarkis Lam MD [address] [place] [address] PCP - General 12/24/20 documented as of this encounter
[2025-02-27] MEDS: ACETAMINOPHEN 325MG TAB 650 MG PO (08:29)
[2025-02-27] MEDS: HYDROCORTISONE SOD SUCCINATE 100MG VIAL 200 MG IV (08:29)
[2025-02-27] MEDS: SODIUM CHLORIDE 0.9% 10ML FLUSH SYRINGE 10 ML IV (08:30)
[2025-02-27] MEDS: inFLIXimab 400 MG in 0.9 % SODIUM CHLORIDE 250 ML 83.333 MG IV (09:01)
[2025-02-27 09:08] VITALS: BP 113/61; PULSE 62; RESP 18; TEMP 36.7; O2SAT 99
[2025-02-27 09:40] VITALS: BP 103/59; PULSE 59
[2025-02-27 10:10] VITALS: BP 100/61; PULSE 60
[2025-02-27 10:40] VITALS: BP 98/58; PULSE 59
[2025-02-27 11:13] VITALS: BP 100/56; PULSE 61
== END 2025-02-27 11:20 | disposition home or self-care (01) ==
LOC: INF 08:11
PROVIDERS: PCP Internal Medicine Adolescent Medicine; Visit Provider Internal Medicine
DX: D86.9 Sarcoidosis, unspecified (principal)
CPT/HCPCS: 96413; 96415; J1720; J1745; J7050

== ENCOUNTER 2025-03-13 07:16 | Outpatient (CLI) | payer OTHER, SELFPAY ==
--- OUTSIDE RECORDS SUMMARY | 2025-03-13 07:19 | XMS_ITS | Encounter Summary ---
Author Organization Healthcare Address [address] [id number] Care Team Providers Care Chauffeur Name Role Phone Sarkis Lam MD Primary Care Provider [phone] Reason for Visit * Reason Comments Med Management Lab review Encounter Details Date Type Department Care Team (Late st Contact Info) Description 01/28/2025 Orders Only [facility] Medicine Specialties [address], 2[address] [place] [address] Rhea Kamara, PharmD [address] [phone] ILD (interstitial lung disease) (CMS/HCC) (Primary Dx); [...] Description 03/26/2025 9:50 AM EDT Office Visit [facility] Medicine Specialties [address], [address] [place] [address] Patricia Ramsey PA [address] [place] [address] 06/05/2025 9:00 AM EDT Ancillary Procedure [facility] [address], [address]nd [place] [address] 06/05/2025 9:30 AM EDT Office Visit [facility] [address], [address] [place] [address] CamDeneen nguyen R, DO [address] [place] [address] Scheduled Orders Name Type Priority [...] documented as of this encounter Care Teams Chauffeur Relationship Specialty Start Date End Date Sarkis Lam MD [address] [place] [address] PCP - General 12/24/20 documented as of this encounter
--- OUTSIDE RECORDS SUMMARY | 2025-03-13 07:20 | XMS_ITS | Clinical Summary ---
Author Organization [facility] Address [address] [place] [address] Care Team Providers Care Automotive Sales Associate Name Role Phone Sarkis Lam MD Primary Care Provider [phone] Allergies Active Allergy Reactions Criticality Noted Date [...] 04/22/2018 Medications lancets (OneTouch Delica Lancets 33G) [facility] Active Blood Glucose Monitoring Suppl (ONE [...] C ER PO) Take by mouth. Active HBC-BVz-HfQr-NaSu lf-Na Asc-C (MoviPrep) 100 g reconstituted solution [...] Department Care Team Description 01/28/2025 Orders Only [facility] Medicine Specialties [address], [address] [place] [phone] Rhea Kamara, PharmD ILD (interstitial lung disease) ([facility]) (Primary Dx); Encounter for long-term current use of high risk medication 01/07/2025 Results Follow-Up [facility] Medicine Specialties [address], [address] [place] [phone] Carmita Poe MD 01/06/2025 7:34 AM EDT Anesthesia Event [facility] [address] [place] [address] Fitz Yanez MD [address], Teresa W, ASSOCIATE PROFESSOR OF LIBRARY MEDIA 01/06/2025 6:36 AM EDT - 01/06/2025 11:59 PM EDT Hospital Encounter [facility] [address] [place] [phone] Carmita Poe MD [place], Nathaniel C, MD Benke, Abby P, Allyson Beckham, RN Esophageal varices without bleeding, unspecified esophageal varices type ([facility]); Generalized abdominal pain; LUQ pain; Diarrhea, unspecified type Discharge Disposition: Home or Self Care 01/06/2025 Travel 12/24/2024 Telephone [facility] Medicine Specialties [address], [address] [place] [address] Yolanda Portillo, RN HCN Patient Medication Refill Request (PA for Moviprep ) 12/22/2024 10:15 AM EDT Pre-Admission Testing [facility] [address] [place] [address] 12/22/2024 Travel 12/12/2024 Results Follow-Up [facility] Medicine Specialties [address], [address] [place] [phone] Patricia Ramsey, PA from Last 3 Months Immunizations Immunization Administration Dates Next Due DTaP, Unspecified 12/31/1973, 3,03/13/1968,1967,1967 IPV 1967,1967 Influenza, injectable, quadr ivalent, preservative free 06/17/2022 Influenza, seasonal, injectable 06/18/2022 Pneumococcal 20-gely Conj Vaccine 03/23/2023 Polio, Unspecified 03/19/1974, 4,08/20/1973,1972,03/13/1968 Rubella/Mumps 09/03/1973 Family History Medical History Relation Name Comments Intellectual Disability Brother Jacob Arthritis Father Michel Forrester Autoimmune disease Father Michel Forrester Cardiac disorder Father Michel Forrester Heart [...] FH: breast can cer Cancer Sister 3 [place] Anesthesia problems Neg Hx Malig Hyperthermia Neg Hx Relation Name Status Comments Brother Jacob Father Michel Forrester Mother Kathryn Other 1 Other 2 Sister 1 Sister 2 Sister 3 [place] Social History Tobacco Use Types Packs/Day Years [...] Description 03/26/2025 9:50 AM EDT Office Visit [facility] Medicine Specialties [address], [address] [place] [address] Patricia Ramsey, DANTE [address] [place] [address] 06/05/2025 9:00 AM EDT Ancillary Procedure [facility] Medicine Specialties [address], [address]nd [place] [phone] 06/05/2025 9:30 AM EDT Office Visit [facility] [address], [address]nd [place] [phone] Deneen Edward, DO [address] [place] [phone] Health Maintenance Due Date Last Done Comments [...] Cancer Screening 05/07/2023 UKY-HPV/Cotest 05/07/2023 05/07/2018, 05/07/2018 [id number] Vaccine ( season) 2024 05/16/2022, 04/21/2021, 08/26/2020, [...] UNSOLICITED RESULTS Routine 01/06/2025 7:14 AM EDT CYTO DATA CONVERSION Routine 05/07/2018 12:00 AM EDT from Last 3 Months or Most Recently Relevant to Health Maintenance Results * (ABNORMAL) POCT glucose meter (01/06/2025 8:19 AM EDT) Only the most recent of2 resultswithin the time period is included. POCT Glucose 141(H) 74 - 99 mg/dL 01/06/2025 8:21 AM EDT [facility] Comment:Accuracy of a glucos e result [...] for testing. Comment 01/06/2025 8:21 AM EDT [facility] Computer Hardware Engineer ID Mile Chen 01/06/2025 8:21 AM EDT [facility] Device ID [id number] 01/06/2025 8:21 AM EDT [facility] Specimen Type POC Capillary 01/06/2025 8:21 AM EDT [facility] Blood Capillary blood specimen / Unknown 01/06/2025 8:19 AM EDT 01/06/2025 8:21 AM EDT us Carmita Poe MD LAB POINT OF CARE TE ST DOCKED DEVICE UNSOLICITED RESULTS Final Result [facility] [address] [place] [address] * Colonoscopy (01/06/2025 8:10 AM EDT) Anatomical [...] Cory Yanes MD Proceduralist Ulises Carter Endo Strap Machine Operator Preprocedure A history and physical has been [...] of bowel preparation was evaluated using the Macclenny Bowel Preparation Scale with scores of: right [...] Cory Yanes MD Proceduralist Ulises Carter Endo Strap Machine Operator Preprocedure A history and physical has been [...] Duodenum SURGICAL PATHOLOGY EXAM Cory Yanes MD 01/06/202546 B : gastric bxs Tissue Stomach SURGICAL [...] AM EDT) Case Report Surgical Pathology Case: [id number] Authorizing Provider: Carmita Poe MD Collected: 01/06/202546 Ordering Location: [facility] Endoscopy Received: 01/06/2025 1047 Pathologist: Elieser Dietrich DO Specimens: A) - Duodenum, bxs B) - Stomach, gastric bxs C) - Stomach, gastric polyp bxs D) - Colon, random colon bxs 01/07/2025 10:19 AM T [facility] Final Diagnosis A. SMALL INTESTINE, DUODENUM, BIOPSY: [...] NO PATHOLOGIC ABNORMALITY. 01/07/2025 10:19 AM T [facility] at 1019 EDT Clinical Information I85.00 - [...] random pancolonic forceps biopsies 01/07/2025 10:19 AM T [facility] Gross Description A. BXS [...] in cassette C1. Cold Time: <1m Amelia Julio. RANDOM COLON BXS Received in formalin labeled random colon biopsies are 5 leblanc-brown soft tissue fragments measuring 0.2-0.4 cm in greatest dimension. Entirely submitted in cassette D1. Cold Time: <1m Amelia Funk 01/07/2025 10:19 AM EDT [facility] Note: A resident was involved in the service. I attest I examined the relevant preparations for the specimens and confirmed the diagnosis or interpretation. 01/07/2025 10:19 AM EDT [facility] Tissue Duodenal structure / Unknown 01/06/2025 7:46 AM EDT 01/06/2025 10:47 AM EDT Tissue specimen (specimen) Stomach structure / Unknown 01/06/2025 7:48 AM EDT 01/06/2025 10:47 AM EDT Tissue specimen (specimen) Stomach structure / Unknown 01/06/2025 7:50 AM EDT 01/06/2025 10:47 AM EDT Tissue specimen (specimen) Colon structure / Unknown 01/06/2025 8:01 AM EDT 01/06/2025 10:47 AM EDT Carmita Poe MD LAB PATHOLOGY ORDERABLES Final Result [facility] [address] [id number] * Cytology (05/07/2018 12:00 AM EDT) 05/07/2018 05/07/2018 12: 03 PM EDT Narrative [facility] - 05/08/2018 12:24 PM EDT [facility] MR #: [id number] [facility] [place], [place] [address] 1965 (Age: 52) FW Collect Date: 05/07/2018 00:00 Receipt Date: 05/07/2018 12:03 Page 1 DEPARTMENT OF PATHOLOGY AND LABORATORY MEDICINE CYTOPATHOLOGY REPORT Email: [email or web address] ATTENDING MD/Practitioner: Sarmad Robles MD Service: PUL [...] Immediate evaluation performed by: Dr. Hanson / [facility] Evaluation episode # 1: Predominantly blood B: 11 left lymph node: lymph node components with non-caseating granuloma FNA performed by: Dr. Robles Number of sticks: 4 Immediate evaluation performed by: Dr. Mohamud / [facility] Evaluation episode # 1: 11 left lymph [...] ICD: I88.8 Other nonspecific lymphadenitis F: A; 19806 ASP INTER, 60762, 75925, 98365 B; 87857 ASP INTER, 80942, 41237, 88200, 99314 C; 20745 ASP INTER, 74442, 87349 SNOMED CODES: A; Y60095 P1149 E17521 G5N649 J44520 B; G71265 P1149 T08748 X54980 C; M80454 P1149 [id number] [id number] A resident has participated in this service. A pathologist has performed and is responsible for the reported pathologic evaluation. us Arron Robles MD LAB PATHOLOGY ORDERABLES Final R esult [facility] from Last 3 Months or Most Recently Relevant to Health Maintenance Insurance [facility] Care Teams Automotive Sales Associate Relationship Specialty Start Date End Date Sarkis Lam MD [address] [place] [address] PCP - General 12/24/20
--- OUTSIDE RECORDS SUMMARY | 2025-03-13 07:20 | XMS_ITS | Encounter Summary ---
Author Organization Healthcare Address [address] [place] [address] Care Team Providers Care Contractor Broomcorn Threshing Name Role Phone Sarkis Lam MD Primary Care Provider [phone] Encounter Details Date Type Department Care Team (Late st Contact Info) Description 10/09/2024 Telephone [facility] [address] [place] [address] Whitney Portillo, [facility] [address] [place] [address] Social History Tobacco Use Types Packs/Day Years [...] on file documented as of this encounter Functional Status * Over the past 2 weeks, how often have you been bothered by any of the following problems? Question Answer Date of Assessment Author Little interest or pleasure in doing things Not at all 11/19/2024 10:30 AM EDT Adelaida Aponte Feeling down, depressed, or hopeless Not at all 11/19/2024 10:30 AM EDT Adelaida Aponte Patient Health Questionnaire -2 Score 0 11/19/2024 10:30 AM EDT Adelaida Aponte * Question Answer Date of Assessment Author Trouble falling or staying a sleep, or sleeping too much Not at all 11/19/2024 10:30 AM EDT Adelaida Aponte Feeling tired or having dajuan le energy Not at all 11/19/2024 10:30 AM EDT Adelaida Aponte Poor appetite or overeating Not at all 11/19/2024 10 :30 AM JAYLENET Adelaida Aponte Feeling bad about yourself - or that you are a failure or have let yourself or your family down Not at all 11/19/2024 10:30 AM JAYLENET Adelaida Aponte Trouble concentrating on thi ngs, such as reading the newspaper or watching television Not at all 11/19/2024 10:30 AM Adelaida Rios Moving or speaking so slowly that other people could have noticed? Or the opposite - being so fidgety or restless that you have been moving around a lot more than usual. Not at all 11/19/2024 10:30 AM Adelaida Rios Thoughts that you would be b rosanna off or hurting yourself in some way Not at all 11/19/2024 10:30 AM Adelaida Rios Patient Health Questionnaire -9 Score 0 11/19/2024 10:30 AM Adelaida Rios * If you checked off any problems on this questionnaire so far, Question Answer Date of Assessment Author How difficult have these problems made it for you to do your work, take care of things at home, or get along with other people? Not difficult at all 11/19/2024 10:30 AM Adelaida Rios documented as of this encounter Miscellaneous Notes * Telephone Encounter - Patrica Alamo [facility] - 03/09/2025 3:18 PM EDT Infusion Authorization Not Required Specialty Medication: Remicade J-Code/CPT Code/S-Code: J1745 Quantity and Units of Measure Reviewed: QS Diagnosis Code: D86.9 Insurance Name: [facility] Where did you submit request and how (portal/fax/phone number): [employer] Portal Reference Number: [id number] Follow-Up Phone Number: Filling Pharmacy/SOC: [facility] Will review auth status in 3 months. documented in this encounter Plan of Treatment Upcoming Encounters Date Type Department Care Team (Late st Contact Info) Description 03/26/2025 9:50 AM EDT Office Visit [facility] Medicine Specialties [address], [address] [place] [address] Patricia Ramsey PA [address] [place] [address] 06/05/2025 9:00 AM EDT Ancillary Procedure [facility] Medicine Specialties [address], [address] [place] [address] 06/05/2025 9:30 AM EDT Office Visit [facility] [address], [address] [place] [address] Deneen Edward, DO [address] [place] [phone] documented as of this encounter Visit Diagnoses Not on filedocumented in this encounter Additional Health Concerns Infection Onset Date Last Indicated Resolved Time Gastrointestinal Rule-Out 10/13/2024 10/13/2024 8:32 AM EST Assessment Noted Time A fall risk assessment has been complete d for the patient 09/25/2024 7:43 AM EST A Body Mass Index follow-up plan has been documented for the patient 09/25/2024 9:15 AM EST documented as of this encounter Care Teams Contractor Broomcorn Threshing Relationship Specialty Start Date End Date Sarkis Lam MD [address] [place] [address] PCP - General 12/24/20 documented as of this encounter
--- OUTSIDE RECORDS SUMMARY | 2025-03-13 07:20 | XMS_ITS | Encounter Summary ---
Author Organization Healthcare Address [address] [place] [address] Care Team Providers Care Capacity Planning Analyst Name Role Phone Sarkis Lam MD Primary Care Provider [phone] Reason for Visit * Reason Onset Date Comments HCN Patient Medication Refill Request 12/24/2024 PA for Moviprep Encounter Details Date Type Department Care Team (Late st Contact Info) Description 12/24/2024 Telephone [facility] Medicine Specialties [address], [address] [place] [address] Yolanda Portillo, RN MEDICINE SPECIALTIES [...] AM EDT [place] [facility] documented in this encounter Plan of Treatment Upcoming Encounters Date Type Department Care Team (Late st Contact Info) Description 03/26/2025 9:50 AM EDT Office Visit [facility] Medicine Specialties [address], [address] [place] [address] Patricia Ramsey PA [address] [place] [address] 06/05/2025 9:00 AM EDT Ancillary Procedure [facility] Medicine [facility] [address], [address] [place] [address] 06/05/2025 9:30 AM EDT Office Visit [facility] [address], [address] [place] [address] Camac, Deneen R, DO [address] [place] [address] documented as of this encounter [...] documented as of this encounter Care Teams Capacity Planning Analyst Relationship Specialty Start Date End Date Sarkis Lam MD [address] [place] [address] PCP - General 12/24/20 documented as of this encounter
--- OUTSIDE RECORDS SUMMARY | 2025-03-13 07:20 | XMS_ITS | Encounter Summary ---
Author Organization [facility] Address [address] [place] [address] Care Team Providers Care Crm Consultant Name Role Phone Sarkis Lam MD Primary Care Provider [phone] Reason for Visit * Reason Comments Med Refill Encounter Details Date Type Department Care Team (Late st Contact Info) Description 03/07/2021 Refill [facility] [place] [address] [place] [address] Louise Wade, RONAL [address] [place] [address] Social History Tobacco Use Types [...] Description 03/26/2025 9:50 AM EDT Office Visit [facility] Medicine Specialties [address], [address] [place] [address] Patricia Ramsey, PA [address] [place] [address] 06/05/2025 9:00 AM EDT Ancillary Procedure [facility] Medicine Specialties [address], [address] [place] [address] 06/05/2025 9:30 AM EDT Office Visit [facility] Medicine Specialties [address], [address] [place] [address] Deneen Edward, DO [address] [place] [address] documented as of this encounter Visit Diagnoses Not on filedocumented in this encounter Additional Health Concerns Infection Onset Date Last Indicated Resolved Time Gastrointestinal Rule-Out 10/13/2024 10/13/2024 8:32 AM EST documented as of this encounter Care Teams Crm Consultant Relationship Specialty Start Date End Date Sarkis Lam MD [address] [facility] [address] [place] [address] PCP - General 12/24/20 documented as of this encounter
--- OUTSIDE RECORDS SUMMARY | 2025-03-13 07:20 | XMS_ITS | Encounter Summary ---
Author Organization Healthcare Address [address] [place] [address] Care Team Providers Care Biazzi Nitrator Operator Name Role Phone Sarkis Lam MD Primary Care Provider [phone] Encounter Details Date Type Department Care Team (Late Contact Info) Description 07/20/2021 Lab Requisition [facility] [address] [place] [address] Beatriz Perez MD [address] [place] [address] Gastro-esophageal reflux disease without esophagitis [...] Description 03/26/2025 9:50 AM EDT Office Visit [facility] [address], [address] [place] [address] Patricia Ramsey, PA [address] [place] [address] 06/05/2025 9:00 AM EDT Ancillary Procedure [facility] [address], [address] [place] [address] 06/05/2025 9:30 AM EDT Office Visit [facility] [address], [address] [place] [address] Deneen Edward, DO [address] [place] [address] documented as of this encounter Procedures Procedure Name Priority Date/Time Associated Diagnosis Comments SURGICAL PATHOLOGY EXAM Routine 07/20/2021 Gastro-esophageal reflux disease without esophagitis documented in this encounter Results * Surgical Pathology Exam (07/20/2021) Case Report Surgical Pathology Case: [id number] Authorizing Provider: Beatriz Perez MD Collected: 07/20/2021 Ordering Location: [facility] Lab Received: 07/20/2021 1250 Pathologist: Blanca Anderson MD Specimen: Stomach, Gastric Bx 07/21/2021 11:33 AM EST [email or web address] Final Diagnosis A. stomach, biopsy: - mild chronic inflammation and changes suggestive of portal hypertensive gastropathy. 07/21/2021 11:33 AM EST [email or web address] at 1133 EST Clinical Information Abnormal Imaging, GERD 07/21/2021 11:33 AM EST [email or web address] Gross Description A. GASTRIC BX The specimen is received in formalin labeled gastric BX , and consists of four yellow-leblanc soft tissue fragments ranging from 0.2-0.5 cm in greatest dimension. Entirely submitted in cassette A1. Kim Shafer 07/21/2021 11:33 AM EST [email or web address] Tissue Stomach structure / Unknown 07/20/2021 07/20/2021 12:50 PM EST us Beatriz Perez MD LAB PATHOLOGY ORDERABLES Hayes burgos [facility] [address] [place] [address] documented in this encounter Visit Diagnoses Diagnosis Gastro-esophageal reflux disease without esophagitis documented in this encounter Additional Health Concerns Infection Onset Date Last Indicated Resolved Time Gastrointestinal Rule-Out 10/13/2024 10/13/2024 8:32 AM EST Assessment Noted Time A fall risk assessment has been complete d for the patient 03/22/2021 9:13 AM EDT documented as of this encounter Care Teams Biazzi Nitrator Operator Relationship Specialty Start Date End Date Sarkis Lam MD [address] [place] [address] PCP - General 12/24/20 documented as of this encounter
--- OUTSIDE RECORDS SUMMARY | 2025-03-13 07:20 | XMS_ITS | Encounter Summary ---
Author Organization Healthcare Address [address] [place] [address] Care Team Providers Care Ophthalmologist Name Role Phone Sarkis Lam MD Primary Care Provider [phone] Encounter Details Date Type Department Care Team (Late st Contact Info) Description 12/12/2024 Results Follow-Up [facility] Medicine Specialties [address], [address] [place] [address] Patricia Ramsey, PA [address] [place] [address] Social History Tobacco Use Types [...] Visit [facility] [address], [address] [place] [address] Patricia Ramsey PA [address] [place] [address] 06/05/2025 9:00 AM EDT Ancillary Procedure [facility] Specialties [address], [address] [place] [address] 06/05/2025 9:30 AM EDT Office Visit [facility] Specialties [address], [address] [place] [address] Deneen Edward, DO [address] [place] [address] documented as of this encounter [...] documented as of this encounter Care Teams Ophthalmologist Relationship Specialty Start Date End Date Sarkis Lam MD [address] [place] [address] PCP - General 12/24/20 documented as of this encounter
[2025-03-13 07:54] LABS: Hematocrit 24.2 % (37.0-47.0); Hemoglobin 7.1 g/dL (12.2-16.2); Immature Granulocytes % 0.3 %; Mean Corpuscular HGB Conc 29.3 g/dL (31.8-35.4); Mean Corpuscular Hemoglobin 26.9 pg (27.0-31.2); Mean Corpuscular Volume 91.7 fl (81-99); Nucleated Red Blood Cells % 0 %; Platelet Count 183 K/mm3 (142-424); Red Blood Count 2.64 M/mm3 (4.20-5.40); Red Cell Distribution Width-SD 58.0 fL; White Blood Count 3.3 K/mm3 (4.8-10.8)
[2025-03-13 08:26] LABS: Hemoglobin A1C 6.0 % (4.0-6.0)
[2025-03-13 08:32] LABS: Alanine Aminotransferase 16 U/L (12-78); Albumin Level 3.9 g/dl (3.5-5.0); Albumin/Globulin Ratio 1.1 (1.1-1.8); Alkaline Phosphatase 130 U/L (38-126); Anion Gap 10.5 mEq/L (5-15); Aspartate Amino Transferase 26 U/L (14-36); Bilirubin,Total 1.5 mg/dl (0.2-1.3); Blood Urea Nitrogen 6 mg/dl (7-17); Calcium 9.0 mg/dl (8.4-10.2); Carbon Dioxide 25 mmol/L (22.0-30.0); Chloride 107 mmol/L (98-107); Cholesterol 102 mg/dl (140-200); Creatinine,Serum 0.60 mg/dl (0.52-1.04); Estimated Glomerular Filt Rate 103 ml/min (>60); GFR (African American) 125 ML/MIN (>60); Globulin 3.6 g/dL (1.3-3.2); Glucose 118 mg/dl (74-100); HDL Cholesterol 37 mg/dl (40-60); Potassium 3.5 mmoL/L (3.5-5.1); Sodium 139 mmol/L (136-145); Total Protein,Serum 7.5 g/dl (6.3-8.2); Triglycerides 67 mg/dl (30-150)
[2025-03-13 08:47] LABS: 25-OH Vitamin D, Total 15.9 ng/mL (30-100)
[2025-03-13 09:20] LABS: Vitamin B12 914 pg/mL (239-931)
== END 2025-03-13 23:59 | disposition home or self-care (01) ==
LOC: LAB 07:18
PROVIDERS: PCP Internal Medicine Adolescent Medicine; Visit Provider Internal Medicine Adolescent Medicine
DX: E11.69 Type 2 diabetes mellitus with other specified complication (principal); E78.5 Hyperlipidemia, unspecified; D53.9 Nutritional anemia, unspecified
CPT/HCPCS: 36415; 80053; 80061; 82306; 82607; 83036; 85025

== ENCOUNTER 2025-03-23 10:14 | Outpatient (CLI) | payer OTHER, SELFPAY ==
[2025-03-23 10:14] VITALS: BMI 25.3
--- NOTE | 2025-03-23 10:18 | PC.NURSE ---
1018-collected labs via venipuncture stick in right ac with butterfly needle to wait on results.
--- OUTSIDE RECORDS SUMMARY | 2025-03-23 10:19 | XMS_ITS | Encounter Summary ---
Author Organization Healthcare Address [address] [place] [address] Care Team Providers Care Pulp Mixer Name Role Phone Sarkis Lam MD Primary Care Provider [phone] Reason for Visit * Reason Onset Date Comments HCN Patient Medication Refill Request 12/24/2024 PA for Moviprep Encounter Details Date Type Department Care Team (Late st Contact Info) Description 12/24/2024 Telephone [facility] [address], [address] [place] [address] Yolanda Portillo, RN MEDICINE SPECIALTIES [...] AM EDT Sending PA for Moviprep to [facility] documented in this encounter Plan of Treatment Upcoming Encounters Date Type Department Care Team (Late st Contact Info) Description 03/26/2025 9:50 AM EDT Office Visit [facility] Specialties [address], [address] [place] [address] Patricia Ramsey PA [address] [place] [address] 06/05/2025 9:00 AM EDT Ancillary Procedure [facility] [address], [address] [place] [address] 06/05/2025 9:30 AM EDT Office Visit [facility] [address], [address] [place] [address] Camac, Deneen R, DO [address] [place] [address] documented as of this encounter [...] documented as of this encounter Care Teams Pulp Mixer Relationship Specialty Start Date End Date Sarkis Lam MD [address] [place] [address] PCP - General 12/24/20 documented as of this encounter
--- OUTSIDE RECORDS SUMMARY | 2025-03-23 10:19 | XMS_ITS | Encounter Summary ---
Author Organization Healthcare Address [address] [place] [address] Care Team Providers Care Vocational Rehab Consultant Name Role Phone Sarkis Lam MD Primary Care Provider [phone] Encounter Details Date Type Department Care Team (Late Contact Info) Description 07/20/2021 Lab Requisition [facility] [address] [place] [address] Beatriz Perez MD [address] [place] [address] Gastro-esophageal reflux disease without esophagitis [...] Description 03/26/2025 9:50 AM EDT Office Visit [facility] [address], [address] [place] [address] Patricia Ramsey, PA [address] [place] [address] 06/05/2025 9:00 AM EDT Ancillary Procedure [facility] [address], [address] [place] [address] 06/05/2025 9:30 AM EDT Office Visit [facility] [address], [address] [place] [address] Deneen Edward, DO [address] [place] [address] documented as of this encounter Procedures Procedure Name Priority Date/Time Associated Diagnosis Comments SURGICAL PATHOLOGY EXAM Routine 07/20/2021 Gastro-esophageal reflux disease without esophagitis documented in this encounter Results * Surgical Pathology Exam (07/20/2021) Case Report Surgical Pathology Case: [id number] Authorizing Provider: Beatriz Perez MD Collected: 07/20/2021 Ordering Location: [facility] Lab Received: 07/20/2021 1250 Pathologist: Blanca Anderson MD Specimen: Stomach, Gastric Bx 07/21/2021 11:33 AM EST [facility] Final Diagnosis A. stomach, biopsy: - mild chronic inflammation and changes suggestive of portal hypertensive gastropathy. 07/21/2021 11:33 AM EST [facility] at 1133 EST Clinical Information Abnormal Imaging, GERD 07/21/2021 11:33 AM EST [facility] Gross Description A. GASTRIC BX The specimen is received in formalin labeled gastric BX , and consists of four yellow-leblanc soft tissue fragments ranging from 0.2-0.5 cm in greatest dimension. Entirely submitted in cassette A1. Kim Shafer 07/21/2021 11:33 AM EST [facility] Tissue Stomach structure / Unknown 07/20/2021 07/20/2021 12:50 PM EST us Beatriz Perez MD LAB PATHOLOGY ORDERABLES Hayes burgos [facility] [address] [place] [address] documented in this encounter Visit Diagnoses Diagnosis Gastro-esophageal reflux disease without esophagitis documented in this encounter Additional Health Concerns Infection Onset Date Last Indicated Resolved Time Gastrointestinal Rule-Out 10/13/2024 10/13/2024 8:32 AM EST Assessment Noted Time A fall risk assessment has been complete d for the patient 03/22/2021 9:13 AM EDT documented as of this encounter Care Teams Vocational Rehab Consultant Relationship Specialty Start Date End Date Sarkis Lam MD [address] [place] [address] PCP - General 12/24/20 documented as of this encounter
--- OUTSIDE RECORDS SUMMARY | 2025-03-23 10:19 | XMS_ITS | Encounter Summary ---
Author Organization Healthcare Address [address] [place] [address] Care Team Providers Care Photographer Apprentice Lithographic Name Role Phone Sarkis Lam MD Primary Care Provider [phone] Encounter Details Date Type Department Care Team (Late st Contact Info) Description 12/12/2024 Results Follow-Up [facility] Medicine Specialties [address], [address] [place] [address] Patricia Ramsey, PA [address] [place] [address] Social History Tobacco Use Types [...] Description 03/26/2025 9:50 AM EDT Office Visit [facility]ties [address], [address] [place] [address] Patricia Ramsey PA [address] [place] [address] 06/05/2025 9:00 AM EDT Ancillary Procedure [facility] Specialties [address], [address] [place] [address] 06/05/2025 9:30 AM EDT Office Visit [facility] Specialties [address], [address] [place] [address] Deneen Edward, DO [address] [place] [address] documented as of this encounter [...] documented as of this encounter Care Teams Photographer Apprentice Lithographic Relationship Specialty Start Date End Date Sarkis Lam MD [address] [place] [address] PCP - General 12/24/20 documented as of this encounter
--- OUTSIDE RECORDS SUMMARY | 2025-03-23 10:19 | XMS_ITS | Clinical Summary ---
Author Organization [facility] Address [address] [place] [address] Care Team Providers Care Manager Care Name Role Phone Sarkis Lam MD Primary Care Provider [phone] Allergies Active Allergy Reactions Criticality Noted Date [...] 04/22/2018 Medications lancets (OneTouch Delica Lancets 33G) [facility] Active Blood Glucose Monitoring Suppl (ONE [...] C ER PO) Take by mouth. Active MJN-OBj-BvYg-NaSu lf-Na Asc-C (MoviPrep) 100 g reconstituted solution [...] Department Care Team Description 01/28/2025 Orders Only [facility] Medicine Specialties [address], [address] [place] [address] Rhea Kamara, PharmD ILD (interstitial lung disease) ([facility]) (Primary Dx); Encounter for long-term current use of high risk medication 01/07/2025 Results Follow-Up [facility] [address], [address] [place] [phone] Carmita Poe MD 01/06/2025 7:34 AM EDT Anesthesia Event [facility] [address] [place] [address] Fitz Yanez MD Ellis, Teresa W, SENIOR NET DEVELOPER 01/06/2025 6:36 AM EDT - 01/06/2025 11:59 PM EDT Hospital Encounter [facility] [address] [place] [address] Carmita Poe MD Linville, Nathaniel C, MD Benke, Abby P, Allyson Beckham, RN Esophageal varices without bleeding, unspecified esophageal varices type ([facility]); Generalized abdominal pain; LUQ pain; Diarrhea, unspecified type Discharge Disposition: Home or Self Care 01/06/2025 Travel 12/24/2024 Telephone [facility] [address], [address] [place] [address] Yolanda Portillo, RN HCN Patient Medication Refill Request (PA for Moviprep ) 12/22/2024 10:15 AM EDT Pre-Admission Testing [facility] [address] [place] [address] 12/22/2024 Travel from Last 3 Months Immunizations Immunization [...] FH: breast can cer Cancer Sister 3 [place] Anesthesia problems Neg Hx Malig Hyperthermia Neg Hx Relation Name Status Comments Brother Jacob Father Michel Forrester Mother Kathryn Other 1 Other 2 Sister 1 Sister 2 Sister 3 [place] Social History Tobacco Use Types Packs/Day Years [...] Description 03/26/2025 9:50 AM EDT Office Visit [facility] [address], [address] [place] [address] Patricia Ramsey PA [address] [place] [address] 06/05/2025 9:00 AM EDT Ancillary Procedure [facility] [address], [address] [place] [address] 06/05/2025 9:30 AM EDT Office Visit [facility] [address], [address] [place] [address] Wagner, Deneen R, DO [address] [place] [address] Health Maintenance Due Date Last Done Comments [facility]-Diabetes: Hemoglobin A1C 1965 [facility]-HIV Screening 1965 [facility]-Hepatitis C Screening 1965 [facility]-Infant/Child/Adol SDOH Screenings 1965 [facility]-IPV Vaccines (3 of [...] Cancer Screening 05/07/2023 [facility]-HPV/Cotest 05/07/2023 05/07/2018, 05/07/2018 [facility]-FWRFN-48 Vaccine ( season) 2024 05/16/2022, 04/21/2021, 08/26/2020, [...] - 99 mg/dL 01/06/2025 8:21 AM EDT [facility] Comment:Accuracy of a glucos e result [...] for testing. Comment 01/06/2025 8:21 AM EDT [facility] Watch Repairer ID Mile Chen 01/06/2025 8:21 AM EDT [facility] Device ID [id number] 01/06/2025 8:21 AM EDT [facility] Specimen Type POC Capillary 01/06/2025 8:21 AM EDT [facility] Blood Capillary blood specimen / Unknown 01/06/2025 8:19 AM EDT 01/06/2025 8:21 AM EDT us Carmita Poe MD LAB POINT OF CARE TE ST DOCKED DEVICE UNSOLICITED RESULTS Final Result [facility] [address] [place] [address] * Colonoscopy (01/06/2025 8:10 AM EDT) Anatomical [...] Cory Yanes MD Proceduralist Ulises Carter Endo Central Supply Supervisor Preprocedure A history and physical has been [...] of bowel preparation was evaluated using the [place] Bowel Preparation Scale with scores of: right [...] multiple random pancolonic forceps biopsies Internal hemorrhoids Patricia HOWELL GI PROCEDURE ORDERABLES Final R [...] Cory Yanes MD Proceduralist Ulises Carter Endo Central Supply Supervisor Preprocedure A history and physical has been [...] AM EDT) Case Report Surgical Pathology Case: [id number] Authorizing Provider: Carmita Poe MD Collected: 01/06/2025 0746 Ordering Location: [facility] Endoscopy Received: 01/06/2025 1047 Pathologist: Elieser Dietrich DO Specimens: A) - Duodenum, bxs B) - Stomach, gastric bxs C) - Stomach, gastric polyp bxs D) - Colon, random colon bxs 01/07/2025 10:19 AM EDT [facility] Final Diagnosis A. SMALL INTESTINE, [...] NO PATHOLOGIC ABNORMALITY. 01/07/2025 10:19 AM EDT [facility] at 1019 EDT Clinical Information [...] pancolonic forceps biopsies 01/07/2025 10:19 AM T [facility] Gross Description A. BXS Received [...] <1m [place] Funk 01/07/2025 10:19 AM EDT [facility] Note: A resident was involved in the service. I attest I examined the relevant preparations for the specimens and confirmed the diagnosis or interpretation. 01/07/2025 10:19 AM EDT [facility] Tissue Duodenal structure / Unknown [...] Poe MD LAB PATHOLOGY ORDERABLES Final Result [facility] [address] [place] [address] * Cytology (05/07/2018 12:00 AM EDT) 05/07/2018 05/07/2018 12: 03 PM EDT Narrative [facility] - 05/08/2018 12:24 PM EDT [facility] MR #: [id number] [place], [facility] [address] [place] [place], [place] [address] 1965 (Age: 52) FW Collect Date: 05/07/2018 00:00 Receipt Date: 05/07/2018 12:03 Page 1 DEPARTMENT OF PATHOLOGY AND LABORATORY MEDICINE CYTOPATHOLOGY REPORT Email: [email or web address] ATTENDING MD/Practitioner: Sarmad Robles MD Service: PUL [...] Immediate evaluation performed by: Dr. Hanson / MADI Evaluation episode # 1: Predominantly blood B: [...] ICD: I88.8 Other nonspecific lymphadenitis F: A; 78678 ASP INTER, 84622, 73812, 74238 B; 39132 ASP INTER, 49221, 90508, 18671, 22425 C; 05291 ASP INTER, 87103, 16670 SNOMED CODES: A; M21756 P1149 E62302 H9T204 R22048 B; H22517 P1149 B70811 G48949 C; J46304 P1149 X70721 [id number] [id number] A resident has participated in this service. A pathologist has performed and is responsible for the reported pathologic evaluation. us Arron Robles MD LAB PATHOLOGY ORDERABLES Final R esult [facility] from Last 3 Months or Most Recently Relevant to Health Maintenance Insurance [facility] Care Teams Manager Care Relationship Specialty Start Date End Date Sarkis Lam MD [address] [place] [address] PCP - General 12/24/20
--- OUTSIDE RECORDS SUMMARY | 2025-03-23 10:19 | XMS_ITS | Encounter Summary ---
Author Organization Healthcare Address [address] [place] [address] Care Team Providers Care Call Center Rn Name Role Phone Sarkis Lam MD Primary Care Provider [phone] Encounter Details Date Type Department Care Team (Late st Contact Info) Description 10/09/2024 Telephone [facility] [address] [place] [address] Whitney Portillo, [facility] [address] [place] [address] Social History Tobacco Use Types [...] Notes * Telephone Encounter - Patrica Alamo [facility] - 03/09/2025 3:18 PM EDT Infusion Authorization Not Required Specialty Medication: Remicade J-Code/CPT Code/S-Code: J1745 Quantity and Units of Measure Reviewed: QS Diagnosis Code: D86.9 Insurance Name: [facility] Where did you submit request and how (portal/fax/phone number): [employer] Portal Reference Number: [id number] Follow-Up Phone Number: Filling Pharmacy/SOC: [facility] Will review auth status in 3 months. documented in this encounter Plan of Treatment Upcoming Encounters Date Type Department Care Team (Late st Contact Info) Description 03/26/2025 9:50 AM EDT Office Visit [facility] Medicine Specialties [address], [address] [place] [address] Patricia Ramsey PA [address] [place] [address] 06/05/2025 9:00 AM EDT Ancillary Procedure [facility] Medicine Specialties [address], [address] [place] [address] 06/05/2025 9:30 AM EDT Office Visit [facility] [address], [address] [place] [address] Deneen Edward, DO [address] [place] [address] documented as of this encounter Visit Diagnoses [...] documented as of this encounter Care Teams Call Center Rn Relationship Specialty Start Date End Date Sarkis Lam MD [address] [place] [address] PCP - General 12/24/20 documented as of this encounter
--- OUTSIDE RECORDS SUMMARY | 2025-03-23 10:19 | XMS_ITS | Encounter Summary ---
Author Organization [facility] Address [address] [place] [address] Care Team Providers Care Florist'S Decorator Name Role Phone Sarkis Lam MD Primary Care Provider [phone] Reason for Visit * Reason Comments Med Refill Encounter Details Date Type Department Care Team (Late st Contact Info) Description 03/07/2021 Refill [facility] [place] [address] [place] [address] Louise Wade, CORK GRINDER [address] [place] [address] Social History Tobacco Use Types [...] Description 03/26/2025 9:50 AM EDT Office Visit [facility] [address], [address] [place] [address] Patricia Ramsey, PA [address] [place] [address] 06/05/2025 9:00 AM EDT Ancillary Procedure [facility] Medicine Specialties [address], [address] [place] [address] 06/05/2025 9:30 AM EDT Office Visit [facility] Medicine Specialties [address], [address] [place] [address] Deneen Edward, DO [address] [place] [address] documented as of this encounter Visit Diagnoses Not on filedocumented in this encounter Additional Health Concerns Infection Onset Date Last Indicated Resolved Time Gastrointestinal Rule-Out 10/13/2024 10/13/2024 8:32 AM EST documented as of this encounter Care Teams Florist'S Decorator Relationship Specialty Start Date End Date Sarkis Lam MD [address] [facility] [address] [place] [address] PCP - General 12/24/20 documented as of this encounter
--- OUTSIDE RECORDS SUMMARY | 2025-03-23 10:19 | XMS_ITS | Encounter Summary ---
Author Organization Healthcare Address [address] [id number] Care Team Providers Care Metallurgist Helper Name Role Phone Sarkis Lam MD Primary Care Provider [phone] Reason for Visit * Reason Comments Med Management Lab review Encounter Details Date Type Department Care Team (Late st Contact Info) Description 01/28/[address] [facility] Medicine Specialties [address], [address] [place] [address] Rhea Kamara, PharmD [address] [phone] ILD (interstitial lung disease) (CMS/HCC) (Primary Dx); [...] 03/26/2025 9:50 AM EDT Office Visit [facility] Medicine Specialties [address], [address] [place] [address] Patricia Ramsey PA [address] [place] [address] 06/05/2025 9:00 AM EDT Ancillary Procedure [facility] [address], [address] [place] [address] 06/05/2025 9:30 AM EDT Office Visit [facility] [address], [address] [place] [address] CamDeneen nguyen R, DO [address] [place] [address] Scheduled Orders Name Type Priority [...] documented as of this encounter Care Teams Metallurgist Helper Relationship Specialty Start Date End Date Sarkis Lam MD [address] [place] [address] PCP - General 12/24/20 documented as of this encounter
[2025-03-23 10:29] LABS: Hematocrit 22.4 % (37.0-47.0)
[2025-03-23 10:31] LABS: Hemoglobin 6.4 g/dL (12.2-16.2)
--- NOTE | 2025-03-23 10:40 | PC.NURSE ---
1040-benny clark, behavioral health case manager here to collected type and cross; pt to return tomorrow for blood transfusion
[2025-03-23 11:14] LABS: Iron 44 ug/dL (37-170)
[2025-03-23 11:24] LABS: Total Iron Binding Capacity 411 ug/dL (265-497)
[2025-03-23 11:53] LABS: Ferritin 5.68 ng/ml (11.1-264)
== END 2025-03-23 10:53 | disposition home or self-care (01) ==
LOC: INF 10:15
PROVIDERS: PCP Internal Medicine Adolescent Medicine; Visit Provider Internal Medicine Medical Oncology
DX: D64.9 Anemia, unspecified (principal)
CPT/HCPCS: 36415; 82728; 83540; 83550; 85014; 85018; 86850

== ENCOUNTER 2025-03-24 09:04 | Outpatient (CLI) | payer OTHER, SELFPAY ==
[2025-03-24] VITALS (21 sets, daily range): BP systolic 97–125; BP diastolic 47–78; PULSE 74–83; RESP 16–18; TEMP 36.4–37; O2SAT 96–99
--- OUTSIDE RECORDS SUMMARY | 2025-03-24 09:07 | XMS_ITS | Encounter Summary ---
Author Organization [facility] Address [address] [place] [address] Care Team Providers Care Contaminated Land Consultant Name Role Phone Sarkis Lam MD Primary Care Provider [phone] Reason for Visit * Reason Comments Med Refill Encounter Details Date Type Department Care Team (Late st Contact Info) Description 03/07/2021 Refill [facility] [place] [address] [place] [address] Louise Wade, CERTIFIED HYPERBARIC TECHNICIAN [address] [place] [address] Social History Tobacco Use Types [...] Description 03/26/2025 9:50 AM EDT Office Visit [facility] [address], [address] [place] [address] Patricia Ramsey, PA [address] [place] [address] 06/05/2025 9:00 AM EDT Ancillary Procedure [facility] Medicine Specialties [address], [address] [place] [address] 06/05/2025 9:30 AM EDT Office Visit [facility] Medicine Specialties [address], [address] [place] [address] Deneen Edward, DO [address] [place] [address] documented as of this encounter Visit Diagnoses Not on filedocumented in this encounter Additional Health Concerns Infection Onset Date Last Indicated Resolved Time Gastrointestinal Rule-Out 10/13/2024 10/13/2024 8:32 AM EST documented as of this encounter Care Teams Contaminated Land Consultant Relationship Specialty Start Date End Date Sarkis Lam MD [address] [facility] [address] [place] [address] PCP - General 12/24/20 documented as of this encounter
--- OUTSIDE RECORDS SUMMARY | 2025-03-24 09:07 | XMS_ITS | Encounter Summary ---
Author Organization Healthcare Address [address] [place] [address] Care Team Providers Care Disciplinary Hearing Officer Name Role Phone Sarkis aLm MD Primary Care Provider [phone] Reason for Visit * Reason Onset Date Comments HCN Patient Medication Refill Request 12/24/2024 PA for Moviprep Encounter Details Date Type Department Care Team (Late st Contact Info) Description 12/24/2024 Telephone [facility] [address], [address] [place] [address] Yolanda Portillo, RN MEDICINE SPECIALTIES [...] AM EDT Sending PA for Moviprep to [facility] pharm documented in this encounter Plan of Treatment Upcoming Encounters Date Type Department Care Team (Late st Contact Info) Description 03/26/2025 9:50 AM EDT Office Visit [facility] Medicine Specialties [address], [address] [place] [address] Patricia Ramsey PA [address] [place] [address] 06/05/2025 9:00 AM EDT Ancillary Procedure [facility] Medicine [facility] [address], [address] [place] [address] 06/05/2025 9:30 AM EDT Office Visit [facility] [address], [address] [place] [address] Camac, Deneen R, DO [address] [place] [address] documented as of this encounter [...] documented as of this encounter Care Teams Disciplinary Hearing Officer Relationship Specialty Start Date End Date Sarkis Lam MD [address] [place] [address] PCP - General 12/24/20 documented as of this encounter
--- OUTSIDE RECORDS SUMMARY | 2025-03-24 09:07 | XMS_ITS | Encounter Summary ---
Author Organization Healthcare Address [address] [id number] Care Team Providers Care Pharmacy Billing Adjudicator Name Role Phone Sarkis Lam MD Primary Care Provider [phone] Reason for Visit * Reason Comments Med Management Lab review Encounter Details Date Type Department Care Team (Late st Contact Info) Description 01/28/2025 Orders Only [facility] Medicine Specialties [address], [address] [place] [address] Rhea Kamara, PharmD [address] [phone] ILD (interstitial lung disease) (CMS/HCC) (Primary Dx); [...] Description 03/26/2025 9:50 AM EDT Office Visit [facility] Medicine Specialties [address], [address] [place] [address] Patricia Ramsey PA [address] [place] [address] 06/05/2025 9:00 AM EDT Ancillary Procedure [facility] [address], [address] [place] [address] 06/05/2025 9:30 AM EDT Office Visit [facility] [address], [address] [place] [address] CamDeneen nguyen R, DO [address] [place] [address] Scheduled Orders Name Type Priority [...] documented as of this encounter Care Teams Pharmacy Billing Adjudicator Relationship Specialty Start Date End Date Sarkis Lam MD [address] [place] [address] PCP - General 12/24/20 documented as of this encounter
--- OUTSIDE RECORDS SUMMARY | 2025-03-24 09:07 | XMS_ITS | Encounter Summary ---
Author Organization Healthcare Address [address] [place] [address] Care Team Providers Care Nursing Consultant Name Role Phone Sarkis Lam MD Primary Care Provider [phone] Encounter Details Date Type Department Care Team (Late st Contact Info) Description 12/12/2024 Results Follow-Up [facility] Medicine Specialties [address], [address] [place] [address] Patricia Ramsey, PA [address] [place] [address] Social History Tobacco Use Types [...] [facility] [address], [address] [place] [address] Patricia Ramsey PA [address] [place] [address] 06/05/2025 9:00 AM EDT Ancillary Procedure [facility] Specialties [address], [address] [place] [address] 06/05/2025 9:30 AM EDT Office Visit [facility] Specialties [address], [address] [place] [address] Deneen Edward, DO [address] [place] [address] documented as of this encounter [...] documented as of this encounter Care Teams Nursing Consultant Relationship Specialty Start Date End Date Sarkis Lam MD [address] [place] [address] PCP - General 12/24/20 documented as of this encounter
--- OUTSIDE RECORDS SUMMARY | 2025-03-24 09:07 | XMS_ITS | Encounter Summary ---
Author Organization Healthcare Address [address] [place] [address] Care Team Providers Care Spray Gun Repairer Helper Name Role Phone Sarkis Lam MD Primary Care Provider [phone] Encounter Details Date Type Department Care Team (Late st Contact Info) Description 10/09/2024 Telephone [facility] [address] [place] [address] Whitney Portillo, [facility] [address] [place] [address] Social History Tobacco Use Types [...] Notes * Telephone Encounter - Patrica Alamo [facility] - 03/09/2025 3:18 PM EDT Infusion Authorization Not Required Specialty Medication: Remicade J-Code/CPT Code/S-Code: J1745 Quantity and Units of Measure Reviewed: QS Diagnosis Code: D86.9 Insurance Name: [facility] Where did you submit request and how (portal/fax/phone number): [employer] Portal Reference Number: [id number] Follow-Up Phone Number: Filling Pharmacy/SOC: [facility] Will review auth status in 3 months. documented in this encounter Plan of Treatment Upcoming Encounters Date Type Department Care Team (Late st Contact Info) Description 03/26/2025 9:50 AM EDT Office Visit [facility] Medicine Specialties [address], [address] [place] [address] Patricia Ramsey PA [address] [place] [address] 06/05/2025 9:00 AM EDT Ancillary Procedure [facility] Medicine Specialties [address], [address] [place] [address] 06/05/2025 9:30 AM EDT Office Visit [facility] [address], [address] [place] [address] Deneen Edward, DO [address] [place] [address] documented as of this encounter Visit Diagnoses [...] documented as of this encounter Care Teams Spray Gun Repairer Helper Relationship Specialty Start Date End Date Sarkis Lam MD [address] [place] [address] PCP - General 12/24/20 documented as of this encounter
--- OUTSIDE RECORDS SUMMARY | 2025-03-24 09:07 | XMS_ITS | Encounter Summary ---
Author Organization Healthcare Address [address] [place] [address] Care Team Providers Care Auto Slip Cover Installer Name Role Phone Sarkis Lam MD Primary Care Provider [phone] Encounter Details Date Type Department Care Team (Late Contact Info) Description 07/20/2021 Lab Requisition [facility] [address] [place] [address] Beatriz Perez MD [address] [place] [address] Gastro-esophageal reflux disease without esophagitis [...] Description 03/26/2025 9:50 AM EDT Office Visit [facility] [address], [address] [place] [address] Patricia Ramsey, PA [address] [place] [address] 06/05/2025 9:00 AM EDT Ancillary Procedure [facility] [address], [address] [place] [address] 06/05/2025 9:30 AM EDT Office Visit [facility] [address], [address] [place] [address] Deneen Edward, DO [address] [place] [address] documented as of this encounter Procedures Procedure Name Priority Date/Time Associated Diagnosis Comments SURGICAL PATHOLOGY EXAM Routine 07/20/2021 Gastro-esophageal reflux disease without esophagitis documented in this encounter Results * Surgical Pathology Exam (07/20/2021) Case Report Surgical Pathology Case: [id number] Authorizing Provider: Beatriz Perez MD Collected: 07/20/2021 Ordering Location: [facility] Lab Received: 07/20/2021 1250 Pathologist: Blanca Anderson MD Specimen: Stomach, Gastric Bx 07/21/2021 11:33 AM EST [facility] Final Diagnosis A. stomach, biopsy: - mild chronic inflammation and changes suggestive of portal hypertensive gastropathy. 07/21/2021 11:33 AM EST [facility] at 1133 EST Clinical Information Abnormal Imaging, GERD 07/21/2021 11:33 AM EST [facility] Gross Description A. GASTRIC BX The specimen is received in formalin labeled gastric BX , and consists of four yellow-leblanc soft tissue fragments ranging from 0.2-0.5 cm in greatest dimension. Entirely submitted in cassette A1. Kim Shafer 07/21/2021 11:33 AM EST [facility] Tissue Stomach structure / Unknown 07/20/2021 07/20/2021 12:50 PM EST us Beatriz Perez MD LAB PATHOLOGY ORDERABLES [facility] [address] [place] [address] documented in this encounter Visit Diagnoses Diagnosis Gastro-esophageal reflux disease without esophagitis documented in this encounter Additional Health Concerns Infection Onset Date Last Indicated Resolved Time Gastrointestinal Rule-Out 10/13/2024 10/13/2024 8:32 AM EST Assessment Noted Time A fall risk assessment has been complete d for the patient 03/22/2021 9:13 AM EDT documented as of this encounter Care Teams Auto Slip Cover Installer Relationship Specialty Start Date End Date Sarkis Lam MD [address] [place] [address] PCP - General 12/24/20 documented as of this encounter
--- OUTSIDE RECORDS SUMMARY | 2025-03-24 09:07 | XMS_ITS | Clinical Summary ---
Author Organization [facility] Address [address] [place] [address] Care Team Providers Care Hydration Plant Operator Name Role Phone Sarkis Lam MD Primary Care Provider [phone] Allergies Active Allergy Reactions Criticality Noted Date [...] 04/22/2018 Medications lancets (OneTouch Delica Lancets 33G) [facility] 9 Active Blood Glucose Monitoring Suppl (ONE [...] C ER PO) Take by mouth. Active FVP-FEw-VrKa-NaSu lf-Na Asc-C (MoviPrep) 100 g reconstituted solution [...] Department Care Team Description 01/28/2025 Orders Only [facility] Medicine Specialties [address], [address] [place] [address] Rhea Kamara, PharmD ILD (interstitial lung disease) ([facility]) (Primary Dx); Encounter for long-term current use of high risk medication 01/07/2025 Results Follow-Up [facility] Medicine Specialties [address], [address] [place] [phone] Carmita Poe MD 01/06/2025 7:34 AM EDT Anesthesia Event [facility] [address] [place] [address] Fitz Yanez MD Ellis, Teresa W, SPA ASSOCIATE 01/06/2025 6:36 AM EDT - 01/06/2025 11:59 PM EDT Hospital Encounter [facility] [address] [place] [address] Carmita Poe MD [place], Nathaniel C, MD Benke, Abby P, Allyson Beckham, RN Esophageal varices without bleeding, unspecified esophageal varices type ([facility]); Generalized abdominal pain; LUQ pain; Diarrhea, unspecified type Discharge Disposition: Home or Self Care 01/06/2025 Travel 12/24/2024 Telephone [facility] Medicine Specialties [address], [address] [place] [address] Yolanda Portillo, RN HCN Patient Medication Refill Request (PA for Moviprep ) 12/22/2024 10:15 AM EDT Pre-Admission Testing [facility] [address] [place] [address] 12/22/2024 Travel from Last 3 [...] FH: breast can cer Cancer Sister 3 [place] Anesthesia problems Neg Hx Malig Hyperthermia Neg Hx Relation Name Status Comments Brother Jacob Father Michel Forrester Mother Kathryn Other 1 Other 2 Sister 1 Sister 2 Sister 3 [place] Social History Tobacco Use Types Packs/Day Years [...] Description 03/26/2025 9:50 AM EDT Office Visit [facility] Medicine Specialties [address], [address] [place] [address] Patricia Ramsey PA [address] [place] [address] 06/05/2025 9:00 AM EDT Ancillary Procedure [facility] Medicine Specialties [address], [address] [place] [address] 06/05/2025 9:30 AM EDT Office Visit [facility] Medicine Specialties [address], [address] [place] [address] Wagner, Deneen R, DO [address] [place] [address] Health Maintenance Due Date Last [...] Cancer Screening 05/07/2023 UKY-HPV/Cotest 05/07/2023 05/07/2018, 05/07/2018 [id number] Vaccine ( season) 2024 05/16/2022, 04/21/2021, 08/26/2020, [...] - 99 mg/dL 01/06/2025 8:21 AM EDT [facility] Comment:Accuracy of a glucos e result [...] for testing. Comment 01/06/2025 8:21 AM EDT [facility] Line Controller ID Mile Chen 01/06/2025 8:21 AM EDT [facility] Device ID [id number] 01/06/2025 8:21 AM EDT [facility] Specimen Type POC Capillary 01/06/2025 8:21 AM EDT [facility] Blood Capillary blood specimen / Unknown 01/06/2025 8:19 AM EDT 01/06/2025 8:21 AM EDT us Carmita Poe MD LAB POINT OF CARE TE ST DOCKED DEVICE UNSOLICITED RESULTS Final Result [facility] [address] [place] [id number] * Colonoscopy (01/06/2025 8:10 AM EDT) Anatomical [...] Cory Yanes MD Proceduralist Ulises Carter Endo Class B Truck Driver Preprocedure A history and physical has been [...] of bowel preparation was evaluated using the [place] Bowel Preparation Scale with scores of: right [...] Cory Yanes MD Proceduralist Ulises Carter Endo Class B Truck Driver Preprocedure A history and physical has been [...] AM EDT) Case Report Surgical Pathology Case: [id number] Authorizing Provider: Carmita Poe MD Collected: 01/06/2025 0746 Ordering Location: [facility] Endoscopy Received: 01/06/2025 1047 Pathologist: Elieser Dietrich DO Specimens: A) - Duodenum, bxs B) - Stomach, gastric bxs C) - Stomach, gastric polyp bxs D) - Colon, random colon bxs 01/07/2025 10:19 AM EDT [facility] Final Diagnosis A. SMALL INTESTINE, DUODENUM, [...] NO PATHOLOGIC ABNORMALITY. 01/07/2025 10:19 AM EDT [facility] at 1019 EDT Clinical Information I85.00 [...] pancolonic forceps biopsies 01/07/2025 10:19 AM T [facility] Gross Description A. BXS Received in [...] <1m Amelia Funk 01/07/2025 10:19 AM EDT [facility] Note: A resident was involved in the service. I attest I examined the relevant preparations for the specimens and confirmed the diagnosis or interpretation. 01/07/2025 10:19 AM EDT [facility] Tissue Duodenal structure / Unknown 01/06/2025 [...] Poe MD LAB PATHOLOGY ORDERABLES Final Result [facility] [address] [place] [address] * Cytology (05/07/2018 12:00 AM EDT) 05/07/2018 05/07/2018 12: 03 PM EDT Narrative [facility] - 05/08/2018 12:24 PM EDT [facility] MR #: [id number] [facility] [place] [place], [place] [address] 1965 (Age: 52) FW Collect Date: 05/07/2018 00:00 Receipt Date: 05/07/2018 12:03 Page 1 DEPARTMENT OF PATHOLOGY AND LABORATORY MEDICINE CYTOPATHOLOGY REPORT Email: [email or web address] ATTENDING MD/Practitioner: Sarmad Robles MD Service: PUL [...] ICD: I88.8 Other nonspecific lymphadenitis F: A; 54375 ASP INTER, 59995, 07776, 33077 B; 94967 ASP INTER, 53765, 23673, 29734, 86172 C; 90134 ASP INTER, [address]0782, [address] SNOMED CODES: A; W31330 P1149 [id number] S57753 B; U87998 P1149 [id number] D21031 C; X25591 P1149 [id number] [id number] A resident has participated in this service. A pathologist has performed and is responsible for the reported pathologic evaluation. us Arron Robles MD LAB PATHOLOGY ORDERABLES Final R esult [facility] from Last 3 Months or Most Recently Relevant to Health Maintenance Insurance [facility] Care Teams Hydration Plant Operator Relationship Specialty Start Date End Date Sarkis Lam MD [address] [place] [address] PCP - General 12/24/20
[2025-03-24] MEDS: 0.9 % SODIUM CHLORIDE 250 ML 25 ML IV (14:06)
== END 2025-03-24 14:41 | disposition home or self-care (01) ==
PROVIDERS: PCP Internal Medicine Adolescent Medicine; Visit Provider Internal Medicine Adolescent Medicine
DX: D64.9 Anemia, unspecified (principal)
CPT/HCPCS: 36430; J7050; P9016

== ENCOUNTER 2025-03-27 08:59 | Outpatient (CLI) | payer OTHER, SELFPAY ==
--- OUTSIDE RECORDS SUMMARY | 2025-03-26 09:50 | XMS_ITS | Encounter Summary ---
Author Organization [facility] Address [address] [place] [address] Care Team Providers Care Marketing Support Specialist Name Role Phone Sarkis Lam MD Primary Care Provider [phone] Reason for Referral * Consultation (Routine) - Authorized Specialty Diagnoses / Procedures Referred By Glynn florentino Referred To Contact Diagnoses Nodular regenerative hyperplasia of liver Patricia Ramsey [facility] [address] [facility] [address] [place] [address] Phone: tel: fax: Referral ID Status Reason Start Date Expiration Date V isits Requested Visits Authorized [id number] Authorized 03/26/2025 09/25/2026 1 1 Reason for Visit * Reason Comments Abnormal LFTs Abnormal finding on GI tract imaging Encounter Details Date Type Department Care Team (Late st Contact Info) Description 03/26/2025 9:50 AM EDT Office Visit [facility] [address], [address] [place] [address] Patricia Ramsey PA [address] [facility] [address] [place] [address] Nodular regenerative hyperplasia of liver [...] 2 03/26/2025 9:25 AM EDT Tj Michael ia * If you checked off any problems on this questionnaire so far, Question Answer Date of Assessment Author How difficult have these problems made it for you to do your work, take care of things at home, or get along with other people? Not difficult at all 03/26/2025 9:25 AM EDT Carmen Michael a * How difficult have these problems made it for you to do your work, take care of things at home, or get along with other people? Answer Date of Assessment Author Not difficult at all 03/26/2025 9:25 AM EDT Vianey Farooq documented as of this encounter Plan of Treatment Upcoming Encounters Date Type Department Care Team (Late st Contact Info) Description 06/05/2025 9:00 AM EDT Ancillary Procedure [facility] [address], [address] [place] [address] 06/05/2025 9:30 AM EDT Office Visit [facility] [address], [address] [place] [address] Deneen Edward, DO [address] [place] [address] 09/28/2025 10:00 AM EST Office Visit [facility] [address], [address] [place] [address] Patricia Ramsey, DANTE [address] [place] [address] Scheduled Referrals Name Type Priority [...] documented as of this encounter Care Teams Marketing Support Specialist Relationship Specialty Start Date End Date Sarkis Lam MD [address] [place] [address] PCP - General 12/24/20 documented as of this encounter
--- OUTSIDE RECORDS SUMMARY | 2025-03-26 12:30 | XMS_ITS | Encounter Summary ---
Author Organization Healthcare Address [address] [place] [address] Care Team Providers Care Assistant Program Manager Name Role Phone Sarkis Lam MD Primary Care Provider [phone] Encounter Details Date Type Department Care Team (Latest Contact Info) Description 03/26/2025 12:30 PM EDT Ancillary Procedure [facility] [address], [address] [place] [address] Nodular regenerative hyperplasia of liver Social History Tobacco Use Types Packs/Day Years [...] all 03/26/2025 9:25 AM EDT Carmen Michael * How difficult have these problems [...] Procedure [facility] [address], [address] [place] [phone] 06/05/2025 9:30 AM EDT Office Visit [facility] [address], [address] [place] [address] Deneen Edward, DO [address] [place] [address] 09/28/2025 10:00 AM EST Office Visit [facility] [address], [address] [place] [address] Patricia Ramsey PA [address] [place] [address] documented as of this encounter Procedures Procedure Name Priority Date/Time Associated Diagnosis Comments GI FIBROSCAN Routine 03/26/2025 11:18 AM EDT Nodular regenerative hyperplasia of liver documented in this encounter Results * GI Fibroscan (03/26/2025 [...] Visit Diagnoses Diagnosis Nodular regenerative hyperplasia of liver documented in this encounter Additional Health Concerns Assessment Noted Time PHQ-9 Depression Total Score: 2 03/26/20 25 9:25 AM EDT A fall risk assessment has been complete d for the patient 03/26/2025 9:25 AM EDT A Body Mass Index follow-up plan has been documented for the patient 11/19/2024 11:38 AM EDT documented as of this encounter Care Teams Assistant Program Manager Relationship Specialty Start Date End Date Sarkis Lam MD [address] [place] [address] PCP - General 12/24/20 documented as of this encounter
--- OUTSIDE RECORDS SUMMARY | 2025-03-27 09:03 | XMS_ITS | Encounter Summary ---
Author Organization Healthcare Address [address] [place] [address] Care Team Providers Care Agricultural Appraiser Name Role Phone Sarkis Lam MD Primary Care Provider [phone] Encounter Details Date Type Department Care Team (Late st Contact Info) Description 12/12/2024 Results Follow-Up [facility] Medicine Specialties [address], [address] [place] [address] Patricia Ramsey, PA [address] [place] [address] Social History Tobacco Use Types [...] Description 06/05/2025 9:00 AM EDT Ancillary Procedure [facility] [address], [address] [place] [address] 06/05/2025 9:30 AM EDT Office Visit [facility] [address], [address] [place] [address] Deneen Edward, DO [address] [place] [address] 09/28/2025 10:00 AM EST Office Visit [facility] [address], [address] [place] [address] Patricia Ramsey, DANTE [address] [place] [address] documented as of this encounter Visit Diagnoses [...] documented as of this encounter Care Teams Agricultural Appraiser Relationship Specialty Start Date End Date Sarkis Lam MD [address] [place] [address] PCP - General 12/24/20 documented as of this encounter
--- OUTSIDE RECORDS SUMMARY | 2025-03-27 09:03 | XMS_ITS | Encounter Summary ---
Author Organization Healthcare Address [address] [place] [address] Care Team Providers Care Private Sector Executive Name Role Phone Sarkis Lam MD Primary Care Provider [phone] Encounter Details Date Type Department Care Team (Latest Contact Info) Description 03/26/2025 Travel Social History Tobacco Use Types Packs/Day [...] Description 06/05/2025 9:00 AM EDT Ancillary Procedure [facility] [address], [address] [place] [address] 06/05/2025 9:30 AM EDT Office Visit [facility] Special[facility] [address], [address] [place] [address] Deneen Edward, DO [address] [place] [address] 09/28/2025 10:00 AM EST Office Visit [facility] Specialties [address], [address] [place] [address] Patricia Ramsey PA [address] [place] [address] documented as of this encounter [...] documented as of this encounter Care Teams Private Sector Executive Relationship Specialty Start Date End Date Sarkis Lam MD [address] [place] [address] PCP - General 12/24/20 documented as of this encounter
--- OUTSIDE RECORDS SUMMARY | 2025-03-27 09:03 | XMS_ITS | Clinical Summary ---
Author Organization [facility] Address [address] [place] [address] Care Team Providers Care Welt Butter Hand Name Role Phone Sarkis Lam MD Primary Care Provider [phone] Allergies Active Allergy Reactions Criticality Noted Date [...] C ER PO) Take by mouth. Active TKU-BMo-LzBe-NaSu lf-Na Asc-C (MoviPrep) 100 g reconstituted solution [...] of clear liquids 592 mL 5 Active Additional Information Patient not taking.Reported on 03/26/2025 bisacodyl (Bisacodyl EC) 5 MG EC tablet Take all 4 tablets at 9 AM two days before colonoscopy 4 tablet 5 Active Additional Information Patient not taking.Reported on 03/26/2025 Active Problems Problem Noted Date Diagnosed Date [...] Encounters Date Type Department Care Team Description 03/26/2025 12:30 PM EDT Ancillary Procedure [facility] [address], [address]nd [place] [address] 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 9:50 AM EDT Office Visit [facility] [address] [place] [address] Patricia Ramsey, PA Nodular regenerative hyperplasia of liver (Primary Dx) 03/26/2025 Travel 01/28/2025 Orders Only [facility] [address] [place] [address] Rhea Kamara, PharmD ILD (interstitial lung disease) (CMS/HCC) (Primary Dx); Encounter for long-term current use of high risk medication 01/07/2025 Results Follow-Up [facility] [address] [place] [address] Carmita Poe MD 01/06/2025 7:34 AM EDT Anesthesia Event [facility] [address] [place] [address] Fitz Yanez MD Ellis, Teresa W, C D STILL OPERATOR 01/06/2025 6:36 AM EDT - 01/06/2025 11:59 PM EDT Hospital Encounter [facility] [address] [place] [address] Carmita Poe MD Linville, Nathaniel C, MD Benke, Abby P, Allyson Beckham, RN Esophageal varices without bleeding, unspecified esophageal varices type (CMS/HCC); Generalized abdominal pain; LUQ pain; Diarrhea, unspecified type Discharge Disposition: Home or Self Care 01/06/2025 Travel from Last 3 Months Immunizations Immunization [...] FH: breast can cer Cancer Sister 3 [place] Anesthesia problems Neg Hx Malig Hyperthermia Neg Hx Relation Name Status Comments Brother Jacob Father Michel Forrester Mother Kathryn Other 1 Other 2 Sister 1 Sister 2 Sister 3 [place] Social History Tobacco Use Types Packs/Day Years [...] Mass Index 26.26 03/26/2025 9:22 AM EDT Plan of Treatment Upcoming Encounters Date Type Department Care Team (Late st Contact Info) Description 06/05/2025 9:00 AM EDT Ancillary Procedure [facility] [address] [place] [address] 06/05/2025 9:30 AM EDT Office Visit [facility] [address] [place] [address] Deneen Edward, DO [address] [place] [address] 09/28/2025 10:00 AM EST Office Visit [facility] [address], [address] [place] [address] Patricia Ramsey, DANTE [address] [place] [address] Health Maintenance Due Date Last Done Comments [...] Cancer Screening 05/07/2023 [facility]-HPV/Cotest 05/07/2023 05/07/2018, 05/07/2018 [id number] Vaccine ( season) 2024 05/16/2022, 04/21/2021, 08/26/2020, Additional history exists [facility]-Influenza Vaccine (#1) 2025 06/18/2022, [facility]-Depression Screening 03/26/2026 025, 03/26/2025, 11/19/2024, Additional history exists Colonoscopy 01/06/2035 01/06/2025 [...] AM EDT Nodular regenerative hyperplasia of liver POCT GLUCOSE METER UNSOLICITED RESULTS Routine 01/06/2025 [...] Recently Relevant to Health Maintenance Results * GI Fibroscan (03/26/2025 11:18 AM [...] CLINIC DIAGNOSTIC ORDERS Fin al Result ECHOSENS * (ABNORMAL) POCT glucose meter (01/06/2025 8:19 AM EDT) Only the most recent of2 resultswithin the time period is included. POCT Glucose 141(H) 74 - 99 mg/dL 01/06/2025 8:21 AM EDT [facility] Comment:Accuracy of a glucos e result [...] Comment 01/06/2025 8:21 AM EDT [facility] Rack Room Worker ID Mile Chen 01/06/2025 8:21 AM EDT [facility] Device ID [id number] 01/06/2025 8:21 AM EDT [facility] Specimen Type POC Capillary 01/06/2025 8:21 AM EDT [facility] Blood Capillary blood specimen / Unknown 01/06/2025 8:19 AM EDT 01/06/2025 8:21 AM EDT Carmita Poe MD LAB POINT OF CARE TE ST DOCKED DEVICE UNSOLICITED RESULTS Final Result Performing Organization Address City/State/[facility] Phone Number [facility]ALTH[facility]ARE [facility] [address] [place] [address] * Colonoscopy (01/06/2025 8:10 AM EDT) Anatomical [...] Cory Yanes MD Proceduralist Ulises Carter Endo Director Of Software Engineering Preprocedure A history and physical has been [...] of bowel preparation was evaluated using the Hornbeck Bowel Preparation Scale with scores of: right [...] Cory Yanes MD Proceduralist Ulises Carter Endo Director Of Software Engineering Preprocedure A history and physical has been [...] forceps biopsies in the perigastric region Patricia Ramsey ND GI PROCEDURE ORDERABLES Final R esult * Surgical Pathology Exam (01/06/2025 7:46 AM EDT) Case Report Surgical Pathology Case: [id number] Authorizing Provider: Carmita Poe MD Collected: 01/06/2025 0746 Ordering Location: [facility] S Endoscopy Received: 01/06/2025 1047 Pathologist: Elieser Dietrich DO Specimens: A) - Duodenum, bxs B) - Stomach, gastric bxs C) - Stomach, gastric polyp bxs D) - Colon, random colon bxs 01/07/2025 10:19 AM EDT [facility] Final Diagnosis A. SMALL INTESTINE, [...] NO PATHOLOGIC ABNORMALITY. 01/07/2025 10:19 AM EDT [facility] at 1019 EDT Clinical Information [...] pancolonic forceps biopsies 01/07/2025 10:19 AM EDT [facility] Gross Description A. BXS Received [...] <1m Ameliajessica Funk 01/07/2025 10:19 AM EDT [facility] Note: A resident was involved in the service. I attest I examined the relevant preparations for the specimens and confirmed the diagnosis or interpretation. 01/07/2025 10:19 AM EDT [facility] Tissue Duodenal structure / Unknown [...] Poe MD LAB PATHOLOGY ORDERABLES Final Result [facility] [address] [place] [address] * Cytology (05/07/2018 12:00 AM EDT) 05/07/2018 05/07/2018 12: 03 PM EDT Narrative [facility] - 05/08/2018 12:24 PM EDT [facility] MR #: [id number] [facility] [address] [place], [place] [address] 1965 (Age: 52) FW Collect Date: 05/07/2018 00:00 Receipt Date: 05/07/2018 12:03 Page 1 DEPARTMENT OF PATHOLOGY AND LABORATORY MEDICINE CYTOPATHOLOGY REPORT Email: [email or web address] [phone] ATTENDING MD/Practitioner: Sarmad Robles MD Service: PUL [...] Immediate evaluation performed by: Dr. Mohamud / [facility] Evaluation episode # 1: 11 left [...] ICD: I88.8 Other nonspecific lymphadenitis F: A; 12890 ASP INTER, 16973, 18833, 18107 B; 05127 ASP INTER, 43876, 75286, 02772, 45723 C; 70341 ASP INTER, 25292, 04849 SNOMED CODES: A; J06276 P1149 [id number] F89339 B; F34078 P1149 [id number] G69440 C; V59355 P1149 [id number] A resident has participated in this service. A pathologist has performed and is responsible for the reported pathologic evaluation. Arron Robles MD LAB PATHOLOGY ORDERABLES Final R esult [facility] from Last 3 Months or Most Recently Relevant to Health Maintenance Insurance [facility] Care Teams Welt Butter Hand Relationship Specialty Start Date End Date Sarkis Lam MD [address] [place] [address] PCP - General 12/24/20
--- OUTSIDE RECORDS SUMMARY | 2025-03-27 09:03 | XMS_ITS | Encounter Summary ---
Author Organization [facility] Address [address] [place] [address] Care Team Providers Care Cvt Rn Name Role Phone Sarkis Lam MD Primary Care Provider [phone] Reason for Visit * Reason Comments Med Refill Encounter Details Date Type Department Care Team (Late st Contact Info) Description 03/07/2021 Refill [facility] [place] [facility] [address] [place] [address] Louise Wade, BUYING INTERN [address] [place] [address] Social History Tobacco Use Types Packs/Day Years [...] Description 06/05/2025 9:00 AM EDT Ancillary Procedure [facility] [address] [place] [address] 06/05/2025 9:30 AM EDT Office Visit [facility] Medicine Specialties [address], [facility] [place] [address] Deneen Edward, DO [address] [place] [address] 09/28/2025 10:00 AM EST Office Visit [facility] [address] [place] [address] Patricia Ramsey, PA [address] [place] [address] documented as of this encounter Visit Diagnoses Not on filedocumented in this encounter Additional Health Concerns Infection Onset Date Last Indicated Resolved Time Gastrointestinal Rule-Out 10/13/2024 10/13/2024 8:32 AM EST documented as of this encounter Care Teams Cvt Rn Relationship Specialty Start Date End Date Sarkis Lam MD [address] [place] [address] PCP - General 12/24/20 documented as of this encounter
--- OUTSIDE RECORDS SUMMARY | 2025-03-27 09:03 | XMS_ITS | Encounter Summary ---
Author Organization Healthcare Address [address] [place] [address] Care Team Providers Care Home Service Technician Name Role Phone Sarkis Lam MD Primary Care Provider [phone] Encounter Details Date Type Department Care Team (Late Contact Info) Description 07/20/2021 Lab Requisition [facility] [address] [place] [address] Beatriz Perez MD [address] [place] [address] Gastro-esophageal reflux disease without esophagitis [...] Department Care Team (Late Contact Info) Description 06/05/2025 9:00 AM EDT Ancillary Procedure [facility] [address] [place] [address] 06/05/2025 9:30 AM EDT Office Visit [facility] Medicine Specialties [address] [place] [address] Deneen Edward, DO [address] [place] [address] 09/28/2025 10:00 AM EST Office Visit [facility] [address] [place] [address] Patricia Ramsey, DANTE [address] [place] [address] documented as of this encounter Procedures Procedure Name Priority Date/Time Associated Diagnosis Comments SURGICAL PATHOLOGY EXAM Routine 07/20/2021 Gastro-esophageal reflux disease without esophagitis documented in this encounter Results * Surgical Pathology Exam (07/20/2021) Case Report Surgical Pathology Case: [id number] Authorizing Provider: Beatriz Perez MD Collected: 07/20/2021 Ordering Location: [facility] Lab Received: 07/20/2021 1250 Pathologist: Blanca Anderson MD Specimen: Stomach, Gastric Bx 07/21/2021 11:33 AM EST [facility] Final Diagnosis A. stomach, biopsy: - mild chronic inflammation and changes suggestive of portal hypertensive gastropathy. 07/21/2021 11:33 AM EST [facility] at 1133 EST Clinical Information Abnormal Imaging, GERD 07/21/2021 11:33 AM EST [facility] Gross Description A. GASTRIC BX The specimen is received in formalin labeled gastric BX , and consists of four yellow-leblanc soft tissue fragments ranging from 0.2-0.5 cm in greatest dimension. Entirely submitted in cassette A1. Kim Shafer 07/21/2021 11:33 AM EST [facility] Tissue Stomach structure / Unknown 07/20/2021 07/20/2021 12:50 PM EST us Beatriz Perez MD LAB PATHOLOGY ORDERABLES Fin loretta Result [facility] [address] [place] [address] documented in this encounter Visit Diagnoses Diagnosis Gastro-esophageal reflux disease without esophagitis documented in this encounter Additional Health Concerns Infection Onset Date Last Indicated Resolved Time Gastrointestinal Rule-Out 10/13/2024 10/13/2024 8:32 AM EST Assessment Noted Time A fall risk assessment has been complete d for the patient 03/22/2021 9:13 AM EDT documented as of this encounter Care Teams Home Service Technician Relationship Specialty Start Date End Date Sarkis Lam MD [address] [place] [address] PCP - General 12/24/20 documented as of this encounter
--- OUTSIDE RECORDS SUMMARY | 2025-03-27 09:03 | XMS_ITS | Encounter Summary ---
Author Organization Healthcare Address [address] [place] [address] Care Team Providers Care Lead Java J2Ee Developer Name Role Phone Sarkis Lam MD Primary Care Provider [phone] Encounter Details Date Type Department Care Team (Late st Contact Info) Description 10/09/2024 Telephone [facility] [address] [place] [address] Whitney Portillo, [facility] [address] [place] [address] Social History Tobacco Use Types [...] Notes * Telephone Encounter - Patrica Alamo [facility] - 03/09/2025 3:18 PM EDT Infusion Authorization Not Required Specialty Medication: Remicade J-Code/CPT Code/S-Code: J1745 Quantity and Units of Measure Reviewed: QS Diagnosis Code: D86.9 Insurance Name: [facility] Where did you submit request and how (portal/fax/phone number): UMR Portal Reference Number: [id number] Follow-Up Phone Number: Filling Pharmacy/SOC: [facility] Will review auth status in 3 months. documented in this encounter Plan of Treatment Upcoming Encounters Date Type Department Care Team (Late st Contact Info) Description 06/05/2025 9:00 AM EDT Ancillary Procedure [facility] Medicine Specialties [address] [place] [address] 06/05/2025 9:30 AM EDT Office Visit [facility]ties [address], [address] [place] [address] Deneen Edward, DO [address] [place] [address] 09/28/2025 10:00 AM EST Office Visit [facility] Specialties [address], [address] [place] [address] Patricia Ramsey PA [address] [place] [address] documented as of this encounter Visit Diagnoses [...] documented as of this encounter Care Teams Lead Java J2Ee Developer Relationship Specialty Start Date End Date Sarkis Lam MD [address] [place] [address] PCP - General 12/24/20 documented as of this encounter
--- OUTSIDE RECORDS SUMMARY | 2025-03-27 09:03 | XMS_ITS | Encounter Summary ---
Author Organization Healthcare Address [address] [id number] Care Team Providers Care Reactor Operator Name Role Phone Sarkis Lam MD Primary Care Provider [phone] Reason for Visit * Reason Comments Med Management Lab review Encounter Details Date Type Department Care Team (Late st Contact Info) Description 01/28/2025 Orders Only [facility] Medicine Specialties [address] [place] [address] Rhea Kamara, PharmD [address] [id number] ILD (interstitial lung disease) (CMS/HCC) (Primary Dx); [...] Description 06/05/2025 9:00 AM EDT Ancillary Procedure [facility] [address] [place] [address] 06/05/2025 9:30 AM EDT Office Visit [facility] [address] [place] [address] Deneen Edward R, DO [address] [place] [address] 09/28/2025 10:00 AM EST Office Visit [facility] [address] [place] [address] Patricia Ramsey, PA [address] [place] [address] Scheduled Orders Name Type Priority Associated Diagnoses [...] documented as of this encounter Care Teams Reactor Operator Relationship Specialty Start Date End Date Sarkis Lam MD [address] [place] [address] PCP - General 12/24/20 documented as of this encounter
[2025-03-27] MEDS: HYDROCORTISONE SOD SUCCINATE 100MG VIAL 200 MG (09:05)
[2025-03-27] MEDS: ACETAMINOPHEN 325MG TAB 650 MG (09:05)
[2025-03-27] MEDS: inFLIXimab 400 MG in 0.9 % SODIUM CHLORIDE 250 ML 83.333 MG IV (09:40)
[2025-03-27 09:55] VITALS: BP 106/62; PULSE 77; RESP 18; O2SAT 98
[2025-03-27 10:10] VITALS: BP 99/55; PULSE 76; RESP 18; O2SAT 98
[2025-03-27 10:25] VITALS: BP 98/63; PULSE 68; RESP 18; O2SAT 97
[2025-03-27 10:40] VITALS: BP 96/60; PULSE 71; RESP 18; O2SAT 97
[2025-03-27 11:10] VITALS: BP 91/61; PULSE 70; RESP 18; O2SAT 97
[2025-03-27 12:37] VITALS: BP 99/62; PULSE 73; RESP 18; O2SAT 97
== END 2025-03-27 12:02 | disposition home or self-care (01) ==
LOC: INF 09:00
PROVIDERS: PCP Internal Medicine Adolescent Medicine; Visit Provider Internal Medicine
DX: D86.9 Sarcoidosis, unspecified (principal)
CPT/HCPCS: 96413; 96415; J1720; J1745; J7050

== ENCOUNTER 2025-04-10 08:02 | Outpatient (CLI) | payer OTHER, SELFPAY ==
--- OUTSIDE RECORDS SUMMARY | 2025-03-26 09:50 | XMS_ITS | Encounter Summary ---
Author Organization [facility] Address [address] [place] [address] Care Team Providers Care Marble Setter Helper Name Role Phone Sarkis Lam MD Primary Care Provider [phone] Reason for Referral * Consultation (Routine) - Authorized Specialty Diagnoses / Procedures Referred By Glynn florentino Referred To Contact Diagnoses Nodular regenerative hyperplasia of liver [facility] [address] [facility] [address] [place] [address] Phone: tel: fax: Referral ID Status Reason Start Date Expiration Date V isits Requested Visits Authorized [id number] Authorized 03/26/2025 09/25/2026 1 1 Reason for Visit * Reason Comments Abnormal LFTs Abnormal finding on GI tract imaging Encounter Details Date Type Department Care Team (Late st Contact Info) Description 03/26/2025 9:50 AM EDT Office Visit [facility] [address], [address] [place] [address] Patricia Ramsey PA [address] [facility] [address] [place] [address] Nodular regenerative hyperplasia of liver [...] usual. Not at all 03/26/2025 9:25 AM JAYLENET Vianey Michael Thoughts that you would be better off or hurting yourself in some way Not at all 03/26/2025 9:25 AM JAYLENET Carmen Michael Patient Health Questionnaire-9 Score 2 [...] Not difficult at all 03/26/2025 9:25 AM JAYLENET Carmen Michael a * How difficult have [...] Edward. 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 Perez first in [...] Date CARDIAC CATHETERIZATION N/A Heart catheterization from [facility] SECTION, CLASSIC SECTION, LOW TRANSVERSE N/A Section from [facility] SECTION, LOW TRANSVERSE N/A section from [facility] SECTION, LOW TRANSVERSE N/A section from [facility] CHOLECYSTECTOMY N/A Cholecystectomy from [facility] EAR SURGERY N/A Ear surgery from [facility] ENDOSCOPY N/A Endoscopy from [facility] ESOPHAGOGASTRODUODENOSCOPY N/A Esophagogastroduodenoscopy from [facility] GALLBLADDER SURGERY N/A Gallbladder Surgery from [facility] LYMPH NODE BIOPSY OTHER SURGICAL HISTORY N/A Throat surgery from [facility] THROAT SURGERY N/A throat surgery from [facility] TUBAL LIGATION Family History Family History Problem [...] file Social Connections: Unknown (05/25/2023) Received from [facility] Family and Community Support Help with Day-to-Day Activities: Not on file Lonely or Isolated: Not on file Intimate Partner Violence: Unknown (05/25/2023) Received from [facility] Abuse Screen Unsafe at Home or Work/School: Not on file Feels Threatened by Someone?: Not on file Does Anyone Keep You from Contacting Others or Doint Things Outside the Home?: Not on file Physical Sign of Abuse Present: Not on file Housing Stability: Unknown (05/25/2023) Received from [facility] Housing Stability Current Living Arrangements: Not on [...] DAYS Farxiga 10 mg, Daily Glucose Blood (AquaMobileUCH ULTRA BLUE ) No dose, route, or frequency recorded. inFLIXimab (Remicade) 100 MG injection Infuse into a venous catheter. Iron 325 mg Janumet 50-500 MG tablet 1 tablet, ZZ 2 times daily RT lancets (OneTouch Delica Lancets 33G) misc No dose, route, or frequency recorded. losartan (COZAAR) 50 mg, Daily magnesium citrate solution Drink first bottle at 6PM two days before colonoscopy , drink second bottle at 9AM on day before colonoscopy- Follow each bottle with 4 glasses of clear liquids omeprazole (PRILOSEC) 40 mg IUH-TGp-[id number]-NaSulf-Na Asc-C (MoviPrep) 100 g reconstituted solution At [...] 09 INR 1.1 09/25/2024 09 ALBUMIN 4.1 09/25/2024908 CREATININE 0.79 09/25/2024 09 AFP <2.3 09/25/2024 09 Lab Results Component Value Date/Time HGB 11.8 09/25/2024 0909 WBC 3.63 (L) 09/25/2024 0909 PLT 136 (L) 09/25/2024 09 Hepatitis Serologies No results found for: HEPBSAG [...] - consider HPS(?) although unclear incidence in [facility] # Health Maintenance Immunization History Administered Date(s) Administered DTaP, Unspecified 1967, 1967, 03/13/1968, 06/20/1973, 12/31/1973 IPV 1967, 1967 Influenza, injectable, quadrivalent, preservative free 06/17/2022 Influenza, seasonal, injectable 06/18/2022 Pfizer-BioNTech COVID-19 Bivalent (Hcilel Cap) 12+ years (bora-sucrose) 05/16/2022 Pfizer-BioNTech COVID-19 Vaccine (Purple Cap) 12+ 08/09/2020, 08/26/2020, 04/21/2021 Pneumococcal 20-gely Conj Vaccine 03/23/2023 Polio, Unspecified 03/13/1968, 06/20/1973, 08/20/1973, 12/31/1973, 03/19/1974 Rubella/Mumps 09/03/1973 Check for HAV/HBV immunity Colonoscopy - Had last colonoscopy a year ago at [facility] with Dr. Ni. Was told she had [...] Description 06/05/2025 9:00 AM EDT Ancillary Procedure [facility] [address], [address] [place] [address] 06/05/2025 9:30 AM EDT Office Visit [facility] [address], [address]nd [place] [address] Deneen Edward, DO [address] [place] [address] 09/28/2025 10:00 AM EST Office Visit [facility] [address], [address] [place] [address] Patricia Ramsey PA [address] [place] [address] Scheduled Referrals Name Type Priority Associated Diagnoses [...] Time PHQ-9 Depression Total Score: 2 03/26/20 9:25 AM EDT A fall risk assessment has been complete d for the patient 03/26/2025 9:25 AM EDT A Body Mass Index follow-up plan has been documented for the patient 03/31/2025 5:08 PM EDT documented as of this encounter Care Teams Marble Setter Helper Relationship Specialty Start Date End Date Sarkis Lam MD [address] [place] [address] PCP - General 12/24/20 documented as of this encounter
--- OUTSIDE RECORDS SUMMARY | 2025-03-26 12:30 | XMS_ITS | Encounter Summary ---
Author Organization Healthcare Address [address] [place] [address] Care Team Providers Care Telephonic Nurse Case Manager Name Role Phone Sarkis Lam MD Primary Care Provider [phone] Encounter Details Date Type Department Care Team (Latest Contact Info) Description 03/26/2025 12:30 PM EDT Ancillary Procedure [facility] [address], [address] [place] [address] Nodular regenerative hyperplasia of liver Social History [...] Description 06/05/2025 9:00 AM EDT Ancillary Procedure [facility]ties [address], [address] [place] [address] 06/05/2025 9:30 AM EDT Office Visit [facility] [address], [address] [place] [address] Deneen Edward, DO [address] [place] [address] 09/28/2025 10:00 AM EST Office Visit [facility] [address], [address] [place] [address] Patricia Ramsey PA [address] [place] [address] documented as of this encounter [...] documented as of this encounter Care Teams Telephonic Nurse Case Manager Relationship Specialty Start Date End Date Sarkis Lam MD [address] [place] [address] PCP - General 12/24/20 documented as of this encounter
--- OUTSIDE RECORDS SUMMARY | 2025-04-10 08:04 | XMS_ITS | Encounter Summary ---
Author Organization Healthcare Address [address] [place] [address] Care Team Providers Care Fws Faculty Assistant Name Role Phone Sarkis Lam MD Primary Care Provider [phone] Encounter Details Date Type Department Care Team [...] difficult at all 03/26/2025 9:25 AM EDT Vainey Farooq documented as of this encounter Plan of Treatment Upcoming Encounters Date Type Department Care Team (Late st Contact Info) Description 06/05/2025 9:00 AM EDT Ancillary Procedure [facility] [address] [place] [address] 06/05/2025 9:30 AM EDT Office Visit [facility] Specialties [address], [address] [place] [address] Deneen Edward, DO [address] [place] [address] 09/28/2025 10:00 AM EST Office Visit [facility] Specialties [address], [address] [place] [address] Patricia Ramsey PA [address] [place] [address] documented as of this encounter [...] documented as of this encounter Care Teams Fws Faculty Assistant Relationship Specialty Start Date End Date Sarkis Lam MD [address] [place] [address] PCP - General 12/24/20 documented as of this encounter
--- OUTSIDE RECORDS SUMMARY | 2025-04-10 08:04 | XMS_ITS | Encounter Summary ---
Author Organization [facility] Address [address] [place] [address] Care Team Providers Care Hat Sprayer Name Role Phone Sarkis Lam MD Primary Care Provider [phone] Reason for Visit * Reason Comments Med Refill Encounter Details Date Type Department Care Team (Late st Contact Info) Description 03/07/2021 Refill [facility] [place] [facility] [address] [place] [address] Louise Wade, ANALYST COMPETITIVE INTELLIGENCE [address] [place] [address] Social History Tobacco Use Types Packs/Day Years [...] Description 06/05/2025 9:00 AM EDT Ancillary Procedure [facility] [address] [place] [address] 06/05/2025 9:30 AM EDT Office Visit [facility] Medicine Specialties [address], [facility] [place] [address] Deneen Edward, DO [address] [place] [address] 09/28/2025 10:00 AM EST Office Visit [facility] [address] [place] [address] Patricia Ramsey, PA [address] [place] [address] documented as of this encounter Visit Diagnoses Not on filedocumented in this encounter Additional Health Concerns Infection Onset Date Last Indicated Resolved Time Gastrointestinal Rule-Out 10/13/2024 10/13/2024 8:32 AM EST documented as of this encounter Care Teams Hat Sprayer Relationship Specialty Start Date End Date Sarkis Lam MD [address] [place] [address] PCP - General 12/24/20 documented as of this encounter
--- OUTSIDE RECORDS SUMMARY | 2025-04-10 08:05 | XMS_ITS | Encounter Summary ---
Author Organization Healthcare Address [address] [place] [address] Care Team Providers Care Security Risk Analyst Name Role Phone Sarkis Lam MD Primary Care Provider [phone] Encounter Details Date Type Department Care Team (Late st Contact Info) Description 10/09/2024 Telephone [facility] [address] [place] [address] Whitney Portillo, [facility] [address] [place] [address] Social History Tobacco Use Types [...] Not at all 11/19/2024 10:30 AM Adelaida Riso Thoughts that you would be b rosanna [...] Notes * Telephone Encounter - Patrica Alamo [facility] - 03/09/2025 3:18 PM EDT Infusion Authorization Not Required Specialty Medication: Remicade J-Code/CPT Code/S-Code: J1745 Quantity and Units of Measure Reviewed: QS Diagnosis Code: D86.9 Insurance Name: [facility] Where did you submit request and how (portal/fax/phone number): UMR Portal Reference Number: [id number] Follow-Up Phone Number: Filling Pharmacy/SOC: [facility] Will review auth status in 3 months. documented in this encounter Plan of Treatment Upcoming Encounters Date Type Department Care Team (Late st Contact Info) Description 06/05/2025 9:00 AM EDT Ancillary Procedure [facility] Medicine Specialties [address] [place] [address] 06/05/2025 9:30 AM EDT Office Visit [facility] Medicine Specialties [address] [place] [address] Deneen Edward, DO [address] [place] [address] 09/28/2025 10:00 AM EST Office Visit [facility] Medicine Specialties [address] [place] [address] Patricia Ramsey PA [address] [place] [address] documented as of this encounter Visit Diagnoses [...] documented as of this encounter Care Teams Security Risk Analyst Relationship Specialty Start Date End Date Sarkis Lam MD [address] [place] [address] PCP - General 12/24/20 documented as of this encounter
--- OUTSIDE RECORDS SUMMARY | 2025-04-10 08:05 | XMS_ITS | Encounter Summary ---
Author Organization Healthcare Address [address] [place] [address] Care Team Providers Care Assembler Knife Name Role Phone Sarkis Lam MD Primary Care Provider [phone] Encounter Details Date Type Department Care Team (Late Contact Info) Description 07/20/2021 Lab Requisition [facility] [address] [place] [address] Beatriz Perez MD [address] [place] [address] Gastro-esophageal reflux disease without esophagitis [...] Description 06/05/2025 9:00 AM EDT Ancillary Procedure [facility] [address], [address] [place] [address] 06/05/2025 9:30 AM EDT Office Visit [facility] Medicine Specialties [address], [address] [place] [address] Deneen Edward, DO [address] [place] [address] 09/28/2025 10:00 AM EST Office Visit [facility] Medicine Specialties [address], [address] [place] [address] Patricia Ramsey, DANTE [address] [place] [address] documented as of this encounter Procedures Procedure Name Priority Date/Time Associated Diagnosis Comments SURGICAL PATHOLOGY EXAM Routine 07/20/2021 Gastro-esophageal reflux disease without esophagitis documented in this encounter Results * Surgical Pathology Exam (07/20/2021) Case Report Surgical Pathology Case: [id number] Authorizing Provider: Beatriz Perez MD Collected: 07/20/2021 Ordering Location: [facility] Lab Received: 07/20/2021 1250 Pathologist: Blanca Anderson MD Specimen: Stomach, Gastric Bx 07/21/2021 11:33 AM EST [facility] Final Diagnosis A. stomach, biopsy: - mild chronic inflammation and changes suggestive of portal hypertensive gastropathy. 07/21/2021 11:33 AM EST [facility] at 1133 EST Clinical Information Abnormal Imaging, GERD 07/21/2021 11:33 AM EST [facility] Gross Description A. GASTRIC BX The specimen is received in formalin labeled gastric BX , and consists of four yellow-leblanc soft tissue fragments ranging from 0.2-0.5 cm in greatest dimension. Entirely submitted in cassette A1. Kim Shafer 07/21/2021 11:33 AM EST [facility] Tissue Stomach structure / Unknown 07/20/2021 07/20/2021 12:50 PM EST us Beatriz Perez MD LAB PATHOLOGY ORDERABLES Fin loretta [facility] [address] [place] [address] documented in this encounter Visit Diagnoses Diagnosis Gastro-esophageal reflux disease without esophagitis documented in this encounter Additional Health Concerns Infection Onset Date Last Indicated Resolved Time Gastrointestinal Rule-Out 10/13/2024 10/13/2024 8:32 AM EST Assessment Noted Time A fall risk assessment has been complete d for the patient 03/22/2021 9:13 AM EDT documented as of this encounter Care Teams Assembler Knife Relationship Specialty Start Date End Date Sarkis Lam MD [address] [place] [address] PCP - General 12/24/20 documented as of this encounter
--- OUTSIDE RECORDS SUMMARY | 2025-04-10 08:05 | XMS_ITS | Encounter Summary ---
Author Organization Healthcare Address [address] [place] [address] Care Team Providers Care Process Expert Name Role Phone Sarkis Lam MD Primary Care Provider [phone] Encounter Details Date Type Department Care Team (Late st Contact Info) Description 12/12/2024 Results Follow-Up [facility] Medicine Specialties [address], [address] [place] [address] Patricia Ramsey, PA [address] [place] [address] Social History Tobacco Use Types [...] Description 06/05/2025 9:00 AM EDT Ancillary Procedure [facility] Medicine Specialties [address], [address] [place] [address] 06/05/2025 9:30 AM EDT Office Visit [facility] Medicine Specialties [address], [address] [place] [address] Deneen Edward, DO [address] [place] [address] 09/28/2025 10:00 AM EST Office Visit [facility] Medicine Specialties [address], [address] [place] [address] Patricia Ramsey, DANTE [address] [place] [address] documented as of this encounter [...] documented as of this encounter Care Teams Process Expert Relationship Specialty Start Date End Date Sarkis Lam MD [address] [place] [address] PCP - General 12/24/20 documented as of this encounter
--- OUTSIDE RECORDS SUMMARY | 2025-04-10 08:05 | XMS_ITS | Clinical Summary ---
Author Organization [facility] Address [address] [place] [address] Care Team Providers Care Sales Coordinator Name Role Phone Sarkis Lam MD Primary Care Provider [phone] Allergies Active Allergy Reactions Criticality Noted Date [...] Medications lancets (OneTouch Delica Lancets 33G) [facility] 9 Active Blood Glucose Monitoring Suppl (ONE [...] day with meals. 60 tablet 5 5 Active cyanocobalamin 1000 MCG tablet Take 1 tablet by mouth daily. Active Ascorbic Acid (VITAMIN C ER PO) Take by mouth. 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 9:50 AM EDT Office Visit [facility] Medicine Specialties [address], [address] [place] [address] Patricia Ramsey, PA Nodular regenerative hyperplasia of liver (Primary Dx) 03/26/2025 Travel 01/28/2025 Orders Only [facility] Medicine Specialties [address], [address] [place] [address] Rhea Kamara, PharmD ILD (interstitial lung disease) (CMS/HCC) (Primary Dx); Encounter for long-term current use of high risk medication from Last 3 Months Immunizations Immunization Administration [...] FH: breast can cer Cancer Sister 3 [place] Anesthesia problems Neg Hx Malig Hyperthermia Neg Hx Relation Name Status Comments Brother Jacob Father Michel Forrester Mother Kathryn Other 1 Other 2 Sister 1 Sister 2 Sister 3 [place] Social History Tobacco Use Types Packs/Day Years [...] Description 06/05/2025 9:00 AM EDT Ancillary Procedure [facility] Medicine Specialties [address], [address] [place] [address] 06/05/2025 9:30 AM EDT Office Visit [facility] Medicine Specialties [address], [address] [place] [address] Deneen Edward, DO [address] [place] [address] 09/28/2025 10:00 AM EST Office Visit [facility] [address], [address] [place] [address] Patricia Ramsey PA [address] [place] [address] Health Maintenance Due Date Last Done Comments [...] Cancer Screening 05/07/2023 [facility]-HPV/Cotest 05/07/2023 05/07/2018, 05/07/2018 [id number] Vaccine ( season) 2024 05/16/2022, 04/21/2021, 08/26/2020, Additional history exists [facility]-Influenza Vaccine (#1) 2025 06/18/2022, [facility]-Depression Screening 03/26/2026 025, 03/26/2025, 11/19/2024, Additional history exists Colonoscopy 01/06/2035 01/06/2025 [facility]-Colorectal Cancer Screening 01/06/2035 [facility]-Pneumococcal Vaccine: 50+ Years Completed 03/23/2023 [facility]-Obesity Intervention Completed 025, 11/19/2024, 09/25/2024, Additional history exists HPV Vaccines Aged Out [...] AM EDT Nodular regenerative hyperplasia of liver COLONOSCOPY Routine 01/06/2025 8:10 AM EDT Esophageal varices without bleeding, unspecified esophageal varices type (CMS/HCC) Generalized abdominal pain LUQ pain Diarrhea, unspecified type CYTO DATA CONVERSION Routine 05/07/2018 12:00 AM [...] DIAGNOSTIC ORDERS Fin al Result ECHOS[facility] * Colonoscopy (01/06/2025 8:10 AM EDT) Anatomical [...] Cory Yanes MD Proceduralist Ulises Carter Endo Collection Systems Modeler Preprocedure A history and physical has been [...] of bowel preparation was evaluated using the [place] Bowel Preparation Scale with scores of: right [...] GI PROCEDURE ORDERABLES Final R esult * Cytology (05/07/2018 12:00 AM EDT) 05/07/2018 05/07/2018 12: 03 PM EDT [facility] SUNQUEST - 05/08/2018 12:24 PM EDT [facility] MR #: [id number] [facility] [place] [address] 1965 (Age: 52) FW Collect Date: 05/07/2018 00:00 Receipt Date: 05/07/2018 12:03 Page 1 DEPARTMENT OF PATHOLOGY AND LABORATORY MEDICINE CYTOPATHOLOGY REPORT Email: [email or web address] ATTENDING MD/Practitioner: Sarmad Robles MD Service: PUL [...] by: Dr. Hanson / [facility] Evaluation episode # 1: Predominantly blood B: 11 left lymph node: lymph node components with non-caseating granuloma FNA performed by: Dr. Robles Number of sticks: 4 Immediate evaluation performed by: Dr. Mohamud / [facility] Evaluation episode # 1: 11 left lymph [...] ICD: I88.8 Other nonspecific lymphadenitis F: A; 32321 ASP INTER, 33588, 05575, 15978 B; 00389 ASP INTER, 70382, 93376, 41357, 10621 C; 69436 ASP INTER, 98805, 16911 SNOMED CODES: A; [id number] P1149 [id number] [id number] B; U41596 P1149 [id number] Q30653 C; W23749 P1149 [id number] A resident has participated in this service. A pathologist has performed and is responsible for the reported pathologic evaluation. Arron Robles MD LAB PATHOLOGY ORDERABLES Final R esult SUNQUEST from Last 3 Months or Most Recently Relevant to Health Maintenance Insurance [facility] Care Teams Sales Coordinator Relationship Specialty Start Date End Date Sakris Lam MD [address] [place] [address] PCP - General 12/24/20
[2025-04-10 08:25] VITALS: BP 106/67; PULSE 85; RESP 17; O2SAT 96
[2025-04-10] MEDS: FERRIC CARBOXYMALTOSE 750 MG in 0.9 % SODIUM CHLORIDE 250 ML 530 MG IV (08:25)
[2025-04-10 08:55] VITALS: BP 118/61; PULSE 75; RESP 16
== END 2025-04-10 09:10 | disposition home or self-care (01) ==
LOC: INF 08:03
PROVIDERS: PCP Internal Medicine Adolescent Medicine; Visit Provider Internal Medicine Adolescent Medicine
DX: D64.9 Anemia, unspecified (principal)
CPT/HCPCS: 96365; J1439; J7050

== ENCOUNTER 2025-04-16 08:07 | Outpatient (CLI) | payer OTHER, SELFPAY ==
[2025-04-16 08:35] VITALS: BP 114/65; PULSE 78; RESP 18; O2SAT 95
[2025-04-16] MEDS: FERRIC CARBOXYMALTOSE 750 MG in 0.9 % SODIUM CHLORIDE 250 ML 530 MG IV (08:35)
[2025-04-16 09:05] VITALS: BP 107/62; PULSE 75; RESP 17
== END 2025-04-16 09:15 | disposition home or self-care (01) ==
LOC: INF 08:08
PROVIDERS: PCP Internal Medicine Adolescent Medicine; Visit Provider Internal Medicine
DX: D64.9 Anemia, unspecified (principal)
CPT/HCPCS: 96365; J1439; J7050

== ENCOUNTER 2025-05-01 08:13 | Outpatient (CLI) | payer OTHER, SELFPAY ==
[2025-05-01] VITALS (10 sets, daily range): BP systolic 86–118; BP diastolic 47–63; PULSE 67–76; RESP 15–17; O2SAT 99
[2025-05-01] MEDS: ACETAMINOPHEN 325MG TAB 650 MG PO (08:21)
[2025-05-01] MEDS: HYDROCORTISONE SOD SUCCINATE 100MG VIAL 200 MG IV (08:22)
[2025-05-01] MEDS: inFLIXimab 400 MG in 0.9 % SODIUM CHLORIDE 250 ML 83.33 MG IV (09:00)
== END 2025-05-01 23:59 | disposition home or self-care (01) ==
LOC: INF 08:13
PROVIDERS: PCP Internal Medicine Adolescent Medicine; Visit Provider Internal Medicine
DX: D86.9 Sarcoidosis, unspecified (principal)
CPT/HCPCS: 96413; 96415; J1720; J1745; J7050

== ENCOUNTER 2025-05-09 09:36 | Outpatient (CLI) | payer OTHER, SELFPAY ==
--- OUTSIDE RECORDS SUMMARY | 2025-03-26 09:50 | XMS_ITS | Encounter Summary ---
Author Organization [facility] Address [address] [place] [address] Care Team Providers Care Automation Software Engineer Name Role Phone Sarkis Lam MD Primary Care Provider [phone] Reason for Referral * Consultation (Routine) - Authorized Specialty Diagnoses / Procedures Referred By Glynn florentino Referred To Contact Diagnoses Nodular regenerative hyperplasia of liver Patricia Ramsey [facility] [address] [address] [place] [address] Phone: tel: fax: Referral ID Status Reason Start Date Expiration Date V isits Requested Visits Authorized [id number] Authorized 03/26/2025 09/25/2026 1 1 Reason for Visit * Reason Comments Abnormal LFTs Abnormal finding on GI tract imaging Encounter Details Date Type Department Care Team (Late st Contact Info) Description 03/26/2025 9:50 AM EDT [facility] [place] [facility] [address] [place] [address] Patricia Ramsey PA [address] [facility] [address] [place] [address] Nodular regenerative hyperplasia of liver (Primary Dx) Social History Tobacco Use Types Packs/Day Years Used Date Smoking Tobacco: Never Passive Smoke Exposure: Never Smokeless Tobacco: Never Alcohol Use Standard Drinks/Week Comments Never 0 (1 standard drink = 0.6 oz pur e alcohol) PHQ-2 Answer Date Recorded Patient Health Questionnaire-2 Score 0 03/26/2025 PHQ-9 Answer Date Recorded Patient Health Questionnaire-9 Score 2 03/26/2025 PHQ-2A Answer Date Recorded Depression Risk 0 [...] Sign Reading Time Taken Comments Blood Pressure 111/71 03/26/2025 9:22 AM EDT Pulse 84 03/26/2025 9:22 AM EDT Temperature 36.8 C (98.2 F) 03/26/2025 9:22 AM EDT Respiratory Rate 18 03/26/2025 9:22 AM EDT Oxygen Saturation 97% 03/26/2025 9:22 AM EDT Inhaled Oxygen Concentration - - Weight 73.8 kg (162 lb 11.2 oz) 03/26/2025 9:22 AM EDT Height 167.6 cm (5' 6 ) 03/26/2025 9:22 AM EDT Body Mass Index 26.26 03/26/2025 9:22 AM EDT documented in this encounter Functional Status * Over the past 2 weeks, how often have you been bothered by any of the following problems? Question Answer Date of Assessment Author Little interest or pleasure in doing things Not at all 03/26/2025 9:25 AM EDT Vianey Michael Feeling down, depressed, or hopeless Not at all 03/26/2025 9:25 AM EDT Vianey Michael Patient Health Questionnaire -2 Score 0 03/26/2025 9:25 AM EDT Vianey Michael * Question Answer Date of Assessment Author Trouble falling or staying asleep, or sleeping too much Not at all 03/26/2025 9:25 AM EDT Vianey Michael Feeling tired or having little energy Not at all 03/26/2025 9:25 AM EDT Vianey Michael Poor appetite or overeating More than half the days 03/26/2025 9:25 AM EDT Vianey Michael Feeling bad about yourself - or that you are a failure or have let yourself or your family down Not at all 03/26/2025 9:25 AM EDT Vianey Michael Trouble concentrating on things, such as reading the newspaper or watching television Not at all 03/26/2025 9:25 AM EDT Vianey Michael Moving or speaking so slowly that other people could have noticed? Or the opposite - being so fidgety or restless that you have been moving around a lot more than usual. Not at all 03/26/2025 9:25 AM EDT Vianey Michael Thoughts that you would be better off or hurting yourself in some way Not at all 03/26/2025 9:25 AM EDT Carmen Michael Patient Health Questionnaire-9 Score 2 03/26/2025 9:25 AM EDT Tj Michael * How difficult have these problems made it for you to do your work, take care of things at home, or get along with other people? Answer Date of Assessment Author Not difficult at all 03/26/2025 9:25 AM EDT Vianey Farooq * How difficult have these problems made it for you to do your work, take care of things at home, or get along with other people? Answer Date of Assessment Author Not difficult at all 03/26/2025 9:25 AM EDT Vianey Farooq documented as of this encounter Miscellaneous Notes * Progress Notes - Patricia Ramsey PA - 03/26/2025 9:50 AM EDT Images from the original note were not included. MEDICINE SPECIALTIES Hepatology Note History of Presenting Illness 59 yo patient with h/o sarcoidosis, DM, obesity here for follow up for NRH and portal HTN Accompanied by (Kj) Last seen 09/25/24 Had to have 2 pints of blood yesterday - HgB was 6.3 Reports blood counts were normal a few months ago. No melena, hematemesis, coffee ground emesis. Continues to have the abdominal pain --> anytime she eats something it hits my stomach like a rock and causes pain and she feels overfull in her upper abdomen even though she doesn't eat much. Still has diarrhea, etc. Was thinking about capsule endoscopy. Planning to do locally Was considering Iron infusion Would rather see PCP than GI Infliximab infusion. O2 will get down 87%. Seeing dr. Edward. 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 Perez first in 08/2021 - completed work up for etiology of abnormal liver chemistries 09/03: Hg a1c 7.3, elevated IgG at 1627. Low Ferrtin of 13, positive Hep A and Hep B S Ab (low titer), positive CHAIM 1:80, negative SMA and AMA. - US liver on 01/23/22: normal liver echotexture, no lesions, no biliary dilation, GB absent, .8 cm. She had multiple follow up imaging of her abdomen and pelvis (she has some that were done outside and last of which was in December (done outside) that reported the liver was normal and mild splenomegaly with sequalae of granulomatous disease. LFTs followed very closely with no change: normal. EGD done in 07/2021 notable for esophageal varices Grade II and PHG. Following Ultrasound at in 07/2021 showed moderate diffuse steatosis, coarsened architecture of the liver, enlarged PV on 10mm and splenomegaly at 14.9 cm. In the setting of these new findings her MTX was stopped, overall she received 18 mo of therapy with the low cumulative dose, <1gram. She has h/p NIDDM for years, and hepatic steatosis. It is unclear if liver was affected by sarcoidosis, her LFTs were normal. Punctate echogenic focus noted, likely representing calcified granuloma as seen on prior CT. Followed by pulmonary since December 2018. 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 She had imaging of her abdomen and pelvis as well that showed retroperitoneal adenopathy at that time. She was started on corticosteroids then and after she had notable improvement clinically and her adenopathy and in setting of her diabetes Dr. Tavarez switched her to MTX 10mg weekly as she was not tolerating steroids Past Medical History Past Medical History: Diagnosis Date Anxiety disorder, unspecified Anxiety and depression Cirrhosis (CMS/HCC) Depression GERD (gastroesophageal reflux disease) Heart murmur Hypertension Pure hypercholesterolemia, unspecified High cholesterol Sarcoidosis Pulmonary Stage 3 with Dermatologic, Ocular, and Hepatic Disease Type 2 diabetes mellitus without complications Diabetes Unspecified osteoarthritis, unspecified site Arthritis Surgical History Past Surgical History: Procedure Laterality Date CARDIAC CATHETERIZATION N/A Heart catheterization from [facility] SECTION, CLASSIC SECTION, LOW TRANSVERSE N/A Section from [facility] SECTION, LOW TRANSVERSE N/A section from [facility] SECTION, LOW TRANSVERSE N/A section from [facility] CHOLECYSTECTOMY N/A Cholecystectomy from [facility] EAR SURGERY N/A Ear surgery from [facility] ENDOSCOPY N/A Endoscopy from [facility] ESOPHAGOGASTRODUODENOSCOPY N/A Esophagogastroduodenoscopy from [facility] GALLBLADDER SURGERY N/A Gallbladder Surgery from [facility] LYMPH NODE BIOPSY OTHER SURGICAL HISTORY N/A Throat surgery from [facility] THROAT SURGERY N/A throat surgery from [facility] TUBAL LIGATION Family History Family History Problem Relation Name Age of Onset Cardiac disorder Mother Kathryn COPD Mother Kathryn Glaucoma Mother Kathryn Cervical cancer Mother Kathryn Family history of cervical cancer Diabetes Mother Kathryn Stroke Mother Kathryn Cardiac disorder Father Michel Forrester Arthritis Father Michel Forrester Autoimmune disease Father Michel Forrester Heart disease Father Michel Forrester Rheumatologic disease Father Michel Forrester Cervical cancer Sister Family history of cervical cancer Breast cancer Sister FH: breast cancer Cancer Sister Carolina Intellectual Disability Brother Jacob Cardiac disorder Other Glaucoma Other Anesthesia problems Neg Hx Malig Hyperthermia Neg Hx Social History Social History Socioeconomic History Marital status: Spouse name: Not on file Number of children: Not on file Years of education: Not on file Highest education level: Not on file Occupational History Not on file Tobacco Use Smoking status: Never Passive exposure: Never Smokeless tobacco: Never Vaping Use Vaping status: Never Used Substance and Sexual Activity Alcohol use: Never Drug use: Never Comment: Drug use: No illicit drug use Sexual activity: Yes Partners: Male control/protection: None, Post-menopausal Other Topics Concern Not on file Social History Narrative Marital Status: Has 2 children Social Drivers of Health Financial Resource Strain: Not on file Food Insecurity: Not on file Transportation Needs: Not on file Physical Activity: Not on file Stress: Not on file Social Connections: Unknown (05/25/2023) Received from [facility] Family and Community Support Help with Day-to-Day Activities: Not on file Lonely or Isolated: Not on file Intimate Partner Violence: Unknown (05/25/2023) Received from [facility] Abuse Screen Unsafe at Home or Work/School: Not on file Feels Threatened by Someone?: Not on file Does Anyone Keep You from Contacting Others or Doint Things Outside the Home?: Not on file Physical Sign of Abuse Present: Not on file Housing Stability: Unknown (05/25/2023) Received from [facility] Housing Stability Current Living Arrangements: Not on file Potentially Unsafe Housing Conditions: Not on file Review of Systems A 14 point review of systems negative except for HPI Outpatient Medications Current Outpatient Medications Medication Instructions Ascorbic Acid (VITAMIN C ER PO) Take by mouth. atorvastatin (LIPITOR) 40 mg, Daily bisacodyl (Bisacodyl EC) 5 MG EC tablet Take all 4 tablets at 9 AM two days before colonoscopy Blood Glucose Monitoring Suppl (ONE TOUCH ULTRA 2) w/Device kit device kit No dose, route, or frequency recorded. carvedilol (COREG) 6.25 mg, Oral, 2 times daily with meals cholecalciferol (Vitamin D-3) 125 MCG (5000 UT) capsule cyanocobalamin (VITAMIN B-12) 1,000 mcg, Daily escitalopram (Lexapro) 20 MG tablet TAKE 1 TABLET BY MOUTH EVERY DAY FOR 90 DAYS Farxiga 10 mg, Daily Glucose Blood (Diagonal ViewUCH ULTRA BLUE ) No dose, route, or frequency recorded. inFLIXimab (Remicade) 100 MG injection Infuse into a venous catheter. Iron 325 mg Janumet 50-500 MG tablet 1 tablet, ZZ 2 times daily RT lancets (E-BlinkTouch Delica Lancets 33G) misc No dose, route, or frequency recorded. losartan (COZAAR) 50 mg, Daily magnesium citrate solution Drink first bottle at 6PM two days before colonoscopy , drink second bottle at 9AM on day before colonoscopy- Follow each bottle with 4 glasses of clear liquids omeprazole (PRILOSEC) 40 mg [id number]-Na Asc-C (MoviPrep) 100 g reconstituted solution At 5 PM on day before colonoscopy, mix and drink first dose. Mix and drink second dose 6 hours before you leave home on day of colonoscopy rOPINIRole (Requip) 0.25 MG tablet TAKE 1 TO 2 TABLET(S) BY MOUTH EVERY DAY AT BEDTIME Allergies Allergies Allergen Reactions Latex Other - please [...] Patient states they do notknow rxn details Vital Signs Visit Vitals BP 111/71 Pulse 84 Temp 36.8 ??C (98.2 ??F) (Oral) Resp 18 Ht 1.676 m (5' 6 ) Wt 73.8 kg (162 lb 11.2 oz) SpO2 97% BMI 26.26 kg/m?? OB Status Postmenopausal Smoking Status Never BSA 1.85 m?? Physical Exam General - well nourished and developed female in no acute distress. Appears stated age. HEENT - no scleral icterus, EOMI, atraumatic, normocephalic; ears located midway on head with normal appearance, nose midline without discharge. Cardiovascular - RRR without murmurs, rubs, or gallops; radial pulses 2+ bilaterally; no LE edema present Respiratory - respiratory rate even and non-labored; lungs clear to auscultation in all lung pressley. Wearing 1 L NC Gastrointestinal - bowel sounds present; soft, non-tender, non distended, resonant to percussion; no ascites noted; no hernias present; liver and spleen not felt Dermatologic - no jaundice, spider angiomata + palmar erythema. Warm and dry to palpation. No clubbing MSK - no deformities noted; no edema or erythema of joints visible, normal gait and station Neuro - no asterixis present, oriented to time and place. Psychiatric - pleasant, calm, cooperative. Labs MELD 3.0: 11 at 09/25/2024 9:09 AM MELD-Na: 10 at 09/25/2024 9:09 AM Calculated from: Serum Creatinine: 0.79 mg/dL (Using min of 1 mg/dL) at 09/25/2024 9:09 AM Serum Sodium: 140 mmol/L (Using max of 137 mmol/L) at 09/25/2024 9:09 AM Total Bilirubin: 1.9 mg/dL at 09/25/2024 9:09 AM Serum Albumin: 4.1 g/dL (Using max of 3.5 g/dL) at 09/25/2024 9:09 AM INR(ratio): 1.1 at 09/25/2024 9:09 AM Age at listing (hypothetical): 59 years Sex: Female at 09/25/2024 9:09 AM Lab Results Component Value Date/Time AST 34 09/25/2024 0909 ALT 26 09/25/2024 0909 ALKPHOS 110 09/25/2024 0909 BILITOT 1.9 (H) 09/25/2024 09 INR 1.1 09/25/2024 09 ALBUMIN 4.1 09/25/2024 09 CREATININE 0.79 09/25/2024908 AFP <2.3 09/25/2024 09 Lab Results Component Value Date/Time HGB 11.8 09/25/2024 0909 WBC 3.63 (L) 09/25/2024 0909 PLT 136 (L) 09/25/2024 0909 Hepatitis Serologies No results found for: HEPBSAG , MICKIE , HECG , HAG , HEPBSAB Work-up Labs Lab Results Component Value Date/Time TSH 2.88 09/25/2024 09 Assessment and Plan Problem List Items Addressed This Visit Nodular regenerative hyperplasia of liver - Primary Relevant Orders Follow Up GI GI Fibroscan (Completed) 59 yo patient with h/o sarcoidosis, DM, obesity here for follow up for NRH and portal HTN Accompanied by (Kj) # Nodular Regenerative hyperplasia Initial consult with Dr. Perez 08/2021 - completed work up for etiology of abnormal liver chemistries 09/03: Hg a1c 7.3, elevated IgG at 1627. Low Ferrtin of 13, positive Hep A and Hep B S Ab (low titer), positive CHAIM 1:80, negative SMA and AMA. Hx of Methotrexate ; overall she received 18 mo of therapy with the low cumulative dose, <1gram. She has h/p NIDDM for years, and hepatic steatosis. Never had liver biopsy Imaging Ultrasound at in 07/2021 showed moderate diffuse steatosis, coarsened architecture of the liver,enlarged PV on 10mm and splenomegaly at 14.9 cm. US liver on 01/23/22: normal liver echotexture, no lesions, no biliary dilation, GB absent, spleen 13.8 cm. She had multiple follow up imaging of her abdomen and pelvis (she has some that were done outside and last of which was in December (done outside) that reported the liver was normal and mild splenomegaly with sequalae of granulomatous disease. 12/09/24 MRI - cirrhosis, collaterals, CBD 10 mm Fibrosis assessment: Fibroscan 08/30/21 - 11 kPa, c/w stage III fibrosis, but not diagnostic for cirrhosis, Fibroscan today 03/26/25 - 11.8 kPa, IQR 7% --It is unclear if liver was affected by sarcoidosis, her liver enzymes were normal. Punctate echogenic focus noted, likely representing calcified granuloma as seen on prior CT; Sarcoidosis likely involves liver and is treated, will hold off on liver biopsy unless liver enzymes spike # Portal Hypertension EGD done in 07/2021 notable for esophageal varices Grade II and PHG. Propranolol 40 mg BID, was initially started for high heart rate. EGD 01/06/25 - Grade II varices, PHG Splenomegaly on imaging, plts borderline low --MRI as above to assess for further Portal HTN/collaters --on coreg 6.25 mg BID) --educated on s/s of variceal hemorrhage and to report to ER if they occur --repeat EGD at time of colonoscopy # Diarrhea Has BM 4x a day, occasionally urge incontinent. Usually starts off start then progress to liquid, Looks like it has mucus. Has been going on more than a year However colonoscopy with poor bowel prep (see below in health maintenance --I ordered fecal elastase, calprotectin, GI panel, O&P, c diff, however her lab only rand the comp GI panel which was negative # LUQ Pain - abdominal pain on the left side, will make her sick, gets cold, clammy, starts puking. Happens 8x over the last 6 months. No blood in vomit.. Doesn't seem to be related to to eating. Will last 4-5 hours. Will sometimes take pepto bismol and seems to help. --discussed possible referral to gen GI, team to eval her diarrhea and abdominal pain however she'dlike to just follow with her PCP # Sarcoidosis Followed by pulmonary since December 2018. 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 She had imaging of her abdomen and pelvis as well that showed retroperitoneal adenopathy at that time. She was started on corticosteroids then and after she had notable improvement clinically and her adenopathy and in setting of her diabetes Dr. Dunn switched her to MTX 10mg weekly as she was not tolerating steroids. Then transitioned to humira. Has been on remicade for 2 years now. Now on 1L of O2 Has been referred to cards and they are planning on echo w/ bubble - consider HPS(?) although unclear incidence in [facility] # Health Maintenance Immunization History Administered Date(s) Administered DTaP, Unspecified 1967, 1967, 03/13/1968, 06/20/1973, 12/31/1973 IPV 1967, 1967 Influenza, injectable, quadrivalent, preservative free 06/17/2022 Influenza, seasonal, injectable 06/18/2022 Pfizer-BioNTech COVID-19 Bivalent (Chilel Cap) 12+ years (bora-sucrose) 05/16/2022 Pfizer-BioNTech COVID-19 Vaccine (Purple Cap) 12+ 08/09/2020, 08/26/2020, 04/21/2021 Pneumococcal 20-gely Conj Vaccine 03/23/2023 Polio, Unspecified 03/13/1968, 06/20/1973, 08/20/1973, 12/31/1973, 03/19/1974 Rubella/Mumps 09/03/1973 Check for HAV/HBV immunity Colonoscopy - Had last colonoscopy a year ago at [facility] with Dr. Ni. Was told she had precancerouspolyps. 01/06/[address] Poe - poor bowel prep, no large polyps or masses noted; repeat in 1 yr. RTC in 6 months, sooner if needed A total of 31 minutes was spent on this patient encounter - educating patient, interpreting and discussing labs and imaging, impressions, prognosis, risks/benefits of current treatment options, risk factor reduction, instructions for management, and documentation. Care coordination provided included review and summary of medical records and additional diagnostic research, phone collaboration and consult with peers. documented in this encounter Plan of Treatment Upcoming Encounters Date Type Department Care Team (Late st Contact Info) Description 06/05/2025 9:00 AM EDT Ancillary Procedure [facility] [address] [place] [address] 06/05/2025 9:30 AM EDT Office Visit [facility] [address], [address] [place] [phone] Deneen Edward, DO [address] [place] [id number] 09/28/2025 10:00 AM EST Office Visit [facility] [address], [address] [place] [phone] Patricia Ramsey PA [address] [place] [address] Scheduled Referrals Name Type Priority Associated Diagnoses Orde r Schedule Follow Up GI Outpatient Referral Routine Nodular regenerative hyperplasia of liver Expected: 09/26/2025, Expires: 04/26/2026 documented as of this encounter Results * GI Fibroscan (03/26/2025 11:18 AM EDT) Narrative ECHOSENS - 03/27/2025 8:36 AM EDT Table formatting from the original result was not included. GI FIBROSCAN INTERPRETATION Procedure: VCTE using M+ probe Indication: Nodular regenerative hyperplasia of liver Discussed: Oral and written explanations of the FibroScan VCTE test procedure provided to the patient. Procedure Note: Patient was placed in a supine position with right arm in maximum abduction to allow optimal exposure of right lateral abdomen. Patient was briefly assessed, identifying the terminus of the xyphoid process and locating an ideal transient elastography testing site, mid-line and lateral to this point. Patient was instructed to breathe normally and remain stationary during the test process. Pre-measurement data confirmed the transient elastography probe was centered over the liver parenchyma. A series of ten 50Hz mechanical pulses were applied with controlled application pressure to induce a mechanical shear wave in the liver tissue. For each measurement, the shear wave propagation speed was detected, displayed and converted to its equivalent liver stiffness value in kilopascals. Skin to liver capsule distance and shear wave characteristics were monitored during the entire examination to assure data quality. Median liver stiffness measurement and interquartile range were calculated and displayed in real time. Acquired measurement data was stored and submitted for my review and interpretation. Patient tolerated the procedure well and was discharged without incident. Findings: Patient had a median Liver Stiffness Score of 11.8 kilopascal (kPa). The Interquartile Range to median ratio was 7 %. Per Referring Provider recent history includes: Order Questions Answers Does patient have recent history of alcohol use? No Does patient have recent history of cholestasis? No Does patient have recent history of liver tumor? No Does patient have recent history of right heart failure? No Does patient have recent history of acute hepatitis? No Does patient have recent history of ALT > 100 U/L? No At the time of exam patient was NPO 3 hours or more, had no recent relevant alcohol and current scan is considered reliable. Interpretation: Taking into account the above mentioned diagnosis and history,the liver stiffness score is most consistent with F3: Advanced fibrosis. Please review indication and potential limitations of the Fibroscan for a more accurate assessment. Recommendations: Higher scores are associated with a higher specificity (low false positive rate) in predicting advanced fibrosis (>= F2) or cirrhosis (F4). Lower scores are associated with a higher specificity in ruling out advanced fibrosis (>= F2) or cirrhosis (F4). Please consider using serum marker panels (Fibrosure, FIB-4, APRI) as well as imaging criteria (e.g., signs of cirrhosis) and clinical data (e.g., physical exam findings of cirrhosis or decompensation) to improve the accuracy of fibrosis assessment especially in cases with intermediate liver stiffness results. Consider liver biopsy if results remain conflicting/unclear. us Patricia HOWELL IN CLINIC DIAGNOSTIC ORDERS Fin al Result ECHOSENS documented in this encounter Visit Diagnoses Diagnosis Nodular regenerative hyperplasia of liver- Primary Nodular regenerative hyperplasia of liver documented in this encounter Additional Health Concerns Assessment Noted Time PHQ-9 Depression Total Score: 2 03/26/20 25 9:25 AM EDT A fall risk assessment has been complete d for the patient 03/26/2025 9:25 AM EDT A Body Mass Index follow-up plan has been documented for the patient 03/31/2025 5:08 PM EDT documented as of this encounter Care Teams Automation Software Engineer Relationship Specialty Start Date End Date Sarkis Lam MD [address] [place] [address] PCP - General 12/24/20 documented as of this encounter
--- OUTSIDE RECORDS SUMMARY | 2025-03-26 12:30 | XMS_ITS | Encounter Summary ---
Author Organization Healthcare Address [address] [place] [address] Care Team Providers Care Corporate Manager Name Role Phone Sarkis Lam MD Primary Care Provider [phone] Encounter Details Date Type Department Care Team (Latest Contact Info) Description 03/26/2025 12:30 PM EDT Ancillary Procedure [facility] [address], [address] [place] [address] Nodular regenerative hyperplasia of liver Social History [...] difficult at all 03/26/2025 9:25 AM JAYLENET Vianey Farooq * How difficult have these problems made it for you to do your work, take care of things at home, or get along with other people? Answer Date of Assessment Author Not difficult at all 03/26/2025 9:25 AM Vianey Barr documented as of this encounter Plan of Treatment Upcoming Encounters Date Type Department Care Team (Late st Contact Info) Description 06/05/2025 9:00 AM EDT Ancillary Procedure [facility] [address], [address] [place] [address] 06/05/2025 9:30 AM EDT Office Visit [facility] [address], [address] [place] [address] Deneen Edward, DO [address] [place] [address] 09/28/2025 10:00 AM EST Office Visit [facility] [address], [address] [place] [address] Patricia Ramsey PA [address] [place] [address] documented as of this encounter [...] documented as of this encounter Care Teams Corporate Manager Relationship Specialty Start Date End Date Sarkis Lam MD [address] [place] [address] PCP - General 12/24/20 documented as of this encounter
--- OUTSIDE RECORDS SUMMARY | 2025-05-09 09:40 | XMS_ITS | Clinical Summary ---
Author Organization [facility] Address [address] [place] [address] Care Team Providers Care Envelope Patternmaker Name Role Phone Sarkis Lam MD Primary Care Provider [phone] Allergies Active Allergy Reactions Criticality Noted Date [...] Medications lancets (OneTouch Delica Lancets 33G) [facility] 9 Active Blood Glucose Monitoring Suppl (ONE [...] C ER PO) Take by mouth. 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 Sarcoidosis 05/02/2018 Diabetes mellitus type 2 without retinopathy Hilar adenopathy 04/26/2018 Resolved Problems Problem Noted Date Diagnosed Date Resolved Date Diarrhea 09/25/2024 05/03/2025 Osteoarthritis 03/23/2023 03/23/2023 05/03/2025 Encounters Date Type Department Care Team Description 03/26/2025 12:30 PM EDT Ancillary Procedure [facility] Medicine Specialties [address], [address] [place] [address] 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 9:50 AM EDT Office Visit [facility] Medicine Specialties [address], [address] [place] [address] Patricia Ramsey, PA Nodular regenerative hyperplasia of liver (Primary Dx) 03/26/2025 Travel from Last 3 Months Immunizations Immunization [...] FH: breast can cer Cancer Sister 3 [place] Anesthesia problems Neg Hx Malig Hyperthermia Neg Hx Relation Name Status Comments Brother Jacob Father Michel Forrester Mother Kathryn Other 1 Other 2 Sister 1 Sister 2 Sister 3 [place] Social History Tobacco Use Types Packs/Day Years [...] Description 06/05/2025 9:00 AM EDT Ancillary Procedure [facility] Medicine Specialties [address], [address] [place] [address] 06/05/2025 9:30 AM EDT Office Visit [facility] Medicine Specialties [address], [facility] [place] [address] Deneen Edward, DO [address] [place] [address] 09/28/2025 10:00 AM EST Office Visit [facility] Medicine Specialties [address], [address] [place] [address] Patricia Ramsey, PA [address] [place] [address] Health Maintenance Due Date Last [...] Cancer Screening 05/07/2023 [facility]-HPV/Cotest 05/07/2023 05/07/2018, 05/07/2018 [id number] Vaccine ( season) 2025 05/16/2022, 04/21/2021, 08/26/2020, Additional history exists [facility]-Influenza [...] Marley Hope CRNA CRNA Harris, Kristi A, BRYCE Endo Nurse Fitz Yanez MD Anesthesiologist Carmita Poe MD Proceduralist Cory Yanes MD Proceduralist Ulises Carter Endo Financial Market Dealer Preprocedure A history and physical has been [...] of bowel preparation was evaluated using the [place] Bowel Preparation Scale with scores of: right [...] PM EDT [facility] MR #: [id number] [facility] [place] [address] 1965 (Age: 52) FW Collect Date: 05/07/2018 00:00 Receipt Date: 05/07/2018 12:03 Page 1 DEPARTMENT OF PATHOLOGY AND LABORATORY MEDICINE CYTOPATHOLOGY REPORT Email: [email or web address] ATTENDING MD/Practitioner: Sarmad Robles MD Service: PUL [...] ICD: I88.8 Other nonspecific lymphadenitis F: A; 27638 ASP INTER, 87166, 43891, 46955 B; 09407 ASP INTER, 99899, 11836, 76207, 19541 C; 86527 ASP INTER, 13161, 90758 SNOMED CODES: A; C91333 P1149 [id number] U45021 B; I20172 P1149 [id number] L69247 C; X15403 P1149 [id number] A resident has participated in this service. A pathologist has performed and is responsible for the reported pathologic evaluation. us Arron Robles MD LAB PATHOLOGY ORDERABLES Final R esult SUNQUEST from Last 3 Months or Most Recently Relevant to Health Maintenance Insurance [facility] Care Teams Envelope Patternmaker Relationship Specialty Start Date End Date Sarkis Lam MD [address] [place], [place] [address] PCP - General 12/24/20
--- OUTSIDE RECORDS SUMMARY | 2025-05-09 09:40 | XMS_ITS | Encounter Summary ---
Author Organization Healthcare Address [address] [place] [address] Care Team Providers Care Tunnel Worker Name Role Phone Sarkis Lam MD Primary Care Provider [phone] Encounter Details Date Type Department Care Team [...] 9:25 AM EDT Tj Michael ia * How difficult have these problems made [...] Description 06/05/2025 9:00 AM EDT Ancillary Procedure [facility] Medicine Specialties [address], [address] [place] [address] 06/05/2025 9:30 AM EDT Office Visit [facility] Medicine Specialties [address], [address] [place] [address] Deneen Edward, DO [address] [place] [address] 09/28/2025 10:00 AM EST Office Visit [facility] Medicine Specialties [address], [address] [place] [address] Patricia Ramsey PA [address] [place] [address] documented as of this encounter [...] documented as of this encounter Care Teams Tunnel Worker Relationship Specialty Start Date End Date Sarkis Lam MD [address] [place] [address] PCP - General 12/24/20 documented as of this encounter
--- OUTSIDE RECORDS SUMMARY | 2025-05-09 09:40 | XMS_ITS | Encounter Summary ---
Author Organization Healthcare Address [address] [place] [address] Care Team Providers Care Solids Control Technician Name Role Phone Sarkis Lam MD Primary Care Provider [phone] Encounter Details Date Type Department Care Team (Late Contact Info) Description 07/20/2021 Lab Requisition [facility] [address] [place] [address] Beatriz Perez MD [address] [place] [address] Gastro-esophageal reflux disease without esophagitis [...] Description 06/05/2025 9:00 AM EDT Ancillary Procedure [facility] Medicine Specialties [address] [place] [address] 06/05/2025 9:30 AM EDT Office Visit [facility] Medicine Specialties [address], [address] [place] [address] Deneen Edward, DO [address] [place] [address] 09/28/2025 10:00 AM EST Office Visit [facility] Medicine Specialties [address], [address] [place] [address] Patricia Ramsey, DANTE [address] [place] [address] documented as of this encounter Procedures Procedure Name Priority Date/Time Associated Diagnosis Comments SURGICAL PATHOLOGY EXAM Routine 07/20/2021 Gastro-esophageal reflux disease without esophagitis documented in this encounter Results * Surgical Pathology Exam (07/20/2021) Case Report Surgical Pathology Case: [id number] Authorizing Provider: Beatriz Perez MD Collected: 07/20/2021 Ordering Location: [facility] Lab Received: 07/20/2021 1250 Pathologist: Blanca Anderson MD Specimen: Stomach, Gastric Bx 07/21/2021 11:33 AM EST [facility] Final Diagnosis A. stomach, biopsy: - mild chronic inflammation and changes suggestive of portal hypertensive gastropathy. 07/21/2021 11:33 AM EST [facility] at 1133 EST Clinical Information Abnormal Imaging, GERD 07/21/2021 11:33 AM EST [facility] Gross Description A. GASTRIC BX The specimen is received in formalin labeled gastric BX , and consists of four yellow-leblanc soft tissue fragments ranging from 0.2-0.5 cm in greatest dimension. Entirely submitted in cassette A1. Kim Shafer 07/21/2021 11:33 AM EST [facility] Tissue Stomach structure / Unknown 07/20/2021 07/20/2021 12:50 PM EST us Beatriz Perez MD LAB PATHOLOGY ORDERABLES Fin loretta Result [facility] [address] [place] [address] documented in this encounter Visit Diagnoses Diagnosis Gastro-esophageal reflux disease without esophagitis documented in this encounter Additional Health Concerns Infection Onset Date Last Indicated Resolved Time Gastrointestinal Rule-Out 10/13/2024 10/13/2024 8:32 AM EST Assessment Noted Time A fall risk assessment has been complete d for the patient 03/22/2021 9:13 AM EDT documented as of this encounter Care Teams Solids Control Technician Relationship Specialty Start Date End Date Sarkis Lam MD [address] [place] [address] PCP - General 12/24/20 documented as of this encounter
--- OUTSIDE RECORDS SUMMARY | 2025-05-09 09:40 | XMS_ITS | Encounter Summary ---
Author Organization [facility] Address [address] [place] [address] Care Team Providers Care Electrical Engineering Drafting Officer Name Role Phone Sarkis Lam MD Primary Care Provider [phone] Reason for Visit * Reason Comments Med Refill Encounter Details Date Type Department Care Team (Late st Contact Info) Description 03/07/2021 Refill [facility] [place] [address] [place] [address] Louise Wade, PAINTER SHIPYARD [address] [place] [address] Social History Tobacco Use Types Packs/Day Years [...] Description 06/05/2025 9:00 AM EDT Ancillary Procedure [facility] [address], [address] [place] [address] 06/05/2025 9:30 AM EDT Office Visit [facility] Medicine Specialties [address], [facility] [place] [address] Deneen Edward, DO [address] [place] [address] 09/28/2025 10:00 AM EST Office Visit [facility] [address], [address] [place] [address] Patricia Ramsey, PA [address] [place] [address] documented as of this encounter Visit Diagnoses Not on filedocumented in this encounter Additional Health Concerns Infection Onset Date Last Indicated Resolved Time Gastrointestinal Rule-Out 10/13/2024 10/13/2024 8:32 AM EST documented as of this encounter Care Teams Electrical Engineering Drafting Officer Relationship Specialty Start Date End Date Sarkis Lam MD [address] [place] [address] PCP - General 12/24/20 documented as of this encounter
[2025-05-09 10:04] LABS: Hematocrit 36.6 % (37.0-47.0); Hemoglobin 11.8 g/dL (12.2-16.2); Immature Granulocytes % 0.4 %; Mean Corpuscular HGB Conc 32.2 g/dL (31.8-35.4); Mean Corpuscular Hemoglobin 31.6 pg (27.0-31.2); Mean Corpuscular Volume 98.1 fl (81-99); Nucleated Red Blood Cells % 0 %; Platelet Count 136 K/mm3 (142-424); Red Blood Count 3.73 M/mm3 (4.20-5.40); White Blood Count 2.7 K/mm3 (4.8-10.8)
[2025-05-09 11:10] LABS: Albumin Level 3.9 g/dl (3.5-5.0); Chloride 107 mmol/L (98-107); Potassium 3.8 mmoL/L (3.5-5.1); Sodium 140 mmol/L (136-145)
[2025-05-09 11:13] LABS: Alanine Aminotransferase 28 U/L (12-78); Albumin/Globulin Ratio 1.0 (1.1-1.8); Alkaline Phosphatase 125 U/L (38-126); Anion Gap 11.8 mEq/L (5-15); Aspartate Amino Transferase 48 U/L (14-36); Bilirubin,Total 2.0 mg/dl (0.2-1.3); Blood Urea Nitrogen 7 mg/dl (7-17); Calcium 9.2 mg/dl (8.4-10.2); Carbon Dioxide 25 mmol/L (22.0-30.0); Creatinine,Serum 0.60 mg/dl (0.52-1.04); Estimated Glomerular Filt Rate 103 ml/min (>60); GFR (African American) 125 ML/MIN (>60); Globulin 3.9 g/dL (1.3-3.2); Glucose 119 mg/dl (74-100); Iron 160 ug/dL (37-170); Total Protein,Serum 7.8 g/dl (6.3-8.2)
[2025-05-09 11:22] LABS: Total Iron Binding Capacity 275 ug/dL (265-497)
[2025-05-09 11:49] LABS: Ferritin 341 ng/ml (11.1-264)
[2025-05-09 13:43] LABS: Vitamin B12 820 pg/mL (239-931)
== END 2025-05-09 23:59 | disposition home or self-care (01) ==
LOC: LAB 09:38
PROVIDERS: PCP Internal Medicine Adolescent Medicine; Visit Provider Internal Medicine Adolescent Medicine
DX: D53.9 Nutritional anemia, unspecified (principal)
CPT/HCPCS: 36415; 80053; 82607; 82728; 83540; 83550; 85025

== ENCOUNTER 2025-05-29 08:05 | Outpatient (CLI) | payer OTHER, SELFPAY ==
[2025-05-29] VITALS (9 sets, daily range): BP systolic 94–122; BP diastolic 47–66; PULSE 64–94; RESP 18; O2SAT 97
[2025-05-29] MEDS: HYDROCORTISONE SOD SUCCINATE 100MG VIAL 200 MG IV (08:14)
[2025-05-29] MEDS: ACETAMINOPHEN 325MG TAB 650 MG PO (08:14)
[2025-05-29] MEDS: inFLIXimab 400 MG in 0.9 % SODIUM CHLORIDE 250 ML 83.33 MG IV (08:49)
== END 2025-05-29 23:59 | disposition home or self-care (01) ==
PROVIDERS: PCP Internal Medicine Adolescent Medicine; Visit Provider Internal Medicine Medical Oncology
DX: D86.9 Sarcoidosis, unspecified (principal)
CPT/HCPCS: 96413; 96415; J1720; J1745; J7050

== ENCOUNTER 2025-06-29 07:44 | Outpatient (CLI) | payer OTHER, SELFPAY ==
--- OUTSIDE RECORDS SUMMARY | 2025-06-05 08:00 | XMS_ITS | Encounter Summary ---
Author Organization Healthcare Address [address] [place] [address] Care Team Providers Care Coper Hand Name Role Phone Sarkis Lam MD Primary Care Provider [phone] Encounter Details Date Type Department Care Team (Latest Contact Info) Description 06/05/2025 9:00 AM EDT Ancillary Procedure [facility] [address] [place] [phone] ILD (interstitial lung disease) (CMS/HCC); Encounter for [...] things Not at all 06/05/2025 9:34 AM EDKrysten Jenkins Feeling down, depressed, or hopeless Not at all 06/05/2025 9:34 AM EDT Krysten Todd Patient Health Questionnaire -2 Score 0 06/05/2025 9:34 AM EDT Krysten Todd * Question Answer Date of Assessment Author Trouble falling or staying a sleep, or sleeping too much Not at all 06/05/2025 9:34 AM EDT Krysten Todd Feeling tired or having dajuan le energy Not at all 06/05/2025 9:34 AM EDT Krysten Todd Poor appetite or overeating Not at all 06/05/2025 9: 34 AM EDT Krysten Todd Feeling bad about yourself - or that you are a failure or have let yourself or your family down Not at all 06/05/2025 9:34 AM EDT Krysten Todd Trouble concentrating on thi ngs, such as reading the newspaper or watching television Not at all 06/05/2025 9:34 AM EDT Krysten Todd Moving or speaking so slowly that other people could have noticed? Or the opposite - being so fidgety or restless that you have been moving around a lot more than usual. Not at all 06/05/2025 9:34 AM EDT Krysten Burks Thoughts that you would be b rosanna off or hurting yourself in some way Not at all 06/05/2025 9:34 AM Krysten Murray Patient Health Questionnaire -9 Score 0 06/05/2025 9:34 AM EDKrysten Jenkins * How difficult have these problems made [...] Description 08/26/2025 8:30 AM EST Office Visit [facility] Medicine Specialties [address] [place] [address] Deneen Edward DO [address] [place] [address] 09/28/2025 10:00 AM EST Office [facility] [address], [address] [place] [address] Patricia Ramsey, DANTE [address] [place] [address] documented as of this encounter [...] underwent pulmonary function testing today at the [facility]. The patient underwent spirometry, lung volumes by [...] documented as of this encounter Care Teams Coper Hand Relationship Specialty Start Date End Date Sarkis Lam MD [address] [place] [address] PCP - General 12/24/20 documented as of this encounter
--- OUTSIDE RECORDS SUMMARY | 2025-06-05 08:30 | XMS_ITS | Encounter Summary ---
Author Organization [facility] Address [address] [place] [address] Care Team Providers Care Test Administrator Name Role Phone Sarkis Lam MD Primary Care Provider [phone] Reason for Referral * Consultation (Routine) - Authorized Specialty Diagnoses / Procedures Referred By Glynn florentino Referred To Contact Diagnoses Chronic hypoxemic respiratory failure ILD (interstitial lung disease) (CMS/HCC) Portopulmonary hypertension (CMS/HCC) High risk medication use Deneen Edward DO [address] [place] [address] Phone: tel: fax: Referral ID Status Reason Start Date Expiration Date V isits Requested Visits Authorized [id number] Authorized 06/05/2025 12/05/2026 1 1 * Imaging (Routine) - Closed Specialty Diagnoses / Procedures Referred By Glynn florentino Referred To Contact Radiology Diagnoses Chronic hypoxemic respiratory failure ILD (interstitial lung disease) (CMS/HCC) Portopulmonary hypertension (CMS/HCC) High risk medication use Procedures CT Chest wo IV Contrast Deneen Edward DO [address] [place] [address] Phone: tel: fax: Referral ID Status Reason Start Date Expiration Date Visits Re quested Visits Authorized [id number] Closed 06/05/2025 12/05/2026 1 1 Reason for Visit * Reason Comments Chronic hypoxemic respiratory failure * Consultation (Routine) - Closed Specialty Diagnoses / Procedures Referred By Glynn florentino Referred To Contact Diagnoses ILD (interstitial lung disease) (CMS/HCC) Encounter for long-term current use of high risk medication Portopulmonary hypertension (CMS/HCC) Chronic hypoxemic respiratory failure Deneen Edward DO [address] [place] [address] Phone: tel: fax: Referral ID Status Reason Start Date Expiration Date Visits Re quested Visits Authorized [id number] Closed 11/19/2024 05/21/2026 1 1 Encounter Details Date Type Department Care Team (Late st Contact Info) Description 06/05/2025 9:30 AM EDT Office Visit [facility] Medicine Specialties [address] [place] [address] Deneen Edward DO [address] [place] [address] Chronic hypoxemic respiratory failure (Primary [...] 06/05/2025 9:34 AM EDT Krysten Todd Feeling down, depressed, or hopeless Not at all 06/05/2025 9:34 AM EDT Krysten Todd Patient Health Questionnaire -2 Score 0 06/05/2025 9:34 AM EDT rKysten Todd * Question Answer Date of Assessment [...] Not at all 06/05/2025 9:34 AM EDT Kyrsten Burks Thoughts that you would be b [...] only note for more detaileddocumentation. Labs from [facility] drawn on 05/09 was attached to this [...] BY MOUTH EVERY DAY FOR 90 DAYS [facility] 10 MG Take 1 tablet by mouth [...] DR capsule Take 2 capsules by mouth. MEC-THc-XyRq-NaSulf-Na Asc-C (MoviPrep) 100 g reconstituted solution At [...] No interval illness. 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 Denies Cough, Fever, Chills, palpitations. Joint pains are present but stable. Patient recently had transfusion of 2 units of blood and iron infusions however did not find source of her bleeding. Continues to follow with hepatology, being considered for placement on liver transplant list. Modified Medical Research [place] Dyspnea Scale 0 ???I only get breathless [...] Yes, saw Rheum for arthritis - no piano teacher visits or rheumatologic medications exposure x - [...] but no stricture - esophageal dysfunction / KRERI x - history of inflammatory bowel disease [...] surgery for glass extraction after going to [employer] and eating food contaminated with broken glass, [...] DAYS Farxiga 10 mg, Daily Glucose Blood (Quelle EnergieTOUCH ULTRA BLUE ) No dose, route, or frequency recorded. inFLIXimab (Remicade) 100 MG injection Infuse into a venous catheter. Iron 325 mg Janumet 50-500 MG tablet 1 tablet, ZZ 2 times daily RT lancets (SincroPoolTouch Delica Lancets 33G) mis No dose, route, or frequency recorded. losartan (COZAAR) 50 mg, Daily magnesium citrate solution Drink first bottle at 6PM two days before colonoscopy , drink second bottle at 9AM on day before colonoscopy- Follow each bottle with 4 glasses of clear liquids omeprazole (PRILOSEC) 40 mg JZU-NIl-YjBz-NaSulf-Na Asc-C (MoviPrep) 100 g reconstituted solution At [...] consistent with intrapulmonary shunting. Mild TR. Trace SC. 11/19/2024 PFTs: FVC 2.66L 79% TLC 3.59 [...] testing is complete. Dr. Deneen Edward, DO, [facility] Inter[facility]ty [facility] Precision Crop Manager, Pulmonary and Critical Care Fellowship at the [facility] colored liquid plastic applier I personally spent a total of 40 [...] Description 08/26/2025 8:30 AM EST Office Visit [facility] Medicine Specialties [address], [address] [place] [address] Deneen Edward DO [address] [place] [address] 09/28/2025 10:00 AM EST Office Visit [facility] Medicine Specialties [address], [address] [place] [address] Patricia Ramsey PA [address] [place] [address] Scheduled Referrals Name Type Priority Associated Diagnoses [...] 06/19/2025 8:50 AM Final report signed by aTna Landa MD on 06/19/2025 9:09 AM us [...] documented as of this encounter Care Teams Test Administrator Relationship Specialty Start Date End Date Sarkis Lam MD [address] [place] [address] PCP - General 12/24/20 documented as of this encounter
--- OUTSIDE RECORDS SUMMARY | 2025-06-19 08:21 | XMS_ITS | Encounter Summary ---
Author Organization [facility] Address [address] [place] [address] Care Team Providers Care Disc Recordist Name Role Phone Sarkis Lam MD Primary Care Provider [phone] Reason for Referral * Imaging (Routine) - Closed Specialty Diagnoses / Procedures Referred By Glynn florentino Referred To Contact Radiology Diagnoses Chronic hypoxemic respiratory failure ILD (interstitial lung disease) (CMS/HCC) Portopulmonary hypertension (CMS/HCC) High risk medication use Procedures CT Chest wo IV Contrast Deneen Edward DO [address] [place] [address] Phone: tel: fax: Referral ID Status Reason Start Date Expiration Date Visits Re quested Visits Authorized [id number] Closed 06/05/2025 12/05/2026 1 1 Reason for Visit * Imaging (Routine) - Closed Specialty Diagnoses / Procedures Referred By Glynn florentino Referred To Contact Radiology Diagnoses Chronic hypoxemic respiratory failure ILD (interstitial lung disease) (CMS/HCC) Portopulmonary hypertension (CMS/HCC) High risk medication use Procedures CT Chest wo IV Contrast Deneen Edward DO [address] [place] [address] Phone: tel: fax: Referral ID Status Reason Start Date Expiration Date Visits Re quested Visits Authorized [id number] Closed 06/05/2025 12/05/2026 1 1 Encounter Details Date Type Department Care Team (Latest Contact Info) Description 06/19/2025 8:21 AM EST - 06/19/2025 11:59 PM [facility] Hospital Encounter [facility] CT [address] [place] [address] Chronic hypoxemic respiratory failure; ILD (interstitial lung disease) (CMS/HCC); Portopulmonary hypertension (CMS/HCC); High risk medication use Discharge Disposition: Home or Self Care Social [...] on file documented as of this encounter Medications at Time of Discharge Ascorbic Acid (VITAMIN C ER PO) Take by mouth. atorvastatin (Lipitor) 40 MG tablet Take 1 tablet by mouth daily. 01/02/2021 bisacodyl (Bisacodyl EC) 5 MG EC tablet Take all 4 tablets at 9 AM two days before colonoscopy 4 tablet 12/24/2024 Blood Glucose Monitoring Suppl (Graffle TOUCH ULTRA 2) w/Device kit device kit 12/31/2018 cholecalciferol (Vitamin D-3) 125 MCG (5000 UT) capsule 09/27/2020 cyanocobalamin 1000 MCG tablet Take 1 tablet by mouth daily. escitalopram (Lexapro) 20 MG tablet TAKE 1 TABLET BY MOUTH EVERY DAY FOR 90 DAYS 03/02/2023 Farxiga 10 MG Take 1 tablet by mouth daily. 01/05/2021 Ferrous Sulfate (Iron) 325 (65 Fe) MG tablet 325 mg. 07/13/2023 Glucose Blood (ONETOUCH ULTRA BLUE ) 01/01/2019 inFLIXimab (Remicade) 100 MG injection Infuse into a venous catheter. Janumet 50-500 MG tablet Take 1 tablet by mouth 2 (two) times a day. 01/04/2021 lancets (OneTouch Delica Lancets 33G) [facility] 12/31/2018 losartan (Cozaar) 50 MG tablet Take 1 tablet by mouth daily. 05/08/2024 magnesium citrate solution Drink first bottle at 6PM two days before colonoscopy , drink second bottle at 9AM on day before colonoscopy- Follow each bottle with 4 glasses of clear liquids 592 mL 12/24/2024 omeprazole (PriLOSEC) [address] capsule Take 2 capsules by mouth. 07/01/2022 AIP-MXk-OuUn-NaSul f-Na Asc-C (MoviPrep) 100 g reconstituted solution At 5 PM on day before colonoscopy, mix and drink first dose. Mix and drink second dose 6 hours before you leave home on day of colonoscopy 1 each 12/24/2024 rOPINIRole (Requip) 0.25 MG tablet TAKE 1 TO 2 TABLET(S) BY MOUTH EVERY DAY AT BEDTIME 02/22/2024 documented as of this encounter Plan of Treatment Upcoming Encounters Date Type Department Care Team (Late st Contact Info) Description 08/26/2025 8:30 AM EST Office Visit [facility] Medicine Specialties [address], [address] [place] [address] Deneen Edward, DO [address] [place] [address] 09/28/2025 10:00 AM EST Office Visit [facility] Medicine Specialties [address], [address] [place] [address] Patricia Ramsey PA [address] [place] [address] documented as of this encounter Procedures Procedure Name Priority Date/Time Associated Diagnosis Comments CT CHEST WO IV CONTRAST Routine 06/19/2025 8:30 AM EST Chronic hypoxemic respiratory failure ILD (interstitial lung disease) (CMS/HCC) Portopulmonary hypertension (CMS/HCC) High risk medication use documented in this encounter Results * CT Chest wo [...] encounter Visit Diagnoses Diagnosis Chronic hypoxemic respiratory failure Chronic respiratory failure ILD (interstitial lung disease) (CMS/HCC) Postinflammatory pulmonary fibrosis Portopulmonary hypertension (CMS/HCC) Portal hypertension High risk medication use documented in this encounter Additional Health Concerns Assessment Noted Time PHQ-9 Depression Total Score: 0 06/05/20 9:34 AM EDT A fall risk assessment has been complete d for the patient 06/05/2025 9:34 AM EDT A Body Mass Index follow-up plan has been documented for the patient 06/05/2025 10:57 AM EDT documented as of this encounter Care Teams Disc Recordist Relationship Specialty Start Date End Date Sarkis Lam MD [address] [place] [address] PCP - General 12/24/20 documented as of this encounter
--- OUTSIDE RECORDS SUMMARY | 2025-06-29 07:48 | XMS_ITS | Encounter Summary ---
Author Organization Healthcare Address [address] [place] [address] Care Team Providers Care Forest Economist Name Role Phone Sarkis Lam MD Primary Care Provider [phone] Encounter Details Date Type Department Care Team (Latest Contact Info) Description 06/05/2025 Travel Social History Tobacco Use Types Packs/Day [...] much Not at all 06/05/2025 9:34 AM Krysten Murray Feeling tired or having dajuan le energy Not at all 06/05/2025 9:34 AM EDKrysten Jenkins Poor appetite or overeating Not at all 06/05/2025 9: 34 AM Krysten Murray Feeling bad about yourself - or that [...] usual. Not at all 06/05/2025 9:34 AM Krysten Perera Thoughts that you would be b rosanna [...] Description 08/26/2025 8:30 AM EST Office Visit [facility] Medicine Specialties [address], [address] [place] [address] Deneen Edward DO [address] [place] [address] 09/28/2025 10:00 AM EST Office Visit [facility] Medicine Specialties [address], [address] [place] [address] Patricia Ramsey, PA [address] [place] [address] documented as of this encounter [...] documented as of this encounter Care Teams Forest Economist Relationship Specialty Start Date End Date Sarkis Lam MD [address] [place] [address] PCP - General 12/24/20 documented as of this encounter
--- OUTSIDE RECORDS SUMMARY | 2025-06-29 07:48 | XMS_ITS | Encounter Summary ---
Author Organization [facility] Address [address] [place] [address] Care Team Providers Care Iron Melter Name Role Phone Sarkis Lam MD Primary Care Provider [phone] Reason for Visit * Reason Comments Med Refill Encounter Details Date Type Department Care Team (Late st Contact Info) Description 03/07/2021 Refill [facility] Randolph Bobo [address] [place] [address] Louise Wade, RONAL [address] [place] [address] Social History Tobacco Use Types [...] Description 08/26/2025 8:30 AM EST Office Visit [facility] [address], [address] [place] [address] Deneen Edward, DO [address] [place] [address] 09/28/2025 10:00 AM EST [facility] [address], [address] [place] [address] Patricia Ramsey, PA [address] [place] [address] documented as of this encounter Visit Diagnoses Not on filedocumented in this encounter Additional Health Concerns Infection Onset Date Last Indicated Resolved Time Gastrointestinal Rule-Out 10/13/2024 10/13/2024 8:32 AM EST documented as of this encounter Care Teams Iron Melter Relationship Specialty Start Date End Date Sarkis Lam MD [address] [place] [address] PCP - General 12/24/20 documented as of this encounter
--- OUTSIDE RECORDS SUMMARY | 2025-06-29 07:48 | XMS_ITS | Encounter Summary ---
Author Organization Healthcare Address [address] [place] [address] Care Team Providers Care Fingerer Name Role Phone Sarkis Lam MD Primary Care Provider [phone] Encounter Details Date Type Department Care Team (Late Contact Info) Description 01/30/2022 Orders Only External Location [address] [place] [address] Provider, External Social History Tobacco Use Types Packs/Day Years Used Date Smoking Tobacco: Never Smokeless Tobacco: Never Alcohol Use Standard Drinks/Week Comments No 0 (1 standard drink = 0.6 oz pur e alcohol) PHQ-2 Answer Date Recorded Patient Health Questionnaire-2 Score 0 01/25/2022 Comments Unknown Sex and Gender Information Value Date Recorded Sex Assigned at Not on file Legal Sex Female 8:10 PM EDT Gender Identity Not on file Sexual Orientation Not on file COVID-19 Exposure Response Date Recorded In the last 10 days, have yo u been in contact with someone who was confirmed or suspected to have Coronavirus/COVID-19? No / Unsure 01/25/2022 7:25 AM EDT documented as of this encounter Plan of Treatment Upcoming Encounters Date Type Department Care Team (Late Contact Info) Description 08/26/2025 8:30 AM EST [facility] [address], [address] [place] [address] Deneen Edward, DO [address] [place] [address] 09/28/2025 10:00 AM EST [facility] [address], [address] [place] [address] Patricia Ramsey PA [address] [place] [address] documented as of this encounter Procedures Procedure Name Priority Date/Time Associated Diagnosis Comments CT THORACIC OUTSIDE IMAGES 01/30/2022 1:19 PM EDT documented in this encounter Results * CT THORACIC OUTSIDE IMAGES (01/30/2022 1:19 PM EDT) Anatomical Region Laterality Modality Computed Tomogra phy 01/30/2022 1:19 PM EDT us External Provider IMG CT PROCEDURES Final Result documented in this encounter Visit Diagnoses Not on filedocumented in this encounter Additional Health Concerns Infection Onset Date Last Indicated Resolved Time Gastrointestinal Rule-Out 10/13/2024 10/13/2024 8:32 AM EST Assessment Noted Time A fall risk assessment has been complete d for the patient 01/25/2022 7:43 AM EDT documented as of this encounter Care Teams Fingerer Relationship Specialty Start Date End Date Sarkis Lam MD [address] [place] [address] PCP - General 12/24/20 documented as of this encounter
--- OUTSIDE RECORDS SUMMARY | 2025-06-29 07:48 | XMS_ITS | Encounter Summary ---
Author Organization Healthcare Address [address] [place] [address] Care Team Providers Care Foreign Diplomat Name Role Phone Sarkis Lam MD Primary Care Provider [phone] Encounter Details Date Type Department Care Team (Late Contact Info) Description 07/20/2021 Lab Requisition [facility] [address] [place] [address] Beatriz Perez MD [address] [place] [phone] Gastro-esophageal reflux disease without esophagitis Social History [...] Description 08/26/2025 8:30 AM EST Office Visit [facility] Medicine Specialties [address], [address] [place] [address] Wagner, Deneen R, DO [address] [place] [address] 09/28/2025 10:00 AM EST Office Visit [facility] [address], [address] [place] [address] Patricia Ramsey PA [address] [place] [address] documented as of this encounter Procedures Procedure Name Priority Date/Time Associated Diagnosis Comments SURGICAL PATHOLOGY EXAM Routine 07/20/2021 Gastro-esophageal reflux disease without esophagitis documented in this encounter Results * Surgical Pathology Exam (07/20/2021) Case Report Surgical Pathology Case: [id number] Authorizing Provider: Beatriz Perez MD Collected: 07/20/2021 Ordering Location: [facility] Lab Received: 07/20/2021 1250 Pathologist: Blanca Anderson MD Specimen: Stomach, Gastric Bx 07/21/2021 11:33 AM EST [facility] Final Diagnosis A. stomach, biopsy: - mild chronic inflammation and changes suggestive of portal hypertensive gastropathy. 07/21/2021 11:33 AM EST [facility] at 1133 EST Clinical Information Abnormal Imaging, GERD 07/21/2021 11:33 AM EST [facility] Gross Description A. GASTRIC BX The specimen is received in formalin labeled gastric BX , and consists of four yellow-leblanc soft tissue fragments ranging from 0.2-0.5 cm in greatest dimension. Entirely submitted in cassette A1. Kim Shafer 07/21/2021 11:33 AM EST [facility] Tissue Stomach structure / Unknown 07/20/2021 07/20/2021 12:50 PM EST us Beatriz Perez MD LAB PATHOLOGY ORDERABLES Fin al Result [facility] [address] [place] [address] documented in this encounter Visit Diagnoses Diagnosis Gastro-esophageal reflux disease without esophagitis documented in this encounter Additional Health Concerns Infection Onset Date Last Indicated Resolved Time Gastrointestinal Rule-Out 10/13/2024 10/13/2024 8:32 AM EST Assessment Noted Time A fall risk assessment has been complete d for the patient 03/22/2021 9:13 AM EDT documented as of this encounter Care Teams Foreign Diplomat Relationship Specialty Start Date End Date Sarkis Lam MD [address] [place] [address] PCP - General 12/24/20 documented as of this encounter
--- OUTSIDE RECORDS SUMMARY | 2025-06-29 07:48 | XMS_ITS | Encounter Summary ---
Author Organization Healthcare Address [address] [place] [address] Care Team Providers Care Photovoltaic Subcontractor Name Role Phone Sarkis Lam MD Primary Care Provider [phone] Encounter Details Date Type Department Care Team (Latest Contact Info) Description 06/19/2025 Travel Social History Tobacco Use Types Packs/Day [...] Description 08/26/2025 8:30 AM EST [facility] [address], [address] [place] [address] Deneen Edward, DO [address] [place] [address] 09/28/2025 10:00 AM EST [facility] [address], [address] [place] [address] Patricia Ramsey, DANTE [address] [place] [address] documented as of this encounter [...] documented as of this encounter Care Teams Photovoltaic Subcontractor Relationship Specialty Start Date End Date Sarkis Lam MD [address] [place] [address] PCP - General 12/24/20 documented as of this encounter
--- OUTSIDE RECORDS SUMMARY | 2025-06-29 07:48 | XMS_ITS | Clinical Summary ---
Author Organization [facility] Address [address] [place] [address] Care Team Providers Care Crusher Operator Name Role Phone Sarkis Lam MD Primary Care Provider [phone] Allergies Active Allergy Reactions Criticality Noted Date [...] Medications lancets (OneTouch Delica Lancets 33G) [facility] Active Blood Glucose Monitoring Suppl (ONE [...] C ER PO) Take by mouth. Active HGO-HVc-CsIx-NaSu lf-Na Asc-C (MoviPrep) 100 g reconstituted solution At 5 PM on day before colonoscopy, mix and drink first dose. Mix and drink second dose 6 hours before you leave home on day of colonoscopy 1 each 5 Active Additional Information Patient not taking.Reported on 06/05/2025 magnesium citrate solution Drink first bottle at 6PM two days before colonoscopy , drink second bottle at 9AM on day before colonoscopy- Follow each bottle with 4 glasses of clear liquids 592 mL 5 Active Additional Information Patient not taking.Reported on 06/05/2025 bisacodyl (Bisacodyl EC) 5 MG EC tablet Take all 4 tablets at 9 AM two days before colonoscopy 4 tablet 5 Active Additional Information Patient not taking.Reported on 06/05/2025 Active Problems Problem Noted Date Diagnosed Date [...] Encounters Date Type Department Care Team Description 06/19/2025 8:21 AM EST - 06/19/2025 11:59 PM [facility] Hospital Encounter [facility] [address] [phone] Chronic hypoxemic respiratory failure; ILD (interstitial lung disease) (CMS/HCC); Portopulmonary hypertension (CMS/HCC); High risk medication use Discharge Disposition: Home or Self Care 06/19/2025 Travel 06/05/2025 9:30 AM EDT Office Visit [facility] Specialties [address] [place] [address] Deneen Edward DO Chronic hypoxemic respiratory failure (Primary Dx); ILD (interstitial lung disease) (CMS/HCC); Portopulmonary hypertension (CMS/HCC); High risk medication use 06/05/2025 9:00 AM EDT Ancillary Procedure [facility] [address] [place] [address] ILD (interstitial lung disease) (CMS/HCC); Encounter for long-term current use of high risk medication; Portopulmonary hypertension (CMS/HCC); Chronic hypoxemic respiratory failure 06/05/2025 Orders Only [facility]ties [address] [place] [address] Rhea Kamara, PharmD 06/05/2025 Travel from Last 3 Months Immunizations Immunization Administration Dates Next Due DTaP, Unspecified 12/31/1973, 3,03/13/1968,1967,1967 IPV 1967,1967 Influenza, injectable, quadr ivalent, preservative free 06/17/2022 Influenza, seasonal, injectable 06/18/2022 Influenza, seasonal, injecta ble, preservative free 06/05/2025 Pneumococcal 20-gely Conj Vaccine 03/23/2023 Polio, Unspecified [...] FH: breast can cer Cancer Sister 3 [place] Anesthesia problems Neg Hx Malig Hyperthermia Neg Hx Relation Name Status Comments Brother Jacob Father Michel Forrester Mother Kathryn Other 1 Other 2 Sister 1 Sister 2 Sister 3 [place] Social History Tobacco Use Types Packs/Day Years [...] Mass Index 25.12 06/05/2025 9:29 AM EDT Plan of Treatment Upcoming Encounters Date Type Department Care Team (Late st Contact Info) Description 08/26/2025 8:30 AM EST Office Visit [facility] [address], [address] [place] [address] Deneen Edward, DO [address] [place] [address] 09/28/2025 10:00 AM EST Office Visit [facility]ties [address], [address] [place] [address] Patricia Ramsey PA [address] [place] [address] Health Maintenance Due Date Last [...] Cancer Screening 05/07/2023 [facility]-HPV/Cotest 05/07/2023 05/07/2018, 05/07/2018 [id number]-THONY-78 Vaccine ( season) 2025 05/16/2022, 04/21/2021, 08/26/2020, Additional history exists [facility]-Depression Screening 06/05/2026 025, 06/05/2025, 11/19/2024, Additional history exists Colonoscopy 01/06/2035 01/06/2025 [facility]-Colorectal Cancer Screening 01/06/2035 [facility]-Pneumococcal Vaccine: 50+ Years Completed 03/23/2023 [facility]-Influenza Vaccine Completed 06/05/2025 , 06/18/2022, 06/17/2022 [facility]-Obesity Intervention Completed 025, 03/26/2025, 11/19/2024, Additional history exists HPV Vaccines Aged Out [...] Comments CT CHEST WO IV CONTRAST Routine 06/19/20 25 8:30 AM EST Chronic hypoxemic respiratory failure ILD (interstitial lung disease) (CMS/HCC) Portopulmonary hypertension (CMS/HCC) High risk medication use HC PULM FUNCT TST PLETHYSMOGRAP - PLETHYSMOGRAPHY Routine 06/05/2025 9:25 AM EDT ILD (interstitial lung disease) (CMS/HCC) Encounter for long-term current use of high risk medication Portopulmonary hypertension (CMS/HCC) Chronic hypoxemic respiratory failure COLONOSCOPY Routine 01/06/2025 8:10 AM EDT Esophageal varices without bleeding, unspecified esophageal varices type (CMS/HCC) Generalized abdominal pain LUQ pain Diarrhea, unspecified type CYTO DATA CONVERSION Routine 05/07/2018 12:00 AM EDT from Last 3 Months or Most Recently Relevant to Health Maintenance Results * CT Chest wo IV Contrast [...] Camac DO IMG CT PROCEDURES Final Result * Pulmonary function testing (06/05/2025 9:25 AM EDT) Anatomical Region Laterality Modality PFT Narrative 06/10/2025 11:52 AM EDT Pulmonary Function Testing Report Aylin Arzate underwent pulmonary [facility]. The patient underwent spirometry, lung volumes by [...] in DLCO compared to study from 06/11/24. us Deneen R Camac DO PFT ORDERABLES Final Result * Colonoscopy (01/06/2025 8:10 AM EDT) Anatomical [...] Cory Yanes MD Proceduralist Ulises Carter Endo Infant Lead Teacher Preprocedure A history and physical has been [...] of bowel preparation was evaluated using the Murdock Bowel Preparation Scale with scores of: right [...] Narrative SUNQUEST - 05/08/2018 12:24 PM EDT [facility] MR #: [id number] [facility] [address] [place], [place] [address] 1965 (Age: 52) FW Collect Date: 05/07/2018 00:00 Receipt Date: 05/07/2018 12:03 Page 1 DEPARTMENT OF PATHOLOGY AND LABORATORY MEDICINE CYTOPATHOLOGY REPORT Email: [email or web address] [email or web address] ATTENDING MD/Practitioner: Sarmad Robles MD Service: PUL [...] ICD: I88.8 Other nonspecific lymphadenitis F: A; 03583 ASP INTER, 63080, 38368, 47384 B; 95393 ASP INTER, 27647, 45533, 80095, 16781 C; 83342 ASP INTER, 54730, [address] SNOMED CODES: A; F18966 P1149 K18200 I6T483 [id number] B; N36964 P1149 [id number] A45083 C; L14465 P1149 [id number] A resident has participated in this service. A pathologist has performed and is responsible for the reported pathologic evaluation. us Arron Robles MD LAB PATHOLOGY ORDERABLES Final R esult SUNFootmarks from Last 3 Months or Most Recently Relevant to Health Maintenance Insurance [facility] Care Teams Crusher Operator Relationship Specialty Start Date End Date Sarkis Lam MD [address] [place] [address] [facility] - General 12/24/20
--- OUTSIDE RECORDS SUMMARY | 2025-06-29 07:49 | XMS_ITS | Encounter Summary ---
Author Organization Healthcare Address [address] [id number] Care Team Providers Care Workers Compensation Claims Adjuster Name Role Phone Sarkis Lam MD Primary Care Provider [phone] Encounter Details Date Type Department Care Team (Late st Contact Info) Description 06/05/2025 Orders Only [facility] Medicine Specialties [address], [address] [place] [address] Rhea Kamara, PharmD [address] [place] [address] Social History Tobacco Use Types Packs/Day Years [...] at all 06/05/2025 9: 34 AM EDKrysten Jeknins Feeling bad about yourself - or that you are a failure or have let yourself or your family down Not at all 06/05/2025 9:34 AM EDKrysten Jenkins Trouble concentrating on thi ngs, such as reading the newspaper or watching television Not at all 06/05/2025 9:34 AM EDKrysten Jenkins Moving or speaking so slowly that other [...] at all 06/05/2025 9:34 AM EDT Krysten Shileds documented as of this encounter Miscellaneous Notes * Progress Notes - Rhea Kamara, PharmD - 06/05/2025 11:18 AM EDT Short pharmacy documentation: Given pt's persistent fatigue after infusion, updated the infusion order to NO Benadryl with infliximab. Our therapy plan was updated. Contacted [facility] to provide update. Marla confirmed with her colleague that they do not need any new orders. They will just update on their end to reflect NO Benedryl as premed or as part of the hypersensitivity protocol. documented in this encounter Plan of Treatment Upcoming Encounters Date Type Department Care Team (Late st Contact Info) Description 08/26/2025 8:30 AM EST Office Visit [facility] Medicine Specialties [address], [address] [place] [address] Deneen Edward, DO [address] [place] [address] 09/28/2025 10:00 AM EST Office Visit [facility] Medicine Specialties [address], [address] [place] [address] Patricia Ramsey PA [address] [place] [address] documented as of this encounter [...] documented as of this encounter Care Teams Workers Compensation Claims Adjuster Relationship Specialty Start Date End Date Sarkis Lam MD [address] [place] [address] PCP - General 12/24/20 documented as of this encounter
[2025-06-29] MEDS: ACETAMINOPHEN 325MG TAB 650 MG PO (08:15)
[2025-06-29] MEDS: HYDROCORTISONE SOD SUCCINATE 100MG VIAL 200 MG IV (08:15)
[2025-06-29 08:40] VITALS: BP 108/54; PULSE 68; RESP 18; TEMP 36.4; O2SAT 98
[2025-06-29] MEDS: inFLIXimab 400 MG in 0.9 % SODIUM CHLORIDE 250 ML 83.33 MG IV (08:42)
[2025-06-29 09:10] VITALS: BP 98/52; PULSE 70
[2025-06-29 09:40] VITALS: BP 100/56; PULSE 71
[2025-06-29 10:10] VITALS: BP 103/54; PULSE 65
[2025-06-29 10:40] VITALS: BP 96/54; PULSE 64
[2025-06-29 10:50] VITALS: BP 108/55; PULSE 69
[2025-06-29] MEDS: SODIUM CHLORIDE 0.9% 10ML FLUSH SYRINGE 10 ML IV (11:00)
== END 2025-06-29 23:59 | disposition home or self-care (01) ==
LOC: INF 07:44
PROVIDERS: PCP Internal Medicine Adolescent Medicine; Visit Provider Internal Medicine Medical Oncology
DX: D86.9 Sarcoidosis, unspecified (principal)
CPT/HCPCS: 96413; 96415; J1720; J1745; J7050

== ENCOUNTER 2025-07-08 07:44 | Outpatient (CLI) | payer OTHER, SELFPAY ==
--- OUTSIDE RECORDS SUMMARY | 2025-06-05 08:00 | XMS_ITS | Encounter Summary ---
Author Organization Healthcare Address [address] [place] [address] Care Team Providers Care Conflicts Analyst Name Role Phone Sarkis Lam MD Primary Care Provider [phone] Encounter Details Date Type Department Care Team (Latest Contact Info) Description 06/05/2025 9:00 AM EDT Ancillary Procedure [facility] [address] [place] [phone] ILD (interstitial lung disease) (CMS/HCC); Encounter for [...] Description 08/26/2025 8:30 AM EST Office Visit [facility] Medicine Specialties [address] [place] [address] Deneen Edward DO [address] [place] [address] 09/28/2025 10:00 AM EST [facility] [address] [place] [address] Patricia Ramsey, DANTE [address] [place] [address] documented as of this encounter [...] underwent pulmonary function testing today at the [facility]. The patient underwent spirometry, lung volumes [...] documented as of this encounter Care Teams Conflicts Analyst Relationship Specialty Start Date End Date Sarkis Lam MD [address] [place] [address] PCP - General 12/24/20 documented as of this encounter
--- OUTSIDE RECORDS SUMMARY | 2025-06-05 08:30 | XMS_ITS | Encounter Summary ---
Author Organization Healthcare Address [address] [place] [address] Care Team Providers Care Web Worker Name Role Phone Sarkis Lam MD Primary Care Provider [phone] Reason for Referral * Consultation (Routine) - Authorized Specialty Diagnoses / Procedures Referred By Glynn florentino Referred To Contact Diagnoses Chronic hypoxemic respiratory failure ILD (interstitial lung disease) (CMS/HCC) Portopulmonary hypertension (CMS/HCC) High risk medication use Deneen Edward DO [address] [place] [address] Phone: tel: fax: Referral ID Status Reason Start Date Expiration Date V isits Requested Visits Authorized [id number] Authorized 06/05/2025 12/05/2026 1 1 * Imaging (Routine) - Closed Specialty Diagnoses / Procedures Referred By Glynn florentino Referred To Contact Radiology Diagnoses Chronic hypoxemic respiratory failure ILD (interstitial lung disease) (CMS/HCC) Portopulmonary hypertension (CMS/HCC) High risk medication use Procedures CT Chest wo IV Contrast Deneen Edward DO [address] [place] [address] Phone: tel: fax: Referral ID Status Reason Start Date Expiration Date Visits Re quested Visits Authorized [id number] Closed 06/05/2025 12/05/2026 1 1 Reason for Visit * Reason Comments Chronic hypoxemic respiratory failure * Consultation (Routine) - Closed Specialty Diagnoses / Procedures Referred By Glynn florentino Referred To Contact Diagnoses ILD (interstitial lung disease) (CMS/HCC) Encounter for long-term current use of high risk medication Portopulmonary hypertension (CMS/HCC) Chronic hypoxemic respiratory failure Deneen Edward DO [address] [place] [address] Phone: tel: fax: Referral ID Status Reason Start Date Expiration Date Visits Re quested Visits Authorized [id number] Closed 11/19/2024 05/21/2026 1 1 Encounter Details Date Type Department Care Team (Late st Contact Info) Description 06/05/2025 9:30 AM EDT Office Visit [facility] [address] [place] [address] Deneen Edward DO [address] [place] [address] Chronic hypoxemic respiratory failure (Primary Dx); ILD (interstitial lung disease) (CMS/HCC); Portopulmonary hypertension (CMS/HCC); High risk medication use Social History Tobacco Use Types Packs/Day Years [...] Sign Reading Time Taken Comments Blood Pressure 99/65 06/05/2025 9:29 AM EDT Pulse 75 06/05/2025 9:29 AM EDT Temperature 36.7 C (98.1 F) 06/05/2025 9:29 AM EDT Respiratory Rate 16 06/05/2025 9:29 AM EDT Oxygen Saturation 97% 06/05/2025 9:29 AM EDT 2 liter Inhaled Oxygen Concentration - - Weight 70.6 kg (155 lb 10.3 oz) 06/05/2025 9:29 AM EDT Height 167.6 cm (5' 6 ) 06/05/2025 9:29 AM EDT Body Mass Index 25.12 06/05/2025 9:29 AM EDT documented in this encounter Functional Status * Over the past 2 weeks, how often have you been bothered by any of the following problems? Question Answer Date of Assessment Author Little interest or pleasure in doing things Not at all 06/05/2025 9:34 AM EDT Krysetn Todd Feeling down, depressed, or hopeless Not at [...] way Not at all 06/05/2025 9:34 AM EDT Krysten Todd Patient Health Questionnaire -9 Score 0 06/05/2025 9:34 AM EDT Krysten Todd * How difficult have these problems made it for you to do your work, take care of things at home, or get along with other people? Answer Date of Assessment Author Not difficult at all 06/05/2025 9:34 AM EDT Krysten Shields documented as of this encounter Miscellaneous Notes * Progress Notes - Rhea Kamara PharmD - 06/05/2025 9:30 AM EDT Images from the original note were not included. PharmD Immunosuppressant/Antifibrotic Medication Progress Note Encounter Diagnoses: lab review encounter 1. Encounter for long-term current use of high risk medication (Primary) 2. Sarcoidosis 3. ILD (interstitial lung disease) (CMS/HCC) Assessment: Patient currently tolerating infliximab (Remicade) except persistent fatigue post infusion. Therefore, the infusion orders were updated to NOT include Benadryl. See orders only note for more detaileddocumentation. Labs from [facility] drawn on 05/09 was attached to this encounter. Of note - this repeat lab re-demonstrated abnormal lab results with slight elevation in AST and Tbili likely due to underlying liver condition. Pt is followed by hepatology last seen 03/26/2025, next follow up 09/28/2024. Plan: CONTINUE infliximab (Remicade) 5mg/kg every 4 weeks PharmD Follow-up LFTs due in 3 months with infusion appointment or with clinic visit Thank you for allowing me to participate in the care of this patient. Rhea Kamara, Mimi Clinical Staff Pharmacist Pulmonary, Critical Care & Sleep Medicine Subjective: History of present illness: Aylin Escalera is a 59 y.o. female who was initiated on infliximab (Remicade) for the treatment of Sarcoidosis on 10/2023. I spoke with patient today to follow up on infliximab (Remicade) Previous therapies: Methotrexate - 02/2019-10/2020 --> Stopped due to cytopenias Prednisone - Intermittent, but most recently 05/2021 Adalimumab - 08/2021 - 10/2023 - Stopped due to progression despite treatment AZA (50 mg daily for HACA) - 06/2022 - 10/2023 - Stopped due to cytopenias Infliximab (Inflectra) - 10/2023 - present Objective: Past Medical History: Past Medical History[1] Current Medications: Encounter Medications[2] Lab Results: Creatinine, Plasma Date Value Ref Range Status 09/25/2024 0.79 0.60 - 1.10 mg/dL Final 03/23/2023 0.72 0.60 - 1.10 mg/dL Final 08/02/2021 0.83 0.60 - 1.10 mg/dL Final AST, Plasma Date Value Ref Range Status 09/25/2024 34 10 - 35 U/L Final 03/23/2023 25 11 - 32 U/L Final 08/02/2021 33 (H) 11 - 32 U/L Final ALT, Plasma Date Value Ref Range Status 09/25/2024 26 10 - 35 U/L Final 03/23/2023 13 8 - 33 U/L Final 08/02/2021 24 8 - 33 U/L Final Alkaline Phosphatase, Plasma Date Value Ref Range Status 09/25/2024 110 46 - 142 U/L Final 03/23/2023 107 (H) 35 - 104 U/L Final 08/02/2021 147 (H) 35 - 104 U/L Final Total Bilirubin, Plasma Date Value Ref Range Status 09/25/2024 1.9 (H) 0.2 - 1.1 mg/dL Final 03/23/2023 1.0 0.2 - 1.1 mg/dL Final 08/02/2021 0.9 0.2 - 1.1 mg/dL Final WBC Count Date Value Ref Range Status 09/25/2024 3.63 (L) 3.70 - 10.30 10*3/uL Final 03/23/2023 3.24 (L) 3.70 - 10.30 10*3/uL Final 08/02/2021 4.48 3.70 - 10.30 10*3/uL Final Neutrophils Absolute Date Value Ref Range Status 09/25/2024 1.62 1.60 - 6.10 10*3/uL Final 03/23/2023 1.65 1.60 - 6.10 10*3/uL Final 08/02/2021 2.99 1.60 - 6.10 10*3/uL Final HGB Date Value Ref Range Status 09/25/2024 11.8 11.2 - 15.7 g/dL Final 03/23/2023 9.6 (L) 11.2 - 15.7 g/dL Final 08/02/2021 11.3 11.2 - 15.7 g/dL Final HCT Date Value Ref Range Status 09/25/2024 36.7 34.0 - 45.0 % Final 03/23/2023 31.3 (L) 34.0 - 45.0 % Final 08/02/2021 35.8 34.0 - 45.0 % Final Platelet Count Date Value Ref Range Status 09/25/2024 136 (L) 155 - 369 10*3/uL Final 03/23/2023 147 (L) 155 - 369 10*3/uL Final 08/02/2021 201 155 - 369 10*3/uL Final [1] Past Medical History: Diagnosis Date Anxiety disorder, unspecified Anxiety and depression Cirrhosis (CMS/HCC) Depression GERD (gastroesophageal reflux disease) Heart murmur Hypertension Pure hypercholesterolemia, unspecified High cholesterol Sarcoidosis Pulmonary Stage 3 with Dermatologic, Ocular, and Hepatic Disease Type 2 diabetes mellitus without complications Diabetes Unspecified osteoarthritis, unspecified site Arthritis [2] Outpatient Encounter Medications as of 06/05/2025 Medication Sig Dispense Refill Ascorbic Acid (VITAMIN C ER PO) Take by mouth. atorvastatin (Lipitor) 40 MG tablet Take 1 tablet by mouth daily. bisacodyl (Bisacodyl EC) 5 MG EC tablet Take all 4 tablets at 9 AM two days before colonoscopy (Patient not taking: Reported on 03/26/2025) 4 tablet 0 Blood Glucose Monitoring Suppl (ONE TOUCH ULTRA 2) w/Device kit device kit (Patient not taking: Reported on 03/26/2025) carvedilol (Coreg) 6.25 MG tablet Take 1 tablet (6.25 mg) by mouth 2 (two) times a day with meals. 60 tablet 5 cholecalciferol (Vitamin D-3) 125 MCG (5000 UT) capsule cyanocobalamin 1000 MCG tablet Take 1 tablet by mouth daily. escitalopram (Lexapro) 20 MG tablet TAKE 1 TABLET BY MOUTH EVERY DAY FOR 90 DAYS [facility] 10 MG Take 1 tablet by mouth daily. Ferrous Sulfate (Iron) 325 (65 Fe) MG tablet 325 mg. Glucose Blood (ONETOUCH ULTRA BLUE ) (Patient not taking: Reported on 03/26/2025) inFLIXimab (Remicade) 100 MG injection Infuse into a venous catheter. Janumet 50-500 MG tablet Take 1 tablet by mouth 2 (two) times a day. (Patient not taking: Reported on 03/26/2025) lancets (OneTouch Delica Lancets 33G) misc (Patient not taking: Reported on 03/26/2025) losartan (Cozaar) 50 MG tablet Take 1 tablet by mouth daily. (Patient not taking: Reported on 03/26/2025) magnesium citrate solution Drink first bottle at 6PM two days before colonoscopy , drink second bottle at 9AM on day before colonoscopy- Follow each bottle with 4 glasses of clear liquids (Patient not taking: Reported on 03/26/2025) 592 mL 0 omeprazole (PriLOSEC) [address] capsule Take 2 capsules by mouth. HVB-GRa-JvTd-NaSulf-Na Asc-C (MoviPrep) 100 g reconstituted solution At 5 PM on day before colonoscopy, mix and drink first dose. Mix and drink second dose 6 hours before you leave home on day of colonoscopy 1 each 0 rOPINIRole (Requip) 0.25 MG tablet TAKE 1 TO 2 TABLET(S) BY MOUTH EVERY DAY AT BEDTIME No facility-administered encounter medications on file as of 06/05/2025. * Progress Notes - Juan C Melara MD - 06/05/2025 9:30 AM EDT Pulmonary Interstitial Lung Disease (ILD) Subspecialty Clinic Note 06/05/25 History: Chief Complaint: Patient presents to clinic for ongoing evaluation of dyspnea History of Present Illness: Aylin Escalera is a 59 y.o. female with history of Sarcoidosis on Infliximab who presents to clinic for ongoing management of dyspnea due to Sarcoidosis and ESLD with Hepatopulmonary Syndrome. Patient initially diagnosed in 2018 after obtaining imaging due to abdominal pain and b-symptoms. Impaging revealed diffuse hypermetabolic lymphadenopathy (neck, mediastinum, hilum , retroperitoneum). Nasophargeal biopsy was performed on 03/28/18 showed non-caseating granulomas, as did an EBUS TBNA and BAL with station 11L and 11R returning positive for non-caseating granulomas. Afterwards, she began therapy with methotrexate, but cytopenias developed. She transitioned to steroids with significant improvement in symptoms, but this was complicated by worsening glycemic control. Patient was thenconverted to Humira, which she has tolerated well, but was unable to tolerate azathioprine. She is now in inFLIXimab via infusion. She is also under gastroenterology care for noncirrhotic fibrotic liver disease, multifactorial in the setting MAFLD and sarcoidosis and is under the care of Ophthalmology for R ocular involvement, which has been stable. Today, patient continues to have SOA and Fatigue, which she reports feels as if it has worsened over the past 6 months. Reports she has increased her oxygen requirement to 2L at rest. No interval illness. 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 Denies Cough, Fever, Chills, palpitations. Joint pains are present but stable. Patient recently had transfusion of 2 units of blood and iron infusions however did not find source of her bleeding. Continues to follow with hepatology, being considered for placement on liver transplant list. Modified Medical Research Solomon Dyspnea Scale 0 ???I only get breathless with strenuous exercise?? 1 ???I get short of breath when hurrying while walking on level ground or while walking up a slighthill?? 2 ???I walk slower than people of the same age on level ground because of breathlessness, or I haveto stop for breath when walking at my own pace on level ground?? 3 ???I stop to catch my breath after walking about 100 yards or after a few minutes on level ground?? 4 ???I am too breathless to leave the house?? or ???I am breathless when dressing?? ILD Risk Factors: Drugs x - amiodarone or dronaderone exposure x - nitrofurantion / macrobid exposure x - chemotherapy or radiation therapy Yes, saw Rheum for arthritis - no business line controller visits or rheumatologic medications exposure x - oily nose drops or mineral oil use x - exposure to minocycline Hypersensitivity x - bird exposure x - hot tub or jaccuzi x - humidifier or sauna x - no home mold or water damage previously as a child, no longer using - down products in the home CTD yes - rashes yes - dry mouth - dry mouth, dental disease yes - dry eyes yes - chronic, all leg/foot joints - joint pain x - Raynaud's x - skin tightening or thickness Yes, dysphagia: worked up by GI, has varices but no stricture - esophageal dysfunction / KERRI x - history of inflammatory bowel disease x - myalgias Occupational x - occupational exposures (silica, wood dust, welding, asbestos,etc) x - work in a high-risk industry (aerospace, mining, farming, flood, etc) x - service x - high-risk hobbies (glassmaking, woodworking, etc) Idiopathic/Smoking Related yes - KERRI x - smoking brother at age 57 from ILD associated with asbestos - family history of ILD Review of Systems Constitutional: Positive for malaise/fatigue. Eyes: Negative. Cardiovascular: Negative for chest pain. Respiratory: Positive for shortness of breath. Negative for cough. Skin: Negative for rash. Musculoskeletal: Negative for joint pain. Gastrointestinal: Negative for vomiting. 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 inFLIXimab (Remicade) 100 MG injection Infuse into a venous catheter. Iron 325 mg Janumet 50-500 MG tablet 1 tablet, ZZ 2 times daily RT lancets (CorsoTouch Delica Lancets 33G) mis No dose, route, or frequency recorded. losartan (COZAAR) 50 mg, Daily magnesium citrate solution Drink first bottle at 6PM two days before colonoscopy , drink second bottle at 9AM on day before colonoscopy- Follow each bottle with 4 glasses of clear liquids omeprazole (PRILOSEC) 40 mg BEM-AHa-LiAt-NaSulf-Na Asc-C (MoviPrep) 100 g reconstituted solution At 5 PM on day before colonoscopy, mix and drink first dose. Mix and drink second dose 6 hours before you leave home on day of colonoscopy rOPINIRole (Requip) 0.25 MG tablet TAKE 1 TO 2 TABLET(S) BY MOUTH EVERY DAY AT BEDTIME Allergies: Allergies Allergen Reactions Latex Other - please [...] Patient states they do notknow rxn details Vitals and Physical Exam: Vitals: 06/05/25 0929 BP: 99/65 Pulse: 75 Resp: 16 Temp: 36.7 ??C (98.1 ??F) SpO2: 97% Physical Exam Vitals reviewed. Constitutional: General: She is not in acute distress. Appearance: Normal appearance. Comments: Appears fatigued Eyes: General: No scleral icterus. Conjunctiva/sclera: Conjunctivae normal. Cardiovascular: Rate and Rhythm: Normal rate. Heart sounds: Normal heart sounds. Pulmonary: Breath sounds: Normal breath sounds. Comments: Bibasilarly diminished breath sounds Intermittent course crackle in bases bilaterally No wheezing or use of accessory muscles Abdominal: General: Abdomen is flat. There is no distension. Musculoskeletal: General: No tenderness. Cervical back: Neck supple. Right lower leg: No edema. Left lower leg: No edema. Skin: General: Skin is warm and dry. Comments: Multiple discolored papules Neurological: Mental Status: She is alert. Mental status is at baseline. Psychiatric: Mood and Affect: Mood normal. Labs and Imaging: Data Re- Reviewed Personally By Me This Visit: 06/11/2024 PFTs: FVC 3.36L 76%, TLC 4.00L 75%, DLCO 11.32. Interpretation by me today: worsened moderately-severe restriction with a moderately-reduced diffusion capacity. 6MW: 92% on RA at rest, walked 6 min, fabrizio 87%, required 1L NC to recover to 92% while walking. Labs 04/2024: WBC 4.8, Hb 12.2, MCV 105, Na 138, K 3.4, Cr 0.7, t/bili 1.5, AST 37 12/20/18 CHANCE: 107 05/07/2018 Bronchoscopy: BAL: Cell count: 48% Neutrophils, 10% Lymphs, 21%Monocytes. STAR prep negative. Gram stain +WBCs - organisms. Culture: negative for fungus, AFB, and usual organisms. Cytology: few acute inflammatory cells. EBUS: 11R: negative for malignancy, no lyphoid tissue. Rare non-caseating granuloma. 11L: Lymph node components with non-caseating granulomas. 4R: very scant lymph tissue, negative for malignancy. 01/31/22 CT Chest: bilateral scattered micronodules, some calcified, consistent with sarcoidosis. Scant bilateral mediastinal lymphadenopathy. I have personally reviewed the images associated with this study with my attending. The study reading reported here reflects my personal read. 09/27/20 Echo: LVEF 55%, normal LV, mild TR, RV normal. 06/21/22 PFT: FVC 2.84L FEV1/FVC 84, DLCO 13.29 63%. DLCO/VA 73%. Interpretation by me today with myattending: stable restriction, slightly reduced diffusion capacity. 10/19/2023 PFTs: FVC 2.83L 83% TLC 4.02L 75% DLCO 12.54 61%. Interpretation by me today: stable chronic mild restriction and moderately-reduced diffusion capacity 06/11/2024 PFTs: FVC 3.36L 76%, TLC 4.00L 75%, DLCO 11.32. Interpretation by me today: worsened moderately-severe restriction with a moderately-reduced diffusion capacity. 6MW: 92% on RA at rest, walked 6 min, fabrizio 87%, required 1L NC to recover to 92% while walking. 10/2024 Echo: EF 62%, RV normal in size with mildly elevated RVSP. Late appearance of bubbles in theL heart consistent with intrapulmonary shunting. Mild TR. Trace ME. 11/19/2024 PFTs: FVC 2.66L 79% TLC 3.59 L 67% DLCO 10.25 50%. Interpretation by me today: stable mixed restriction and obstruction 6MW: 92% on RA at rest, walked 6 minutes, fabrizio sat 87%, required 2LPM with exertion to recover to 94% while walking on 2L New Data Reviewed Personally By Me This Visit: 06/05/25: PFTs: FVC 2.36L TLC 3.42, DLCO 8.98; Interpretation: Interval worsening of lung function 6MW: 93% on RA at rest, walked six minutes, fabrizio sat 87%, required 2L to recover to 95% while walking Assessment and Plan: 59 y.o. 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 - Diagnosed 2017 - Prior therapies include Methotrexate that was discontinued due to cytopenias and hepatic dysfunction, azathioprine also discontinued due to cytopenias, Humira, and steroid therapy - Presently taking inFLIXimab by infusion - PFTs today reveal worsening function PLAN: - HRCT to better characterize cause of decline in function - Continue TNFi therapy indefinitely - PFTs and 6MW twice yearly - Continue yearly eye exams - the patient medically benefits from home and ambulatory oxygen therapy and the therapy is medically necessary #) 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 Dr. Deneen Edward, DO, [facility] Interstitial Lung Disease Specialty Clinic [place] Specialist, Pulmonary and Critical Care Fellowship at the [facility] supervisor cartography I personally spent a total of 40 minutes in direct care for this patient on the date of service. This time was spent on review of the chart, discussion with other providers, review of notes written by other providers, personal review of images and results of studies, history taking and review, review of systems, discussion with the patient, care planning and coordination, and the making of medical orders. Cosigned by Deneen Edward DO at 06/05/2025 11:19 AM EDT Associated attestation - Deneen Edward DO - 06/05/2025 11:19 AM EDT I saw and evaluated the patient with the resident/fellow. I discussed the case with the resident/fellow and agree with the findings and plan as documented. documented in this encounter Plan of Treatment Upcoming Encounters Date Type Department Care Team (Late st Contact Info) Description 08/26/2025 8:30 AM EST Office Visit [facility] [address] [place] [address] Deneen Edward DO [address] [place] [address] 09/28/2025 10:00 AM EST Office Visit [facility] [address] [place] [address] Patricia Ramsey PA [address] [place] [address] Scheduled Referrals Name Type Priority Associated Diagnoses Orde r Schedule Follow Up Pulm Outpatient Referral Routine Chronic hypoxemic respiratory failure ILD (interstitial lung disease) (CMS/HCC) Portopulmonary hypertension (CMS/HCC) High risk medication use Expected: 09/05/2025, Expires: 07/06/2026 documented as of this encounter Results * CT Chest wo IV Contrast (06/19/2025 8:30 AM EST) Anatomical Region Laterality Modality Chest Computed Tomogra phy Impressions 06/19/2025 9:09 AM EST Slightly increased subpleural reticulation and fibrotic changes with new air trapping in the bilateral lower lobes. Stable bilateral noncalcified pulmonary nodules. CRITICAL RESULT: No. COMMUNICATION: Per this written report. By electronically signing this report, I, the attending physician, attest that I have personally reviewed the images/data for the above examination(s) and agree with the final edited report. Drafted by Oliver Fall MD on 06/19/2025 8:50 AM Final report signed by Tana Landa MD on 06/19/2025 9:09 AM Narrative 06/19/2025 9:09 AM EST CLINICAL INDICATION: Diffuse/interstitial lung disease TECHNIQUE: Multiple axial CT images obtained from thoracic inlet through upper abdomen without administration of IV contrast per CT High resolution chest protocol. Additional HRCT images were obtained in inspiration and expiration. The imaging protocol used in this examination was optimized to achieve diagnostic quality with the lowest possible radiation dose in accordance with the principles of ALARA (As Low As Reasonably Achievable). COMPARISON: High-resolution CT chest June 25, 2024 FINDINGS: Mediastinum and Pleura: No mediastinal or hilar lymphadenopathy. No pleural or pericardial effusion. Thickening of the distal esophagus with indeterminate soft tissue density within the lower mediastinum could relate to esophageal variceal disease. Lungs: No significant bronchiectasis or bronchial wall thickening. No consolidation or groundglass. Multiple soft tissue density pulmonary nodules are stable from prior, for reference a right lower lobe nodule is stable at 6 mm (series 2, image 196). A left upper lobe soft tissue nodule measures 5 mm and is stable (series 2, image 80). Biapical pleural-parenchymal scarring and lower lung predominant subpleural reticulation, slightly increased from comparison. Mild air trapping in the bilateral lower lobes, new from comparison. Upper Abdomen: Cirrhosis. Prior cholecystectomy. Significant portosystemic variceal disease within the partially imaged upper abdomen. Splenomegaly. Trace ascites. Musculoskeletal: No suspicious lytic or sclerotic lesion. Procedure Note Tana Landa MD - 06/19/2025 CLINICAL INDICATION: Diffuse/interstitial lung disease TECHNIQUE: Multiple axial CT images obtained from thoracic inlet through upperabdomen without administration of IV contrast per CT High resolution chestprotocol. Additional HRCT images were obtained in inspiration andexpiration. The imaging protocol used in this examination was optimized to achievediagnostic quality with the lowest possible radiation dose in accordancewith the principles of ALARA (As Low As Reasonably Achievable). COMPARISON: High-resolution CT chest June 25, 2024 FINDINGS: Mediastinum and Pleura: No mediastinal or hilar lymphadenopathy. Nopleural or pericardial effusion. Thickening of the distal esophagus withindeterminate soft tissue density within the lower mediastinum couldrelate to esophageal variceal disease. Lungs: No significant bronchiectasis or bronchial wall thickening. Noconsolidation or groundglass. Multiple soft tissue density pulmonarynodules are stable from prior, for reference a right lower lobe nodule isstable at 6 mm (series 2, image 196). A left upper lobe soft tissue nodulemeasures 5 mm and is stable (series 2, image 80). Biapicalpleural-parenchymal scarring and lower lung predominant subpleuralreticulation, slightly increased from comparison. Mild air trapping in thebilateral lower lobes, new from comparison. Upper Abdomen: Cirrhosis. Prior cholecystectomy. 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 Splenomegaly.Trace ascites. Musculoskeletal: No suspicious lytic or sclerotic lesion. IMPRESSION: Slightly increased subpleural reticulation and fibrotic changes with newair trapping in the bilateral lower lobes. Stable bilateral noncalcified pulmonary nodules. CRITICAL RESULT: No. COMMUNICATION: Per this written report. By electronically signing this report, I, the attending physician, attestthat I have personally reviewed the images/data for the aboveexamination(s) and agree with the final edited report. Drafted by Oliver Fall MD on 06/19/2025 8:50 AM Final report signed by Tana Landa MD on 06/19/2025 9:09 AM us Deneen R Camac DO IMG CT PROCEDURES Final Result documented in this encounter Visit Diagnoses Diagnosis Chronic hypoxemic respiratory failure- Primary Chronic respiratory failure ILD (interstitial lung disease) (CMS/HCC) Postinflammatory pulmonary fibrosis Portopulmonary hypertension (CMS/HCC) Portal hypertension High risk medication use Chronic hypoxemic respiratory failure Chronic respiratory failure ILD (interstitial lung disease) (CMS/HCC) Postinflammatory pulmonary fibrosis Portopulmonary hypertension (CMS/HCC) Portal hypertension High risk medication use documented in this encounter Additional Health Concerns Assessment Noted Time PHQ-9 Depression Total Score: 0 06/05/20 25 9:34 AM EDT A fall risk assessment has been complete d for the patient 06/05/2025 9:34 AM EDT A Body Mass Index follow-up plan has been documented for the patient 06/05/2025 10:57 AM EDT documented as of this encounter Care Teams Web Worker Relationship Specialty Start Date End Date Sarkis Lam MD [address] [place] [address] PCP - General 12/24/20 documented as of this encounter
--- OUTSIDE RECORDS SUMMARY | 2025-06-19 08:21 | XMS_ITS | Encounter Summary ---
Author Organization [facility] Address [address] [place] [address] Care Team Providers Care Solar Energy Installation Manager Name Role Phone Sariks Lam MD Primary Care Provider [phone] Reason for Referral * Imaging (Routine) - Closed Specialty Diagnoses / Procedures Referred By Glynn florentino Referred To Contact Radiology Diagnoses Chronic hypoxemic respiratory failure ILD (interstitial lung disease) (CMS/HCC) Portopulmonary hypertension (CMS/HCC) High risk medication use Procedures CT Chest wo IV Contrast Deneen Edward DO [address] [place] [address] Phone: tel: fax: Referral ID Status Reason Start Date Expiration Date Visits Re quested Visits Authorized [id number] Closed 06/05/2025 12/05/2026 1 1 Reason for Visit * Imaging (Routine) - Closed Specialty Diagnoses / Procedures Referred By Glynn florentino Referred To Contact Radiology Diagnoses Chronic hypoxemic respiratory failure ILD (interstitial lung disease) (CMS/HCC) Portopulmonary hypertension (CMS/HCC) High risk medication use Procedures CT Chest wo IV Contrast Deneen Edward DO [address] [place] [address] Phone: tel: fax: Referral ID Status Reason Start Date Expiration Date Visits Re quested Visits Authorized [id number] Closed 06/05/2025 12/05/2026 1 1 Encounter Details Date Type Department Care Team (Latest Contact Info) Description 06/19/2025 8:21 AM EST - 06/19/2025 11:59 PM [facility] Hospital Encounter [facility] [address], [address] [place] [address] Chronic hypoxemic respiratory failure; ILD [...] 4 tablet 12/24/2024 Blood Glucose Monitoring Suppl (PPS TOUCH ULTRA 2) w/Device kit device kit [...] day. 01/04/2021 lancets (OneTouch Delica Lancets 33G) [facility] 12/31/2018 losartan (Cozaar) 50 MG tablet Take 1 tablet by mouth daily. 05/08/2024 magnesium citrate solution Drink first bottle at 6PM two days before colonoscopy , drink second bottle at 9AM on day before colonoscopy- Follow each bottle with 4 glasses of clear liquids 592 mL 12/24/2024 omeprazole (PriLOSEC) [address] capsule Take 2 capsules by mouth. 07/01/2022 PTB-DHq-KgKf-NaSul f-Na Asc-C (MoviPrep) 100 g reconstituted solution [...] Description 08/26/2025 8:30 AM EST Office Visit [facility] Medicine Specialties [address], [address] [place] [address] Deneen Edward, DO [address] [place] [address] 09/28/2025 10:00 AM EST Office Visit [facility] Medicine Specialties [address], [address] [place] [address] Patricia Ramsey PA [address] [place] [address] documented as of this encounter Procedures Procedure [...] documented as of this encounter Care Teams Solar Energy Installation Manager Relationship Specialty Start Date End Date Sarkis Lam MD [address] [place] [address] PCP - General 12/24/20 documented as of this encounter
--- OUTSIDE RECORDS SUMMARY | 2025-07-08 07:47 | XMS_ITS | Encounter Summary ---
Author Organization Healthcare Address [address] [place] [address] Care Team Providers Care Applied Behavior Science Specialist Name Role Phone Sarkis Lam MD Primary Care Provider [phone] Encounter Details Date Type Department Care Team (Late st Contact Info) Description 06/05/2025 Orders Only [facility] Medicine Specialties [address], [address] [place] [address] Rhea Kamara, PharmD [address] [id number] Social History Tobacco Use Types Packs/Day Years [...] usual. Not at all 06/05/2025 9:34 AM EDKrysten Stevens Thoughts that you would be b rosanna [...] infliximab. Our therapy plan was updated. Contacted [facility] to provide update. Marla confirmed with her colleague that they do not need any new orders. They will just update on their end to reflect NO Benedryl as premed or as part of the hypersensitivity protocol. documented in this encounter Plan of Treatment Upcoming Encounters Date Type Department Care Team (Late st Contact Info) Description 08/26/2025 8:30 AM EST Office Visit [facility] Medicine Specialties [address], [address] [place] [address] Deneen Edward, DO [address] [place] [address] 09/28/2025 10:00 AM EST Office Visit [facility] Medicine Specialties [address], [address] [place] [address] Patricia Ramsey, PA [address] [place] [address] documented as of this encounter [...] documented as of this encounter Care Teams Applied Behavior Science Specialist Relationship Specialty Start Date End Date Sarkis Lam MD [address] [place] [address] PCP - General 12/24/20 documented as of this encounter
--- OUTSIDE RECORDS SUMMARY | 2025-07-08 07:47 | XMS_ITS | Clinical Summary ---
Author Organization [facility] Address [address] [place] [address] Care Team Providers Care Inseminator Name Role Phone Sarkis Lam MD Primary Care Provider [phone] Allergies Active Allergy Reactions Criticality Noted Date [...] 04/22/2018 Medications lancets (OneTouch Delica Lancets 33G) [facility] 9 Active Blood Glucose Monitoring Suppl (ONE [...] C ER PO) Take by mouth. Active BNE-IFw-VlNf-NaSu lf-Na Asc-C (MoviPrep) 100 g reconstituted solution [...] Encounters Date Type Department Care Team Description 06/30/2025 Telephone [facility] [place] 034[address] [facility], [address] [place] [phone] Joana Anna Labs 06/19/2025 8:21 AM EST - 06/19/2025 11:59 PM EST Hospital Encounter [facility] [address], [address] [place] [phone] Chronic hypoxemic respiratory failure; ILD (interstitial lung disease) (CMS/HCC); Portopulmonary hypertension (CMS/HCC); High risk medication use Discharge Disposition: Home or Self Care 06/19/2025 Travel 06/05/2025 9:30 AM EDT Office Visit [facility] Specialties [address] [place] [address], [address] [place] [phone] Deneen Edward, Chronic hypoxemic respiratory failure (Primary Dx); ILD (interstitial lung disease) (CMS/HCC); Portopulmonary hypertension (CMS/HCC); High risk medication use 06/05/2025 9:00 AM EDT Ancillary Procedure [facility] [address] [phone] ILD (interstitial lung disease) (CMS/HCC); Encounter for long-term current use of high risk medication; Portopulmonary hypertension (CMS/HCC); Chronic hypoxemic respiratory failure 06/05/2025 Orders Only [facility] [address], [address] [place] [phone] Rhea Kamara, PharmD 06/05/2025 Travel from Last [...] FH: breast can cer Cancer Sister 3 [place] Anesthesia problems Neg Hx Malig Hyperthermia Neg Hx Relation Name Status Comments Brother Jacob Father Michel Forrester Mother Kathryn Other 1 Other 2 Sister 1 Sister 2 Sister 3 [place] Social History Tobacco Use Types Packs/Day Years [...] Description 08/26/2025 8:30 AM EST Office Visit [facility] Specialties [address] [place] [address] Deneen Edward, DO [address] [place] [address] 09/28/2025 10:00 AM EST Office Visit [facility] Specialties [address], [address] [place] [address] Patricia Ramsey, PA [address] [place] [phone] Health Maintenance Due Date Last Done Comments [...] Cancer Screening 05/07/2023 UKY-HPV/Cotest 05/07/2023 05/07/2018, 05/07/2018 [id number] Vaccine ( season) 2025 05/16/2022, 04/21/2021, 08/26/2020, [...] underwent pulmonary function testing today at the [facility]. The patient underwent spirometry, lung volumes by [...] DLCO compared to study from 06/11/24. Deneen R Camac DO PFT ORDERABLES Final [...] Cory Yanes MD Proceduralist Ulises Carter Endo Home Care Chaplain Preprocedure A history and physical has been [...] of bowel preparation was evaluated using the [place] Bowel Preparation Scale with scores of: right [...] Narrative SUNQUEST - 05/08/2018 12:24 PM EDT [facility] MR #: [id number] [facility] [address] [place], [place] [address] 1965 (Age: 52) FW Collect Date: 05/07/2018 00:00 Receipt Date: 05/07/2018 12:03 Page 1 DEPARTMENT OF PATHOLOGY AND LABORATORY MEDICINE CYTOPATHOLOGY REPORT Email: [email or web address] ATTENDING MD/Practitioner: Sarmad Robles MD Service: PUL [...] Immediate evaluation performed by: Dr. Hanson / [facility] Evaluation episode # 1: Predominantly blood B: 11 left lymph node: lymph node components with non-caseating granuloma FNA performed by: Dr. Robles Number of sticks: 4 Immediate evaluation performed by: Dr. Mohamud / [facility] Evaluation episode # 1: 11 left [...] ICD: I88.8 Other nonspecific lymphadenitis F: A; 06032 ASP INTER, 20229, 14634, 96353 B; 41230 ASP INTER, 81639, 23107, 36874, 78193 C; 97370 ASP INTER, 66845, 46826 SNOMED CODES: A; Y76335 P1149 T37031 [id number] A38457 B; V70498 P1149 G67025 G67834 C; M87073 P1149 [id number] A resident has participated in this service. A pathologist has performed and is responsible for the reported pathologic evaluation. Arron Robles MD LAB PATHOLOGY ORDERABLES Final R esult [facility] from Last 3 Months or Most Recently Relevant to Health Maintenance Insurance [facility] Care Teams Inseminator Relationship Specialty Start Date End Date Sarkis Lam MD [address] [place] [address] PCP - General 12/24/20
--- OUTSIDE RECORDS SUMMARY | 2025-07-08 07:47 | XMS_ITS | Encounter Summary ---
Author Organization Healthcare Address [address] [place] [address] Care Team Providers Care Police Crime Scene Technician Name Role Phone Sarkis Lam MD Primary Care Provider [phone] Encounter Details Date Type Department Care Team [...] Description 08/26/2025 8:30 AM EST Office Visit [facility] [address] [place] [address] Deneen Edward, DO [address] [place] [address] 09/28/2025 10:00 AM EST Office Visit [facility] [address] [place] [address] Patricia Ramsey, DANTE [address] [place] [address] documented as of this encounter [...] documented as of this encounter Care Teams Police Crime Scene Technician Relationship Specialty Start Date End Date Sarkis Lam MD [address] [place] [address] PCP - General 12/24/20 documented as of this encounter
--- OUTSIDE RECORDS SUMMARY | 2025-07-08 07:47 | XMS_ITS | Encounter Summary ---
Author Organization Healthcare Address [address] [place] [address] Care Team Providers Care Drill Press Operator Numerical Control Name Role Phone Sarkis Lam MD Primary Care Provider [phone] Encounter Details Date Type Department Care Team (Late Contact Info) Description 01/30/2022 Orders Only External Location [address] [place] [address] Provider, External Social History Tobacco Use Types [...] Description 08/26/2025 8:30 AM EST Office Visit [facility] [address], [address] [place] [phone] Deneen Edward, DO [address] [place] [address] 09/28/2025 10:00 AM EST Office Visit [facility] [address], [address] [place] [address] Patricia Ramsey PA [address] [place] [address] documented as of this encounter [...] documented as of this encounter Care Teams Drill Press Operator Numerical Control Relationship Specialty Start Date End Date Sarkis Lam MD [address] [place] [address] PCP - General 12/24/20 documented as of this encounter
--- OUTSIDE RECORDS SUMMARY | 2025-07-08 07:47 | XMS_ITS | Encounter Summary ---
Author Organization [facility] Address [address] [place] [address] Care Team Providers Care Splitter Operator Name Role Phone Sarkis Lam MD Primary Care Provider [phone] Reason for Visit * Reason Comments Med Refill Encounter Details Date Type Department Care Team (Late st Contact Info) Description 03/07/2021 Refill [facility] [place] [facility] [address] [place] [address] Louise Wade, RONAL [address] [place] [address] Social History Tobacco Use Types [...] Description 08/26/2025 8:30 AM EST Office Visit [facility] [address], [address] [place] [address] Deneen Edward, DO [address] [place] [address] 09/28/2025 10:00 AM EST Office Visit [facility] [address] [place] [address] Patricia Ramsey, PA [address] [place] [address] documented as of this encounter Visit Diagnoses Not on filedocumented in this encounter Additional Health Concerns Infection Onset Date Last Indicated Resolved Time Gastrointestinal Rule-Out 10/13/2024 10/13/2024 8:32 AM EST documented as of this encounter Care Teams Splitter Operator Relationship Specialty Start Date End Date Sarkis Lam MD [address] [place] [address] PCP - General 12/24/20 documented as of this encounter
--- OUTSIDE RECORDS SUMMARY | 2025-07-08 07:47 | XMS_ITS | Encounter Summary ---
Author Organization Healthcare Address [address] [place] [address] Care Team Providers Care Rn Hemo Dialysis Name Role Phone Sarkis Lam MD Primary Care Provider [phone] Encounter Details Date Type Department Care Team [...] Description 08/26/2025 8:30 AM EST Office Visit [facility] Medicine Specialties [address], [address] [place] [address] Deneen Edward DO [address] [place] [phone] 09/28/2025 10:00 AM EST Office Visit [facility] Medicine Specialties [address], [address] [place] [address] Patricia Ramsey, PA [address] [place] [address] documented as of this encounter [...] documented as of this encounter Care Teams Rn Hemo Dialysis Relationship Specialty Start Date End Date Sarkis Lam MD [address] [place] [address] PCP - General 12/24/20 documented as of this encounter
--- OUTSIDE RECORDS SUMMARY | 2025-07-08 07:47 | XMS_ITS | Encounter Summary ---
Author Organization Healthcare Address [address] [place] [address] Care Team Providers Care Order Dispatcher Chief Name Role Phone Sarkis Lam MD Primary Care Provider [phone] Encounter Details Date Type Department Care Team (Late Contact Info) Description 07/20/2021 Lab Requisition [facility] [address] [place] [address] Beatriz Perez MD [address] [place] [phone] Gastro-esophageal reflux disease without esophagitis Social History [...] Description 08/26/2025 8:30 AM EST Office Visit [facility] [address] [place] [address] Wagner, Deneen R, DO [address] [place] [address] 09/28/2025 10:00 AM EST Office [facility] [address] [place] [address] Patricia Ramsey PA [address] [place] [address] documented as of this encounter Procedures Procedure Name Priority Date/Time Associated Diagnosis Comments SURGICAL PATHOLOGY EXAM Routine 07/20/2021 Gastro-esophageal reflux disease without esophagitis documented in this encounter Results * Surgical Pathology Exam (07/20/2021) Case Report Surgical Pathology Case: [id number] Authorizing Provider: Beatriz Perez MD Collected: 07/20/2021 Ordering Location: [facility] Lab Received: 07/20/2021 1250 Pathologist: Blanca Anderson MD Specimen: Stomach, Gastric Bx 07/21/2021 11:33 AM EST [facility] Final Diagnosis A. stomach, biopsy: - mild chronic inflammation and changes suggestive of portal hypertensive gastropathy. 07/21/2021 11:33 AM EST [facility] at 1133 EST Clinical Information Abnormal Imaging, GERD 07/21/2021 11:33 AM EST [facility] Gross Description A. GASTRIC BX The specimen is received in formalin labeled gastric BX , and consists of four yellow-leblanc soft tissue fragments ranging from 0.2-0.5 cm in greatest dimension. Entirely submitted in cassette A1. Kim Shafer 07/21/2021 11:33 AM EST [facility] Tissue Stomach structure / Unknown 07/20/2021 07/20/2021 12:50 PM EST us Beatriz Perez MD LAB PATHOLOGY ORDERABLES Fin al Result [facility] [address] [place] [address] documented in this encounter Visit Diagnoses Diagnosis Gastro-esophageal reflux disease without esophagitis documented in this encounter Additional Health Concerns Infection Onset Date Last Indicated Resolved Time Gastrointestinal Rule-Out 10/13/2024 10/13/2024 8:32 AM EST Assessment Noted Time A fall risk assessment has been complete d for the patient 03/22/2021 9:13 AM EDT documented as of this encounter Care Teams Order Dispatcher Chief Relationship Specialty Start Date End Date Sarkis Lam MD [address] [place] [address] PCP - General 12/24/20 documented as of this encounter
--- OUTSIDE RECORDS SUMMARY | 2025-07-08 07:48 | XMS_ITS | Encounter Summary ---
Author Organization [facility] Address [address] [place] [id number] Care Team Providers Care Chip Drier Name Role Phone Sarkis Lam MD Primary Care Provider [phone] Reason for Visit * Reason Onset Date Comments Labs 06/30/2025 Encounter Details Date Type Department Care Team (Late st Contact Info) Description 06/30/2025 Telephone [facility] [address] [place] [address] [place] [address] Labs Social History Tobacco Use Types Packs/Day Years [...] encounter Miscellaneous Notes * Telephone Encounter - Joana Anna - 06/30/2025 3:55 PM EST Received call from patient Patient states that she was told to complete labs for provider but doesn't know where to complete them Advised patient that she could do labs locally if needed Patient will complete labs at [facility] today if possible Faxed lab orders to [facility] F: [phone] CB: [phone] documented in this encounter Plan of Treatment Upcoming Encounters Date Type Department Care Team (Late st Contact Info) Description 08/26/2025 8:30 AM EST Office Visit [facility] Medicine Specialties [address], [address] [place] [address] Deneen Edward, DO [address] [place] [address] 09/28/2025 10:00 AM EST Office Visit [facility] Medicine Specialties [address], [address] [place] [address] Patricia Ramsey, DANTE [address] [place] [address] documented as of this encounter [...] documented as of this encounter Care Teams Chip Drier Relationship Specialty Start Date End Date Sarkis Lam MD [address] [place] [address] PCP - General 12/24/20 documented as of this encounter
== END 2025-07-08 23:59 | disposition home or self-care (01) ==
LOC: LAB 07:46
PROVIDERS: PCP Internal Medicine Adolescent Medicine; Visit Provider Internal Medicine
DX: J84.9 Interstitial pulmonary disease, unspecified (principal); Z79.899 Other long term (current) drug therapy
CPT/HCPCS: 36415; 80074

== ENCOUNTER 2025-07-27 08:08 | Outpatient (CLI) | payer OTHER, SELFPAY ==
--- OUTSIDE RECORDS SUMMARY | 2025-06-05 08:00 | XMS_ITS | Encounter Summary ---
Author Organization Healthcare Address [address] [place] [address] Care Team Providers Care Writer Editor Name Role Phone Sarkis Lam MD Primary Care Provider [phone] Encounter Details Date Type Department Care Team (Latest Contact Info) Description 06/05/2025 9:00 AM EDT Ancillary Procedure [facility] [address], [address] [place] [id number] ILD (interstitial lung disease) (CMS/HCC); Encounter for long-term current use of high risk medication; Portopulmonary hypertension (CMS/HCC); Chronic hypoxemic respiratory failure Social History Tobacco Use Types Packs/Day Years Used Date Smoking Tobacco: Never Passive Smoke Exposure: Never Smokeless Tobacco: Never Alcohol Use Standard Drinks/Week Comments Never 0 (1 standard drink = 0.6 oz pur e alcohol) PHQ-2 Answer Date Recorded Patient Health Questionnaire-2 Score 0 06/05/2025 PHQ-9 Answer Date Recorded Patient Health Questionnaire-9 Score 0 06/05/2025 PHQ-2A Answer Date Recorded Depression Risk 0 [...] pleasure in doing things Not at all 06/05/2025 9:34 AM Krysten Murray Feeling down, depressed, or hopeless Not at all 06/05/2025 9:34 AM EDKrysten Jenkins Patient Health Questionnaire -2 Score 0 06/05/2025 9:34 AM EDKrysten Jenkins * Question Answer Date of Assessment Author Trouble falling or staying a sleep, or sleeping too much Not at all 06/05/2025 9:34 AM EDKrysten Jenkins Feeling tired or having dajuan le energy Not at all 06/05/2025 9:34 AM Krysten Murray Poor appetite or overeating Not at all 06/05/2025 9: 34 AM EDKrysten Jenkins Feeling bad about yourself - or that you are a failure or have let yourself or your family down Not at all 06/05/2025 9:34 AM Krysten Murray Trouble concentrating on thi ngs, such as reading the newspaper or watching television Not at all 06/05/2025 9:34 AM Krysten Murray Moving or speaking so slowly that other people could have noticed. Or the opposite - being so fidgety or restless that you have been moving around a lot more than usual Not at all 06/05/2025 9:34 AM EDKrysten Jenknis Thoughts that you would be b rosanna off or hurting yourself in some way Not at all 06/05/2025 9:34 AM Krysten Murray Patient Health Questionnaire -9 Score 0 06/05/2025 9:34 AM Krysten Murray * How difficult have these problems made it for you to do your work, take care of things at home, or get along with other people? Answer Date of Assessment Author Not difficult at all 06/05/2025 9:34 AM EDT Krysten Shields documented as of this encounter Plan of Treatment Upcoming Encounters Date Type Department Care Team (Late st Contact Info) Description 08/26/2025 8:30 AM EST Office Visit [facility] Medicine Specialties [address] [place] [address] Deneen Edward DO [address] [place] [address] 09/28/2025 10:00 AM EST Office Visit [facility] [address] [place] [address] Patriica Ramsey PA [address] [place] [address] documented as of this encounter Procedures Procedure Name Priority Date/Time Associated Diagnosis Comments HC PULM FUNCT TST PLETHYSMOGRAP - PLETHYSMOGRAPHY Routine 06/05/2025 9:25 AM EDT ILD (interstitial lung disease) (CMS/HCC) Encounter for long-term current use of high risk medication Portopulmonary hypertension (CMS/HCC) Chronic hypoxemic respiratory failure documented in this encounter Results * Pulmonary function testing (06/05/2025 9:25 AM EDT) Anatomical Region Laterality Modality PFT Narrative 06/10/2025 11:52 AM EDT Pulmonary Function Testing Report Aylin Escalera underwent pulmonary function testing today at the [facility]. The patient underwent spirometry, lung volumes by body plethysmography, and diffusion capacity testing. All tests were appropriately administered via ATS/ERS criteria. All tests are acceptable and interpretable unless noted otherwise. Spirometry/Lung volumes: Reduced FVC and TLC consistent with mild simple restriction. Diffusion Capacity: Diffusion capacity uncorrected for Hb is severely reduced. A reduced DLCO with a low VA and low/normal KCO is a pattern that may suggest loss of alveolar capillary structure with loss of lung volume in conditions such as emphysema and ILD. Trend: Compared to previous study dated 06/11/24, there has been no significant change in FEV1 and FVC. There has been a significant decrease in DLCO compared to study from 06/11/24. Deneen Edward DO PFT ORDERABLES Final Result documented in this encounter Visit Diagnoses Diagnosis ILD (interstitial lung disease) (CMS/HCC) Postinflammatory pulmonary fibrosis Encounter for long-term current use of high risk medication Portopulmonary hypertension (CMS/HCC) Portal hypertension Chronic hypoxemic respiratory failure Chronic respiratory failure documented in this encounter Additional Health Concerns Assessment Noted Time PHQ-9 Depression Total Score: 0 06/05/20 25 9:34 AM EDT A fall risk assessment has been complete d for the patient 06/05/2025 9:34 AM EDT A Body Mass Index follow-up plan has been documented for the patient 06/05/2025 10:57 AM EDT documented as of this encounter Care Teams Writer Editor Relationship Specialty Start Date End Date Sarkis Lam MD [address] [place] [address] PCP - General 12/24/20 documented as of this encounter
--- OUTSIDE RECORDS SUMMARY | 2025-06-05 08:30 | XMS_ITS | Encounter Summary ---
Author Organization [facility] Address [address] [place] [address] Care Team Providers Care Assistant Head Cashier Name Role Phone Sarkis Lam MD Primary Care Provider [phone] Reason for Referral * Consultation (Routine) - Authorized Specialty Diagnoses / Procedures Referred By Glynn florentino Referred To Contact Diagnoses Chronic hypoxemic respiratory failure ILD (interstitial lung disease) (CMS/HCC) Portopulmonary hypertension (CMS/HCC) High risk medication use Deneen Edward DO [address] [place] [address] Phone: tel: fax: Referral ID Status Reason Start Date Expiration Date V isits Requested Visits Authorized [id number] Authorized 06/05/2025 12/05/2026 1 1 * Imaging (Routine) - Closed Specialty Diagnoses / Procedures Referred By Glynn florentino Referred To Contact Radiology Diagnoses Chronic hypoxemic respiratory failure ILD (interstitial lung disease) (CMS/HCC) Portopulmonary hypertension (CMS/HCC) High risk medication use Procedures CT Chest wo IV Contrast Deneen Edward DO [address] [place] [address] Phone: tel: fax: Referral ID Status Reason Start Date Expiration Date Visits Re quested Visits Authorized [id number] Closed 06/05/2025 12/05/2026 1 1 Reason for Visit * Reason Comments Chronic hypoxemic respiratory failure * Consultation (Routine) - Closed Specialty Diagnoses / Procedures Referred By Glynn florentino Referred To Contact Diagnoses ILD (interstitial lung disease) (CMS/HCC) Encounter for long-term current use of high risk medication Portopulmonary hypertension (CMS/HCC) Chronic hypoxemic respiratory failure Deneen Edward DO [address] [place] [address] Phone: tel: fax: Referral ID Status Reason Start Date Expiration Date Visits Re quested Visits Authorized [id number] Closed 11/19/2024 05/21/2026 1 1 Encounter Details Date Type Department Care Team (Late st Contact Info) Description 06/05/2025 9:30 AM EDT Office Visit [facility] Medicine Specialties [address], [address] [place] [address] Deneen Edward DO [address] [place] [address] Chronic hypoxemic respiratory failure (Primary [...] at all 06/05/2025 9:34 AM EDKrysten Jenkins Thoughts that you would be b rosanna [...] only note for more detaileddocumentation. Labs from [facility] drawn on 05/09 was attached to [...] BY MOUTH EVERY DAY FOR 90 DAYS Barrettga 10 MG Take 1 tablet by mouth [...] DR capsule Take 2 capsules by mouth. ZZW-TIb-HfUy-NaSulf-Na Asc-C (MoviPrep) 100 g reconstituted solution At [...] No interval illness. 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 Denies Cough, Fever, Chills, palpitations. Joint pains are present but stable. Patient recently had transfusion of 2 units of blood and iron infusions however did not find source of her bleeding. Continues to follow with hepatology, being considered for placement on liver transplant list. Modified Medical Research [place] Dyspnea Scale 0 ???I only get breathless [...] Yes, saw Rheum for arthritis - no tassel maker visits or rheumatologic medications exposure x - [...] surgery for glass extraction after going to [employer] and eating food contaminated with broken glass, [...] DAYS Farxiga 10 mg, Daily Glucose Blood (RecorridoTOUCH ULTRA BLUE ) No dose, route, or [...] of clear liquids omeprazole (PRILOSEC) 40 mg ECR-TYc-BrFv-NaSulf-Na Asc-C (MoviPrep) 100 g reconstituted solution At [...] consistent with intrapulmonary shunting. Mild TR. Trace RI. 11/19/2024 PFTs: FVC 2.66L 79% TLC 3.59 [...] testing is complete. Dr. Deneen Edward, DO, [facility] Sand Worker, Pulmonary and Critical Care Fellowship at [facility] melt room operator I personally spent a total of 40 [...] Description 08/26/2025 8:30 AM EST Office Visit [facility] Medicine Specialties [address], [address] [place] [address] Deneen Edward DO [address] [place] [address] 09/28/2025 10:00 AM EST Office Visit [facility] Medicine Specialties [address], [address] [place] [address] Patricia Ramsey PA [address] [place] [address] Scheduled Referrals Name Type Priority Associated Diagnoses [...] on 06/19/2025 9:09 AM us Deneen R Wagner DO IMG CT PROCEDURES Final Result documented [...] as of this encounter Care Teams Assistant Head Cashier Relationship Specialty Start Date End Date Sarkis Lam MD [address] [place] [address] PCP - General 12/24/20 documented as of this encounter
--- OUTSIDE RECORDS SUMMARY | 2025-06-19 08:21 | XMS_ITS | Encounter Summary ---
Author Organization [facility] Address [address] [place] [address] Care Team Providers Care Assembler Show Motor Name Role Phone Sarkis Lam MD Primary Care Provider [phone] Reason for Referral * Imaging (Routine) - Closed Specialty Diagnoses / Procedures Referred By Glynn florentino Referred To Contact Radiology Diagnoses Chronic hypoxemic respiratory failure ILD (interstitial lung disease) (CMS/HCC) Portopulmonary hypertension (CMS/HCC) High risk medication use Procedures CT Chest wo IV Contrast Deneen Edward DO [address] [place] [address] Phone: tel: fax: Referral ID Status Reason Start Date Expiration Date Visits Re quested Visits Authorized [id number] Closed 06/05/2025 12/05/2026 1 1 Reason for Visit * Imaging (Routine) - Closed Specialty Diagnoses / Procedures Referred By Glynn florentino Referred To Contact Radiology Diagnoses Chronic hypoxemic respiratory failure ILD (interstitial lung disease) (CMS/HCC) Portopulmonary hypertension (CMS/HCC) High risk medication use Procedures CT Chest wo IV Contrast Deneen Edward DO [address] [place] [address] Phone: tel: fax: Referral ID Status Reason Start Date Expiration Date Visits Re quested Visits Authorized [id number] Closed 06/05/2025 12/05/2026 1 1 Encounter Details Date Type Department Care Team (Latest Contact Info) Description 06/19/2025 8:21 AM EST - 06/19/2025 11:59 PM [facility] Hospital Encounter [facility] CT [address] [place] [address] Chronic hypoxemic respiratory failure; ILD [...] 4 tablet 12/24/2024 Blood Glucose Monitoring Suppl (LoopFuse TOUCH ULTRA 2) w/Device kit device kit [...] day. 01/04/2021 lancets (OneTouch Delica Lancets 33G) [facility] 12/31/2018 losartan (Cozaar) 50 MG tablet Take 1 tablet by mouth daily. 05/08/2024 magnesium citrate solution Drink first bottle at 6PM two days before colonoscopy , drink second bottle at 9AM on day before colonoscopy- Follow each bottle with 4 glasses of clear liquids 592 mL 12/24/2024 omeprazole (PriLOSEC) [address] capsule Take 2 capsules by mouth. 07/01/2022 NEM-SUd-ExOd-NaSul f-Na Asc-C (MoviPrep) 100 g reconstituted solution [...] Visit [facility] Medicine Specialties [address], [address] [place] [address] Deneen Edward, DO [address] [place] [address] 09/28/2025 10:00 AM EST Office Visit [facility] Medicine Specialties [address], [address] [place] [address] Patricia Ramsey PA [address] [place] [address] documented as of this encounter Procedures Procedure [...] as of this encounter Care Teams Assembler Show Motor Relationship Specialty Start Date End Date Sarkis Lam MD [address] [place] [address] PCP - General 12/24/20 documented as of this encounter
[2025-07-27] VITALS (9 sets, daily range): BP systolic 93–107; BP diastolic 49–61; PULSE 63–68; RESP 14–16; TEMP 36.6; O2SAT 97–99
--- OUTSIDE RECORDS SUMMARY | 2025-07-27 08:15 | XMS_ITS | Encounter Summary ---
Author Organization Healthcare Address [address] [place] [address] Care Team Providers Care Hair Machine Operator Name Role Phone Sarkis Lam MD Primary Care Provider [phone] Encounter Details Date Type Department Care Team [...] Description 08/26/2025 8:30 AM EST Office Visit [facility] [address], [address] [place] [address] Deneen Edward, DO [address] [place] [address] 09/28/2025 10:00 AM EST Office Visit [facility] [address] [place] [address] Patricia Ramsey, DANTE [address] [place] [address] documented as of this encounter [...] documented as of this encounter Care Teams Hair Machine Operator Relationship Specialty Start Date End Date Sarkis Lam MD [address] [place] [address] PCP - General 12/24/20 documented as of this encounter
--- OUTSIDE RECORDS SUMMARY | 2025-07-27 08:15 | XMS_ITS | Encounter Summary ---
Author Organization [facility] Address [address] [place] [address] Care Team Providers Care President And Chief Executive Officer Name Role Phone Sarkis Lam MD Primary Care Provider [phone] Reason for Visit * Reason Comments Med Refill Encounter Details Date Type Department Care Team (Late st Contact Info) Description 03/07/2021 Refill [facility] [place] [facility] [address] [place] [address] Louise Wade, RONAL [address] [place] [address] Social History Tobacco Use Types [...] Description 08/26/2025 8:30 AM EST Office Visit [facility] [address] [place] [address] Deneen Edward, DO [address] [place] [address] 09/28/2025 10:00 AM EST [facility] [address] [place] [address] Patricia Ramsey, PA [address] [place] [address] documented as of this encounter Visit Diagnoses Not on filedocumented in this encounter Additional Health Concerns Infection Onset Date Last Indicated Resolved Time Gastrointestinal Rule-Out 10/13/2024 10/13/2024 8:32 AM EST documented as of this encounter Care Teams President And Chief Executive Officer Relationship Specialty Start Date End Date Sarkis Lam MD [address] [place] [address] PCP - General 12/24/20 documented as of this encounter
--- OUTSIDE RECORDS SUMMARY | 2025-07-27 08:15 | XMS_ITS | Clinical Summary ---
Author Organization [facility] Address [address] [place] [address] Care Team Providers Care Harbor Pilot Name Role Phone Sarkis Lam MD Primary Care Provider [phone] Allergies Active Allergy Reactions Criticality Noted Date [...] 04/22/2018 Medications lancets (OneTouch Delica Lancets 33G) [facility] [place] 9 Active Blood Glucose Monitoring Suppl (ONE [...] C ER PO) Take by mouth. Active YLH-MCr-TiRv-NaSu lf-Na Asc-C (MoviPrep) 100 g reconstituted solution [...] Type Department Care Team Description 06/30/2025 Telephone [facility] [place] [address] [facility], [address] [place] [phone] Joana Anna Labs 06/19/2025 8:21 AM EST - 06/19/2025 11:59 PM EST Hospital Encounter [facility] [address], [address] [place] [phone] Chronic hypoxemic respiratory failure; ILD (interstitial lung disease) (CMS/HCC); Portopulmonary hypertension (CMS/HCC); High risk medication use Discharge Disposition: Home or Self Care 06/19/2025 Travel 06/05/2025 9:30 AM EDT Office Visit [facility] Specialties [address] [place] [address], [address] [place] [phone] Deneen Edward, Chronic hypoxemic respiratory failure (Primary Dx); ILD (interstitial lung disease) (CMS/HCC); Portopulmonary hypertension (CMS/HCC); High risk medication use 06/05/2025 9:00 AM EDT Ancillary Procedure [facility] [address] [phone] ILD (interstitial lung disease) (CMS/HCC); Encounter for long-term current use of high risk medication; Portopulmonary hypertension (CMS/HCC); Chronic hypoxemic respiratory failure 06/05/2025 Orders Only [facility] [address], [address] [place] [phone] Rhea Kamara, PharmD 06/05/2025 Travel from Last [...] FH: breast can cer Cancer Sister 3 [place] Anesthesia problems Neg Hx Malig Hyperthermia Neg Hx Relation Name Status Comments Brother Jacob Father Michel Forrester Mother Kathryn Other 1 Other 2 Sister 1 Sister 2 Sister 3 [place] Social History Tobacco Use Types Packs/Day Years [...] Visit [facility] Specialties [address] [place] [address] Deneen Edward, DO [address] [place] [address] 09/28/2025 10:00 AM EST Office Visit [facility] Specialties [address], [address] [place] [address] Patricia Ramsey, PA [address] [place] [phone] Health Maintenance Due Date Last Done Comments [...] Cancer Screening 05/07/2023 UKY-HPV/Cotest 05/07/2023 05/07/2018, 05/07/2018 [id number] Vaccine ( season) 2025 05/16/2022, 04/21/2021, 08/26/2020, Additional history exists UKY-Depression Screening 06/05/2026 025, 06/05/2025, 11/19/2024, Additional history exists Colonoscopy 01/06/2035 01/06/2025 UKY-Colorectal Cancer Screening 01/06/2035 UKY-Pneumococcal Vaccine: 50+ Years Completed 03/23/2023 UKY-Influenza Vaccine Completed 06/05/2025 , 06/18/2022, 06/17/2022 UKY-Obesity Intervention Completed 025, 03/26/2025, 11/19/2024, Additional history exists HPV Vaccines (No Doses Required) Completed UKY-HIB Vaccines Aged Out No longer e ligible based on patient's age to complete this topic UKY-Rotavirus Vaccines Aged Out No lo nger eligible based on patient's age to complete this topic Procedures Procedure Name Priority Date/Time Associated Diagnosis Comments CT CHEST WO IV CONTRAST Routine 06/19/20 8:30 AM EST Chronic hypoxemic respiratory failure [...] underwent pulmonary function testing today at the [facility]. The patient underwent spirometry, lung [...] Cory Yanes MD Proceduralist Ulises Carter Endo Sales Service Executive Preprocedure A history and physical has been [...] of bowel preparation was evaluated using the [place] Bowel Preparation Scale with scores of: right [...] Narrative SUNQUEST - 05/08/2018 12:24 PM EDT [facility] MR #: [id number] [facility] [address] [place], [place] [address] 1965 (Age: 52) FW Collect Date: 05/07/2018 00:00 Receipt Date: 05/07/2018 12:03 Page 1 DEPARTMENT OF PATHOLOGY AND LABORATORY MEDICINE CYTOPATHOLOGY REPORT Email: [email or web address] ATTENDING MD/Practitioner: Sarmad Robles MD Service: PUL [...] Immediate evaluation performed by: Dr. Hanson / [facility] Evaluation episode # 1: Predominantly blood B: 11 left lymph node: lymph node components with non-caseating granuloma FNA performed by: Dr. Robles Number of sticks: 4 Immediate evaluation performed by: Dr. Mohamud / [facility] Evaluation episode # 1: 11 left lymph [...] ICD: I88.8 Other nonspecific lymphadenitis F: A; 94553 ASP INTER, 49817, [address]67[address], [address] B; 14301 ASP INTER, 859[address], [address]16, [address], 07243 C; 00229 [address] INTER, [address], [address] SNOMED CODES: A; W06579 P1149 P41061 [id number] U79398 B; Z26858 P1149 H02634 P21364 C; J82037 P1149 C07083 [id number] A resident has participated in this service. A pathologist has performed and is responsible for the reported pathologic evaluation. Arron Robles MD LAB PATHOLOGY ORDERABLES Final R esult [facility] from Last 3 Months or Most Recently Relevant to Health Maintenance Insurance [facility] Care Teams Harbor Pilot Relationship Specialty Start Date End Date Sarkis Lam MD [address] [place] [address] PCP - General 12/24/20
--- OUTSIDE RECORDS SUMMARY | 2025-07-27 08:15 | XMS_ITS | Encounter Summary ---
Author Organization Healthcare Address [address] [place] [address] Care Team Providers Care Environmental Air Specialist Name Role Phone Sarkis Lam MD Primary Care Provider [phone] Encounter Details Date Type Department Care Team (Late Contact Info) Description 07/20/2021 Lab Requisition [facility] [address] [place] [address] Beatriz Perez MD [address] [place] [id number] Gastro-esophageal reflux disease without esophagitis Social History [...] Description 08/26/2025 8:30 AM EST Office Visit [facility] [address] [place] [address] Wagner, Dneeen R, DO [address] [place] [address] 09/28/2025 10:00 AM EST Office Visit [facility] [address] [place] [address] Patricia Ramsey PA [address] [place] [address] documented as of this encounter Procedures Procedure Name Priority Date/Time Associated Diagnosis Comments SURGICAL PATHOLOGY EXAM Routine 07/20/2021 Gastro-esophageal reflux disease without esophagitis documented in this encounter Results * Surgical Pathology Exam (07/20/2021) Case Report Surgical Pathology Case: [id number] Authorizing Provider: Beatriz Perez MD Collected: 07/20/2021 Ordering Location: [facility] Lab Received: 07/20/2021 1250 Pathologist: Blanca Anderson MD Specimen: Stomach, Gastric Bx 07/21/2021 11:33 AM EST [facility] Final Diagnosis A. stomach, biopsy: - mild chronic inflammation and changes suggestive of portal hypertensive gastropathy. 07/21/2021 11:33 AM EST [facility] at 1133 EST Clinical Information Abnormal Imaging, GERD 07/21/2021 11:33 AM EST [facility] Gross Description A. GASTRIC BX The specimen is received in formalin labeled gastric BX , and consists of four yellow-leblanc soft tissue fragments ranging from 0.2-0.5 cm in greatest dimension. Entirely submitted in cassette A1. Kim Shafer 07/21/2021 11:33 AM EST [facility] Tissue Stomach structure / Unknown 07/20/2021 07/20/2021 12:50 PM EST us Beatriz Perez MD LAB PATHOLOGY ORDERABLES Fin al Result [facility] [address] [place] [address] documented in this encounter Visit Diagnoses Diagnosis Gastro-esophageal reflux disease without esophagitis documented in this encounter Additional Health Concerns Infection Onset Date Last Indicated Resolved Time Gastrointestinal Rule-Out 10/13/2024 10/13/2024 8:32 AM EST Assessment Noted Time A fall risk assessment has been complete d for the patient 03/22/2021 9:13 AM EDT documented as of this encounter Care Teams Environmental Air Specialist Relationship Specialty Start Date End Date Sarkis Lam MD [address] [place] [address] PCP - General 12/24/20 documented as of this encounter
--- OUTSIDE RECORDS SUMMARY | 2025-07-27 08:15 | XMS_ITS | Encounter Summary ---
Author Organization Healthcare Address [address] [place] [address] Care Team Providers Care Class A Truck Driver Name Role Phone Sarkis Lam MD Primary Care Provider [phone] Encounter Details Date Type Department Care Team (Late Contact Info) Description 01/30/2022 Orders Only External Location [address] [place] [address] Provider, External Social History Tobacco Use Types [...] Visit [facility] [address] [place] [address] Deneen Edward, DO [address] [place] [address] 09/28/2025 10:00 AM EST Office Visit [facility] [address] [place] [address] Patricia Ramsey PA [address] [place] [address] documented as of this encounter [...] documented as of this encounter Care Teams Class A Truck Driver Relationship Specialty Start Date End Date Sarkis Lam MD [address] [place] [address] PCP - General 12/24/20 documented as of this encounter
--- OUTSIDE RECORDS SUMMARY | 2025-07-27 08:16 | XMS_ITS | Encounter Summary ---
Author Organization Healthcare Address [address] [place] [address] Care Team Providers Care Fire Boss Name Role Phone Sarkis Lam MD Primary Care Provider [phone] Encounter Details Date Type Department Care Team (Late st Contact Info) Description 06/05/2025 Orders Only [facility] [address] [place] [address] Rhea Kamara, PharmD [address] [phone] Social History Tobacco Use Types Packs/Day Years [...] usual Not at all 06/05/2025 9:34 AM Krysten Murray Thoughts that you would be b rosanna [...] infliximab. Our therapy plan was updated. Contacted [facility] to provide update. Marla confirmed with her colleague that they do not need any new orders. They will just update on their end to reflect NO Benedryl as premed or as part of the hypersensitivity protocol. documented in this encounter Plan of Treatment Upcoming Encounters Date Type Department Care Team (Late st Contact Info) Description 08/26/2025 8:30 AM EST Office Visit [facility] [address] [place] [address] Deneen Edward, DO [address] [place] [address] 09/28/2025 10:00 AM EST Office Visit [facility] [address] [place] [address] Patricia Ramsey, PA [address] [place] [address] documented as of this encounter [...] documented as of this encounter Care Teams Fire Boss Relationship Specialty Start Date End Date Sarkis Lam MD [address] [place] [address] PCP - General 12/24/20 documented as of this encounter
--- OUTSIDE RECORDS SUMMARY | 2025-07-27 08:16 | XMS_ITS | Encounter Summary ---
Author Organization Healthcare Address [address] [place] [address] Care Team Providers Care Venetian Blind Washer Name Role Phone Sarkis Lam MD Primary Care Provider [phone] Encounter Details Date Type Department Care Team [...] Description 08/26/2025 8:30 AM EST Office Visit [facility] [address] [place] [address] Deneen Edward, DO [address] [place] [address] 09/28/2025 10:00 AM EST Office Visit [facility] [address] [place] [address] Patricia Ramsey, PA [address] [place] [address] documented as of this encounter [...] documented as of this encounter Care Teams Venetian Blind Washer Relationship Specialty Start Date End Date Sarkis Lam MD [address] [place] [address] PCP - General 12/24/20 documented as of this encounter
--- OUTSIDE RECORDS SUMMARY | 2025-07-27 08:17 | XMS_ITS | Encounter Summary ---
Author Organization [facility] Address [address] [id number] Care Team Providers Care Patient Access Registrar Name Role Phone Sarkis Lam MD Primary Care Provider [phone] Reason for Visit * Reason Onset Date Comments Labs 06/30/2025 Encounter Details Date Type Department Care Team (Late st Contact Info) Description 06/30/2025 Telephone [facility] [address] [place] [address] [place] [address] Labs Social History Tobacco Use Types Packs/Day [...] if needed Patient will complete labs at [facility] today if possible Faxed lab orders to [facility] F: [phone] CB: [phone] documented in this encounter Plan of Treatment Upcoming Encounters Date Type Department Care Team (Late st Contact Info) Description 08/26/2025 8:30 AM EST Office Visit [facility] [address] [place] [address] Deneen Edward, DO [address] [place] [address] 09/28/2025 10:00 AM EST Office Visit [facility] [address] [place] [address] Patricia Ramsey, DANTE [address] [place] [address] documented as of this encounter [...] documented as of this encounter Care Teams Patient Access Registrar Relationship Specialty Start Date End Date Sarkis Lam MD [address] [place] [address] PCP - General 12/24/20 documented as of this encounter
[2025-07-27] MEDS: ACETAMINOPHEN 325MG TAB 650 MG PO (08:35)
[2025-07-27] MEDS: HYDROCORTISONE SOD SUCCINATE 100MG VIAL 200 MG IV (08:35)
[2025-07-27] MEDS: SODIUM CHLORIDE 0.9% 10ML FLUSH SYRINGE 10 ML IV (08:51)
[2025-07-27] MEDS: inFLIXimab 400 MG in 0.9 % SODIUM CHLORIDE 250 ML 83.33 MG IV (08:55)
== END 2025-07-27 23:59 | disposition home or self-care (01) ==
LOC: INF 08:10
PROVIDERS: PCP Internal Medicine Adolescent Medicine; Visit Provider Internal Medicine
DX: D86.9 Sarcoidosis, unspecified (principal)
CPT/HCPCS: 96413; 96415; J1720; J1745; J7050